=== PATIENT | female | born 1960 | race Caucasian/White ===

== ENCOUNTER 2019-11-26 06:13 | Inpatient (IN) ==
--- NOTE | 2019-11-14 13:45 | PAT Medication Instructions ---
Medication Instructions Date of Service November 14, 2019 Home Medications Dulera 2 puff INHALATION BID Probiotic 3,000 mmu cells PO BID Xarelto 20 mg PO PM acetaminophen [Acetaminophen Extra Strength] 1,000 mg PO DAILY PRN albuterol sulfate 1 puff INHALATION UD PRN aspirin [Aspir-81] 81 mg PO QAM betamethasone dipropionate 1 applic TOPICAL DAILY PRN cephalexin 500 mg PO HS cholecalciferol (vitamin D3) 2,000 unit PO BID furosemide [Lasix] 40 mg PO BID ipratropium-albuterol 3 ml INHALATION UD PRN lamotrigine [Lamictal] 200 mg PO BID levothyroxine 25 mcg PO QAM lisinopril 10 mg PO HS nitroglycerin [Nitrostat] 0.4 mg SUBLINGUAL UD PRN oxycodone 40 mg PO TID pantoprazole 40 mg PO BID polyethylene glycol 3350 [Miralax] 17 g PO HS potassium chloride [Klor-Con 8] 8 meq PO BID pravastatin 40 mg PO HS spironolactone [Aldactone] 25 mg PO BID vitamin B complex 1 tab PO HS calcium carbonate [Calcium 600] 600 mg PO DAILY ASK your prescriber and surgeon Xarelto 20 mg PO PM STOP taking 24 hours before surgery betamethasone dipropionate 1 applic TOPICAL DAILY PRN DO NOT take the morning of surgery Probiotic 3,000 mmu cells PO BID cholecalciferol (vitamin D3) 2,000 unit PO BID furosemide [Lasix] 40 mg PO BID potassium chloride [Klor-Con 8] 8 meq PO BID spironolactone [Aldactone] 25 mg PO BID calcium carbonate [Calcium 600] 600 mg PO DAILY Take morning of surgery With a small sip of water, OTHERWISE NOTHING TO EAT OR DRINK AFTER MIDNIGHT: Dulera 2 puff INHALATION BID acetaminophen [Acetaminophen Extra Strength] 1,000 mg PO DAILY PRN (if needed, may be taken up to four hours before surgery) albuterol sulfate 1 puff INHALATION UD PRN (if needed, and bring with you to the hospital) aspirin [Aspir-81] 81 mg PO QAM ipratropium-albuterol 3 ml INHALATION UD PRN (if needed) lamotrigine [Lamictal] 200 mg PO BID levothyroxine 25 mcg PO QAM nitroglycerin [Nitrostat] 0.4 mg SUBLINGUAL UD PRN (if needed) oxycodone 40 mg PO TID pantoprazole 40 mg PO BID Take evening before surgery Dulera 2 puff INHALATION BID Probiotic 3,000 mmu cells PO BID acetaminophen [Acetaminophen Extra Strength] 1,000 mg PO DAILY PRN (if needed) albuterol sulfate 1 puff INHALATION UD PRN (if needed) cephalexin 500 mg PO HS cholecalciferol (vitamin D3) 2,000 unit PO BID furosemide [Lasix] 40 mg PO BID ipratropium-albuterol 3 ml INHALATION UD PRN (if needed) lamotrigine [Lamictal] 200 mg PO BID lisinopril 10 mg PO HS nitroglycerin [Nitrostat] 0.4 mg SUBLINGUAL UD PRN (if needed) oxycodone 40 mg PO TID pantoprazole 40 mg PO BID polyethylene glycol 3350 [Miralax] 17 g PO HS potassium chloride [Klor-Con 8] 8 meq PO BID pravastatin 40 mg PO HS spironolactone [Aldactone] 25 mg PO BID vitamin B complex 1 tab PO HS Other Notes If you have any questions please call us at [phone] or [phone] or [phone] or [phone]
--- NOTE | 2019-11-15 11:17 | Anesthesiology Consultation ---
Date of Service November 15, 2019 Assessment & Plan (1) Encounter for pre-operative examination: -Patient has dry eye syndrome and h/o corneal abrasions with two previous surgeries. She is concerned about this occurring again. -Potentially difficult spinal due to h/o multiple lumbar fusions--pt made aware eyes will be taped for GA. PATIENT MEETS CRITERIA FOR KETAMINE PROTOCOL. RECOMMENDATIONS FROM PAIN CLINIC FOLLOWS: 1. Aurelia-operatively recommend Exparel injection into the adductor canal. Consider ketamine drip and Lidocaine IV. This has been relayed to PAT. 2. Post-operatively recommend the addition of OxyContin 20mg BID to her typical regimen of Oxycodone 40mg TID. 3. Recommend to post-operatively increase Gabapentin dosage to 600mg TID and initiate Cymbalta at 30mg daily. 4. Post operative medications should be for 4-6 weeks and then changed back to her baseline regimen. 5. If she does not have Narcan at home, recommend Narcan at discharge from hospital after surgery. CARDIOLOGY CLEARANCE (11/22) = "No chest pain or other anginal equivalent. Last cath 05/30/2018 showed widely patent LAD stent and mild nonocclusive CAD. Continue beta-anoop and ASA 81 mg. Patient may stop Xarelto 7 days prior to procedure. Patient is considered low risk for total knee arthroplasty and may proceed with elective surgery. PCP CLEARANCE (11/12) = "I do not see a contraindication to left knee re placement providing the cardiology clears patient and preoperative studies are normal." *All pre-op testing unremarkable except abnormal EKG, which was forwarded to PCP and addressed at cardiology clearance. Cardiology has cleared the patient for sx. Dr. Steinberg (to be assigned to case), OR, ASU, ICU and pharmacy made aware of ketamine protocol. Chart Review Chart Review: Acceptable Risk for Surgery and Patient seen in Pre Admission Testing Consults Requested none Teaching & Discussion Instructed NPO after midnight before surgery, except medications with 15 cc of water. Medication instructions provided according to the PAT guidelines. ASA ASA3 Proposed Anesthesia Anesthesia Type: MAC Spinal Regional Regional Laterality: Left Site: Adductor Canal Risk / Benefits Reviewed With: PT / POA / Parent / Guardian, Accepts Plan and Informed Consent Obtained History Surgery Operation Date: 11/26/19 09:10 Proposed Procedures p Left Total Knee Arthroplasty, Right Knee Injection - Shar Huffman, DO Height/Weight Height: 5 ft 3.5 in Weight: 83.1 kg Allergies Allergy/AdvReac Type Severity Reaction Status Date / Time hydroxychloroquine Allergy Unknown HIVES SOB Verified 11/26/19 06:53 Iodinated Contrast Media Allergy Unknown SEE NOTES Verified 11/26/19 06:53 BELOW Sulfa (Sulfonamide Allergy Unknown HIVES SOB Verified 11/26/19 06:53 Antibiotics) Medications Home Medications Medication Instructions Recorded Confirmed Last Taken Dulera 2 puff INHALATION BID 09/14/18 11/26/19 11/25/19 20:00 Probiotic 3,000 mmu cells PO BID 09/14/18 11/26/19 11/25/19 20:00 Xarelto 20 mg PO PM 09/14/18 11/26/19 11/21/19 acetaminophen [Acetaminophen Extra 1,000 mg PO DAILY PRN 09/14/18 11/26/19 11/18/19 Strength] albuterol sulfate 1 puff INHALATION UD PRN 09/14/18 11/09/19 09/22/18 07:30 aspirin [Aspir-81] 81 mg PO QAM 09/14/18 11/09/19 11/26/19 03:00 betamethasone dipropionate 1 applic TOPICAL DAILY PRN 09/14/18 11/26/19 11/24/19 20:00 cephalexin 500 mg PO HS 09/14/18 11/26/19 11/25/19 20:00 cholecalciferol (vitamin D3) 2,000 unit PO BID 09/14/18 11/26/19 11/25/19 20:00 [Vitamin D3] furosemide [Lasix] 40 mg PO BID 09/14/18 11/26/19 11/25/19 20:00 ipratropium-albuterol 3 ml INHALATION UD PRN 09/14/18 11/09/19 Unknown lamotrigine [Lamictal] 200 mg PO BID 09/14/18 11/26/19 11/26/19 03:00 levothyroxine 25 mcg PO QAM 09/14/18 11/09/19 11/26/19 03:00 lisinopril 10 mg PO HS 09/14/18 11/26/19 11/25/19 20:00 nitroglycerin [Nitrostat] 0.4 mg SUBLINGUAL UD PRN 09/14/18 11/09/19 Unknown oxycodone 40 mg PO TID 09/14/18 11/26/19 11/26/19 03:00 pantoprazole 40 mg PO BID 09/14/18 11/26/19 11/26/19 03:00 polyethylene glycol 3350 [Miralax] 17 g PO HS 09/14/18 11/26/19 11/25/19 20:00 potassium chloride [Klor-Con 8] 8 meq PO BID 09/14/18 11/26/19 11/25/19 20:00 pravastatin 40 mg PO HS 09/14/18 11/26/19 11/25/19 20:00 spironolactone [Aldactone] 25 mg PO BID 09/14/18 11/26/19 11/25/19 20:00 vitamin B complex 1 tab PO HS 09/14/18 11/26/19 11/25/19 20:00 calcium carbonate [Calcium 600] 600 mg PO DAILY 11/08/19 11/26/19 11/25/19 20:00 Active Medications Generic Name Dose Route Start Last Admin Trade Name Quocq PRN Reason Stop Dose Admin Acetaminophen 1,000 mg 11/26/19 06:00 11/26/19 07:51 Tylenol PO 11/26/19 18:00 1,000 mg PREOP AIDEE Administration Dexamethasone 8 mg 11/26/19 06:00 11/26/19 07:52 Decadron PO 11/26/19 18:00 8 mg PREOP AIDEE Administration Gabapentin 600 mg 11/26/19 06:00 11/26/19 07:51 Neurontin PO 11/26/19 18:00 600 mg PREOP AIDEE Administration Lactated Ringer's 1,000 mls @ 15 mls/hr 11/26/19 06:00 11/26/19 07:12 Lr IV 11/26/19 18:00 15 mls/hr .Q24H AIDEE Administration Metoclopramide HCl 10 mg 11/26/19 06:00 11/26/19 07:51 Reglan PO 11/26/19 18:00 10 mg PREOP AIDEE Administration NPO Date Last Intake of Fluids: 11/26/19 Time Last Intake of Fluids: 00:00 Date Last Intake of Solids: 11/26/19 Time Last Intake of Solids: 00:00 Past Medical History Medical History CAD (coronary artery disease), [place] coronary artery s/p single RADHA 2004 Chronic back pain COPD (chronic obstructive pulmonary disease) Daily inhaler, only using prn rescue inhaler once monthly or less Deep vein thrombosis RECURRENT. TAKES XARELTO. LAST 2015 -- H/O PELVIS, LEFT ARM, & LEFT LEG NONE CURRENT GERD (gastroesophageal reflux disease) GI bleed HX OF FROM GASTRIC ULCER. HAD 2 BLOOD TRANFUSIONS 04/2018, EGD 06/06 --> HEMOCLIP PLACED, PT STARTED PPI THERAPY. H/H NOW WNL. Hiatal hernia History of NM (myocardial infarction) "SILENT" PER PATIENT History of MTHFR mutation ON XARELTO History of pulmonary embolism 2015, NOW ON XARELTO HTN (hypertension), benign Hyperlipidemia Hypothyroidism Intermittent self-catheterization of bladder R/T NEUROGENIC BLADDER Migraine LAMICTAL Neurogenic bladder Neurogenic claudication due to lumbar spinal stenosis On anticoagulant therapy KIAH on CPAP Osteoarthritis Peptic ulcer disease EGD WITH HEMOCLIP 06/06/18 Urinary tract infection DAILY ABX FOR PREVENTATIVE CARE Exercise / Class Metabolic Activity III < 4 Walking/Shop/Light housework (LIMITED MOBILITY 2/2 KNEE PAIN; DENIES CP OR SOB WITH AMBULATION ON ONE LEVEL) Past Family History Family History Mother Family history of diabetes mellitus Father Family history of diabetes mellitus Brother Family history of diabetes mellitus Sister Family history of diabetes mellitus Past Surgical History Surgical History Fusion of spine L4-L5, S1-S2 (2007) L3-L4 (2013) L2-L3, HARDWARE REMOVAL L3-L4 (2017) H/O bilateral salpingo-oophorectomy H/O exploratory laparotomy FOR ENDOMETRIOSIS History of appendectomy History of cardiac cath JHONY VALERO (MAY 30, 2018) - NO STENT 05/2016 CATH, NO STENT [facility] (JAN 02, 2005) - 1 STENT TO LAD. History of section History of cholecystectomy LAP History of colonoscopy History of cystoscopy History of esophagogastroduodenoscopy (EGD) History of hysterectomy JOE History of laminectomy LUMBAR (2000) History of tonsillectomy Past Anesthesia History No Hx of Anesthesia Complications and No Family Hx of Anesthesia Complications H/O CORNEAL ABRASION INTRA-OP WITH TWO SEPARATE SURGERIES. 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 Physical Exam Vital Signs Last Vital Signs Temp 99.3 F 11/26/19 07:16 Pulse 71 11/26/19 07:16 Resp 20 11/26/19 07:16 BP 121/65 11/26/19 07:16 Pulse Ox 91 11/26/19 07:16 BP: 110/72 P: 60bpm SPO2: 96% RA T: 96% RA R: 12 ENMT Mouth: no dental restorations, no chipped teeth and no loose teeth Thyromental Distance: < 3.5 Finger Breadths (3) Mallampati Class: III Neck normal visual inspection; neck extension not limited Respiratory normal respiratory effort Auscultation: lungs clear to auscultation bilaterally Cardiovascular Rate/Rhythm: regular rate and regular rhythm Heart Sounds: no murmur Vessels: no carotid bruit Extremities: no edema Testing Laboratory Results 11/15/19 11:38 11/15/19 11:38 PT 11.4 Seconds (9.0-12.0) 11/15/19 11:38 INR 1.1 (0.9-1.1) 11/15/19 11:38 APTT 30.6 Seconds (21.0-31.0) 11/15/19 11:38 Hemoglobin A1c 5.7 % (4.5-5.6) H 11/15/19 11:38 Urine Color Yellow 11/15/19 11:38 Urine Appearance Clear (Clear) 11/15/19 11:38 Urine pH 7.5 (4.5-7.5) 11/15/19 11:38 Ur Specific [place] 1.018 (1.000-1.030) 11/15/19 11:38 Urine Protein Negative (Negative) 11/15/19 11:38 Urine Glucose (UA) Negative (Negative) 11/15/19 11:38 Urine Ketones Negative (Negative) 11/15/19 11:38 Urine Nitrite Negative (Negative) 11/15/19 11:38 Ur Leukocyte Esterase Negative (Negative) 11/15/19 11:38 Urine WBC (Auto) 1-5 /hpf (0-5) 11/15/19 11:38 Urine RBC (Auto) 5-10 /hpf (0-4) H 11/15/19 11:38 U Hyaline Cast (Auto) 0 /lpf (0-5) 11/15/19 11:38 U Epithel Cells (Auto) 10-20 /lpf (0-5) H 11/15/19 11:38 Urine Bacteria (Auto) Negative (Negative) 11/15/19 11:38 Blood Type O Positive 11/15/19 11:38 Antibody Screen NEGATIVE 11/15/19 11:38 Electrocardiogram Date: 11/15/19 Findings: + SB @ (54BPM) ST and T wave abnormality, consider anterolateral ischemia. Compared with EKG of -, questionable change in QRS axis and inverted T waves have replaced nonspecific T wave abnormality in anterolateral leads. Chest X-Ray Date: 11/15/19 Findings: + NAD Hiatal hernia.
--- NOTE | 2019-11-15 12:20 | XRay Report ---
XR chest Pre-admission PA/Lat HISTORY: 59 years-old Female pat preoperative exam. No acute chest complaints COMPARISON: Chest radiograph 06/01/2013 TECHNIQUE: PA and lateral views of the chest FINDINGS: Cardiac silhouette is mildly enlarged. No pneumothorax, pleural effusion or overt pulmonary edema. No focal airspace consolidation to suggest pneumonia. Moderate hiatal hernia. Cholecystectomy. IMPRESSION: 1. No acute process. 2. Hiatal hernia. ACT 112: Negative or not required by law. The above report was generated using voice recognition software. It may contain grammatical, syntax o r spelling errors. Electronically signed by: Ravin Mi M.D. 11/15/2019 12:18 PM
[2019-11-15 12:26] LABS: Basophils # (auto) 0.03 K/uL (0-0.2); Basophils % (auto) 0.4 %; Eosinophils # (auto) 0.09 K/uL (0-0.5); Eosinophils % (auto) 1.3 %; Hematocrit (blood only) 41.1 % (37-47); Hemoglobin 13.2 g/dL (12.0-16.0); Lymphocytes # (auto) 1.49 K/uL (1.2-3.4); Lymphocytes % (auto) 21.4 %; Mean Corpuscular Hemoglobin 29.9 pg (25-34); Mean Corpuscular Hgb Conc 32.1 g/dL (32-36); Mean Platelet Volume 9.1 fL (7.4-10.4); Monocytes # (auto) 0.34 K/uL (0.11-0.59); Monocytes % (auto) 4.9 %; Neutrophils # (auto) 5.01 K/uL (1.4-6.5); Platelet Count 253 K/uL (130-400); RDW Coefficient of Variation 14.1 % (11.5-14.5); RDW Standard Deviation 48.1 fL (36.4-46.3); Red Blood Count 4.42 M/uL (4.2-5.4); White Blood Count 6.96 K/uL (4.8-10.8)
[2019-11-15 12:37] LABS: Albumin Level 3.7 gm/dl (3.4-5.0); BUN Creatinine Ratio 17.7 (10-20); Calcium 8.9 mg/dl (8.5-10.1); Creatinine Clr Calc Pharmacy 66.3 ml/min; Est GFR (African American) 77.9; Est GFR (Non-African American) 67.2; Potassium 4.3 mmol/L (3.5-5.1)
[2019-11-15 12:41] LABS: INR 1.1 (0.9-1.1); Partial Thromboplastin Ratio 1.1; Partial Thromboplastin Time 30.6 Seconds (21.0-31.0); Prothrombin Time 11.4 Seconds (9.0-12.0)
[2019-11-15 12:49] LABS: Estimated Average Glucose 117 mg/dl; Hemoglobin A1C 5.7 % (4.5-5.6)
[2019-11-15 13:06] LABS: Appearance Urine Clear (Clear); Bacteria Urine Automated Negative (Negative); Bilirubin Urine Negative (Negative); Blood Urine Trace (Negative); Cast Urine Automated 0 /lpf (0-5); Color Urine Yellow; Glucose Urine UA Negative (Negative); Ketones Urine Negative (Negative); Leukocyte Esterase Urine Negative (Negative); Nitrite Urine Negative (Negative); Protein Urine Negative (Negative); Specific Gravity Urine 1.018 (1.000-1.030); Urobilinogen Urine Negative (Negative); pH Urine 7.5 (4.5-7.5)
--- NOTE | 2019-11-25 11:48 | History & Physical Report ---
Date of Service November 25, 2019 Assessment & Plan (1) Degenerative joint disease of left knee: I have indicated the patient for left total knee replacement and right knee IA corticosteroid injection. The risks, benefits and complications of surgery were explained to the patient which include but not limited to infection, acute blood loss, DVT/PE, injury to nerves, vessels, bone, soft tissue, arthrofibrosis, chronic pain, failure of the prosthesis, knee dislocation, leg length discrepancy, need for additional surgery, cardiac and pulmonary events and . The patient wished to proceed with surgery and informed consent was obtained at this time. We will plan for restarting the p atients blood thinner, Xarelto post-operatively for DVT prophylaxis. Hx DVT 2015. Upon discharge the patient will be discharged home with home health services. Appropriate clearances by pain mgnt, PCP and cardiology were obtained. (2) Degenerative joint disease of knee, right: History of Present Illness Chief Complaint: Bilateral knee pain/djd Primary Care Provider: Angel Luis Patel MD The patient is a 59 year old female who presents with complaints of severe bilateral knee pain and DJD. The patient has failed outpatient conservative treatments to this point which included NSAIDs, IA corticosteroid injections, bracing, PT/home exercise/walking program. The patient's pain and limited function have progressed to the point where they severely hinder their activities of daily living and they no longer tolerate exercise programs. They are requesting to proceed with left total knee replacement surgery and right knee corticosteroid injection. Allergies Allergy/AdvReac Type Severity Reaction Status Date / Time hydroxychloroquine Allergy Unknown HIVES SOB Verified 11/26/19 06:53 Iodinated Contrast Media Allergy Unknown SEE NOTES Verified 11/26/19 06:53 BELOW Sulfa (Sulfonamide Allergy Unknown HIVES SOB Verified 11/26/19 06:53 Antibiotics) Home Medications Home Medications Medication Instructions Recorded Confirmed Type Dulera 2 puff INHALATION BID 09/14/18 11/09/19 History Probiotic 3,000 mmu cells PO BID 09/14/18 11/09/19 History Xarelto 20 mg PO PM 09/14/18 11/09/19 History acetaminophen [Acetaminophen Extra 1,000 mg PO DAILY PRN 09/14/18 11/09/19 History Strength] albuterol sulfate 1 puff INHALATION UD PRN 09/14/18 11/09/19 History aspirin [Aspir-81] 81 mg PO QAM 09/14/18 11/09/19 History betamethasone dipropionate 1 applic TOPICAL DAILY PRN 09/14/18 11/09/19 History cephalexin 500 mg PO HS 09/14/18 11/09/19 History cholecalciferol (vitamin D3) 2,000 unit PO BID 09/14/18 11/09/19 History [Vitamin D3] furosemide [Lasix] 40 mg PO BID 09/14/18 11/09/19 History ipratropium-albuterol 3 ml INHALATION UD PRN 09/14/18 11/09/19 History lamotrigine [Lamictal] 200 mg PO BID 09/14/18 11/09/19 History levothyroxine 25 mcg PO QAM 09/14/18 11/09/19 History lisinopril 10 mg PO HS 09/14/18 11/09/19 History nitroglycerin [Nitrostat] 0.4 mg SUBLINGUAL UD PRN 09/14/18 11/09/19 History oxycodone 40 mg PO TID 09/14/18 11/09/19 History pantoprazole 40 mg PO BID 09/14/18 11/09/19 History polyethylene glycol 3350 [Miralax] 17 g PO HS 09/14/18 11/09/19 History potassium chloride [Klor-Con 8] 8 meq PO BID 09/14/18 11/09/19 History pravastatin 40 mg PO HS 09/14/18 11/09/19 History spironolactone [Aldactone] 25 mg PO BID 09/14/18 11/09/19 History vitamin B complex 1 tab PO HS 09/14/18 11/09/19 History calcium carbonate [Calcium 600] 600 mg PO DAILY 11/08/19 11/09/19 History Past Med/Surg History Medical History CAD (coronary artery disease), [place] coronary artery s/p single RADHA 2004 Chronic back pain COPD (chronic obstructive pulmonary disease) Daily inhaler, only using prn rescue inhaler once monthly or less Deep vein thrombosis RECURRENT. TAKES XARELTO. LAST 2015 -- H/O PELVIS, LEFT ARM, & LEFT LEG NONE CURRENT GERD (gastroesophageal reflux disease) GI bleed HX OF FROM GASTRIC ULCER. HAD 2 BLOOD TRANFUSIONS 04/2018, EGD 06/06 --> HEMOCLIP PLACED, PT STARTED PPI THERAPY. H/H NOW WNL. Hiatal hernia History of MD (myocardial infarction) "SILENT" PER PATIENT History of MTHFR mutation ON XARELTO History of pulmonary embolism 2015, NOW ON XARELTO HTN (hypertension), benign Hyperlipidemia Hypothyroidism Intermittent self-catheterization of bladder R/T NEUROGENIC BLADDER Migraine LAMICTAL Neurogenic bladder Neurogenic claudication due to lumbar spinal stenosis On anticoagulant therapy KIAH on CPAP Osteoarthritis Peptic ulcer disease EGD WITH HEMOCLIP 06/06/18 Urinary tract infection DAILY ABX FOR PREVENTATIVE CARE Surgical History Fusion of spine L4-L5, S1-S2 (2007) L3-L4 (2013) L2-L3, HARDWARE REMOVAL L3-L4 (2017) H/O bilateral salpingo-oophorectomy H/O exploratory laparotomy FOR ENDOMETRIOSIS History of appendectomy History of cardiac cath JHONY VALERO (MAY 30, 2018) - NO STENT 05/2016 CATH, NO STENT [facility] (JAN 02, 2005) - 1 STENT TO LAD. History of section History of cholecystectomy LAP History of colonoscopy History of cystoscopy History of esophagogastroduodenoscopy (EGD) History of hysterectomy JOE History of laminectomy LUMBAR (2000) History of tonsillectomy Family History Mother Family history of diabetes mellitus Father Family history of diabetes mellitus Brother Family history of diabetes mellitus Sister Family history of diabetes mellitus Social History Preferred Language: [place]ian Communication Ability: Effective Home Health Care Coordinator Required: No Beliefs That Will Affect Care: None Current Living Situation: Spouse Other Information That Helps Us Care for You: No Feels Safe at Home: Yes Smoking Status: Former smoker Tobacco Type: cigarettes ; Cigarettes Per Day: H/O 10-20 ; Do You Dip or Chew Tobacco: No ; Smoking End Date: SEP 21 2018 ; Second Hand Exposure: No ; Hx Alcohol Use: No Hx Substance Use: Yes substance use type: prescription drug Substance Use Type Other:: PREVIOUSLY ON METHADONE Review of Systems Review of Systems: All systems reviewed & are unremarkable except as noted in HPI & below Constitutional: as per Subjective / HPI Physical Exam Physical Exam: RLE NVSI +EHL/FHL/TA/GS SILT grossly, +2 DP pulse, compartments soft NT, painful limited ROM 5-110 degrees flexion, +crepitus. LLE NVSI +EHL/FHL/TA/GS SILT grossly, +2 DP pulse, compartments soft NT, painful limited ROM 5-110 degrees of flexion Constitutional: WD/WN, vitals as above Eyes: PERRL, conjunctivae normal, anicteric sclerae ENMT: external ear and nose normal, oropharynx normal Neck: trachea midline, no thyromegaly Respiratory: normal respiratory effort, lungs clear to auscultation Cardiovascular: RRR, no murmur, no edema Gastrointestinal (Abdomen): normal bowel sounds, soft, nontender, no hepatosplenomegaly Musculoskeletal: no cyanosis or clubbing, extremities motor strength 5/5 Skin: no rashes, warm and dry Neurologic: patellar DTR's 2+ bilat, sensation intact Psychiatric: A+Ox3, euthymic affect Lymphatic: no cervical or axillary lymphadenopathy Results & Data Diagnostic Findings Multiple views of bilateral knees demonstrates severe tricompartmental DJD of the left knee with complete loss of the medial joint space. +osteophytes, +sclerosis, +subchondral cysts. Near complete loss of the medial joint space on the right knee with osteophytes and sclerosis.
[~2019-11-26 06:13] MED LIST: ACETAMINOPHEN 500 MG TAB PO SCH; CEFAZOLIN 2000MG 2,000 MG/15 ML SYR IV SCH; CeleBREX 200 MG CAP PO SCH; GABAPENTIN 600 MG DOSE PO SCH; KETAMINE / NSS 500 MG/500 ML BAG IV SCH; LR 500ML BOLUS, THEN 15ML/HR IV SCH; METOCLOPRAMIDE HCL 10 MG TABLET PO SCH; ROPIVACAINE 0.5% HCL/PF 150 MG, BUPIVACAINE 0.5% MPF 30 ML, EPINEPHrine 30MG/30ML (OR U... INSTIL SCH; TRANEXAMIC ACID 1,000 MG **IV Intra-op IV SCH; TRANEXAMIC ACID 1,000 MG **IV Pre-op IV SCH; dexAMETHasone 4 MG TAB PO SCH
--- OUTSIDE RECORDS SUMMARY | 2019-11-26 06:18 | External Medical Summary | Continuity of Care Document ---
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) DVT (deep venous thrombosis) (453.40) (I82.409) Shortness of breath (786.05) (R06.02) Mass of pancreas (577.8) (K86.89) GERD without esophagitis (530.81) (K21.9) Cath Stent Placement Chest pain (786.50) (R07.9) Hiatal hernia (553.3) (K44.9) Hypertension (401.9) (I10) Lower back pain (724.2) (M54.5) Cough (786.2) (R05) Allergic rhinitis (477.9) (J30.9) Post-nasal drip (784.91) (R09.82) Chronic pain syndrome (338.4) (G89.4) Ankle fracture, right (824.8) (S82.891A) Hypercholesterolemia (272.0) (E78.00) Edema (782.3) (R60.9) Allergies and Adverse Reactions Hydroxychloroquine Sulfate TABS (Allergy) Iodine SOLN (Allergy) Plaquenil TABS (Allergy) Sulfa Drugs (Allergy) Medications Iron TABS , M.D. Refills: 0 LaMICtal TABS; 100 mg Take 1 tab in the morning and 2 tabs night. , M.D. Refills: 0 Vitamin D3 50 MCG (2000 UT) Oral Capsule; TAKE 2 CAPSULE Leatha ly , M.D. Refills: 0 Aspirin 81 MG TABS; TAKE 1 TABLET DAILY. , M.D. Refills: 0 Vitamin B Complex TABS , M.D. Refills: 0 Lisinopril 10 MG Oral Tablet; TAKE 1 TABLET DAILY DIRECTE D. , M.D. Start: 31-Jan-2017 Quantity: 30 Refills: 5 Synthroid 25 MCG Oral Tablet; TAKE 1 TABLET DAILY DIRECTE D. , M.D. Start: 31-Jan-2017 Quantity: 90 Refills: 1 Xarelto 15 MG Oral Tablet; Take 1 tablet daily , M.D. Start: 31-Jan-2017 Refills: 0 Methadone HCl TABS; TAKE 12.5MG 3 TIMES DAILY , M.D. Start: 16-Dec-2014 Refills: 0 Doxycycline Hyclate 100 MG Oral Capsule; TAKE 1 CAPSUL E EVERY 12 HOURS DAILY. LEE Parks Start: 08-Jun-2013 Quantity: 20 Refills: 0 Dulera 200-5 MCG/ACT Inhalation Aerosol; INHALE 1 PUFF S Twice daily TYRA Curtis 13 GM Inhaler Quantity: 4 Refills: 0 Acetaminophen 500 MG CAPS , M.D. Refills: 0 Probiotic Oral Capsule , M.D. Refills: 0 Saline Nasal [place] 0.65 % Nasal Solution ; USE 1 SPRAY IN EACH NOSTRIL TWICE DAILY. , M.D. Start: 28-Apr-2018 Refills: 0 30 ML Bottle Pantoprazole Sodium 40 MG Oral Tablet De layed Release; TAKE 1 TABLET TWICE DAILY 30 MINUTES BEFORE BREAKFAST AND DINNER. LEE Parks Start: 2013 Refills: 0 oxyCODONE HCl TABS; TAKE 40MG 3 TIMES DAILY , M.D. Refills: 0 Klor-Con 8 MEQ Oral Tablet Extended Release; TAKE 2 TABLET D Birgit bowmanD. Refills: 0 Polyethylene Glycol 3350 PACK , M.D. Refills: 0 Nitrostat 0.4 MG Sublingual Tablet Subli ngual; PLACE 1 TABLET UNDER THE TONGUE EVERY 5 MINUTES FOR UP TO 3 DOSES NEEDED FOR CHEST PAIN.CALL 911 IF PAIN PERSISTS. LEE Parks Quantity: 75 Refills: 3 DuoNeb 0.5-2.5 (3) MG/3ML SOLN; USE 1 UN IT DOSE IN NEBULIZER EVERY 4 HOURS NEEDED. , M.D. Quantity: 125 Refills: 5 Calcium TABS; 400 mg in morning and 600 mg at night. , M.D. Refills: 0 Ventolin HFA 108 (90 Base) MCG/ACT Inhal ation Aerosol Solution; INHALE 2 PUFFS EVERY 4 HOURS NEEDED LEE Parks 18 GM Inhaler Quantity: 1 Refills: 1 predniSONE 10 MG Oral Tablet; Take 4 pil ls daily for 2 days, then 3 pills daily for 2 days, then 2 pills daily for 2 days, then 1 pill daily for 2 days. LEE Parks Start: 24-May-2013 Quantity: 20 Refills: 0 Spironolactone 50 MG Oral Tablet; TAKE 1 TABLET DAILY. , M.D . Refills: 0 Pravastatin Sodium 40 MG Oral Tablet; TAKE 1 TABLET DAILY. , M.D. Refills: 0 Procedures History of Cath Stent Placement Status: Completed History of Tonsillectomy Status: Complet ed History of Appendectomy Status: Complete d History of Cholecystectomy Status: Compl eted History of Section Status: Comp leted History of Hysterectomy Status: Complete d History of Oophorectomy Status: Complete d History of Back Surgery Status: Complete d History of Bronchoscopy (Diagnostic) Sta tus: Completed Cath Stent Placement History of Knee Arthroplasty Status: Com pleted Immunizations Pneumococcal polysaccharide vaccine, 23 valent On: 16-Jun-20 12 Tdap On: 17-Jul-2012 Influenza On: Jul-2012 Influenza On: 15-Oct-2013 14:40 Lot #: [id number], [employer] Influenza On: 2013 Family History Mother Family history of Heart Disease (V17.49) Status: Active Family history of Diabetes Mellitus (V18.0) Status: Active Father Family history of Heart Disease (V17.49) Status: Active Family history of Diabetes Mellitus (V18.0) Status: Active Unknown Family Member Family history of Heart Disease (V17.49) Status: Active Comments: Family History Family history of Diabetes Mellitus (V18.0) Status: Active Comments: Family History Family history of Lung Cancer (V16.1) Status: Active Co mments: Family History Family history of Non-Hodgkin's Lymphoma Status: Active Comments: Family History Brother Family history of Lung Cancer (V16.1) Status: Active Family history of Non-Hodgkin's Lymphoma Status: Active Family history of myocardial infarction (V17.3) (Z82.49) Sta tus: Active Social History - Smoking Status Unknown if ever smoked Current every day smoker Interventions SuppliesBiPAP/Supplies; Done: 13 Apr 2019 Plan of Treatment Planned Observations Planned Goals not documented Results No Known Results Results not documented Encounters Appointment; Mariely Curtis CRNP 16-Oct-2018 9:15 Encounter Diagnosis: Problem not documented Appointment; Franco Parks PA-C 17-Apr-2018 9:00 Encounter Diagnosis: Problem not documented
[2019-11-26] MEDS ORDERED: BUPIVACAINE 0.5 % 5 MG/1 ML PF 10ML VIAL ONE (06:33)
--- NOTE | 2019-11-26 06:52 | History & Physical Bridge Note ---
Date of Service November 26, 2019 History & Physical Bridge Note I have examined the patient, reviewed the History & Physical and in the interval since the performance of the History & Physical I have noted the following changes of clinical significance: no changes noted
[2019-11-26] MEDS ORDERED: BACITRACIN INJ 50,000 UNIT VIAL ONE (07:52)
[2019-11-26] MEDS ORDERED: ORTHO JOINT ANESTHETIC ONE (07:52)
[2019-11-26] MEDS ORDERED: MIDAZOLAM HCL 1 MG/ML 2ML VIAL ONE (07:54)
[2019-11-26] MEDS ORDERED: BUPIVACAINE 0.5 % 5 MG/1 ML MPF 30ML VIAL ONE (08:12)
[2019-11-26] MEDS ORDERED: methylPREDNISolone acetate 80 MG/ML VIAL ONE (08:13)
[2019-11-26] MEDS ORDERED: fentaNYL citrate 100 MCG/2 ML VIAL ONE (08:22)
[2019-11-26] MEDS ORDERED: fentaNYL citrate 100 MCG/2 ML VIAL IV PRN (08:24)
[2019-11-26] MEDS ORDERED: ATROPINE SULFATE 0.1 MG/ML 10ML SYR IV PRN (08:24)
[2019-11-26] MEDS ORDERED: ePHEDrine sulfate 50 MG/ML AMP IV PRN (08:24)
[2019-11-26] MEDS ORDERED: ONDANSETRON INJ 2 MG/ML 2 ML VIAL IV PRN ×2 (08:24→13:44)
[2019-11-26] MEDS ORDERED: SCOPOLAMINE 1.5 MG TDSY ONE (09:03)
[2019-11-26] MEDS ORDERED: PROPOFOL IV EMULSION 10 MG/ML 20 ML VIAL IV ONE (10:13)
[2019-11-26] MEDS ORDERED: ONDANSETRON INJ 2 MG/ML 2 ML VIAL ONE (10:13)
[2019-11-26] MEDS ORDERED: LIDOCAINE HCL 2% 2 ML VIAL/AMP(20MG/ML) INFIL ONE (10:13)
[2019-11-26] MEDS ORDERED: DEXAMETHASONE SOD INJ 4 MG/ML VIAL ONE (10:13)
[2019-11-26] MEDS ORDERED: ePHEDrine sulfate 50 MG/ML SYR ONE (10:14)
--- NOTE | 2019-11-26 11:16 | Post Operative Brief Note ---
Immediate Post Op Note v1 Date of Surgery November 26, 2019 Pre & Post Diagnosis Operation Date: 11/26/19 09:10 Pre-Op Diagnosis: Bilateral Knee Osteoarthritis Post-Op Diagnosis: Bilateral Knee Osteoarthritis I identified the patient and participated in the time-out.: Yes Procedure Operation Date: 11/26/19 09:10 Actual Procedures p Left Total Knee Arthroplasty, Right Knee Injection(Bilateral) - Shar Huffman DO Surgeon Shar Huffman DO Bench Worker Apprentice Librado Padilla Estimated Blood Loss 65 Findings Consistent with Post-Op Diagnosis Fluids 1100 cc LR Specimens Proximal tibia and distal femur bone fragment Drains Hemovac Drain (Dual Trocar) Anesthesia Type Spinal MAC Complications none Disposition Disposition: Recovery Room Overlapping Procedure I was present for: the critical portions of procedure. I was immediately available: during the entire case. Back up surgeon: was not required during procedure.
--- NOTE | 2019-11-26 11:37 | Operative Report ---
Post Operative Report Pre & Post Diagnosis Operation Date: 11/26/19 09:10 Pre-Op Diagnosis: Bilateral Knee Osteoarthritis Post-Op Diagnosis: Bilateral Knee Osteoarthritis I identified the patient and participated in the time-out.: Yes Procedure Operation Date: 11/26/19 09:10 Actual Procedures p Left Total Knee Arthroplasty, Right Knee Injection(Bilateral) - Shar Huffman DO Surgeon Shar Huffman, Social Media Job Titles Librado Padilla Estimated Blood Loss 65 Findings Consistent with Post-Op Diagnosis Specimens Proximal tibia and distal femur bone fragments Anesthesia Type Spinal MAC Complications none Disposition Disposition: Recovery Room Indications The patient is a 59-year-old female presents with long history of severe bilateral knee tricompartmental DJD and failed outpatient conservative treatments including NSAIDs, bracing, injections and home walking/exercise program. The patient's symptoms have progressed to the point where it has been difficult to perform normal activities of daily living. I have indicated the patient for a right knee intra-articular corticosteroid injection, left total knee arthroplasty, the risks and benefits and complications of the procedure include but are not limited to infection bleeding damage to bone, nerves, vessels, surrounding soft tissue, blood clots, loss of function, leg length discrepancy, dislocation, failure of the components, need for additional surgery and . The patient wished to proceed with surgery at this time and informed consent was obtained. Appropriate clearances were obtained. Description of Procedure COMPONENTS USED: Nathan persona knee system: Femur size 7 narrow, Tibia size E, tibial articulating surface 10 PS, Patella 32 mm Following induction of spinal anesthesia, the patient was brought to the operating room and transferred to the OR table. A time out was performed and the patient right knee was identified and site vicente verified. The right knee was prepped in the standard sterile fashion utilizing Betadine and alcohol swabs. Next, a intra-articular corticosteroid injection was provided through the anterior lateral knee with a mixture of 2cc Methylprednisolone Acetate 80mg and 3cc .5% Bupivacaine. Adhesive bandage was applied. Next, a tourniquet was applied to the proximal aspect of the left thigh and the patient's left leg was prepped and draped in the usual sterile manner. A second timeout was performed, patient identified and site vicente confirmed. Appropriate pre-operative IV antibiotics were given. The limb was exsanguinated with an Esmarch bandage and tourniquet was inflated to 300 mmHg. A longitudinal midline incision was made over the anterior knee. Subcutaneous tissue was sharply dissected down to fascia. Electrocautery was used for hemostasis. Next a parapatellar arthrotomy was performed. Patella was everted and the knee was flexed. A Leyva retractor was used to expose the synovium above on the anterior aspect of the femur and removed down to bone. Next, the anterior fat pad was removed to aid in visualization. The medial face of the tibia was cleared of soft tissue first with a Bovie and a lloyd elevator. This tissue was retracted posteriorly using a blunt Hohmann. Next, the extra-medullary tibial cutting guide was placed to the anterior aspect of the tibia. The tibia resection level was set taking 2mm from the defective tibial condyle. Resection depth was once again confirmed with bella wing. The medial and lateral collateral ligament was protected with two Hohmann retractors. The tibia guide was removed and proximal tibial bone fragment removed utilizing straight osteotome, electrocautery and Jeovany. Next, the distal femur intramedullary canal was accessed utilizing the step drill. The intramedullary distal femur cutting guide was placed into the canal and pinned into place. The distal femur was cut on the 5 degree +4 setting. Next the cutting guide was removed and the femur was sized. Care was taken to ensure appropriate methods and procedures analyst all rotation and 3 degree holes were drilled. A size 7 4-in-1 cutting block was placed on the distal end of the femur and secured into place with two short headed screws. Two bent Hohmann retractors were placed to protect the medial and lateral collateral ligaments. The oscillating saw was used to cut anterior, posterior, anterior chamfer and posterior chamfer. The four and one cutting block was removed and bone fragments excised. Laminar process artist was placed laterally and the ACL and PCL were removed followed by the medial meniscus and posterior medial osteophytes. Aquamantys was utilized for any posterior medial bleeders and Orthomix injected into the posterior medial capsule. A laminar process artist was then placed in the medial compartment and the lateral meniscus and posterior osteophytes were removed. Aquamantys was utilized for any posterior lateral bleeders and Orthomix injected into the posterior lateral capsule. Next, drop debo and spacer block were placed with the leg in flexion and extension to assess alignment and flexion/extension gaps. Next, the proximal tibia was assessed and two bent Hohmans were placed medial and lateral to aid in visualization. The appropriate tibia size and rotation was selected and a size E tibial plate was pinned into place with appropriate rotation. Preparation of the tibia was completed utilizing the matching tibial drill and broach. I then turned my attention back to the distal femur in a trial femoral component was impacted into place. Appropriate femoral width was assessed and selected. Next the femur PS box cut guide was placed and cut made with the reciprocal saw and the PS box provisional placed. A trial size 10 PS tibia articular tray was placed and varus-valgus balance assessed in 0 degrees of extension and 30, 60 and 90 degrees of flexion. A final tibial articular surface size 10 PS was chosen. Assess was gained to the patella and caliper utilized to measure width. The patella reamer was utilized and remaining bone removed with oscillating saw. A size 32 patella button was selected and the patella pegs drilled. Trial patella button was placed and tracking was assessed. The knee was found to be well balanced, well aligned with excellent patella tracking. The trials were removed and final components were obtained and assembled. The knee was irrigated copiously with sterile saline solution mixed with bacitracin. Access to the proximal tibia was once again obtained utilizing to the Hohmans and the proximal tibia and distal femur were dried with lap sponges. The final components were cemented into place and all excess cement was removed. A trial tibial articular surface was placed while cemented hardened. Knee stability was once again assessed and the final component inserted. A Betadine soak was performed. After 3 minutes, the hip was once more irrigated with copious sterile saline solution with bacitracin. The knee was injected with the remaining Orthomix which includes a combination of Ropivicaine 0.5% 150mg, Bupivicaine 0.5%/Epinephrine 1:200,000 30ml, Toradol 30mg, Dexamethasone 4mg, Ketamine 10mg, Clonidine 100mcg and NSS 30ml solution. The capsulotomy was closed with #1 Vicryl followed by subcutaneous closure with 2-0 Vicryl suture and a 3-0 V-lock suture. Skin closure was performed using Prineo dressing followed by Telfa, 4 x 4s and gaye wrap. Tourniquet was deflated at 105 minutes. The patient tolerated the procedure well and was taken to the PACU in stable condition. Due to the complex nature of the procedure, the entire surgery was performed with the operational assistance of Librado Padilla PA-C. The payroll assistant, under direct supervision, was involved in the actual performance of all aspects of the surgical procedure including patient positioning, hemostasis, tissue retraction, instrument management and wound closure. I attest to the content of the Intraoperative Record and any orders documented therein. Any exceptions are noted below.
--- NOTE | 2019-11-26 12:21 | Anesthesiology Progress Note ---
Date of Service November 26, 2019 Anesthesia Post Procedure Vital Signs Vital Signs: Temp Pulse Pulse Resp BP BP Pulse Ox 11/26/19 12:15 74 16 118/67 94 11/26/19 12:05 77 16 117/62 94 11/26/19 11:55 77 16 118/65 94 11/26/19 11:49 99.5 F 77 16 119/62 94 11/26/19 07:16 99.3 F 71 20 121/65 91 Pain Intensity Bilateral Pelvic: Pain Intensity: 6 Left Knee: Pain Intensity: 7 Right Knee: Pain Intensity: 6 Bilateral Lower Back: Pain Intensity: 7 Transfer of Care Handoff Completed per policy Notes Mental Status: alert / awake / arousable and participated in evaluation Patient Amnestic to Procedure: Yes Nausea / Vomiting: adequately controlled Pain: adequately controlled Airway Patency, RR, SpO2: stable & adequate BP & HR: stable & adequate Hydration State: stable & adequate Neuraxial Anesthesia: was administered and sensory block is resolving Anesthetic Complications: no major complications apparent and Pt Satisfied with anesthetic care
--- NOTE | 2019-11-26 12:25 | XRay Report ---
LEFT KNEE 2 VIEWS History: Left total knee arthroplasty. Degenerative arthritis. Postop. FINDINGS: The patient is status post a left total knee arthroplasty. The hardware is intact. No fract ure or dislocation. Skin sukhwinder and surgical drains are in place. IMPRESSION: Left total knee arthroplasty. No evidence for hardware complication. ACT 112: Negative or not required by law. Electronically signed by: Chavo Almeida M.D. 11/26/2019 12:24 PM
[2019-11-26] MEDS ORDERED: ALBUTEROL HFA 8 GM INHALER INH PRN (12:57)
[2019-11-26] MEDS ORDERED: NITROGLYCERIN SL 0.4 MG/TAB TAB SL PRN (12:57)
[2019-11-26] MEDS ORDERED: ALBUT/IPRATROP 3MG/0.5MG NEB 3 ML VIAL INH PRN (12:57)
[2019-11-26] MEDS ORDERED: MAGNESIUM HYDROXIDE SUSP 30 ML UDC PO PRN (13:44)
[2019-11-26] MEDS ORDERED: bisacodyL 10 MG SUPP PR PRN (13:44)
[2019-11-26] MEDS ORDERED: METOCLOPRAMIDE HCL INJ 5 MG/ML 2 ML VIAL IV PRN (13:44)
[2019-11-26] MEDS ORDERED: NALOXONE HCL 0.4 MG/1 ML VIAL/CARP IV PRN (13:44)
[2019-11-26] MEDS ORDERED: Nursing to Pharmacy Communication ONE (13:54)
[2019-11-26] MEDS ORDERED: MIDAZOLAM HCL 1 MG/ML 2ML VIAL IV PRN (13:55)
--- NOTE | 2019-11-26 13:56 | Critical Care Consultation ---
Date of Consultation November 26, 2019 Assessment & Plan (1) Degenerative joint disease of knee, right: Reason critically ill: Patient here for scheduled ketamine drip for 24 hours Neuro: Intact Cam ICU negative No neuro deficits Respiratory: No respiratory distress breathing comfortably on 3L Will continue to monitor end tidal CO2 monitoring while on drip Cardiovascular History of [place] no acute changes on ECG, no symptoms of worsening cardiac function or angina History of DVT/PE on rivaroxaban held for last seven days, may restart when surgery signs off History of HTN Continue lisinopril 10 GI: No concerns at present Renal: No concerns at present Will continue to monitor in ICU until finishes with drip. Patient following pain management protocol as follows RECOMMENDATIONS FROM PAIN CLINIC FOLLOWS: 1. Aurelia-operatively recommend Exparel injection into the adductor canal. Consider ketamine drip and Lidocaine IV. This has been relayed to PAT. 2. Post-operatively recommend the addition of OxyContin 20mg BID to her typical regimen of Oxycodone 40mg TID. 3. Recommend to post-operatively increase Gabapentin dosage to 600mg TID and initiate Cymbalta at 30mg daily. 4. Post operative medications should be for 4-6 weeks and then changed back to her baseline regimen. 5. If she does not have Narcan at home, recommend Narcan at discharge from hospital after surgery. (2) Opioid dependence: (3) Degenerative joint disease of left knee: (4) Chronic obstructive pulmonary disease: (5) Sleep apnea: (6) Hyperlipidemia: (7) Hypertension: (8) GERD (gastroesophageal reflux disease): Supervising Physician Co-Signing Physician Notes Dr. Steiner was resident physician during care of patient. I separately evaluated patient for black portions of the history and the exam. I was present during the critical portion of medical decision making, and I discussed the case with the resident. I generally agree with the findings and plan. Planned ICU admission for ketamine administration for desensitization of mu receptors following orthopedic surgery. History of Present Illness Reason for Consultation: Patient here for planned ketamine infusion after surgery Requesting Physician: Shar Huffman DO Attending Physician: Shar Huffman DO History of Present Illness Patti Davis is a 59 year old woman with a past medical history significant for Chronic pain secondary to osteoarthritis of hips, spine and knees. Is on large amount of opiate medications at home, filling 180 20 mg tablets of oxycodone every month. Was seen by pain management prior to procedure and r ecommendation was made for post op ketamine drip. She is here for administration of that drip. Allergies Allergy/AdvReac Type Severity Reaction Status Date / Time hydroxychloroquine Allergy Unknown HIVES SOB Verified 11/26/19 06:53 Iodinated Contrast Media Allergy Unknown SEE NOTES Verified 11/26/19 06:53 BELOW Sulfa (Sulfonamide Allergy Unknown HIVES SOB Verified 11/26/19 06:53 Antibiotics) Home Medications Home Medications Medication Instructions Recorded Confirmed Type Dulera 2 puff INHALATION BID 09/14/18 11/26/19 History Probiotic 3,000 mmu cells PO BID 09/14/18 11/26/19 History Xarelto 20 mg PO PM 09/14/18 11/26/19 History acetaminophen [Acetaminophen Extra 1,000 mg PO DAILY PRN 09/14/18 11/26/19 History Strength] albuterol sulfate 1 puff INHALATION UD PRN 09/14/18 11/09/19 History aspirin [Aspir-81] 81 mg PO QAM 09/14/18 11/09/19 History betamethasone dipropionate 1 applic TOPICAL DAILY PRN 09/14/18 11/26/19 History cephalexin 500 mg PO HS 09/14/18 11/26/19 History cholecalciferol (vitamin D3) 2,000 unit PO BID 09/14/18 11/26/19 History [Vitamin D3] furosemide [Lasix] 40 mg PO BID 09/14/18 11/26/19 History ipratropium-albuterol 3 ml INHALATION UD PRN 09/14/18 11/09/19 History lamotrigine [Lamictal] 200 mg PO BID 09/14/18 11/26/19 History levothyroxine 25 mcg PO QAM 09/14/18 11/09/19 History lisinopril 10 mg PO HS 09/14/18 11/26/19 History nitroglycerin [Nitrostat] 0.4 mg SUBLINGUAL UD PRN 09/14/18 11/09/19 History oxycodone 40 mg PO TID 09/14/18 11/26/19 History pantoprazole 40 mg PO BID 09/14/18 11/26/19 History polyethylene glycol 3350 [Miralax] 17 g PO HS 09/14/18 11/26/19 History potassium chloride [Klor-Con 8] 8 meq PO BID 09/14/18 11/26/19 History pravastatin 40 mg PO HS 09/14/18 11/26/19 History spironolactone [Aldactone] 25 mg PO BID 09/14/18 11/26/19 History vitamin B complex 1 tab PO HS 09/14/18 11/26/19 History calcium carbonate [Calcium 600] 600 mg PO DAILY 11/08/19 11/26/19 History Patient History Medical History CAD (coronary artery disease), [place] coronary artery s/p single RADHA 2004 Chronic back pain COPD (chronic obstructive pulmonary disease) Daily inhaler, only using prn rescue inhaler once monthly or less Deep vein thrombosis RECURRENT. TAKES XARELTO. LAST 2015 -- H/O PELVIS, LEFT ARM, & LEFT LEG NONE CURRENT GERD (gastroesophageal reflux disease) GI bleed HX OF FROM GASTRIC ULCER. HAD 2 BLOOD TRANFUSIONS 04/2018, EGD 06/06 --> HEMOCLIP PLACED, PT STARTED PPI THERAPY. H/H NOW WNL. Hiatal hernia History of AK (myocardial infarction) "SILENT" PER PATIENT History of MTHFR mutation ON XARELTO History of pulmonary embolism 2015, NOW ON XARELTO HTN (hypertension), benign Hyperlipidemia Hypothyroidism Intermittent self-catheterization of bladder R/T NEUROGENIC BLADDER Migraine LAMICTAL Neurogenic bladder Neurogenic claudication due to lumbar spinal stenosis On anticoagulant therapy KIAH on CPAP Osteoarthritis Peptic ulcer disease EGD WITH HEMOCLIP 06/06/18 Urinary tract infection DAILY ABX FOR PREVENTATIVE CARE Surgical History Fusion of spine L4-L5, S1-S2 (2007) L3-L4 (2013) L2-L3, HARDWARE REMOVAL L3-L4 (2017) H/O bilateral salpingo-oophorectomy H/O exploratory laparotomy FOR ENDOMETRIOSIS History of appendectomy History of cardiac cath [facility] (MAY 30, 2018) - NO STENT 05/2016 CATH, NO STENT [facility] (JAN 02, 2005) - 1 STENT TO LAD. History of section History of cholecystectomy LAP History of colonoscopy History of cystoscopy History of esophagogastroduodenoscopy (EGD) History of hysterectomy JOE History of laminectomy LUMBAR (2000) History of tonsillectomy Family History Mother Family history of diabetes mellitus Father Family history of diabetes mellitus Brother Family history of diabetes mellitus Sister Family history of diabetes mellitus Social History Preferred Language: Hungarian Communication Ability: Effective Metal Polisher Required: No Beliefs That Will Affect Care: None Current Living Situation: Spouse Other Information That Helps Us Care for You: No Feels Safe at Home: Yes Smoking Status: Former smoker Tobacco Type: cigarettes ; Cigarettes Per Day: H/O 10-20 ; Do You Dip or Chew Tobacco: No ; Smoking End Date: SEP 21 2018 ; Second Hand Exposure: No ; Hx Alcohol Use: No Hx Substance Use: Yes substance use type: prescription drug Substance Use Type Other:: PREVIOUSLY ON METHADONE Review of Systems Constitutional: + body aches (Mild left sided ache); no fever and no chills Respiratory: no cough and no dyspnea Cardiovascular: no chest pain and no dyspnea at rest Gastrointestinal: no abdominal pain, no nausea and no vomiting Patient is very hungry eating many crackers Physical Exam Constitutional: WD/WN, vitals as above Eyes: PERRL, conjunctivae normal, anicteric sclerae ENMT: external ear and nose normal, oropharynx normal Respiratory: normal respiratory effort, lungs clear to auscultation Cardiovascular: Rate/Rhythm: regular rate and regular rhythm Heart Sounds: no click, no gallop, no murmur and no cardiac rub Gastrointestinal (Abdomen): normal bowel sounds, soft, nontender, no hepatosplenomegaly Results & Data Vital Signs (Past 12 Hours) Vital Signs Temp Pulse Pulse Resp BP BP Pulse Ox 11/26/19 12:25 36.8 C 76 16 114/72 94 11/26/19 12:15 74 16 118/67 94 11/26/19 12:05 77 16 117/62 94 11/26/19 11:55 77 16 118/65 94 11/26/19 11:49 37.5 C 77 16 119/62 94 11/26/19 07:16 37.4 C 71 20 121/65 91 Resident Activity Tracking Resident Involvement: Resident Care Provided Care Provided: Adult Hospital Medicine
[2019-11-26] MEDS ORDERED: KETAMINE HCL / NSS 500 MG/500 ML BAG IV SCH (14:00)
[2019-11-26] MEDS ORDERED: SODIUM CHLORIDE 0.9% 1000ML 1,000 ML IV SCH (15:00)
[2019-11-26] MEDS: ACETAMINOPHEN 500 MG TAB PO SCH ×2 (15:05→21:29)
--- NOTE | 2019-11-26 15:09 | Orthopedic Progress Note ---
Date of Service November 26, 2019 Assessment & Plan (1) Degenerative joint disease of left knee: s/p Left TKA -ancef x 24 -DVT ppx: SCDs, TEDs, Xarelto -WBAT LLE -PT/OT -PO XR demonstrates a well aligned well fixed prosthesis without fracture/dislocation - am labs -Patient on ketamine drip, once discontinued will start PO medications per pain mgnt recs -DC planning (2) Degenerative joint disease of knee, right: s/p Right knee IA corticosteroid injection Subjective Post Operative Progress Note Patient seen sitting up in bed, comfortable, denies complaints, pain well controlled, no acute issues. Still feeling effects of spinal anesthesia. Review of Systems Review of Systems: All systems reviewed & are unremarkable except as noted in HPI & below Constitutional: as per Subjective / HPI Physical Exam Physical Exam: PE B/L LE limited secondary to spinal anesthesia, dressing cdi, +2 DP pulse, compartment soft NT Constitutional: WD/WN, vitals as above Results & Data Vital Signs (Past 12 Hours) Vital Signs Temp Pulse Pulse Pulse Resp BP BP 11/26/19 13:48 79 100/58 L 11/26/19 13:32 74 112/64 11/26/19 13:17 79 98/54 L 11/26/19 13:02 75 95/53 L 11/26/19 12:37 36.6 C 111/62 11/26/19 12:25 36.8 C 76 16 114/72 11/26/19 12:15 74 16 118/67 11/26/19 12:05 77 16 117/62 11/26/19 11:55 77 16 118/65 11/26/19 11:49 37.5 C 77 16 119/62 11/26/19 07:16 37.4 C 71 20 BP Pulse Ox 11/26/19 13:48 93 11/26/19 13:32 95 11/26/19 13:17 95 11/26/19 13:02 94 11/26/19 12:37 93 11/26/19 12:25 94 11/26/19 12:15 94 11/26/19 12:05 94 11/26/19 11:55 94 11/26/19 11:49 94 11/26/19 07:16 121/65 91
[2019-11-26] MEDS: FUROSEMIDE 40 MG TAB PO SCH (17:10)
[2019-11-26] MEDS: SPIRONOLACTONE 25 MG TAB PO SCH (17:10)
[2019-11-26] MEDS: CEFAZOLIN 2000MG 2,000 MG/15 ML SYR IV SCH (17:12)
[2019-11-26] MEDS ORDERED: CHOLECALCIFEROL 1,000 UNITS TAB PO SCH (21:00)
[2019-11-26] MEDS: DOCUSATE SODIUM 100 MG CAP PO SCH (21:30)
[2019-11-26] MEDS: PANTOprazole 40 MG TAB PO SCH (21:30)
[2019-11-26] MEDS: SENNA 8.6 MG TAB PO SCH (21:30)
[2019-11-26] MEDS: lamoTRIgine 100 MG TAB PO SCH (21:31)
[2019-11-26] MEDS: POTASSIUM CHLORIDE 10 MEQ TABCR PO SCH (21:31)
[2019-11-26] MEDS: lisinopriL 10 MG TAB PO SCH (21:31)
[2019-11-26] MEDS: PRAVASTATIN SOD 40 MG TAB PO SCH (21:32)
[2019-11-26] MEDS: LACTOBACILLUS ACIDOPHILUS 1 GM PACK PO SCH (21:32)
[2019-11-26] MEDS: POLYETHYLENE (MIRALAX) 17 GM PACK PO SCH (21:32)
[2019-11-26] MEDS: VITAMIN B COMPLEX TAB PO SCH (21:33)
[2019-11-27] MEDS: CEFAZOLIN 2000MG 2,000 MG/15 ML SYR IV SCH (01:44)
[2019-11-27] MEDS ORDERED: ACETAMINOPHEN 1,000 MG/100 ML VIAL IV STA (03:00)
[2019-11-27] MEDS ORDERED: ACETAMINOPHEN 1000 MG/100 ML IV IV ONE (03:05)
[2019-11-27] MEDS: ACETAMINOPHEN 500 MG TAB PO SCH ×3 (03:17→21:39)
[2019-11-27 04:26] LABS: Hematocrit (blood only) 31.2 % (37-47); Hemoglobin 10.2 g/dL (12.0-16.0); Mean Corpuscular Hemoglobin 29.7 pg (25-34); Mean Corpuscular Hgb Conc 32.7 g/dL (32-36); Mean Platelet Volume 8.4 fL (7.4-10.4); Platelet Count 230 K/uL (130-400); RDW Coefficient of Variation 13.8 % (11.5-14.5); RDW Standard Deviation 45.6 fL (36.4-46.3); Red Blood Count 3.43 M/uL (4.2-5.4); White Blood Count 14.52 K/uL (4.8-10.8)
[2019-11-27 04:44] LABS: BUN Creatinine Ratio 21.3 (10-20); Calcium 8.1 mg/dl (8.5-10.1); Creatinine Clr Calc Pharmacy 54.9 ml/min; Est GFR (African American) 61.4; Phosphorus 3.2 mg/dl (2.5-4.9); Potassium 4.1 mmol/L (3.5-5.1)
[2019-11-27] MEDS ORDERED: ROPIVACAINE 0.5% HCL/PF 150 MG, BUPIVACAINE 0.5% MPF 30 ML, EPINEPHrine 0.15 MG, Ketoro... INFIL SCH (06:00)
[2019-11-27] MEDS: LEVOTHYROXINE SODIUM 25 MCG TABLET PO SCH (06:27)
--- NOTE | 2019-11-27 06:44 | Critical Care Progress Note ---
Date of Service November 27, 2019 Assessment & Plan (1) Degenerative joint disease of knee, right: Reason critically ill: Patient here for scheduled ketamine drip for 24 hours Neuro: Intact Cam ICU negative No neuro deficits Respiratory: No respiratory distress breathing comfortably between 2L nasal cannula and room air currently Will continue to monitor end tidal CO2 monitoring while on drip Cardiovascular History of [place] no acute changes on ECG, no symptoms of worsening cardiac function or angina History of DVT/PE on rivaroxaban held for last seven days, may restart when surgery signs off History of HTN Continue lisinopril 10 GI: No concerns at present Renal: No concerns at present Will continue to monitor in ICU until finishes with drip. Patient following pain management protocol as follows RECOMMENDATIONS FROM PAIN CLINIC FOLLOWS: 1. Aurelia-operatively recommend Exparel injection into the adductor canal. Consider ketamine drip and Lidocaine IV. This has been relayed to PAT. 2. Post-operatively recommend the addition of OxyContin 20mg BID to her typical regimen of Oxycodone 40mg TID. 3. Recommend to post-operatively increase Gabapentin dosage to 600mg TID and initiate Cymbalta at 30mg daily. 4. Post operative medications should be for 4-6 weeks and then changed back to her baseline regimen. 5. If she does not have Narcan at home, recommend Narcan at discharge from hospital after surgery. Will move patient upstairs, start oxycontin scheduled, dilaudid PRN, and gabapentin Primary team can discontinue PRN dilaudid and resume scheduled oxycodone at their discretion upstairs (2) Opioid dependence: (3) Degenerative joint disease of left knee: (4) Chronic obstructive pulmonary disease: (5) Sleep apnea: (6) Hyperlipidemia: (7) Hypertension: (8) GERD (gastroesophageal reflux disease): (2) Degenerative joint disease of left knee: (3) Opioid dependence: (4) Chronic obstructive pulmonary disease: (5) Sleep apnea: (6) Hyperlipidemia: (7) Hypertension: (8) Pelvic pain: (9) DVT prophylaxis: Supervising Physician Co-Signing Physician Notes Dr. Steiner was resident physician during care of patient. I was present during the critical portion of medical decision making, and I discussed the case with the resident. I generally agree with the findings and plan. I also discussed this patient with Isauro Anaya via telephone. Stable for downgrade out of the ICU Subjective Patti Davis is having a lot of pain this morning, she says her surgical pain is doing well but she is having intolerable amounts of her chronic pelvic pain. Plan per surgery is to restart oral meds after ketamine drip finishes. She does not believe this is the true plan but instead that she should be on both. She has been quite upset per nursing staff. Review of Systems Constitutional: no fever and no chills Respiratory: no cough and no dyspnea Cardiovascular: no chest pain, no dyspnea and no lightheadedness Gastrointestinal: no abdominal pain, no nausea and no vomiting Physical Exam Physical Exam: Constitutional: WD/WN, vitals as above Eyes: PERRL, conjunctivae normal, anicteric sclerae ENMT: external ear and nose normal, oropharynx normal Respiratory: normal respiratory effort, lungs clear to auscultation Cardiovascular: Rate/Rhythm: regular rate and regular rhythm Heart Sounds: no click, no gallop, no murmur and no cardiac rub Gastrointestinal (Abdomen): normal bowel sounds, soft, nontender, no hepatosplenomegaly Results & Data Vital Signs (Past 12 Hours) Vital Signs Temp Pulse Pulse Resp BP BP BP 11/27/19 05:00 78 18 112/53 L 11/27/19 04:00 36.7 C 83 24 123/90 11/27/19 03:00 81 18 114/60 11/27/19 02:19 84 94/69 L 11/27/19 01:18 79 113/52 L 11/27/19 00:19 36.7 C 77 125/59 L 11/26/19 23:00 79 18 128/63 11/26/19 22:00 83 18 107/64 11/26/19 21:00 79 18 122/60 11/26/19 20:00 36.6 C 80 20 106/55 L 11/26/19 19:00 82 16 102/68 Pulse Ox 11/27/19 05:00 95 11/27/19 04:00 97 11/27/19 03:00 94 11/27/19 02:19 95 11/27/19 01:18 96 11/27/19 00:19 96 11/26/19 23:00 95 11/26/19 22:00 11/26/19 21:00 93 11/26/19 20:00 94 11/26/19 19:00 97 Resident Activity Tracking Resident Involvement: Resident Care Provided Care Provided: Adult Hospital Medicine
[2019-11-27] MEDS: HYDROmorphone INJ 0.5 MG/0.5 ML SYR IV PRN ×4 (07:52→21:57)
[2019-11-27] MEDS: OXYCODONE HCL 20 MG TABCR (OXYCONTIN) PO SCH ×2 (07:55→21:24)
--- NOTE | 2019-11-27 08:01 | Anesthesiology Progress Note ---
Date of Service November 27, 2019 Anesthesia Post Procedure Vital Signs Vital Signs: Temp Pulse Pulse Resp BP BP BP 11/27/19 06:00 84 20 114/56 L 11/27/19 05:00 78 18 112/53 L 11/27/19 04:00 36.7 C 83 24 123/90 11/27/19 03:00 81 18 114/60 11/27/19 02:19 84 94/69 L 11/27/19 01:18 79 113/52 L 11/27/19 00:19 36.7 C 77 125/59 L 11/26/19 23:00 79 18 128/63 11/26/19 22:00 83 18 107/64 11/26/19 21:00 79 18 122/60 11/26/19 20:00 36.6 C 80 20 106/55 L 11/26/19 19:00 82 16 102/68 11/26/19 18:18 90 114/76 11/26/19 17:18 90 128/65 11/26/19 16:18 87 129/63 11/26/19 15:18 85 110/56 L 11/26/19 14:18 86 88/75 L 11/26/19 13:48 79 100/58 L 11/26/19 13:32 74 112/64 11/26/19 13:17 79 98/54 L 11/26/19 13:02 75 95/53 L 11/26/19 12:37 36.6 C 111/62 11/26/19 12:25 36.8 C 76 16 114/72 11/26/19 12:15 74 16 118/67 11/26/19 12:05 77 16 117/62 11/26/19 11:55 77 16 118/65 11/26/19 11:49 37.5 C 77 16 119/62 Pulse Ox 11/27/19 06:00 94 11/27/19 05:00 95 11/27/19 04:00 97 11/27/19 03:00 94 11/27/19 02:19 95 11/27/19 01:18 96 11/27/19 00:19 96 11/26/19 23:00 95 11/26/19 22:00 11/26/19 21:00 93 11/26/19 20:00 94 11/26/19 19:00 97 11/26/19 18:18 91 11/26/19 17:18 94 11/26/19 16:18 90 11/26/19 15:18 95 11/26/19 14:18 97 11/26/19 13:48 93 11/26/19 13:32 95 11/26/19 13:17 95 11/26/19 13:02 94 11/26/19 12:37 93 11/26/19 12:25 94 11/26/19 12:15 94 11/26/19 12:05 94 11/26/19 11:55 94 11/26/19 11:49 94 Pain Intensity Bilateral Pelvic: Pain Intensity: 6 Left Knee: Pain Intensity: 7 Right Knee: Pain Intensity: 6 Bilateral Lower Back: Pain Intensity: 7 Notes Mental Status: alert / awake / arousable and participated in evaluation Patient Amnestic to Procedure: Yes Nausea / Vomiting: adequately controlled Pain: adequately controlled Airway Patency, RR, SpO2: stable & adequate BP & HR: stable & adequate Hydration State: stable & adequate Neuraxial Anesthesia: was administered and sensory block resolved Anesthetic Complications: no major complications apparent and Pt Satisfied with anesthetic care
[2019-11-27] MEDS: SPIRONOLACTONE 25 MG TAB PO SCH ×2 (08:56→17:23)
[2019-11-27] MEDS: POTASSIUM CHLORIDE 10 MEQ TABCR PO SCH ×2 (08:57→21:25)
[2019-11-27] MEDS: DOCUSATE SODIUM 100 MG CAP PO SCH ×2 (08:57→21:38)
[2019-11-27] MEDS: LACTOBACILLUS ACIDOPHILUS 1 GM PACK PO SCH ×2 (08:57→21:25)
[2019-11-27] MEDS: MULTIVITAMIN TAB PO SCH (08:58)
[2019-11-27] MEDS: lamoTRIgine 100 MG TAB PO SCH ×2 (08:58→21:26)
[2019-11-27] MEDS: FUROSEMIDE 40 MG TAB PO SCH ×2 (08:58→17:24)
[2019-11-27] MEDS: PANTOprazole 40 MG TAB PO SCH ×2 (08:59→21:26)
[2019-11-27] MEDS ORDERED: ASPIRIN 81 MG ECTAB PO SCH (09:00)
--- NOTE | 2019-11-27 09:32 | Orthopedic Progress Note ---
Date of Service November 27, 2019 Assessment & Plan (1) Degenerative joint disease of left knee: s/p Left TKA POD#1 -ancef x 24 -DVT ppx: SCDs, TEDs, Xarelto -WBAT LLE -PT/OT -PO XR demonstrates a well aligned well fixed prosthesis without fracture/dislocation - am labs: hgb 10.2 -pain medication per pain mgn recs -DC planning (2) Degenerative joint disease of knee, right: s/p Right knee IA corticosteroid injection Subjective Post Operative Progress Note Patient seen sitting up in bed, comfortable, denies complaints, pain well controlled, no acute issues. Denies fevers, chills, nausea, vomiting, shortness of breath or chest pain. Review of Systems Review of Systems: All systems reviewed & are unremarkable except as noted in HPI & below Constitutional: as per Subjective / HPI Physical Exam Physical Exam: LLE NVSI +EHL/FHL/TA/GS SILT grossly, +2 DP pulse, compartments soft NT, dressing cdi. Constitutional: WD/WN, vitals as above Results & Data Vital Signs (Past 12 Hours) Vital Signs Temp Pulse Pulse Resp BP BP Pulse Ox 11/27/19 08:00 36.1 C L 80 16 126/65 96 11/27/19 07:19 83 18 175/52 H 96 11/27/19 06:00 84 20 114/56 L 94 11/27/19 05:00 78 18 112/53 L 95 11/27/19 04:00 36.7 C 83 24 123/90 97 11/27/19 03:00 81 18 114/60 94 11/27/19 02:19 84 94/69 L 95 11/27/19 01:18 79 113/52 L 96 11/27/19 00:19 36.7 C 77 125/59 L 96 11/26/19 23:00 79 18 128/63 95 11/26/19 22:00 83 18 107/64
[2019-11-27] MEDS ORDERED: OXYCODONE HCL IR 5 MG TAB (IMMEDIATE RELEASE) PO PRN (09:35)
[2019-11-27] MEDS ORDERED: HYDROmorphone INJ 0.5 MG/0.5 ML SYR IV PRN (09:36)
--- NOTE | 2019-11-27 13:35 | Billing Data ---
Date of Service November 26, 2019 Coding Level of Care Code 61040 Inpt Consult Level 4
[2019-11-27] MEDS: GABAPENTIN 600 MG TAB PO SCH ×2 (13:45→21:26)
[2019-11-27] MEDS: OXYCODONE HCL IR 5 MG TAB (IMMEDIATE RELEASE) PO PRN ×2 (15:03→19:55)
[2019-11-27] MEDS: RIVAROXABAN 20 MG TAB PO SCH (17:22)
[2019-11-27] MEDS: PRAVASTATIN SOD 40 MG TAB PO SCH (21:26)
[2019-11-27] MEDS: SENNA 8.6 MG TAB PO SCH (21:27)
[2019-11-27] MEDS: VITAMIN B COMPLEX TAB PO SCH (21:27)
[2019-11-27] MEDS: lisinopriL 10 MG TAB PO SCH (21:27)
[2019-11-27] MEDS: POLYETHYLENE (MIRALAX) 17 GM PACK PO SCH (21:39)
[2019-11-28] MEDS: OXYCODONE HCL IR 5 MG TAB (IMMEDIATE RELEASE) PO PRN ×6 (00:25→23:26)
[2019-11-28] MEDS: HYDROmorphone INJ 0.5 MG/0.5 ML SYR IV PRN ×4 (03:20→16:19)
[2019-11-28] MEDS: ACETAMINOPHEN 500 MG TAB PO SCH ×3 (05:50→20:54)
[2019-11-28] MEDS: LEVOTHYROXINE SODIUM 25 MCG TABLET PO SCH (05:50)
[2019-11-28 06:40] LABS: Hematocrit (blood only) 30.4 % (37-47); Mean Corpuscular Hemoglobin 29.9 pg (25-34); Mean Corpuscular Hgb Conc 32.9 g/dL (32-36); Mean Corpuscular Volume 90.7 fL (80-100); Mean Platelet Volume 8.8 fL (7.4-10.4); Platelet Count 258 K/uL (130-400); RDW Coefficient of Variation 14.7 % (11.5-14.5); RDW Standard Deviation 48.8 fL (36.4-46.3); Red Blood Count 3.35 M/uL (4.2-5.4)
[2019-11-28 07:12] LABS: BUN Creatinine Ratio 17.6 (10-20); Calcium 8.6 mg/dl (8.5-10.1); Creatinine Clr Calc Pharmacy 46.6 ml/min; Est GFR (African American) 50.3; Est GFR (Non-African American) 43.4; Potassium 3.9 mmol/L (3.5-5.1)
[2019-11-28] MEDS: lamoTRIgine 100 MG TAB PO SCH ×2 (09:17→20:50)
[2019-11-28] MEDS: LACTOBACILLUS ACIDOPHILUS 1 GM PACK PO SCH ×2 (09:17→20:49)
[2019-11-28] MEDS: DOCUSATE SODIUM 100 MG CAP PO SCH ×2 (09:18→20:49)
[2019-11-28] MEDS: FUROSEMIDE 40 MG TAB PO SCH ×2 (09:18→17:35)
[2019-11-28] MEDS: SPIRONOLACTONE 25 MG TAB PO SCH ×2 (09:18→17:34)
[2019-11-28] MEDS: POTASSIUM CHLORIDE 10 MEQ TABCR PO SCH ×2 (09:18→20:49)
[2019-11-28] MEDS: PANTOprazole 40 MG TAB PO SCH ×2 (09:19→20:51)
[2019-11-28] MEDS: GABAPENTIN 600 MG TAB PO SCH ×3 (09:19→20:50)
[2019-11-28] MEDS: MULTIVITAMIN TAB PO SCH (09:19)
[2019-11-28] MEDS: OXYCODONE HCL 20 MG TABCR (OXYCONTIN) PO SCH ×2 (09:19→20:50)
--- NOTE | 2019-11-28 11:07 | Orthopedic Progress Note ---
Date of Service November 28, 2019 Assessment & Plan (1) Degenerative joint disease of left knee: s/p Left TKA POD#2 - Ordered LLE US to r/o dvt ; h/o dvt LLE/LUE in the past -DVT ppx: SCDs, TEDs, Xarelto -WBAT LLE -PT/OT -PO XR demonstrates a well aligned well fixed prosthesis without fractu re/dislocation - am labs: hgb 10.0, post operative anemia secondary to acute surgical blood loss and dilutional effect. Patient currently asymptomatic, will continue to monitor. -pain medication per pain mgnt recs -Obtain venous doppler LLE -DC planning (2) Degenerative joint disease of knee, right: s/p Right knee IA corticosteroid injection Supervising Physician Co-Signing Physician Notes Patient seen, agree with above assessment and plan. Subjective Pt sitting up in bed, awake, alert. I was called earlier about pt with increased calf pain. Apparently started last night. score caller MD gallardo. Continues this AM and pt states it seems a bit more than last night. No other complaints presently. Denies SOB, CP, LH. States her pain control with the left knee is good. Physical Exam Physical Exam: Silverlon dressing C/D/I. Minimal drainage noted in the dressing window. Left calf tender on palpation. Pain radiated down just proximal to the ankle. No overt swelling of the left ankle. Javad's exam is positve with DF of the left foot/ankle increasing her pain. NV intact. Toes mobile. Results & Data Vital Signs (Past 12 Hours) Vital Signs Temp Pulse Pulse Resp BP BP Pulse Ox 11/28/19 08:55 37.0 C 81 18 100/59 L 93 11/28/19 00:05 36.9 C 91 H 18 109/74 92 Laboratory Results Laboratory Results WBC 13.20 K/uL (4.8-10.8) H 11/28/19 05:52 RBC 3.35 M/uL (4.2-5.4) L 11/28/19 05:52 Hgb 10.0 g/dL (12.0-16.0) L 11/28/19 05:52 Hct 30.4 % (37-47) L 11/28/19 05:52 MCV 90.7 fL (80-100) 11/28/19 05:52 MCH 29.9 pg (25-34) 11/28/19 05:52 MCHC 32.9 g/dL (32-36) 11/28/19 05:52 RDW Std Deviation 48.8 fL (36.4-46.3) H 11/28/19 05:52 RDW Coeff of Adrian 14.7 % (11.5-14.5) H 11/28/19 05:52 Plt Count 258 K/uL (130-400) 11/28/19 05:52 MPV 8.8 fL (7.4-10.4) 11/28/19 05:52 Immature Gran % (Auto) 0.0 % 11/15/19 11:38 Neut % (Auto) 72.0 % 11/15/19 11:38 Lymph % (Auto) 21.4 % 11/15/19 11:38 Sunflower % (Auto) 4.9 % 11/15/19 11:38 Eos % (Auto) 1.3 % 11/15/19 11:38 Baso % (Auto) 0.4 % 11/15/19 11:38 Immature Gran # (Auto) 0.00 K/uL (0.00-0.02) 11/15/19 11:38 Neut # (Auto) 5.01 K/uL (1.4-6.5) 11/15/19 11:38 Lymph # (Auto) 1.49 K/uL (1.2-3.4) 11/15/19 11:38 Sunflower # (Auto) 0.34 K/uL (0.11-0.59) 11/15/19 11:38 Eos # (Auto) 0.09 K/uL (0-0.5) 11/15/19 11:38 Baso # (Auto) 0.03 K/uL (0-0.2) 11/15/19 11:38 PT 11.4 Seconds (9.0-12.0) 11/15/19 11:38 INR 1.1 (0.9-1.1) 11/15/19 11:38 APTT 30.6 Seconds (21.0-31.0) 11/15/19 11:38 PTT Ratio 1.1 11/15/19 11:38 Sodium 139 mmol/L (136-145) 11/28/19 05:52 Potassium 3.9 mmol/L (3.5-5.1) 11/28/19 05:52 Chloride 102 mmol/L (98-107) 11/28/19 05:52 Carbon Dioxide 32 mmol/L (21-32) 11/28/19 05:52 Anion Gap 4.0 (3-11) 11/28/19 05:52 BUN 23 mg/dl (7-18) H 11/28/19 05:52 Creatinine 1.32 mg/dl (0.6-1.2) H 11/28/19 05:52 Est Cr Clr Drug Dosing 46.6 ml/min 11/28/19 05:52 Est GFR ( Amer) 50.3 11/28/19 05:52 Est GFR (Non-Af Amer) 43.4 11/28/19 05:52 BUN/Creatinine Ratio 17.6 (10-20) 11/28/19 05:52 Glucose 129 mg/dl (70-99) H 11/28/19 05:52 POC Glucose 260 (70-99) H 11/26/19 23:37 Estimat Average Glucose 117 mg/dl 11/15/19 11:38 Hemoglobin A1c 5.7 % (4.5-5.6) H 11/15/19 11:38 Calcium 8.6 mg/dl (8.5-10.1) 11/28/19 05:52 Phosphorus 3.2 mg/dl (2.5-4.9) 11/27/19 04:11 Magnesium 2.0 mg/dl (1.8-2.4) 11/27/19 04:11 Albumin 3.7 gm/dl (3.4-5.0) 11/15/19 11:38 Urine Color Yellow 11/15/19 11:38 Urine Appearance Clear (Clear) 11/15/19 11:38 Urine pH 7.5 (4.5-7.5) 11/15/19 11:38 Ur Specific [place] 1.018 (1.000-1.030) 11/15/19 11:38 Urine Protein Negative (Negative) 11/15/19 11:38 Urine Glucose (UA) Negative (Negative) 11/15/19 11:38 Urine Ketones Negative (Negative) 11/15/19 11:38 Urine Blood Trace (Negative) H 11/15/19 11:38 Urine Nitrite Negative (Negative) 11/15/19 11:38 Urine Bilirubin Negative (Negative) 11/15/19 11:38 Urine Urobilinogen Negative (Negative) 11/15/19 11:38 Ur Leukocyte Esterase Negative (Negative) 11/15/19 11:38 Urine WBC (Auto) 1-5 /hpf (0-5) 11/15/19 11:38 Urine RBC (Auto) 5-10 /hpf (0-4) H 11/15/19 11:38 U Hyaline Cast (Auto) 0 /lpf (0-5) 11/15/19 11:38 U Epithel Cells (Auto) 10-20 /lpf (0-5) H 11/15/19 11:38 Urine Bacteria (Auto) Negative (Negative) 11/15/19 11:38 Nasal Screen MRSA (PCR) Negative (Negative) 11/26/19 14:41 Blood Type O Positive 11/26/19 07:19 Antibody Screen NEGATIVE 11/26/19 07:19 Crossmatch See Detail 11/26/19 07:19
--- NOTE | 2019-11-28 12:56 | Ultrasound Report ---
ULTRASOUND LEFT LOWER EXTREMITY VENOUS CLINICAL HISTORY: Left leg pain and swelling. COMPARISON STUDY: Bilateral lower extremity venous ultrasound dated 03/19/2008. TECHNIQUE: Real-time, grayscale, and color Doppler sonography of the deep veins of the left lower ext remity was performed from the inguinal crease to the calf. Compression and augmentation were utilized . FINDINGS: There is no sonographic evidence of deep venous thrombosis identified in the left lower ext remity. The common femoral, superficial femoral, and popliteal veins are patent and normally compress ible. The greater saphenous vein and the profunda femoris vein at the junction with the common femora l vein are clear. The visualized calf veins are patent. There is extensive and occlusive superficial venous thrombus identified in the calf throughout the lesser saphenous vein. This extends over 16 cm in length, and approach is within 4.5 cm of the popliteal vein. IMPRESSION: 1. There is no sonographic evidence of deep venous thrombosis identified in the left lower extremity. 2. Extensive occlusive superficial venous thrombus is identified in the calf as above. ACT 112: Negative or not required by law. Electronically signed by: Carmelo Moffett M.D. 11/28/2019 12:55 PM
[2019-11-28] MEDS: RIVAROXABAN 20 MG TAB PO SCH (17:33)
[2019-11-28] MEDS: PRAVASTATIN SOD 40 MG TAB PO SCH (20:49)
[2019-11-28] MEDS: POLYETHYLENE (MIRALAX) 17 GM PACK PO SCH (20:50)
[2019-11-28] MEDS: SENNA 8.6 MG TAB PO SCH (20:51)
[2019-11-28] MEDS: VITAMIN B COMPLEX TAB PO SCH (20:51)
[2019-11-28] MEDS: lisinopriL 10 MG TAB PO SCH (20:51)
--- NOTE | 2019-11-28 21:14 | Hospitalist Consultation ---
Date of Consultation November 28, 2019 Assessment & Plan (1) Superficial thrombosis of left lower extremity: 59 y/o F with PMH of extensive venous thromboembolism, last event was two years ago; admitted to the hospital for L TKA now POD #2; developed pain of LLE on 11/27 with Duplex demonstrating occlusion of lesser saphenous vein Superficial Thromboembolism: - extreme pain with motion of lower extremity on 11/27, extensive personal history of VTE (pelvis, b/l LE, R UE, and PE) - US duplex of LLE: demonstrated 16cm long occlusion of lesser saphenous vein, extended proximally to approximately 4.5cm from insertion into popliteal vein - recommend US Duplex of RLE for similar symptoms for further investigation of clot burden given patient's extensive history - s/p L TKA POD#2; was restarted on Xarelto 20mg by ortho - was on Xarelto 15mg at home due to cost of 20mg; has been taking this sub- prophylactic dose for considerable time - Stopped Xarelto 20mg daily; in favor of 15mg BID as new event necessitates therapeutic treatment - as patient was not taking the prophylactic dose while at home, this event does not constitute treatment failure at this time; however given prohibitive cost to patient would recommend switch to another anti-coagulation prior to discharge - recommend consult to Case Management for determination of non-cost prohibitive anti-coagulation regimen based on patient's insurance - re-consult if further questions regarding patient's continued care Degenerative Joint disease of L knee: - s/p L TKA POD#2 - care per primary team (2) Degenerative joint disease of left knee: (3) Degenerative joint disease of knee, right: Supervising Physician Co-Signing Physician Notes Pt seen/examined following resident MD Tracie Breen. This is a consult by request of the orthopedic service due to venous thrombosis post TKA. 59 y/o F Hx DJD, HTN, HLD, hypercoag disorder - recurrent DVTs/PE. Developed pain in her L leg post-op - doppler shows extensive, occlusive superficial venous thrombus in the lesser saphenous vein. The pt was placed on Eliquis previously but did not comply due to financial concerns OE AAO x 3 S1,2 R CTAB NT, ND BS + No CCE - there is calf tenderness P: As she is said to be anticoagulated, there is no questoin that she should be placed on a NOAC such as Eliquis. The issue is mostly financial. She is currently on a prophylactic dose which we will change to therapeutic as the current superficial thrombus would be expected to propagate. No other changes have been affected to her medication list and additional imaging is not imperative as she will be anticoagulated regardless. The medical service will sign off - we will be senior application software engineer for any acute status changes. History of Present Illness Reason for Consultation: US Duplex of LLE demonstrated occlusion of lesser saphenous vein Attending Physician: Shar Huffman DO History of Present Illness Patti Davis is a 59 y/o F with PMH including degenerative joint disease, hypertension, hyperlipidemia, recurrent deep vein thrombosis, and former smoker (quit Aug 2018); medicine was consulted for optimization of management of anti- coagulation. Patient is POD #2 s/p L TKA; last night started to develop increasing edema and tenderness to palpation of her left lower extremity; US demonstrated extensive occlusion of the lesser saphenous vein that was over 16cm in length and extended to within 4.5cm of the popliteal vein. Patient has an extensive history of thromboembolisms most recently in her right upper extremity two years ago, but also inclusive of lungs, pelvic veins, and previous bilateral lower extremity occlusions that have occurred dating back to 1984. After most recent clot, she was started on Xarelto that she was told she needed to take for life; however, shortly after completing the therapeutic dosing she realized that she could not afford to take the 20mg dose that she was needing to take and after the of a friend was given access to their old 15mg tablets that they had been prescribed, and has been taking this since that time. Allergies Allergy/AdvReac Type Severity Reaction Status Date / Time hydroxychloroquine Allergy Unknown HIVES SOB Verified 11/26/19 06:53 Iodinated Contrast Media Allergy Unknown SEE NOTES Verified 11/26/19 06:53 BELOW Sulfa (Sulfonamide Allergy Unknown HIVES SOB Verified 11/26/19 06:53 Antibiotics) Home Medications Home Medications Medication Instructions Recorded Confirmed Type Dulera 2 puff INHALATION BID 09/14/18 11/26/19 History Probiotic 3,000 mmu cells PO BID 09/14/18 11/26/19 History Xarelto 20 mg PO PM 09/14/18 11/26/19 History acetaminophen [Acetaminophen Extra 1,000 mg PO DAILY PRN 09/14/18 11/26/19 History Strength] albuterol sulfate 1 puff INHALATION UD PRN 09/14/18 11/09/19 History aspirin [Aspir-81] 81 mg PO QAM 09/14/18 11/09/19 History betamethasone dipropionate 1 applic TOPICAL DAILY PRN 09/14/18 11/26/19 History cephalexin 500 mg PO HS 09/14/18 11/26/19 History cholecalciferol (vitamin D3) 2,000 unit PO BID 09/14/18 11/26/19 History [Vitamin D3] furosemide [Lasix] 40 mg PO BID 09/14/18 11/26/19 History ipratropium-albuterol 3 ml INHALATION UD PRN 09/14/18 11/09/19 History lamotrigine [Lamictal] 200 mg PO BID 09/14/18 11/26/19 History levothyroxine 25 mcg PO QAM 09/14/18 11/09/19 History lisinopril 10 mg PO HS 09/14/18 11/26/19 History nitroglycerin [Nitrostat] 0.4 mg SUBLINGUAL UD PRN 09/14/18 11/09/19 History oxycodone 40 mg PO TID 09/14/18 11/26/19 History pantoprazole 40 mg PO BID 09/14/18 11/26/19 History polyethylene glycol 3350 [Miralax] 17 g PO HS 09/14/18 11/26/19 History potassium chloride [Klor-Con 8] 8 meq PO BID 09/14/18 11/26/19 History pravastatin 40 mg PO HS 09/14/18 11/26/19 History spironolactone [Aldactone] 25 mg PO BID 09/14/18 11/26/19 History vitamin B complex 1 tab PO HS 09/14/18 11/26/19 History calcium carbonate [Calcium 600] 600 mg PO DAILY 11/08/19 11/26/19 History acetaminophen 1,000 mg PO Q8 PRN #90 tab 11/28/19 Rx gabapentin 600 mg PO TID 28 Days #84 tab 11/28/19 Rx naloxone [Narcan] 1 sprays INTNAS ONCE #2 ea 11/28/19 Rx oxycodone [OxyContin] 20 mg PO Q12 14 Days #28 tab 11/28/19 Rx sennosides [Senokot] 17.2 mg PO HS PRN #28 tab 11/28/19 Rx Patient History Medical History CAD (coronary artery disease), [place] coronary artery s/p single RADHA 2004 Chronic back pain COPD (chronic obstructive pulmonary disease) Daily inhaler, only using prn rescue inhaler once monthly or less Deep vein thrombosis RECURRENT. TAKES XARELTO. LAST 2015 -- H/O PELVIS, LEFT ARM, & LEFT LEG NONE CURRENT GERD (gastroesophageal reflux disease) GI bleed HX OF FROM GASTRIC ULCER. HAD 2 BLOOD TRANFUSIONS 04/2018, EGD 06/06 --> HEMOCLIP PLACED, PT STARTED PPI THERAPY. H/H NOW WNL. Hiatal hernia History of NV (myocardial infarction) "SILENT" PER PATIENT History of MTHFR mutation ON XARELTO History of pulmonary embolism 2015, NOW ON XARELTO HTN (hypertension), benign Hyperlipidemia Hypothyroidism Intermittent self-catheterization of bladder R/T NEUROGENIC BLADDER Migraine LAMICTAL Neurogenic bladder Neurogenic claudication due to lumbar spinal stenosis On anticoagulant therapy KIAH on CPAP Osteoarthritis Peptic ulcer disease EGD WITH HEMOCLIP 06/06/18 Urinary tract infection DAILY ABX FOR PREVENTATIVE CARE Surgical History Fusion of spine L4-L5, S1-S2 (2007) L3-L4 (2013) L2-L3, HARDWARE REMOVAL L3-L4 (2017) H/O bilateral salpingo-oophorectomy H/O exploratory laparotomy FOR ENDOMETRIOSIS History of appendectomy History of cardiac cath [facility] (MAY 30, 2018) - NO STENT 05/2016 CATH, NO STENT [facility] (JAN 02, 2005) - 1 STENT TO LAD. History of section History of cholecystectomy LAP History of colonoscopy History of cystoscopy History of esophagogastroduodenoscopy (EGD) History of hysterectomy JOE History of laminectomy LUMBAR (2000) History of tonsillectomy Family History Mother Family history of diabetes mellitus Father Family history of diabetes mellitus Brother Family history of diabetes mellitus Sister Family history of diabetes mellitus Social History Preferred Language: [place] Communication Ability: Effective Meatcutter Required: No Beliefs That Will Affect Care: None Current Living Situation: Spouse Other Information That Helps Us Care for You: No Feels Safe at Home: Yes Smoking Status: Former smoker Tobacco Type: cigarettes ; Cigarettes Per Day: H/O 10-20 ; Do You Dip or Chew Tobacco: No ; Smoking End Date: SEP 21 2018 ; Second Hand Exposure: No ; Hx Alcohol Use: No Hx Substance Use: Yes substance use type: prescription drug Substance Use Type Other:: PREVIOUSLY ON METHADONE Review of Systems Constitutional: no fever, no chills and no sweats Eyes: no blind spots, no diplopia and no spots in vision Respiratory: no cough, no dyspnea and no wheezing Cardiovascular: + edema (bilateral, L>R) and + calf pain (bilateral, L>R); no chest pain and no palpitations Gastrointestinal: no abdominal pain, no nausea and no vomiting Neurologic: no localized weakness, no loss of sensation, no syncope and no headache(s) Physical Exam Constitutional: well developed and well nourished Eyes: PERRL, conjunctivae normal, anicteric sclerae Respiratory: normal respiratory effort; no cough Auscultation: lungs clear to auscultation bilaterally; no crackles, no rales and no wheezes Cardiovascular: Rate/Rhythm: regular rate and regular rhythm Heart Sounds: normal S1 and normal S2; no gallop, no murmur and no cardiac rub Vessels: posterior tibial pulses present, dorsalis pedis pulses present, brachial pulses present and radial pulses present; no JVD Extremities: + calf tenderness (L>R) and + pedal edema (L>R); no varicosities Gastrointestinal (Abdomen): normal bowel sounds, soft, nontender, no hepatosplenomegaly Results & Data Vital Signs (Past 12 Hours) Vital Signs Temp Pulse Resp BP Pulse Ox 11/28/19 15:09 37.3 C 106 H 18 93/55 L 93 Laboratory Results 11/28/19 11/28/19 Range/Units 05:52 05:52 WBC 13.20 H (4.8-10.8) K/uL RBC 3.35 L (4.2-5.4) M/uL Hgb 10.0 L (12.0-16.0) g/dL Hct 30.4 L (37-47) % MCV 90.7 (80-100) fL MCH 29.9 (25-34) pg MCHC 32.9 (32-36) g/dL RDW Std Deviation 48.8 H (36.4-46.3) fL RDW Coeff of Adrian 14.7 H (11.5-14.5) % Plt Count 258 (130-400) K/uL MPV 8.8 (7.4-10.4) fL Sodium 139 (136-145) mmol/L Potassium 3.9 (3.5-5.1) mmol/L Chloride 102 (98-107) mmol/L Carbon Dioxide 32 (21-32) mmol/L Anion Gap 4.0 (3-11) BUN 23 H (7-18) mg/dl Creatinine 1.32 H (0.6-1.2) mg/dl Est Cr Clr Drug Dosing 46.6 ml/min Est GFR ( Amer) 50.3 Est GFR (Non-Af Amer) 43.4 BUN/Creatinine Ratio 17.6 (10-20) Glucose 129 H (70-99) mg/dl Calcium 8.6 (8.5-10.1) mg/dl Medications Administered Current Inpatient Medications Acetaminophen (Tylenol) 1,000 mg PO Q8 [facility] Stop: 12/26/19 13:59 Last Admin: 11/28/19 20:54 Dose: 1,000 mg Documented by: Albuterol (Ventolin Hfa) 1 puffs INH Q6H PRN PRN Reason: Shortness Of Breath Stop: 12/26/19 12:56 Albuterol (Duoneb) 3 ml INH Q6H PRN PRN Reason: Shortness Of Breath Stop: 12/26/19 12:56 Bisacodyl (Dulcolax) 10 mg PA DAILY PRN PRN Reason: Constipation Stop: 12/26/19 13:43 Diphenhydramine HCl (Benadryl Capsule) 25 mg PO Q8H PRN PRN Reason: Itching Stop: 12/26/19 13:43 Docusate Sodium (Colace) 100 mg PO BID [facility] Stop: 12/26/19 20:59 Last Admin: 11/28/19 20:49 Dose: 100 mg Documented by: Furosemide (Lasix) 40 mg PO BID17 [facility] Stop: 12/26/19 16:59 Last Admin: 11/28/19 17:35 Dose: 40 mg Documented by: Gabapentin (Neurontin) 600 mg PO TID [facility] Stop: 12/27/19 13:59 Last Admin: 11/28/19 20:50 Dose: 600 mg Documented by: Hydromorphone HCl (Dilaudid) 0.5 mg IV Q4H PRN PRN Reason: Pain Stop: 12/10/19 13:43 Last Admin: 11/28/19 16:19 Dose: 0.5 mg Documented by: Hydromorphone HCl (Dilaudid) 0.5 mg IV Q4H PRN PRN Reason: Pain Stop: 12/11/19 09:35 Lactobacillus Acidophilus (Floranex Granules/Powder Packet) 1 gm PO BID [facility] Stop: 12/26/19 20:59 Last Admin: 11/28/19 20:49 Dose: 1 gm Documented by: Lamotrigine (Lamictal) 200 mg PO BID [facility] Stop: 12/26/19 20:59 Last Admin: 11/28/19 20:50 Dose: 200 mg Documented by: Levothyroxine Sodium (Synthroid) 25 mcg PO DAILYBB [facility] Stop: 12/27/19 06:29 Last Admin: 11/28/19 05:50 Dose: 25 mcg Documented by: Lisinopril (Zestril) 10 mg PO HS [facility] Stop: 12/26/19 20:59 Last Admin: 11/28/19 20:51 Dose: 10 mg Documented by: Magnesium Hydroxide (Milk Of Magnesia) 30 ml PO Q6H PRN PRN Reason: Constipation Stop: 12/26/19 13:43 Metoclopramide HCl (Reglan) 10 mg IV Q6H PRN PRN Reason: Nausea And Vomiting Stop: 12/26/19 13:43 Miscellaneous (Order Awaiting Action) 1 ea N/A QS [facility] Stop: 12/26/19 15:59 Last Admin: 11/28/19 18:18 Dose: Not Given Documented by: Multivitamins (Multivitamin Tab) 1 tab PO QAM [facility] Stop: 12/27/19 08:59 Last Admin: 11/28/19 09:19 Dose: 1 tab Documented by: Naloxone HCl (Narcan) 0.1 mg IV Q5M PRN PRN Reason: Oversedation/Resp Depression Stop: 12/26/19 13:43 Nitroglycerin (Nitrostat) 0.4 mg SL UD PRN PRN Reason: Chest Pain Stop: 12/26/19 12:56 Ondansetron HCl (Zofran) 4 mg IV Q6H PRN PRN Reason: Nausea And Vomiting Stop: 12/26/19 13:43 Oxycodone HCl (Oxycontin) 20 mg PO Q12 [facility] Stop: 12/10/19 20:59 Last Admin: 11/28/19 20:50 Dose: 20 mg Documented by: Oxycodone HCl (Roxicodone Immediate Rel) 20 mg PO Q4H PRN PRN Reason: Pain Stop: 12/11/19 09:42 Last Admin: 11/28/19 18:20 Dose: 20 mg Documented by: Pantoprazole Sodium (Protonix) 40 mg PO BID [facility] Stop: 12/26/19 20:59 Last Admin: 11/28/19 20:51 Dose: 40 mg Documented by: Polyethylene Glycol (Miralax Powder Packet) 17 gm PO [facility] Stop: 12/26/19 20:59 Last Admin: 11/28/19 20:50 Dose: 17 gm Documented by: Potassium Chloride (Klor-Con M10) 10 meq PO BID [facility] Stop: 12/26/19 20:59 Last Admin: 11/28/19 20:49 Dose: 10 meq Documented by: Pravastatin Sodium (Pravachol) 40 mg PO [facility] Stop: 12/26/19 20:59 Last Admin: 11/28/19 20:49 Dose: 40 mg Documented by: Rivaroxaban (Xarelto) 15 mg PO BID [facility] Stop: 12/29/19 08:59 Sennosides (Senokot) 17.2 mg PO [facility] Stop: 12/26/19 20:59 Last Admin: 11/28/19 20:51 Dose: 17.2 mg Documented by: Spironolactone (Aldactone) 25 mg PO BID17 [facility] Stop: 12/26/19 16:59 Last Admin: 11/28/19 17:34 Dose: 25 mg Documented by: Vitamin B Complex (Vitamin B Complex) 1 tab PO [facility] Stop: 12/26/19 20:59 Last Admin: 11/28/19 20:51 Dose: 1 tab Documented by: Resident Activity Tracking Resident Involvement: Resident Care Provided Care Provided: Adult [facility] Medicine
--- NOTE | 2019-11-28 22:44 | Ultrasound Report ---
ULTRASOUND RIGHT LOWER EXTREMITY VENOUS CLINICAL HISTORY: Right calf pain. COMPARISON STUDY: Bilateral lower extremity venous ultrasound dated 03/19/2008. TECHNIQUE: Real-time, grayscale, and color Doppler sonography of the deep veins of the right lower ex tremity was performed from the inguinal crease to the calf. Compression and augmentation were utilize d. FINDINGS: There is no sonographic evidence of deep venous thrombosis identified in the right lower ex tremity. The common femoral, superficial femoral, and popliteal veins are patent and normally erin sible. The greater saphenous vein and the profunda femoris vein at the junction with the common femor al vein are clear. The visualized calf veins are patent. IMPRESSION: There is no sonographic evidence of deep venous thrombosis identified in the right lower extremity. ACT 112: Negative or not required by law. Electronically signed by: Carmelo Moffett M.D. 11/28/2019 10:42 PM
[2019-11-29] MEDS: OXYCODONE HCL IR 5 MG TAB (IMMEDIATE RELEASE) PO PRN ×4 (03:37→23:34)
[2019-11-29] MEDS: ACETAMINOPHEN 500 MG TAB PO SCH ×3 (05:11→21:07)
[2019-11-29] MEDS: LEVOTHYROXINE SODIUM 25 MCG TABLET PO SCH (05:11)
[2019-11-29 07:01] LABS: Hemoglobin 9.9 g/dL (12.0-16.0); Mean Corpuscular Hemoglobin 29.8 pg (25-34); Mean Corpuscular Volume 90.4 fL (80-100); Mean Platelet Volume 8.8 fL (7.4-10.4); Platelet Count 278 K/uL (130-400); RDW Coefficient of Variation 14.6 % (11.5-14.5); RDW Standard Deviation 48.5 fL (36.4-46.3); Red Blood Count 3.32 M/uL (4.2-5.4)
[2019-11-29 07:33] LABS: BUN Creatinine Ratio 17.8 (10-20); Calcium 8.5 mg/dl (8.5-10.1); Creatinine Clr Calc Pharmacy 50.8 ml/min; Est GFR (African American) 55.9; Est GFR (Non-African American) 48.3; Potassium 4.1 mmol/L (3.5-5.1)
[2019-11-29] MEDS: HYDROmorphone INJ 0.5 MG/0.5 ML SYR IV PRN ×2 (07:41→16:47)
[2019-11-29] MEDS: RIVAROXABAN 15 MG TAB PO SCH ×2 (08:49→16:47)
[2019-11-29] MEDS: MULTIVITAMIN TAB PO SCH (08:49)
[2019-11-29] MEDS: SPIRONOLACTONE 25 MG TAB PO SCH ×2 (08:50→16:47)
[2019-11-29] MEDS: GABAPENTIN 600 MG TAB PO SCH ×3 (08:50→21:02)
[2019-11-29] MEDS: POTASSIUM CHLORIDE 10 MEQ TABCR PO SCH ×2 (08:51→21:01)
[2019-11-29] MEDS: PANTOprazole 40 MG TAB PO SCH ×2 (08:51→21:02)
[2019-11-29] MEDS: lamoTRIgine 100 MG TAB PO SCH ×2 (08:51→21:01)
[2019-11-29] MEDS: LACTOBACILLUS ACIDOPHILUS 1 GM PACK PO SCH ×2 (08:52→21:01)
[2019-11-29] MEDS: OXYCODONE HCL 20 MG TABCR (OXYCONTIN) PO SCH ×2 (08:58→21:00)
[2019-11-29] MEDS: DOCUSATE SODIUM 100 MG CAP PO SCH ×2 (08:58→21:00)
[2019-11-29] MEDS: FUROSEMIDE 40 MG TAB PO SCH ×2 (08:59→16:47)
--- NOTE | 2019-11-29 10:59 | Orthopedic Progress Note ---
Date of Service November 29, 2019 Assessment & Plan (1) Degenerative joint disease of left knee: s/p Left TKA POD#2 - Ordered LLE US to r/o dvt ; h/o dvt LLE/LUE in the past -DVT ppx: SCDs, TEDs, Xarelto -WBAT LLE -PT/OT -PO XR demonstrates a well aligned well fixed prosthesis without fractu re/dislocation - am labs: hgb 10.0, post operative anemia secondary to acute surgical blood loss and dilutional effect. Patient currently asymptomatic, will continue to monitor. -pain medication per pain mgnt recs -Obtain venous doppler LLE -DC planning (2) Degenerative joint disease of knee, right: s/p Right knee IA corticosteroid injection Subjective Pt lying bed sleeping. Easily awoken. No Results & Data Vital Signs (Past 12 Hours) Vital Signs Temp Pulse Pulse Resp BP Pulse Ox 11/29/19 08:59 108/62 11/29/19 07:24 37.1 C 95 H 16 103/63 91 11/29/19 07:02 37.1 C 95 H 16 106/63 91 11/28/19 23:40 37.2 C 99 H 16 108/61 92
--- NOTE | 2019-11-29 14:06 | Orthopedic Progress Note ---
Date of Service November 29, 2019 Assessment & Plan (1) Degenerative joint disease of left knee: s/p Left TKA POD#2 -Superficial DVT left lower extremity -DVT ppx: SCDs, TEDs, Xarelto changed from 20 mg daily to 50 mg p.o. twice daily per medicine service. Recommendations for Eliquis if affordable. Dr. Huffman requesting hematology consult. -WBAT LLE -PT/OT - am labs: hgb 9.9, post operative anemia secondary to acute surgical blood loss and dilutional effect. Patient currently asymptomatic, will continue to monitor. Appears stable. -pain medication per pain mgnt recs -Right lower extremity ultrasound negative for DVT -DC planning -planning for home health services upon discharge. I have discussed the case with case management who are able to provide the patient with coupons for 1 month free supply of Xarelto versus Eliquis depending on input from hematology. (2) Degenerative joint disease of knee, right: s/p Right knee IA corticosteroid injection Subjective Postop day 3 status post left total knee arthroplasty Patient currently lying in the bed sleeping upon my arrival but was easily awoken. No overt complaints today. Pain control was adequate with her left knee. Continues to have left calf pain but seems to be somewhat a bit less today. Denies any shortness of breath, chest pain, lightheadedness. Dr. Huffman was in to see the patient approximately the same time today. Medicine service saw the patient for her DVT and recommended switching to Eliquis with therapeutic doses. Patient had talked to Dr. Huffman about her Xarelto at home. She apparently was taking a lesser dose because of the expense. There is a question of whether she was taking a friend's Xarelto that she had been given possibly on an irregular basis but unknown. She has limited resources for paying for her medications. Case management has been involved as well as not any physician group navigator. Physical Exam Physical Exam: No changes in her exam today essentially. Silverlon dressing is intact and with minimal drainage. Mild bruising is again noted around the knee not unusual for this type of surgery. Left calf is tender but she does not seem to be as exquisitely tender she was yesterday. Neurovascular is intact and she has good dorsiflexion and plantarflexion of the left ankle and toes. Results & Data Vital Signs (Past 12 Hours) Vital Signs Temp Pulse Pulse Resp BP Pulse Ox 11/29/19 08:59 108/62 11/29/19 07:24 37.1 C 95 H 16 103/63 91 11/29/19 07:02 37.1 C 95 H 16 106/63 91 Laboratory Results Laboratory Results WBC 12.80 K/uL (4.8-10.8) H 11/29/19 06:37 RBC 3.32 M/uL (4.2-5.4) L 11/29/19 06:37 Hgb 9.9 g/dL (12.0-16.0) L 11/29/19 06:37 Hct 30.0 % (37-47) L 11/29/19 06:37 MCV 90.4 fL (80-100) 11/29/19 06:37 MCH 29.8 pg (25-34) 11/29/19 06:37 MCHC 33.0 g/dL (32-36) 11/29/19 06:37 RDW Std Deviation 48.5 fL (36.4-46.3) H 11/29/19 06:37 RDW Coeff of Adrian 14.6 % (11.5-14.5) H 11/29/19 06:37 Plt Count 278 K/uL (130-400) 11/29/19 06:37 MPV 8.8 fL (7.4-10.4) 11/29/19 06:37 Immature Gran % (Auto) 0.0 % 11/15/19 11:38 Neut % (Auto) 72.0 % 11/15/19 11:38 Lymph % (Auto) 21.4 % 11/15/19 11:38 [place] % (Auto) 4.9 % 11/15/19 11:38 Eos % (Auto) 1.3 % 11/15/19 11:38 Baso % (Auto) 0.4 % 11/15/19 11:38 Immature Gran # (Auto) 0.00 K/uL (0.00-0.02) 11/15/19 11:38 Neut # (Auto) 5.01 K/uL (1.4-6.5) 11/15/19 11:38 Lymph # (Auto) 1.49 K/uL (1.2-3.4) 11/15/19 11:38 [place] # (Auto) 0.34 K/uL (0.11-0.59) 11/15/19 11:38 Eos # (Auto) 0.09 K/uL (0-0.5) 11/15/19 11:38 Baso # (Auto) 0.03 K/uL (0-0.2) 11/15/19 11:38 PT 11.4 Seconds (9.0-12.0) 11/15/19 11:38 INR 1.1 (0.9-1.1) 11/15/19 11:38 APTT 30.6 Seconds (21.0-31.0) 11/15/19 11:38 PTT Ratio 1.1 11/15/19 11:38 Sodium 133 mmol/L (136-145) L 11/29/19 06:37 Potassium 4.1 mmol/L (3.5-5.1) 11/29/19 06:37 Chloride 99 mmol/L (98-107) 11/29/19 06:37 Carbon Dioxide 29 mmol/L (21-32) 11/29/19 06:37 Anion Gap 5.0 (3-11) 11/29/19 06:37 BUN 21 mg/dl (7-18) H 11/29/19 06:37 Creatinine 1.21 mg/dl (0.6-1.2) H 11/29/19 06:37 Est Cr Clr Drug Dosing 50.8 ml/min 11/29/19 06:37 Est GFR ( Amer) 55.9 11/29/19 06:37 Est GFR (Non-Af Amer) 48.3 11/29/19 06:37 BUN/Creatinine Ratio 17.8 (10-20) 11/29/19 06:37 Glucose 128 mg/dl (70-99) H 11/29/19 06:37 POC Glucose 260 (70-99) H 11/26/19 23:37 Estimat Average Glucose 117 mg/dl 11/15/19 11:38 Hemoglobin A1c 5.7 % (4.5-5.6) H 11/15/19 11:38 Calcium 8.5 mg/dl (8.5-10.1) 11/29/19 06:37 Phosphorus 3.2 mg/dl (2.5-4.9) 11/27/19 04:11 Magnesium 2.0 mg/dl (1.8-2.4) 11/27/19 04:11 Albumin 3.7 gm/dl (3.4-5.0) 11/15/19 11:38 Urine Color Yellow 11/15/19 11:38 Urine Appearance Clear (Clear) 11/15/19 11:38 Urine pH 7.5 (4.5-7.5) 11/15/19 11:38 Ur Specific [place] 1.018 (1.000-1.030) 11/15/19 11:38 Urine Protein Negative (Negative) 11/15/19 11:38 Urine Glucose (UA) Negative (Negative) 11/15/19 11:38 Urine Ketones Negative (Negative) 11/15/19 11:38 Urine Blood Trace (Negative) H 11/15/19 11:38 Urine Nitrite Negative (Negative) 11/15/19 11:38 Urine Bilirubin Negative (Negative) 11/15/19 11:38 Urine Urobilinogen Negative (Negative) 11/15/19 11:38 Ur Leukocyte Esterase Negative (Negative) 11/15/19 11:38 Urine WBC (Auto) 1-5 /hpf (0-5) 11/15/19 11:38 Urine RBC (Auto) 5-10 /hpf (0-4) H 11/15/19 11:38 U Hyaline Cast (Auto) 0 /lpf (0-5) 11/15/19 11:38 U Epithel Cells (Auto) 10-20 /lpf (0-5) H 11/15/19 11:38 Urine Bacteria (Auto) Negative (Negative) 11/15/19 11:38 Nasal Screen MRSA (PCR) Negative (Negative) 11/26/19 14:41 Blood Type O Positive 11/26/19 07:19 Antibody Screen NEGATIVE 11/26/19 07:19 Crossmatch See Detail 11/26/19 07:19
--- NOTE | 2019-11-29 16:15 | Oncology Consultation ---
Date of Consultation November 29, 2019 Assessment & Plan (1) Superficial thrombosis of left lower extremity: She has an acute superficial thrombophlebitis of her left calf. This may be related to surgery, or may have begun during the time she was off of anticoagulation prior to surgery. I doubt it is a result of her having taken a lower dose of Xarelto than is typically indicated, as her symptoms started so acutely in the setting of a major provoking factor. Still, she has had multiple VTE events and so I concur with her prior ginner that she should continue on indefinite anticoagulation. She could simply resume Xarelto, which she has done in the short term. However, it seems to be challenging for her cost-bell. I suggested she could speak with her insurance company to see if Eliquis would be more affordable. An even more affordable option would be warfarin. She tolerated warfarin well in the past, so that would be a reasonable alternative if she would like to reduce her costs. She wanted to take some time to think it over. In the meantime, she was given a card to obtain a free 30 day supply of Xarelto. She should continue it for now while she sorts this question out. She also no longer regularly follows with a ginner, so I offered to establish care with her as an outpatient. If she does opt for warfarin, she should be referred to the anticoagulation clinic or to another provider who manages warfarin. She also is moderately anemic, most likely on a post-operative basis. She had a normal hemoglobin in mid-October, prior to surgery. If she does not continue to recover as expected, we can investigate her anemia further. Present on Admission?: Yes History of Present Illness Reason for Consultation: Venous thromboembolism and anticoagulation management Attending Physician: Shar Huffman DO History of Present Illness Ms. Davis is a 59 year old woman with a history of HTN, hyperlipidemia, GERD, COPD, and osteoarthritis. She has also had a number of venous thromboembolic events in the past. These events mostly took place elsewhere and so I have limited records. She had an upper extremity DVT in the context of a surgery earlier in the . She also apparently had a large VTE in her pelvis in the , again in the context of an exploratory surgery. She has been on both warfarin and Lovenox in the past. However, since the VTE event a few years ago, she has been on Xarelto. She followed with a ginner in [place] who re commended indefinite anticoagulation. She was originally on full-dose therapy but more recently switched to 15 mg daily due to cost concerns. She is admitted now for a left total hip arthroplasty, which was performed 11/26/19. She was instructed to hold her Xarelto for 5 days prior and it was restarted on post-op day 1. She was getting up to ambulate yesterday and complained of severe pain in her calf. A doppler ultrasound was done that revealed a large superficial venous thrombosis in her calf with no extension into the deep venous system. She is now back on full-dose Xarelto and US of the contralateral limb was negative for VTE. She denies any chest pain, palpitations, or shortness of breath. She also had no bleeding issues on anticoagulation previously, though she did have a GI bleed re lated to PUD for which she is chronically on a PPI. She did OK with warfarin in the past, but didn't like it due to the monitoring. She has some expected post- operative pain but is feeling better otherwise. She has chronic urinary retention and self-catheterizes. She takes preventative antibiotics daily as a result. She denies any abdominal pain, headaches, vision changes, diarrhea, or other new complaints Allergies Allergy/AdvReac Type Severity Reaction Status Date / Time hydroxychloroquine Allergy Unknown HIVES SOB Verified 11/26/19 06:53 Iodinated Contrast Media Allergy Unknown SEE NOTES Verified 11/26/19 06:53 BELOW Sulfa (Sulfonamide Allergy Unknown HIVES SOB Verified 11/26/19 06:53 Antibiotics) Home Medications Home Medications Medication Instructions Recorded Confirmed Type Dulera 2 puff INHALATION BID 09/14/18 11/26/19 History Probiotic 3,000 mmu cells PO BID 09/14/18 11/26/19 History Xarelto 20 mg PO PM 09/14/18 11/26/19 History acetaminophen [Acetaminophen Extra 1,000 mg PO DAILY PRN 09/14/18 11/26/19 History Strength] albuterol sulfate 1 puff INHALATION UD PRN 09/14/18 11/09/19 History aspirin [Aspir-81] 81 mg PO QAM 09/14/18 11/09/19 History betamethasone dipropionate 1 applic TOPICAL DAILY PRN 09/14/18 11/26/19 History cephalexin 500 mg PO HS 09/14/18 11/26/19 History cholecalciferol (vitamin D3) 2,000 unit PO BID 09/14/18 11/26/19 History [Vitamin D3] furosemide [Lasix] 40 mg PO BID 09/14/18 11/26/19 History ipratropium-albuterol 3 ml INHALATION UD PRN 09/14/18 11/09/19 History lamotrigine [Lamictal] 200 mg PO BID 09/14/18 11/26/19 History levothyroxine 25 mcg PO QAM 09/14/18 11/09/19 History lisinopril 10 mg PO HS 09/14/18 11/26/19 History nitroglycerin [Nitrostat] 0.4 mg SUBLINGUAL UD PRN 09/14/18 11/09/19 History oxycodone 40 mg PO TID 09/14/18 11/26/19 History pantoprazole 40 mg PO BID 09/14/18 11/26/19 History polyethylene glycol 3350 [Miralax] 17 g PO HS 09/14/18 11/26/19 History potassium chloride [Klor-Con 8] 8 meq PO BID 09/14/18 11/26/19 History pravastatin 40 mg PO HS 09/14/18 11/26/19 History spironolactone [Aldactone] 25 mg PO BID 09/14/18 11/26/19 History vitamin B complex 1 tab PO HS 09/14/18 11/26/19 History calcium carbonate [Calcium 600] 600 mg PO DAILY 11/08/19 11/26/19 History acetaminophen 1,000 mg PO Q8 PRN #90 tab 11/28/19 Rx gabapentin 600 mg PO TID 28 Days #84 tab 11/28/19 Rx naloxone [Narcan] 1 sprays INTNAS ONCE #2 ea 11/28/19 Rx oxycodone [OxyContin] 20 mg PO Q12 14 Days #28 tab 11/28/19 Rx sennosides [Senokot] 17.2 mg PO HS PRN #28 tab 11/28/19 Rx Patient History Medical History CAD (coronary artery disease), chinik coronary artery s/p single RADHA 2004 Chronic back pain COPD (chronic obstructive pulmonary disease) Daily inhaler, only using prn rescue inhaler once monthly or less Deep vein thrombosis RECURRENT. TAKES XARELTO. LAST 2015 -- H/O PELVIS, LEFT ARM, & LEFT LEG NONE CURRENT GERD (gastroesophageal reflux disease) GI bleed HX OF FROM GASTRIC ULCER. HAD 2 BLOOD TRANFUSIONS 04/2018, EGD 06/06 --> HEMOCLIP PLACED, PT STARTED PPI THERAPY. H/H NOW WNL. Hiatal hernia History of MA (myocardial infarction) "SILENT" PER PATIENT History of MTHFR mutation ON XARELTO History of pulmonary embolism 2015, NOW ON XARELTO HTN (hypertension), benign Hyperlipidemia Hypothyroidism Intermittent self-catheterization of bladder R/T NEUROGENIC BLADDER Migraine LAMICTAL Neurogenic bladder Neurogenic claudication due to lumbar spinal stenosis On anticoagulant therapy KIAH on CPAP Osteoarthritis Peptic ulcer disease EGD WITH HEMOCLIP 06/06/18 Urinary tract infection DAILY ABX FOR PREVENTATIVE CARE Surgical History Fusion of spine L4-L5, S1-S2 (2007) L3-L4 (2013) L2-L3, HARDWARE REMOVAL L3-L4 (2017) H/O bilateral salpingo-oophorectomy H/O exploratory laparotomy FOR ENDOMETRIOSIS History of appendectomy History of cardiac cath [facility] (MAY 30, 2018) - NO STENT 05/2016 CATH, NO STENT [facility] (JAN 02, 2005) - 1 STENT TO LAD. History of section History of cholecystectomy LAP History of colonoscopy History of cystoscopy History of esophagogastroduodenoscopy (EGD) History of hysterectomy JOE History of laminectomy LUMBAR (2000) History of tonsillectomy Family History Mother Family history of diabetes mellitus Father Family history of diabetes mellitus Brother Family history of diabetes mellitus Sister Family history of diabetes mellitus Social History Preferred Language: Hungarian Communication Ability: Effective Convertible Top Installer Required: No Beliefs That Will Affect Care: None Current Living Situation: Spouse Other Information That Helps Us Care for You: No Feels Safe at Home: Yes Smoking Status: Former smoker Tobacco Type: cigarettes ; Cigarettes Per Day: H/O 10-20 ; Do You Dip or Chew Tobacco: No ; Smoking End Date: SEP 21 2018 ; Second Hand Exposure: No ; Hx Alcohol Use: No Hx Substance Use: Yes substance use type: prescription drug Substance Use Type Other:: PREVIOUSLY ON METHADONE Review of Systems Review of Systems: All systems reviewed & are unremarkable except as noted in HPI & below Physical Exam Constitutional: healthy appearing and comfortable; no acute distress ENMT: external ear and nose normal, oropharynx normal Respiratory: normal respiratory effort, lungs clear to auscultation Cardiovascular: RRR, no murmur, no edema Gastrointestinal (Abdomen): Inspection/Auscultation: normal bowel sounds; abdomen not distended Percussion/Palpation: abdomen soft; abdomen nontender Musculoskeletal: Her left leg is difficult to evaluate because it is immobilized. She has some slight tenderness when I squeeze her ankle on that side. Psychiatric: A+Ox3, euthymic affect Results & Data Vital Signs (Past 12 Hours) Vital Signs Temp Pulse Pulse Resp BP Pulse Ox 11/29/19 15:10 36.9 C 93 H 18 96/53 L 93 11/29/19 08:59 108/62 11/29/19 07:24 37.1 C 95 H 16 103/63 91 11/29/19 07:02 37.1 C 95 H 16 106/63 91 Laboratory Results Abnormal lab results 11/26/19 11/29/19 11/29/19 Range/Units 07:19 06:37 06:37 WBC 12.80 H (4.8-10.8) K/uL RBC 3.32 L (4.2-5.4) M/uL Hgb 9.9 L (12.0-16.0) g/dL Hct 30.0 L (37-47) % RDW Std Deviation 48.5 H (36.4-46.3) fL RDW Coeff of Adrian 14.6 H (11.5-14.5) % Sodium 133 L (136-145) mmol/L BUN 21 H (7-18) mg/dl Creatinine 1.21 H (0.6-1.2) mg/dl Glucose 128 H (70-99) mg/dl Crossmatch See Detail Diagnostic Findings Bilateral venous dopplers, 11/28/19: IMPRESSION: 1. There is no sonographic evidence of deep venous thrombosis identified in the left lower extremity. 2. Extensive occlusive superficial venous thrombus is identified in the calf as above. There is no sonographic evidence of deep venous thrombosis identified in the right lower extremity.
[2019-11-29] MEDS: POLYETHYLENE (MIRALAX) 17 GM PACK PO SCH (21:00)
[2019-11-29] MEDS: MOMETASONE/FORMOTEROL INH SCH (21:01)
[2019-11-29] MEDS: PRAVASTATIN SOD 40 MG TAB PO SCH (21:02)
[2019-11-29] MEDS: SENNA 8.6 MG TAB PO SCH (21:02)
[2019-11-29] MEDS: VITAMIN B COMPLEX TAB PO SCH (21:02)
[2019-11-29] MEDS: lisinopriL 10 MG TAB PO SCH (21:03)
[2019-11-30] MEDS: ACETAMINOPHEN 500 MG TAB PO SCH (05:13)
[2019-11-30] MEDS: OXYCODONE HCL IR 5 MG TAB (IMMEDIATE RELEASE) PO PRN ×2 (05:13→11:06)
[2019-11-30] MEDS: LEVOTHYROXINE SODIUM 25 MCG TABLET PO SCH (05:14)
[2019-11-30] MEDS: HYDROmorphone INJ 0.5 MG/0.5 ML SYR IV PRN (07:09)
[2019-11-30] MEDS: RIVAROXABAN 15 MG TAB PO SCH (08:31)
[2019-11-30] MEDS: MOMETASONE/FORMOTEROL INH SCH (08:31)
[2019-11-30] MEDS: FUROSEMIDE 40 MG TAB PO SCH (08:32)
[2019-11-30] MEDS: MULTIVITAMIN TAB PO SCH (08:32)
[2019-11-30] MEDS: lamoTRIgine 100 MG TAB PO SCH (08:32)
[2019-11-30] MEDS: SPIRONOLACTONE 25 MG TAB PO SCH (08:32)
[2019-11-30] MEDS: POTASSIUM CHLORIDE 10 MEQ TABCR PO SCH (08:33)
[2019-11-30] MEDS: LACTOBACILLUS ACIDOPHILUS 1 GM PACK PO SCH (08:33)
[2019-11-30] MEDS: GABAPENTIN 600 MG TAB PO SCH (08:33)
[2019-11-30] MEDS: PANTOprazole 40 MG TAB PO SCH (08:33)
[2019-11-30] MEDS: OXYCODONE HCL 20 MG TABCR (OXYCONTIN) PO SCH (08:36)
[2019-11-30] MEDS: DOCUSATE SODIUM 100 MG CAP PO SCH (08:36)
--- NOTE | 2019-12-03 15:17 | Discharge Summary ---
Date of Service December 03, 2019 Admission HPI Per Admitting Provider The patient is a 59 year old female who presents with complaints of severe bilateral knee pain and DJD. The patient has failed outpatient conservative treatments to this point which included NSAIDs, IA corticosteroid injections, bracing, PT/home exercise/walking program. The patient's pain and limited function have progressed to the point where they severely hinder their activities of daily living and they no longer tolerate exercise programs. They are requesting to proceed with left total knee replacement surgery and right knee corticosteroid injection. Principal Diagnosis Left total knee replacement, right knee corticosteroid injection Discharge Exam LLE NVSI +EHL/FHL/TA/GS SILT grossly, +2 DP pulse, compartments soft NT, dressing cdi. RLE NVSI +EHL/FHL/TA/GS SILT grossly, +2 DP pulse, compartments soft NT. Constitutional WD/WN, vitals as above Discharge Data Allergies Allergy/AdvReac Type Severity Reaction Status Date / Time hydroxychloroquine Allergy Unknown HIVES SOB Verified 11/26/19 06:53 Iodinated Contrast Media Allergy Unknown SEE NOTES Verified 11/26/19 06:53 BELOW Sulfa (Sulfonamide Allergy Unknown HIVES SOB Verified 11/26/19 06:53 Antibiotics) Consultations 11/26/19 12:06 Consult [employer] Routine 11/26/19 13:44 Consult Case Management - Discharge Planning Routine Consult [employer] Routine 11/28/19 13:40 Consult Hospitalist Routine 11/28/19 21:38 Consult Case Management - Discharge Planning Routine 11/29/19 08:44 Consult LEANNG outreach worker Routine 11/29/19 11:06 Consult Hematology Routine Procedures Performed Operation Date: 11/26/19 09:10 Actual Procedures p Left Total Knee Arthroplasty, (Left) - Shar Huffman DO s Right Knee Injection(Right) - Shar Huffman DO Ordered Studies 11/26/19 05:00 US - OR guided needle placemen Routine 11/28/19 09:45 US venous doppler LE LT Routine 11/28/19 21:38 US venous doppler LE RT Routine Hospital Course (1) Degenerative joint disease of left knee: The patient is a 59 -year-old female who presents with long standing history of severe bilateral knee DJD and failed outpatient conservative treatments. The patient's symptoms have progressed to the point where it has been difficult to perform even normal activities of daily living. I indicated the patient for a left total knee arthroplasty and right knee IA corticosteroid injection, the risks, benefits and complications of the procedure include but not limited to infection, bleeding, damage to bone, nerves, vessels, surrounding soft tissue, may develop blood clots, loss of function, leg length discrepancy, dislocation, failure of the components, loosening of the components, the need for additional surgery and . The patient wished to proceed with surgery at this time and informed consent was obtained. Hospital Course: On 11/26/19 the patient was taken to the operating room, adequate anesthesia administered and underwent a left total knee arthroplasty and right knee IA corticosteroid injection. The patient tolerated the procedure well and was taken to the PACU in stable condition. Post-operatively the patient was started on a DVT ppx medication and given appropriate IV antibiotics. Consults were placed to pain mgnt pre-operatively for inpatient recs, hematology, medical hospitalist and critical care, physical therapy, occupational therapy and case management. Per pain mgn recs, the patient was continued on ketamine drip for pain control and admitted to the ICU overnight per protocol. On POD#1, the patient did well overnight and their pain was well controlled. Ketamine drop stopped and the patient was transferred to the med/surg floor. Labs were drawn and the Hgb was 10.2. The patient progressed well with PT. Dressings were changed at this time and the incision was clean, dry and intact. On POD#2, the patient had increased pain to left calf and a venous Doppler was obtained which was positive for superficial thrombosis. The patient admitted to not taking her Xarelto due to financial reasons. We placed a consult to hematology at this time for further recommendations. The patient continued to progress well with PT and labs were drawn, Hgb 10.0. POD#3, the patient continued to progress with PT and pain was well controlled. She was seen by hematology which provided her with a 30 day card for Xarelto and follow up to discuss continued treatment with current medication vs switching to coumadin. The patient had no acute issues overnight. Pain was well controlled on pain control regimen. Labs were drawn, Hgb 9.9. The patients hospital stay was relatively uneventful and they were deemed stable by the orthopedic team and consultants to be discharged home with on 11/29/19. Discharge Instructions: Upon discharge the patient may weight bear as tolerates through their operative extremity. They were instructed to keep the incision clean and dry at all times. The patient may shower but should not submerge the incision, avoid bathing, pools and hot tubes. The patient was given a script for pain medication and should take as instructed. The patient is to continue taking Xarelto for DVT ppx and should take as directed. A 30 day Xarelto card was provided to the patient by Hematology. She is to follow up with them post- operatively. The patient was instructed to not drive or travel for long distances until cleared to do so. If the patient develops any symptoms of fevers, chills, nausea, vomiting, increased redness, swelling, pain or drainage from the surgical site, they should notify the office and/or proceed to the nearest emergency room. The patient should follow up in 10-14 days after surgery for their routine post-operative follow-up appointment and should call the office to confirm the date and time. 1) Degenerative joint disease of left knee: s/p Left TKA POD#1 -ancef x 24 -DVT ppx: SCDs, TEDs, Xarelto -WBAT LLE -PT/OT -PO XR demonstrates a well aligned well fixed prosthesis without fracture/dislocation - am labs: hgb 10.2 -pain medication per pain mgn recs -DC planning (2) Degenerative joint disease of knee, right: s/p Right knee IA corticosteroid injection POD#2 - Ordered LLE US to r/o dvt ; h/o dvt LLE/LUE in the past -DVT ppx: SCDs, TEDs, Xarelto -WBAT LLE -PT/OT -PO XR demonstrates a well aligned well fixed prosthesis without fracture/dislocation - am labs: hgb 10.0, post operative anemia secondary to acute surgical blood loss and dilutional effect. Patient currently asymptomatic, will continue to monitor. -pain medication per pain mgnt recs -Obtain venous doppler LLE -DC planning (2) Degenerative joint disease of knee, right: s/p Right knee IA corticosteroid injection POD#3 -Superficial DVT left lower extremity -DVT ppx: SCDs, TEDs, Xarelto changed from 20 mg daily to 50 mg p.o. twice daily per medicine service. Recommendations for Eliquis if affordable. Dr. Aubrey hickey requesting hematology consult. -WBAT LLE -PT/OT - am labs: hgb 9.9, post operative anemia secondary to acute surgical blood loss and dilutional effect. Patient currently asymptomatic, will continue to monitor. Appears stable. -pain medication per pain mgnt recs -Right lower extremity ultrasound negative for DVT -DC planning -planning for home health services upon discharge. I have discusse d the case with case management who are able to provide the patient with coupons for 1 month free supply of Xarelto versus Eliquis depending on input from hematology. (2) Degenerative joint disease of knee, right: s/p Right knee IA corticosteroid injection (2) Degenerative joint disease of knee, right: s/p Right knee IA corticosteroid injection Total Time Total Time Spent Total Time Spent (In Minutes): >60 minutes Discharge Plan Discharge Items Patient Disposition: Home - Home Health Services Reason For Visit: BILATERAL KNEE OSTEOARTHRITIS Discharge Diagnosis: Left total knee replacement, right knee corticosteroid injection Condition on Discharge: Good Activity: Per Instructions section Lifting: Wait until after follow-up appointment Bathing: Keep incision dry Bathing Comment: No bathing, pools or hot tubs. Sexual Activity: Wait until after follow-up appointment Exercise/Sports: Wait until after follow-up appointment Driving/Machine Use: No driving. Weightbearing: Full weightbearing Non-emergency contact: Primary Care Provider and Surgeon Call non-emergency contact if: you have any medication questions, your symptoms worsen, your pain is not controlled, your pain is worsening, your pain is unusual for you, your pain is concerning for you, you have a fever, your temperature is above 101, your wound has increased redness, your wound has increased drainage and your wound pain has increased Follow-up/Referrals: Angel Luis Patel MD [Primary Care Provider] - Diet: Regular Addtl Attending Provider Instructions: ACTIVITY RECOMMENDATIONS: SELF CARE INSTRUCTIONS AFTER TOTAL KNEE REPLACEMENT A. You may need to continue a physical therapy program after discharge from the hospital. There are several options available to you. Your doctor will assist you in selecting the best one for you. 1. An out-patient facility 2 to 3 times a week for therapy or home therapy. 2. Continue working on all exercises taught to you in the hospital. Your goals should be to increase bending of your knee to 90 degrees and beyond and to fully straighten your knee. B. You may progress at your own pace from walking with a walker or crutches to a cane; then to no assistive devices. C. Make walking a part of your daily routine. Be up as much as comfortable with rest periods throughout the day. Rest with leg elevation is very important. Use the ice wrap frequently for the first 3-4 weeks. D. There are no restrictions on activities. You may ride in a car, shop, participate in residential coordinator and all social activities. E. Wear the long elastic stockings (SO hose) 20 hours a day for 2 weeks after surgery. They can be removed several times a day for laundering and for a bath. F. You may shower, no tub baths until cleared by your doctor. SPECIAL CARE INSTRUCTIONS: VERY IMPORTANT TO READ AND REVIEW A. There are a few signs you need to watch for after you are home. Call [facility] [place] if you notice any of the followin. Increased severe knee pain. Some pain is expected especially when you exercise. 2. Increased swelling in your leg or knee; pain or swelling of the calf muscle in either lower leg. 3. Any fluid drainage from the incision. 4. Shortness of breath or chest pain. B. Please call [facility] at if you have any concerns or questions about your operation or recovery. The doctor or his nurse will return your call promptly. C. You must take antibiotics before dental work, bladder, bowel or other surgery. Your doctor will provide you with a permanent care to carry describing this precaution. IMPORTANT: * REMEMBER TO TAKE YOUR HOME MEDICATION XARELTO 15MG ORALLY TWICE A DAY UNLESS OTHERWISE DIRECTED. THIS IS YOUR BLOOD THINNER. * CALL IF INCREASED PAIN, REDNESS, DRAINAGE OR FEVER GREATER THAT 101. * WEAR SO HOSE 20 HOURS PER DAY FOR 2 WEEKS. * Silverlon- This is a large adhesive bandage that contains silver ions. This helps your incision heal by fighting off bacteria and protecting it from the outside environment. You are permitted to shower with this dressing. This will remain on your incision for 7 days and then should be removed. Some visible blood or drainage through the dressing window is normal. If there is sig nificant drainage or leaking noted before the 7 days notify your doctor's office immediately. Once removed, keep incision clean and dry. If there is any drainage or redness noted, please call your surgeon. . * PLEASE FOLLOW UP WITH YOUR PRIMARY CARE PROVIDER OR HEALTHCARE MANAGER IN THE NEXT WEEK TO DISCUSS CHANGING FROM XARELTO TO SOMETHING LESS EXPENSIVE. YOU CAN CHECK WITH YOUR INSURANCE COMPANY DRUG PROGRAM TO SEE WHAT THE COST OF ELIQUIS (APIXABAN) OR WARFARIN (COUMADIN) WOULD BE. PLEASE DO THIS BEFORE YOUR XARELTO PRESCRIPTION RUNS OUT. FOLLOW UP VISIT: If appointment is not already scheduled: Please call [facility] [place] to make a follow-up appointment for 2 weeks after your surgery at . Pending Studies at Discharge: No Stand-Alone Forms: My [facility] [place], Smoking Cessation Medications and DC Order Prescriptions: New Narcan 4 mg/actuation spray,non-aerosol 1 sprays INTNAS ONCE Qty: 2 RF: 0 gabapentin 600 mg Tablet 600 mg PO TID 28 Days Qty: 84 RF: 0 acetaminophen 500 mg Tablet 1,000 mg PO Q8 PRN (Reason: pain/fevers) Qty: 90 RF: 0 sennosides [Senokot] 8.6 mg Tablet 17.2 mg PO HS PRN (Reason: constipation) Qty: 28 RF: 0 morphine [MS Contin] 15 mg tablet extended release 15 mg PO Q12H 14 Days Qty: 28 RF: 0 Xarelto 15 mg Tablet 15 mg PO BIDM 30 Days Qty: 60 RF: 0 Continued calcium carbonate [Calcium 600] 600 mg calcium (1,500 mg) Tablet 600 mg PO DAILY RF: 0 furosemide [Lasix] 40 mg Tablet 40 mg PO BID RF: 0 ipratropium-albuterol 0.5 mg-3 mg(2.5 mg base)/3 mL Solution For Nebulization 3 ml INHALATION UD PRN (Reason: SOB) RF: 0 pravastatin 40 mg Tablet 40 mg PO HS RF: 0 spironolactone [Aldactone] 25 mg Tablet 25 mg PO BID RF: 0 levothyroxine 25 mcg Tablet 25 mcg PO QAM RF: 0 potassium chloride [Klor-Con 8] 8 mEq Tablet Extended Release 8 meq PO BID RF: 0 pantoprazole 40 mg Tablet,Delayed Release (Dr/Ec) 40 mg PO BID RF: 0 lisinopril 10 mg Tablet 10 mg PO HS RF: 0 nitroglycerin [Nitrostat] 0.4 mg Tablet, Sublingual 0.4 mg Sublingual UD PRN (Reason: Chest Pain) RF: 0 betamethasone dipropionate 0.05 % Cream 1 applic TOPICAL DAILY PRN (Reason: IRRITATION) RF: 0 cephalexin 500 mg Tablet 500 mg PO HS RF: 0 vitamin B complex Tablet 1 tab PO HS RF: 0 polyethylene glycol 3350 [Miralax] 17 gram/dose Powder 17 g PO HS RF: 0 albuterol sulfate 90 mcg/actuation Hfa Aerosol Inhaler 1 puff INHALATION UD PRN (Reason: SOB) RF: 0 lamotrigine [Lamictal] 100 mg Tablet 200 mg PO BID RF: 0 oxycodone 20 mg Tablet 40 mg PO TID RF: 0 cholecalciferol (vitamin D3) [Vitamin D3] 2,000 unit Capsule 2,000 unit PO BID RF: 0 Dulera 100-5 mcg/actuation Hfa Aerosol Inhaler 2 puff INHALATION BID RF: 0 Probiotic 3 billion cell Capsule 3,000 mmu cells PO BID RF: 0 Discontinued aspirin [Aspir-81] 81 mg Tablet,Delayed Release (Dr/Ec) 81 mg PO QAM RF: 0 acetaminophen [Acetaminophen Extra Strength] 500 mg Tablet 1,000 mg PO DAILY PRN (Reason: Pain) RF: 0 Xarelto 20 mg Tablet 20 mg PO PM RF: 0 Discharge Orders: Discharge Order (Routine); Ordered 11/30/19 Ordered By: Librado Harrison/Other Patient Handouts: DVT Prevent, Vein Leg Probs, Rivaroxaban Oral tablet Rivaroxaban Oral tablet Admission Data Admit Date/Time: 11/26/19 12:01 Attending Provider: Shar Huffman Admit Provider: Shar Huffman Primary Care Provider: Angel Luis Patel Other Providers: Omar Santacruz ; Dioni Goode ; [facility] ; Hector Barajas ; Peter Mcnair Other Interventions: Discharge Summary Assessment (RN) Last Done: 11/30/19 11:05 DC Date/Time DO NOT enter until pt leaves facility: 11/30/19 12:01
--- NOTE | 2019-12-05 13:32 | Coding Query ---
CODING QUERY To promote full compliance with coding requirements relating to patient care, provider participation is requested in all cases of mangle catcher uncertainty. Please assist us with the question(s) below: Coding Question(s): Please specify below, in your clinical opinion, regarding Superficial DVT of left lower extremity. ( ) likely a postoperative complication (X ) Not a postoperative complication Physician's Response(s): Thank you Alexa Mac Principal Diagnosis: "that condition established after study, to be chiefly responsible for occasioning the admission of the patient to the hospital for care." Co-Existing Principal Diagnosis: "when two or more diagnoses equally meet the criteria for principal diagnosis as determined by the circumstances of admission, diagnostic work up, and/or therapy provided, and the Alphabetic Index, Tabular List, or another coding guideline does not provide sequencing direction, any one of the diagnoses may be sequenced first." "When the physician has documented what appears to be a current diagnosis in the body of the record, but has not included the diagnosis in the final diagnostic statement, the physician should be asked whether the diagnosis should be added." ([facility] 2 QTR90. p3-4) ESTELA
== END 2019-11-30 12:01 | disposition home health service (06) | DRG 470 ==
LOC: ASU 06:13 → 1E 12:01 → 3W 11-27 08:37

== ENCOUNTER 2020-06-02 06:59 | Inpatient (IN) ==
--- NOTE | 2020-05-08 09:55 | PAT Medication Instructions ---
Medication Instructions Date of Service May 08, 2020 Home Medications Medication Instructions Recorded acetaminophen 1,000 mg PO Q8 PRN #90 tab 11/28/19 sennosides [Senokot] 17.2 mg PO HS PRN #28 tab 11/28/19 CPAP Machine #1 ea 04/24/20 albuterol sulfate 90 mcg/actuation 2 puffs INH Q6H PRN #3 inhaler 04/25/20 aerosol inhaler Probiotic 3,000 mmu cells PO BID betamethasone dipropionate 1 applic TOPICAL DAILY PRN cephalexin 500 mg PO HS cholecalciferol (vitamin D3) 2,000 unit PO BID furosemide [Lasix] 40 mg PO BID ipratropium-albuterol 3 ml INHALATION UD PRN lamotrigine [Lamictal] 200 mg PO BID levothyroxine 25 mcg PO QAM lisinopril 10 mg PO HS nitroglycerin [Nitrostat] 0.4 mg SUBLINGUAL UD PRN oxycodone 40 mg PO TID pantoprazole 40 mg PO BID polyethylene glycol 3350 [Miralax] 17 g PO HS potassium chloride [Klor-Con 8] 8 meq PO BID pravastatin 40 mg PO HS spironolactone [Aldactone] 25 mg PO BID vitamin B complex 1 tab PO HS calcium carbonate [Calcium 600] 600 mg PO HS acetaminophen 1,000 mg PO Q8 PRN sennosides [Senokot] 17.2 mg PO HS PRN gabapentin 600 mg tablet 600 mg PO TID albuterol sulfate 90 mcg/actuation aerosol inhaler 2 puffs INH Q6H PRN rivaroxaban [Xarelto] 15 mg PO BID aspirin 81 mg tablet 81 mg PO DAILY ferrous gluconate 240 mg (27 mg iron) tablet mg PO mometasone-formoterol HFA 200 mcg-5 mcg/actuation aerosol inhaler 1 puffs INH BID Continue as directed nitroglycerin [Nitrostat] 0.4 mg SUBLINGUAL UD PRN ASK your prescriber and surgeon rivaroxaban [Xarelto] 15 mg PO BID STOP taking 24 hours before surgery betamethasone dipropionate 1 applic TOPICAL DAILY PRN DO NOT take the morning of surgery Probiotic 3,000 mmu cells PO BID cholecalciferol (vitamin D3) 2,000 unit PO BID furosemide [Lasix] 40 mg PO BID potassium chloride [Klor-Con 8] 8 meq PO BID spironolactone [Aldactone] 25 mg PO BID ferrous gluconate 240 mg (27 mg iron) tablet mg PO Take morning of surgery With a small sip of water, OTHERWISE NOTHING TO EAT OR DRINK AFTER MIDNIGHT: aspirin 81 mg tablet 81 mg PO DAILY ipratropium-albuterol 3 ml INHALATION UD PRN (if needed) lamotrigine [Lamictal] 200 mg PO BID levothyroxine 25 mcg PO QAM oxycodone 40 mg PO TID pantoprazole 40 mg PO BID acetaminophen 1,000 mg PO Q8 PRN (if needed) gabapentin 600 mg tablet 600 mg PO TID albuterol sulfate 90 mcg/actuation aerosol inhaler 2 puffs INH Q6H PRN mometasone-formoterol HFA 200 mcg-5 mcg/actuation aerosol inhaler 1 puffs INH BID Take evening before surgery Probiotic 3,000 mmu cells PO BID cephalexin 500 mg PO HS cholecalciferol (vitamin D3) 2,000 unit PO BID furosemide [Lasix] 40 mg PO BID ipratropium-albuterol 3 ml INHALATION UD PRN (if needed) lamotrigine [Lamictal] 200 mg PO BID lisinopril 10 mg PO HS oxycodone 40 mg PO TID pantoprazole 40 mg PO BID polyethylene glycol 3350 [Miralax] 17 g PO HS potassium chloride [Klor-Con 8] 8 meq PO BID pravastatin 40 mg PO HS spironolactone [Aldactone] 25 mg PO BID vitamin B complex 1 tab PO HS calcium carbonate [Calcium 600] 600 mg PO HS acetaminophen 1,000 mg PO Q8 PRN (if needed) sennosides [Senokot] 17.2 mg PO HS PRN (if needed) gabapentin 600 mg tablet 600 mg PO TID albuterol sulfate 90 mcg/actuation aerosol inhaler 2 puffs INH Q6H PRN (if needed) mometasone-formoterol HFA 200 mcg-5 mcg/actuation aerosol inhaler 1 puffs INH BID Other Notes If you have any questions please call us at [phone] or [phone] or [phone] or [phone]
--- NOTE | 2020-05-08 14:16 | Anesthesiology Consultation ---
Date of Service May 08, 2020 Assessment & Plan (1) Encounter for pre-operative examination: COVID Status: As of 05/07 travel assessment, patient denies travel to endemic area, known exposure/sick contacts, or symptoms of COVID19. Preoperative COVID19 testing to be completed prior to surgery. Chart Review Chart Review: Acceptable Risk for Surgery (pending surgeon ordered cardio clearance and stress test and PCP clearance) and Patient seen in Pre Admission Testing Teaching & Discussion Instructed NPO after midnight before surgery, except medications with 15 cc of water. Medication instructions provided according to the PAT guidelines. History Surgery Operation Date: 06/02/20 07:00 Proposed Procedures p Right Knee Total Knee Arthroplasty - Shar Huffman DO Height/Weight Height: 5 ft 3.5 in Weight: 87.543 kg Allergies Allergy/AdvReac Type Severity Reaction Status Date / Time hydroxychloroquine Allergy Unknown HIVES SOB Verified 05/08/20 09:01 Iodinated Contrast Media Allergy Unknown SEE NOTES Verified 05/08/20 09:01 BELOW Sulfa (Sulfonamide Allergy Unknown HIVES SOB Verified 05/08/20 09:01 Antibiotics) Medications Home Medications Medication Instructions Recorded Confirmed Last Taken Probiotic 3,000 mmu cells PO BID 09/14/18 05/08/20 11/25/19 20:00 betamethasone dipropionate 1 applic TOPICAL DAILY PRN 09/14/18 05/08/20 11/24/19 20:00 cephalexin 500 mg PO HS 09/14/18 05/08/20 11/25/19 20:00 cholecalciferol (vitamin D3) 2,000 unit PO BID 09/14/18 05/08/20 11/25/19 20:00 [Vitamin D3] furosemide [Lasix] 40 mg PO BID 09/14/18 05/08/20 11/25/19 20:00 ipratropium-albuterol 3 ml INHALATION UD PRN 09/14/18 05/08/20 Unknown lamotrigine [Lamictal] 200 mg PO BID 09/14/18 05/08/20 11/26/19 03:00 levothyroxine 25 mcg PO QAM 09/14/18 05/08/20 11/26/19 03:00 lisinopril 10 mg PO HS 09/14/18 05/08/20 11/25/19 20:00 nitroglycerin [Nitrostat] 0.4 mg SUBLINGUAL UD PRN 09/14/18 05/08/20 Unknown oxycodone 40 mg PO TID 09/14/18 05/08/20 11/26/19 03:00 pantoprazole 40 mg PO BID 09/14/18 05/08/20 11/26/19 03:00 polyethylene glycol 3350 [Miralax] 17 g PO HS 09/14/18 05/08/20 11/25/19 20:00 potassium chloride [Klor-Con 8] 8 meq PO BID 09/14/18 05/08/20 11/25/19 20:00 pravastatin 40 mg PO HS 09/14/18 05/08/20 11/25/19 20:00 spironolactone [Aldactone] 25 mg PO BID 09/14/18 05/08/20 11/25/19 20:00 vitamin B complex 1 tab PO HS 09/14/18 05/08/20 11/25/19 20:00 calcium carbonate [Calcium 600] 600 mg PO HS 11/08/19 05/08/20 11/25/19 20:00 acetaminophen 1,000 mg PO Q8 PRN #90 tab 11/28/19 05/08/20 Unknown sennosides [Senokot] 17.2 mg PO HS PRN #28 tab 11/28/19 05/08/20 Unknown CPAP Machine #1 ea 04/24/20 05/08/20 Unknown gabapentin 600 mg tablet 600 mg PO TID 04/24/20 05/08/20 Unknown albuterol sulfate 90 mcg/actuation 2 puffs INH Q6H PRN #3 inhaler 04/25/20 05/08/20 Unknown aerosol inhaler rivaroxaban [Xarelto] 15 mg PO BID 05/01/20 05/08/20 Unknown aspirin 81 mg tablet 81 mg PO DAILY tab 05/05/20 05/08/20 Unknown ferrous gluconate 240 mg (27 mg mg PO 05/05/20 05/08/20 Unknown iron) tablet mometasone-formoterol HFA 200 1 puffs INH BID gm 05/05/20 05/08/20 Unknown mcg-5 mcg/actuation aerosol inhaler Past Medical History Medical History CAD (coronary artery disease), [place] coronary artery s/p single RADHA 2004 Chronic back pain COPD (chronic obstructive pulmonary disease) Daily inhaler, only using prn rescue inhaler once monthly or less Deep vein thrombosis RECURRENT. TAKES XARELTO. LAST 2015 -- H/O PELVIS, LEFT ARM, & LEFT LEG NONE CURRENT GERD (gastroesophageal reflux disease) GI bleed HX OF FROM GASTRIC ULCER. HAD 2 BLOOD TRANFUSIONS 04/2018, EGD 06/06 --> HEMOCLIP PLACED, PT STARTED PPI THERAPY. H/H NOW WNL. Hiatal hernia History of SC (myocardial infarction) "SILENT" PER PATIENT History of MTHFR mutation ON XARELTO History of pulmonary embolism 2015, NOW ON XARELTO HTN (hypertension), benign Hyperlipidemia Hypothyroidism Intermittent self-catheterization of bladder R/T NEUROGENIC BLADDER Migraine LAMICTAL Myocardial Infarction 2002 Neurogenic bladder STRAIGHT SELF CATH DAILY SINCE 2000 Neurogenic claudication due to lumbar spinal stenosis On anticoagulant therapy KIAH on CPAP WITH OXYGEN 3 L/MIN HS Osteoarthritis Peptic ulcer disease EGD WITH HEMOCLIP 06/06/18 Urinary tract infection DAILY ABX FOR PREVENTATIVE CARE Exercise / Class Metabolic Activity III < 4 Walking/Shop/Light housework (Mild SOB with 1 FOS, limited by knee pain. Denies any chest pain.) Past Family History Family History Mother Family history of diabetes mellitus Father Family history of diabetes mellitus Brother Family history of diabetes mellitus Sister Family history of diabetes mellitus Past Surgical History Surgical History Fusion of spine L4-L5, S1-S2 (2007) L3-L4 (2013) L2-L3, HARDWARE REMOVAL L3-L4 (2017) H/O bilateral salpingo-oophorectomy H/O exploratory laparotomy FOR ENDOMETRIOSIS H/O vascular surgery BILAT LOWER LEGS-DR JALYN WALDEN-09/2019 History of appendectomy History of cardiac cath JHONY VALERO (MAY 30, 2018) - NO STENT 05/2016 CATH, NO STENT [facility] (JAN 02, 2005) - 1 STENT TO LAD. History of section History of cholecystectomy LAP History of colonoscopy History of cystoscopy X MULTIPLE History of esophagogastroduodenoscopy (EGD) History of hysterectomy JOE History of laminectomy LUMBAR (2000) History of laparotomy History of tonsillectomy Past Anesthesia History No Hx of Anesthesia Complications and No Family Hx of Anesthesia Complications History of PONV No Hx of PONV and No Hx of Motion Sickness Social History Smoking Status: Former smoker tobacco type: cigarettes Smoking cigarettes per day: H/O 10-20 Do You Dip or Chew Tobacco: No Smoking End Date: QUIT 09/21/2018 Hx Alcohol Use: No Hx Substance Use: Yes substance use type: prescription drug Substance Use Type Other:: PREVIOUSLY ON METHADONE Review of Systems Pt denies any recent chest pain, shortness of breath, palpitations, cough, fever or URI. +occ acid reflux Physical Exam Vital Signs BP: 102/69 P: 68bpm SPO2: 94% RA T: 98.9 F R: 16 ENMT Mouth: no dental restorations, no chipped teeth and no loose teeth Thyromental Distance: > or= 3.5 Finger Breadths (3.5) Mallampati Class: III Neck normal visual inspection; neck extension not limited Respiratory normal respiratory effort Auscultation: lungs clear to auscultation bilaterally Cardiovascular Rate/Rhythm: regular rate and regular rhythm Heart Sounds: no murmur Extremities: no edema Testing Laboratory Results 05/08/20 14:23 05/08/20 14:23 PT 12.4 Seconds (9.0-12.0) H 05/08/20 14:23 INR 1.2 (0.9-1.1) H 05/08/20 14:23 APTT 34.7 Seconds (21.0-31.0) H 05/08/20 14:23 Hemoglobin A1c 5.7 % (4.5-5.6) H 05/08/20 14:23 Blood Type O Positive 05/08/20 14:23 Antibody Screen NEGATIVE 05/08/20 14:23 Baseline anemia ~10 g/dL Electrocardiogram Date: 12/01/19 Findings: + NSR @ (84bpm) Chest X-Ray Date: 12/01/19 Findings: + NAD Echocardiogram Date: 08/11/17 EF: 55% Mild concentric hypertrophy. Mild mitral vegetation. Mild pulmonic regur gitation. Normal aorta.
[2020-05-08 15:22] LABS: Basophils # (auto) 0.01 K/uL (0-0.2); Basophils % (auto) 0.2 %; Eosinophils # (auto) 0.07 K/uL (0-0.5); Eosinophils % (auto) 1.1 %; Hematocrit (blood only) 32.8 % (37-47); Hemoglobin 10.3 g/dL (12.0-16.0); Immature Granulocytes # (auto) 0.01 K/uL (0.00-0.02); Immature Granulocytes % (auto) 0.2 %; Lymphocytes # (auto) 1.55 K/uL (1.2-3.4); Mean Corpuscular Hemoglobin 27.2 pg (25-34); Mean Corpuscular Hgb Conc 31.4 g/dL (32-36); Mean Corpuscular Volume 86.5 fL (80-100); Mean Platelet Volume 8.8 fL (7.4-10.4); Monocytes # (auto) 0.47 K/uL (0.11-0.59); Monocytes % (auto) 7.3 %; Neutrophils # (auto) 4.35 K/uL (1.4-6.5); Neutrophils % (auto) 67.2 %; Platelet Count 304 K/uL (130-400); RDW Coefficient of Variation 19.5 % (11.5-14.5); RDW Standard Deviation 61.5 fL (36.4-46.3); Red Blood Count 3.79 M/uL (4.2-5.4); White Blood Count 6.46 K/uL (4.8-10.8)
[2020-05-08 15:35] LABS: INR 1.2 (0.9-1.1); Partial Thromboplastin Ratio 1.2; Partial Thromboplastin Time 34.7 Seconds (21.0-31.0); Prothrombin Time 12.4 Seconds (9.0-12.0)
[2020-05-08 16:21] LABS: Albumin Level 3.8 gm/dl (3.4-5.0); BUN Creatinine Ratio 23.4 (10-20); Est GFR (African American) 58.4; Est GFR (Non-African American) 50.4; Potassium 4.5 mmol/L (3.5-5.1)
[2020-05-09 06:34] LABS: Estimated Average Glucose 117 mg/dl; Hemoglobin A1C 5.7 % (4.5-5.6)
--- NOTE | 2020-05-31 10:44 | History & Physical Report ---
Date of Service June 02, 2020 Assessment & Plan (1) Degenerative joint disease of knee, right: I have indicated the patient for right total knee replacement. The risks, benefits and complications of surgery were explained to the patient which include but not limited to infection, acute blood loss, DVT/PE, injury to nerves, vessels, bone, soft tissue, arthrofibrosis, chronic pain, failure of the prosthesis, knee dislocation, leg length discrepancy, need for additional surgery, cardiac and pulmonary events and . The patient wished to proceed with surgery and informed consent was obtained at this time. We will plan for restarting patient's Xarelto post-operatively for DVT prophylaxis. Upon discharge the patient will be discharged home with home health services. Appropriate clearances by PCP, Pain mgnt, Heme and cardiology were obtained. History of Present Illness Chief Complaint: Right knee pain/djd Primary Care Provider: Angel Luis Patel MD The patient is a 60 year old female who presents with complaints of severe right knee pain and DJD. The patient has failed outpatient conservative treatments to this point which included NSAIDs, bracing, IA corticosteroid and KEYS injections, PT and a home exercise/walking program. The patient's pain and limited function have progressed to the point where they severely hinder their activities of daily living and they no longer tolerate exercise programs. They are requesting to proceed with total knee replacement surgery. Allergies Allergy/AdvReac Type Severity Reaction Status Date / Time hydroxychloroquine Allergy Unknown HIVES SOB Verified 06/02/20 08:09 Iodinated Contrast Media Allergy Unknown SEE NOTES Verified 06/02/20 08:09 BELOW Sulfa (Sulfonamide Allergy Unknown HIVES SOB Verified 06/02/20 08:09 Antibiotics) Home Medications Home Medications Medication Instructions Recorded Confirmed Type Probiotic 3,000 mmu cells PO BID 09/14/18 06/02/20 History betamethasone dipropionate 1 applic TOPICAL DAILY PRN 09/14/18 06/02/20 History cephalexin 500 mg PO HS 09/14/18 06/02/20 History cholecalciferol (vitamin D3) 2,000 unit PO BID 09/14/18 06/02/20 History [Vitamin D3] furosemide [Lasix] 40 mg PO BID 09/14/18 06/02/20 History ipratropium-albuterol 3 ml INHALATION UD PRN 09/14/18 06/02/20 History lamotrigine [Lamictal] 200 mg PO BID 09/14/18 06/02/20 History levothyroxine [Synthroid] 25 mcg PO QAM 09/14/18 06/02/20 History lisinopril 10 mg PO HS 09/14/18 06/02/20 History nitroglycerin [Nitrostat] 0.4 mg SUBLINGUAL UD PRN 09/14/18 06/02/20 History oxycodone 40 mg PO TID 09/14/18 06/02/20 History pantoprazole [Protonix] 40 mg PO BID 09/14/18 06/02/20 History polyethylene glycol 3350 [Miralax] 17 g PO HS 09/14/18 06/02/20 History potassium chloride [Klor-Con 8] 8 meq PO BID 09/14/18 06/02/20 History pravastatin [Pravachol] 40 mg PO HS 09/14/18 06/02/20 History spironolactone [Aldactone] 25 mg PO BID 09/14/18 06/02/20 History vitamin B complex 1 tab PO HS 09/14/18 06/02/20 History calcium carbonate [Calcium 600] 600 mg PO HS 11/08/19 06/02/20 History acetaminophen 1,000 mg PO Q8 PRN #90 tab 11/28/19 06/02/20 Rx sennosides [Senokot] 17.2 mg PO HS PRN #28 tab 11/28/19 06/02/20 Rx CPAP Machine #1 ea 04/24/20 05/08/20 Rx gabapentin 600 mg tablet 600 mg PO TID 04/24/20 06/02/20 History albuterol sulfate 90 mcg/actuation 2 puffs INH Q6H PRN #3 inhaler 04/25/20 06/02/20 Rx aerosol inhaler rivaroxaban [Xarelto] 15 mg PO BID 05/01/20 06/02/20 History aspirin 81 mg tablet 81 mg PO DAILY tab 05/05/20 06/02/20 History ferrous gluconate 240 mg (27 mg 240 mg PO DAILY 05/05/20 06/02/20 History iron) tablet mometasone-formoterol HFA 200 1 puffs INH BID gm 05/05/20 06/02/20 History mcg-5 mcg/actuation aerosol inhaler Past Med/Surg History Medical History CAD (coronary artery disease), [place] coronary artery s/p single RADHA 2004 Chronic back pain COPD (chronic obstructive pulmonary disease) Daily inhaler, only using prn rescue inhaler once monthly or less Deep vein thrombosis RECURRENT. TAKES XARELTO. LAST 2015 -- H/O PELVIS, LEFT ARM, & LEFT LEG NONE CURRENT GERD (gastroesophageal reflux disease) GI bleed HX OF FROM GASTRIC ULCER. HAD 2 BLOOD TRANFUSIONS 04/2018, EGD 06/06 --> HEMOCLIP PLACED, PT STARTED PPI THERAPY. H/H NOW WNL. Hiatal hernia History of [place] (myocardial infarction) "SILENT" PER PATIENT History of MTHFR mutation ON XARELTO History of pulmonary embolism 2015, NOW ON XARELTO HTN (hypertension), benign Hyperlipidemia Hypothyroidism Intermittent self-catheterization of bladder R/T NEUROGENIC BLADDER Migraine LAMICTAL Myocardial Infarction 2002 Neurogenic bladder STRAIGHT SELF CATH DAILY SINCE 2000 Neurogenic claudication due to lumbar spinal stenosis On anticoagulant therapy KIAH on CPAP WITH OXYGEN 3 L/MIN HS Osteoarthritis Peptic ulcer disease EGD WITH HEMOCLIP 06/06/18 Urinary tract infection DAILY ABX FOR PREVENTATIVE CARE Surgical History Fusion of spine L4-L5, S1-S2 (2007) L3-L4 (2013) L2-L3, HARDWARE REMOVAL L3-L4 (2017) H/O bilateral salpingo-oophorectomy H/O exploratory laparotomy FOR ENDOMETRIOSIS H/O vascular surgery BILAT LOWER LEGS-DR JALYN WALDEN-09/2019 History of appendectomy History of cardiac cath JHONY VALERO (MAY 30, 2018) - NO STENT 05/2016 CATH, NO STENT [facility] (JAN 02, 2005) - 1 STENT TO LAD. History of section History of cholecystectomy LAP History of colonoscopy History of cystoscopy X MULTIPLE History of esophagogastroduodenoscopy (EGD) History of hysterectomy JOE History of laminectomy LUMBAR (2000) History of laparotomy History of tonsillectomy Family History Mother Family history of diabetes mellitus Father Family history of diabetes mellitus Brother Family history of diabetes mellitus Sister Family history of diabetes mellitus Social History Preferred Language: Spanish Communication Ability: Effective Visual Impairment: No Limitations Wrestling Coach Required: No Beliefs That Will Affect Care: None Current Living Situation: Spouse Other Information That Helps Us Care for You: No Feels Safe at Home: Yes Safety Concerns: Feels Safe At This Time Smoking Status: Former smoker Tobacco Type: cigarettes ; Cigarettes Per Day: H/O 10-20 ; Do You Dip or Chew Tobacco: No ; Smoking End Date: QUIT 09/21/2018 ; Second Hand Exposure: No ; Hx Alcohol Use: No Hx Substance Use: Yes substance use type: prescription drug Substance Use Type Other:: PREVIOUSLY ON METHADONE Review of Systems Review of Systems: All systems reviewed & are unremarkable except as noted in HPI & below Constitutional: as per Subjective / HPI Physical Exam Physical Exam: RLE NVSI +EHL/FHL/TA/GS SILT grossly, +2 DP pulse, compartments soft NT, limited painful ROM, 8-110 degrees of flexion. Constitutional: WD/WN, vitals as above Eyes: PERRL, conjunctivae normal, anicteric sclerae ENMT: external ear and nose normal, oropharynx normal Neck: trachea midline, no thyromegaly Respiratory: normal respiratory effort, lungs clear to auscultation Cardiovascular: RRR, no murmur, no edema Gastrointestinal (Abdomen): normal bowel sounds, soft, nontender, no hepatosplenomegaly Musculoskeletal: no cyanosis or clubbing, extremities motor strength 5/5 Skin: no rashes, warm and dry Neurologic: patellar DTR's 2+ bilat, sensation intact Psychiatric: A+Ox3, euthymic affect Lymphatic: no cervical or axillary lymphadenopathy Results & Data Results & Data ([facility]) Diagnostic Findings Multiple views of the knee demonstrates severe tricompartmental DJD with complete loss of the medial joint space. +osteophytes, +sclerosis, +subchondral cysts.
[~2020-06-02 06:59] MED LIST changes: -CEFAZOLIN 2000MG 2,000 MG/15 ML SYR IV SCH; -CeleBREX 200 MG CAP PO SCH; +FAMOTIDINE 20 MG TAB PO SCH; +ROPIVACAINE 0.5% HCL/PF 150 MG, BUPIVACAINE 0.5% MPF 30 ML, EPINEPHrine 0.15 MG, Ketoro... INFIL SCH; -ROPIVACAINE 0.5% HCL/PF 150 MG, BUPIVACAINE 0.5% MPF 30 ML, EPINEPHrine 30MG/30ML (OR U... INSTIL SCH; -TRANEXAMIC ACID 1,000 MG **IV Intra-op IV SCH; -TRANEXAMIC ACID 1,000 MG **IV Pre-op IV SCH; +ceFAZolin 2000MG 2,000 MG/15 ML SYR IV SCH
[2020-06-02] MEDS ORDERED: BUPIVACAINE 0.25% 30 ML VIAL ONE (07:21)
[2020-06-02] MEDS ORDERED: BUPIVACAINE 0.5 % 5 MG/1 ML PF 10ML VIAL ONE ×2 (07:22→08:12)
[2020-06-02] MEDS ORDERED: MIDAZOLAM HCL 1 MG/ML 2ML VIAL ONE ×2 (08:08→13:04)
[2020-06-02] MEDS ORDERED: ONDANSETRON INJ 2 MG/ML 2 ML VIAL IV PRN ×2 (09:04→14:13)
[2020-06-02] MEDS ORDERED: ePHEDrine sulfate 50 MG/ML AMP IV PRN (09:04)
[2020-06-02] MEDS ORDERED: fentaNYL citrate 100 MCG/2 ML VIAL IV PRN (09:04)
[2020-06-02] MEDS ORDERED: ATROPINE SULFATE 0.1 MG/ML 10ML SYR IV PRN (09:04)
--- NOTE | 2020-06-02 09:13 | History & Physical Bridge Note ---
Date of Service June 02, 2020 History & Physical Bridge Note I have examined the patient, reviewed the History & Physical and in the interval since the performance of the History & Physical I have noted the following changes of clinical significance: no changes noted
[2020-06-02] MEDS ORDERED: ORTHO JOINT ANESTHETIC ONE (09:19)
[2020-06-02] MEDS ORDERED: BACITRACIN INJ 50,000 UNIT VIAL ONE (09:19)
[2020-06-02] MEDS ORDERED: GLYCOPYRROLATE 0.2 MG/ML VIAL ONE ×2 (09:38→10:10)
[2020-06-02] MEDS ORDERED: LIDOCAINE HCL 2% 2 ML VIAL/AMP(20MG/ML) INFIL ONE (10:10)
[2020-06-02] MEDS ORDERED: PROPOFOL IV EMULSION 10 MG/ML 20 ML VIAL IV ONE ×4 (10:10→13:35)
[2020-06-02] MEDS ORDERED: ONDANSETRON INJ 2 MG/ML 2 ML VIAL ONE (10:10)
--- NOTE | 2020-06-02 11:24 | Post Operative Brief Note ---
Immediate Post Op Note v1 Date of Surgery June 02, 2020 Pre & Post Diagnosis Operation Date: 06/02/20 09:30 Pre-Op Diagnosis: Right Knee Osteoarthritis Post-Op Diagnosis: Right Knee Osteoarthritis I identified the patient and participated in the time-out.: Yes Procedure Operation Date: 06/02/20 09:30 Actual Procedures p Right Total Knee Arthroplasty(Right) - Shar Huffman DO Surgeon Shar Huffman DO Mathematical Engineer Librado Padilla Estimated Blood Loss 75 Findings Consistent with Post-Op Diagnosis Fluids 1000 cc LR Specimens proximal tibia and distal femur bone fragments Anesthesia Type MAC Spinal Regional Complications none Disposition Disposition: Recovery Room Overlapping Procedure I was present for: the critical portions of procedure. I was immediately available: during the entire case. Back up surgeon: was not required during procedure.
--- NOTE | 2020-06-02 11:32 | Operative Report ---
Post Operative Report Pre & Post Diagnosis Operation Date: 06/02/20 09:30 Pre-Op Diagnosis: Right Knee Osteoarthritis Post-Op Diagnosis: Right Knee Osteoarthritis I identified the patient and participated in the time-out.: Yes Procedure Operation Date: 06/02/20 09:30 Actual Procedures p Right Total Knee Arthroplasty(Right) - Shar Huffman DO Surgeon Shar Huffman DO Print Shop Assistant Librado Padilla Estimated Blood Loss 75 Findings Consistent with Post-Op Diagnosis Fluids 1000 cc LR Specimens Proximal tibia and distal femur bone fragments Anesthesia Type MAC Spinal Regional Complications none Disposition Disposition: Recovery Room Indications The patient is a 60-year-old female presents with long history of severe right knee tricompartmental DJD and failed outpatient conservative treatments including NSAIDs, bracing, injections and home walking/exercise program. The patient's symptoms have progressed to the point where it has been difficult to perform normal activities of daily living. I have indicated the patient for a right total knee arthroplasty, the risks and benefits and complications of the procedure include but are not limited to infection bleeding damage to bone, nerves, vessels, surrounding soft tissue, blood clots, loss of function, leg length discrepancy, dislocation, failure of the components, need for additional surgery and . The patient wished to proceed with surgery at this time and informed consent was obtained. Appropriate clearances were obtained. Description of Procedure COMPONENTS USED: Nathan persona knee system: Femur size 7 narrow, Tibia size E tibial articulating surface 10 PS, Patella 32 mm Following induction of spinal anesthesia, a tourniquet was applied to the proximal aspect of the thigh and the patient's right leg was prepped and draped in the usual sterile manner. A timeout was performed, patient identified and site vicente confirmed. Appropriate pre-operative IV antibiotics were given. The limb was exsanguinated with an Esmarch bandage and tourniquet was inflated to 300 mmHg. A longitudinal midline incision was made over the anterior knee. Subcutaneous tissue was sharply dissected down to fascia. Electrocautery was used for hemostasis. Next a parapatellar arthrotomy was performed. Patella was everted and the knee was flexed. A Leyva retractor was used to expose the synovium above on the anterior aspect of the femur and removed down to bone. Next, the anterior fat pad was removed to aid in visualization. The medial face of the tibia was cleared of soft tissue first with a Bovie and a lloyd elevator. This tissue was retracted posteriorly using a blunt Hohmann. Next, the extra-medullary tibial cutting guide was placed to the anterior aspect of the tibia. The tibia resection level was set taking 2mm from the defective tibial condyle. Resection depth was once again confirmed with bella wing. The medial and lateral collateral ligament was protected with two Hohmann retractors. The tibia guide was removed and proximal tibial bone fragment removed utilizing straight osteotome, electrocautery and Jeovany. Next, the distal femur intramedullary canal was accessed utilizing the step drill. The intramedullary distal femur cutting guide was placed into the canal and pinned into place. The distal femur was cut on the 5 degree setting. Next the cutting guide was removed and the femur was sized. Care was taken to ensure appropriate addiction specialist all rotation and 3 degree holes were drilled. A size 7 4-in-1 cutting block was placed on the distal end of the femur and secured into place with two short headed screws. Two bent Hohmann retractors were placed to protect the medial and lateral collateral ligaments. The oscillating saw was used to cut anterior, posterior, anterior chamfer and posterior chamfer. The four and one cutting block was removed and bone fragments excised. Laminar rn plasma center was placed laterally and the ACL and PCL were removed followed by the medial meniscus and posterior medial osteophytes. Aquamantys was utilized for any posterior medial bleeders and Orthomix injected into the posterior medial capsule. A laminar rn plasma center was then placed in the medial compartment and the lateral meniscus and posterior osteophytes were removed. Aquamantys was utilized for any posterior lateral bleeders and Orthomix injected into the posterior lateral capsule. Next, drop debo and spacer block were placed with the leg in flexion and extension to assess alignment and flexion/extension gaps. Next, the proximal tibia was assessed and two bent Hohmans were placed medial and lateral to aid in visualization. The appropriate tibia size and rotation was selected and a size E tibial plate was pinned into place with appropriate rotation. Preparation of the tibia was completed utilizing the matching tibial drill and broach. I then turned my attention back to the distal femur in a trial femoral component was impacted into place. Appropriate femoral width was assessed and selected. Next the femur PS box cut guide was placed and cut made with the reciprocal saw and the PS box provisional placed. A trial size 10 PS tibia articular tray was placed and varus-valgus balance assessed in 0 degrees of extension and 30, 60 and 90 degrees of flexion. A final tibial articular surface size 10 PS was chosen. Assess was gained to the patella and caliper utilized to measure width. The patella reamer was utilized and remaining bone removed with oscillating saw. A size 32 mm patella button was selected and the patella pegs drilled. Trial patella button was placed and tracking was assessed. The knee was found to be well balanced, well aligned with excellent patella tracking. The trials were removed and final components were obtained and assembled. The knee was irrigated copiously with sterile saline solution mixed with bacitracin. Access to the proximal tibia was once again obtained utilizing to the Hohmans and the proximal tibia and distal femur were dried with lap sponges. The final components were cemented into place and all excess cement was removed. A trial tibial articular surface was placed while cemented hardened. Knee stability was once again assessed and the final component inserted. A Betadine soak was performed. After 3 minutes, the hip was once more irrigated with copious sterile saline solution with bacitracin. The knee was injected with the remaining Orthomix which includes a combination of Ropivicaine 0.5% 150mg, Bupivicaine 0.5%/Epinephrine 1:200,000 30ml, Toradol 30mg, Dexamethasone 4mg, Ketamine 10mg, Clonidine 100mcg and NSS 30ml solution. The capsulotomy was closed with #1 Vicryl followed by subcutaneous closure with 2-0 Vicryl suture and a 3-0 V-lock suture. Skin closure was performed using Prineo dressing followed by Telfa, 4 x 4s and gaye wrap. Tourniquet was deflated at 104 minutes. The patient tolerated the procedure well and was taken to the PACU in stable condition. Due to the complex nature of the procedure, the entire surgery was performed with the operational assistance of Librado Padilla PA-C. The children's nursery assistant, under direct supervision, was involved in the actual performance of all aspects of the surgical procedure including patient positioning, hemostasis, tissue retraction, instrument management and wound closure. I attest to the content of the Intraoperative Record and any orders documented therein. Any exceptions are noted below.
--- NOTE | 2020-06-02 12:35 | XRay Report ---
XR knee RT 1 or 2V routine CLINICAL HISTORY: Surgical Post Op COMPARISON: None. DISCUSSION: Anatomic alignment post total right knee arthroplasty. Could contact between prosthetic a nd underlying bone. Expected postoperative soft tissue change IMPRESSION: Anatomic alignment post total right knee arthroplasty. ACT 112: Negative or not required by law. The above report was generated using voice recognition software. It may contain grammatical, syntax or spelling errors. Electronically signed by: Angel Luis Vega M.D. 06/02/2020 12:34 PM
--- NOTE | 2020-06-02 12:55 | Anesthesiology Progress Note ---
Date of Service June 02, 2020 Anesthesia Post Procedure Vital Signs Vital Signs: Temp Pulse Pulse Resp BP BP Pulse Ox 06/02/20 12:40 79 20 114/65 90 06/02/20 12:30 82 16 115/69 92 06/02/20 12:20 85 12 106/74 91 06/02/20 12:10 82 16 118/59 L 91 06/02/20 12:02 37.8 C H 93 H 14 132/67 89 L 06/02/20 08:26 36.9 C 66 18 110/66 92 Pain Intensity Right Knee: Pain Intensity: 7 Transfer of Care Handoff Completed per policy Notes Mental Status: alert / awake / arousable and participated in evaluation Nausea / Vomiting: adequately controlled Pain: adequately controlled Airway Patency, RR, SpO2: stable & adequate BP & HR: stable & adequate Hydration State: stable & adequate Neuraxial Anesthesia: was administered and sensory block is resolving Anesthetic Complications: no major complications apparent and Pt Satisfied with anesthetic care Notes: Patient sleepy but responsive in PACU - to continue ketamine drip in ICU post op for history of chronic pain.
[2020-06-02] MEDS ORDERED: KETAMINE HCL INJ 50 MG/ML 10 ML VIAL ONE (13:05)
--- NOTE | 2020-06-02 13:20 | Critical Care Consultation ---
Date of Consultation June 02, 2020 Assessment & Plan (1) Degenerative joint disease of knee, right: Reason Critically Ill: Opioid dependence requiring ketamine infusion postop right total knee PLAN: Neuro: History neurogenic bladder -Patient self caths daily Chronic opiate dependence -Ketamine protocol Resp: COPD KIAH -Home BiPAP settings EPAP 6: IPAP 8 -Based off of 04/22/2020 compliance data CV: Hypertension -Restart home meds in the morning Fluids/Renal: Maintenance IV fluids ordered by primary team ID: Antibiotics per orthopedics GI/Nutrition: Regular diet when awake Heme: History venous thromboembolism Long-term anticoagulation -Xarelto start tomorrow morning ordered by primary team DVT prophylaxis: Xarelto tomorrow Endocrine: ICU hyperglycemia protocol Vascular access: Peripheral IVs Code Status: Full code Disposition: ICU for hemodynamic monitoring (2) Chronic obstructive pulmonary disease: (3) Sleep apnea: (4) Hyperlipidemia: (5) Hypertension: (6) GERD (gastroesophageal reflux disease): (7) VTE (venous thromboembolism): (8) Acute blood loss as cause of postoperative anemia: (9) Hypothyroidism: (10) DVT prophylaxis: (11) Opioid dependence: (12) Post-operative state: History of Present Illness Reason for Consultation: Ketamine infusion postop Requesting Physician: Shar Huffman DO Attending Physician: Shar Huffman DO History of Present Illness Patient is a 60-year-old female who had a right total knee replacement secondary to degenerative joint disease. Past significant medical history includes: COPD, sleep apnea, long-term anticoagulation secondary to folate metabolism deficiency: DVT history and upper extremity, hypothyroidism, history of pulmonary embolism, history of congestive heart failure, hypertension: GERD, chronic pain requiring long-term narcotics: Not opiate gary. She will be transferred to the ICU for postoperative management of the ketamine infusion. Allergies Allergy/AdvReac Type Severity Reaction Status Date / Time hydroxychloroquine Allergy Severe HIVES SOB Verified 06/02/20 09:18 Sulfa (Sulfonamide Allergy Severe HIVES SOB Verified 06/02/20 09:18 Antibiotics) Iodinated Contrast Media Allergy Mild SEE NOTES Verified 06/02/20 09:18 BELOW Home Medications Home Medications Medication Instructions Recorded Confirmed Type Probiotic 3,000 mmu cells PO BID 09/14/18 06/02/20 History betamethasone dipropionate 1 applic TOPICAL DAILY PRN 09/14/18 06/02/20 History cephalexin 500 mg PO HS 09/14/18 06/02/20 History cholecalciferol (vitamin D3) 2,000 unit PO BID 09/14/18 06/02/20 History [Vitamin D3] furosemide [Lasix] 40 mg PO BID 09/14/18 06/02/20 History ipratropium-albuterol 3 ml INHALATION UD PRN 09/14/18 06/02/20 History lamotrigine [Lamictal] 200 mg PO BID 09/14/18 06/02/20 History levothyroxine [Synthroid] 25 mcg PO QAM 09/14/18 06/02/20 History lisinopril 10 mg PO HS 09/14/18 06/02/20 History nitroglycerin [Nitrostat] 0.4 mg SUBLINGUAL UD PRN 09/14/18 06/02/20 History oxycodone 40 mg PO TID 09/14/18 06/02/20 History pantoprazole [Protonix] 40 mg PO BID 09/14/18 06/02/20 History polyethylene glycol 3350 [Miralax] 17 g PO HS 09/14/18 06/02/20 History potassium chloride [Klor-Con 8] 8 meq PO BID 09/14/18 06/02/20 History pravastatin [Pravachol] 40 mg PO HS 09/14/18 06/02/20 History spironolactone [Aldactone] 25 mg PO BID 09/14/18 06/02/20 History vitamin B complex 1 tab PO HS 09/14/18 06/02/20 History calcium carbonate [Calcium 600] 600 mg PO HS 11/08/19 06/02/20 History acetaminophen 1,000 mg PO Q8 PRN #90 tab 11/28/19 06/02/20 Rx sennosides [Senokot] 17.2 mg PO HS PRN #28 tab 11/28/19 06/02/20 Rx CPAP Machine #1 ea 04/24/20 05/08/20 Rx gabapentin 600 mg tablet 600 mg PO TID 04/24/20 06/02/20 History albuterol sulfate 90 mcg/actuation 2 puffs INH Q6H PRN #3 inhaler 04/25/20 06/02/20 Rx aerosol inhaler rivaroxaban [Xarelto] 15 mg PO BID 05/01/20 06/02/20 History aspirin 81 mg tablet 81 mg PO DAILY tab 05/05/20 06/02/20 History ferrous gluconate 240 mg (27 mg 240 mg PO DAILY 05/05/20 06/02/20 History iron) tablet mometasone-formoterol HFA 200 1 puffs INH BID gm 05/05/20 06/02/20 History mcg-5 mcg/actuation aerosol inhaler Patient History Medical History CAD (coronary artery disease), [place] coronary artery s/p single RADHA 2004 Chronic back pain COPD (chronic obstructive pulmonary disease) Daily inhaler, only using prn rescue inhaler once monthly or less Deep vein thrombosis RECURRENT. TAKES XARELTO. LAST 2015 -- H/O PELVIS, LEFT ARM, & LEFT LEG NONE CURRENT GERD (gastroesophageal reflux disease) GI bleed HX OF FROM GASTRIC ULCER. HAD 2 BLOOD TRANFUSIONS 04/2018, EGD 06/06 --> HEMOCLIP PLACED, PT STARTED PPI THERAPY. H/H NOW WNL. Hiatal hernia History of CA (myocardial infarction) "SILENT" PER PATIENT History of MTHFR mutation ON XARELTO History of pulmonary embolism 2015, NOW ON XARELTO HTN (hypertension), benign Hyperlipidemia Hypothyroidism Intermittent self-catheterization of bladder R/T NEUROGENIC BLADDER Migraine LAMICTAL Myocardial Infarction 2002 Neurogenic bladder STRAIGHT SELF CATH DAILY SINCE 2000 Neurogenic claudication due to lumbar spinal stenosis On anticoagulant therapy KIAH on CPAP WITH OXYGEN 3 L/MIN HS Osteoarthritis Peptic ulcer disease EGD WITH HEMOCLIP 06/06/18 Urinary tract infection DAILY ABX FOR PREVENTATIVE CARE Surgical History Fusion of spine L4-L5, S1-S2 (2007) L3-L4 (2013) L2-L3, HARDWARE REMOVAL L3-L4 (2017) H/O bilateral salpingo-oophorectomy H/O exploratory laparotomy FOR ENDOMETRIOSIS H/O vascular surgery BILAT LOWER LEGS-DR JALYN WALDEN-09/2019 History of appendectomy History of cardiac cath JHONY VALERO (MAY 30, 2018) - NO STENT 05/2016 CATH, NO STENT [facility] (JAN 02, 2005) - 1 STENT TO LAD. History of section History of cholecystectomy LAP History of colonoscopy History of cystoscopy X MULTIPLE History of esophagogastroduodenoscopy (EGD) History of hysterectomy JOE History of laminectomy LUMBAR (2000) History of laparotomy History of tonsillectomy Family History Mother Family history of diabetes mellitus Father Family history of diabetes mellitus Brother Family history of diabetes mellitus Sister Family history of diabetes mellitus Social History Preferred Language: [place] Communication Ability: Effective Visual Impairment: No Limitations Tip Fixer Required: No Beliefs That Will Affect Care: None Current Living Situation: Spouse Other Information That Helps Us Care for You: No Feels Safe at Home: Yes Safety Concerns: Feels Safe At This Time Smoking Status: Former smoker Tobacco Type: cigarettes ; Cigarettes Per Day: H/O 10-20 ; Do You Dip or Chew Tobacco: No ; Smoking End Date: QUIT 09/21/2018 ; Second Hand Exposure: No ; Hx Alcohol Use: No Hx Substance Use: Yes substance use type: prescription drug Substance Use Type Other:: PREVIOUSLY ON METHADONE Review of Systems Review of Systems: Unobtainable due to reduced consciousness (Postoperative anesthesia) Physical Exam Physical Exam: General: Alert. Follows simple commands Skin: Warm, dry, Head: Atraumatic Ears, nose, mouth and throat: airway patent Cardiovascular: Normal peripheral perfusion Respiratory: no respiratory distress Gastrointestinal: Non distended Musculoskeletal: Right lower extremity in knee immobilizer Results & Data Results & Data ([facility]) Vital Signs (Past 12 Hours) Vital Signs Temp Pulse Pulse Resp BP BP Pulse Ox 06/02/20 13:00 75 20 106/56 L 92 06/02/20 12:50 78 20 104/59 L 90 06/02/20 12:40 79 20 114/65 90 06/02/20 12:30 82 16 115/69 92 06/02/20 12:20 85 12 106/74 91 06/02/20 12:10 82 16 118/59 L 91 06/02/20 12:02 37.8 C H 93 H 14 132/67 89 L 06/02/20 08:26 36.9 C 66 18 110/66 92 Laboratory Results 06/02/20 Range/Units 08:24 Blood Type O Positive Antibody Screen NEGATIVE Crossmatch See Detail Coding Level of Care Code 67394 Inpt Consult Level 5 Diagnoses Degenerative joint disease of knee, right M17.11 Osteoarthritis type: primary Chronic obstructive pulmonary disease J44.9 Sleep apnea G47.33 Sleep apnea type: obstructive Hyperlipidemia E78.5 Hypertension I10 GERD (gastroesophageal reflux disease) K21.9 VTE (venous thromboembolism) I82.90 Acute blood loss as cause of postoperative anemia D62 Hypothyroidism E03.9 Hypothyroidism type: acquired DVT prophylaxis Z29.9 Opioid dependence F11.20 Post-operative state Z98.890 (1) Degenerative joint disease of knee, right Osteoarthritis type: primary Qualified Code(s): M17.11 - Unilateral primary osteoarthritis, right knee (2) Sleep apnea Sleep apnea type: obstructive Qualified Code(s): G47.33 - Obstructive sleep apnea (adult) (pediatric) (3) Hypothyroidism Hypothyroidism type: acquired Qualified Code(s): E03.9 - Hypothyroidism, unspecified
[2020-06-02] MEDS ORDERED: diphenhydrAMINE Capsule 25 MG CAP PO PRN (14:13)
[2020-06-02] MEDS ORDERED: bisacodyL 10 MG SUPP PR PRN (14:13)
[2020-06-02] MEDS ORDERED: NALOXONE HCL 0.4 MG/1 ML VIAL/CARP IV PRN (14:13)
[2020-06-02] MEDS ORDERED: MAGNESIUM HYDROXIDE SUSP 30 ML UDC PO PRN (14:13)
[2020-06-02] MEDS ORDERED: METOCLOPRAMIDE HCL INJ 5 MG/ML 2 ML VIAL IV PRN (14:13)
[2020-06-02] MEDS ORDERED: ALBUT/IPRATROP 3MG/0.5MG NEB 3 ML VIAL INH PRN (14:13)
[2020-06-02] MEDS ORDERED: LIDOCAINE MPF 4% LOCAL INJ 5 ML AMP OP ONE (14:19)
[2020-06-02] MEDS ORDERED: PROPARACAINE 0.5% 225 DROPS/15 ML BTL ONE (14:23)
[2020-06-02] MEDS ORDERED: ALBUTEROL HFA 8 GM INHALER INH PRN (14:24)
[2020-06-02] MEDS: ACETAMINOPHEN 500 MG TAB PO SCH ×2 (15:10→21:57)
[2020-06-02] MEDS: SODIUM CHLORIDE 0.9% 1000ML 1,000 ML IV SCH (15:10)
[2020-06-02] MEDS: ERYTHROMYCIN OP OINT 5 MG/GM 3.5 GM TUBE OP SCH ×3 (15:10→23:14)
--- NOTE | 2020-06-02 15:32 | Anesthesiology Progress Note ---
Date of Service June 02, 2020 Anesthesia Post Procedure Vital Signs Vital Signs: Temp Pulse Pulse Pulse Resp BP BP 06/02/20 14:30 73 21 06/02/20 14:15 78 22 06/02/20 14:00 80 18 06/02/20 13:20 74 15 114/67 06/02/20 13:10 36.5 C 77 15 113/62 06/02/20 13:00 75 20 106/56 L 06/02/20 12:50 78 20 104/59 L 06/02/20 12:40 79 20 114/65 06/02/20 12:30 82 16 115/69 06/02/20 12:20 85 12 106/74 06/02/20 12:10 82 16 118/59 L 06/02/20 12:02 37.8 C H 93 H 14 132/67 06/02/20 08:26 36.9 C 66 18 110/66 Pulse Ox 06/02/20 14:30 95 06/02/20 14:15 95 06/02/20 14:00 94 06/02/20 13:20 91 06/02/20 13:10 92 06/02/20 13:00 92 06/02/20 12:50 90 06/02/20 12:40 90 06/02/20 12:30 92 06/02/20 12:20 91 06/02/20 12:10 91 06/02/20 12:02 89 L 06/02/20 08:26 92 Pain Intensity Right Knee: Pain Intensity: 7 Left Eye: Pain Intensity: 9 Notes Anesthetic Complications: see Notes below Notes: On arrival to ICU, the patient was complaining of severe left eye pain. Eye examination performed by the ICU was consistent with a small corneal abrasion. Prior to her procedure, the patient did relate to me that she has had problems with corneal abrasions in the past, including a "severe" corneal abrasion in 1991 that resulted in eye patching for a few days. She did request that we tape her eyes during the surgery today, but it is not within the standard of care to tape patients eyes shut during sedation cases. Therefore, we were very careful throughout the case to avoid manipulating the patients face and to avoid any drapes or equipment coming near the patient's eyes. When I saw the patient this afternoon, she stated that she is now feeling some mild pain in her right eye and feels she might have a corneal abrasion there as well. The patients symptoms and presentation are consistent with post operative corneal abrasion. I discussed this with the patient. Most corneal abrasions self resolve within the first 24 to 72 hours. Patching is not necessary and may impair healing. The patient was encouraged to rest with eyes closed and the patient can gently apply a cool compress for symptom relief. The patient should avoid rubbing or touching the symptomatic eye. An order can be placed for either erythromycin ointment QID and/or ketorolac 0.5% drops PRN to assist with eye pain and symptoms. We will reevaluate the patient again tomorrow to make sure her symptoms are improving. Charisma Pastor MD, PhD Anesthesiologist
[2020-06-02] MEDS: ceFAZolin 2000MG 2,000 MG/15 ML SYR IV SCH (18:16)
--- NOTE | 2020-06-02 18:32 | Orthopedic Progress Note ---
Date of Service June 02, 2020 Assessment & Plan (1) Degenerative joint disease of knee, right: s/p R TKA -ancef x 24 -DVT ppx: SCDs, TEDs, Xarelto -WBAT RLE -PT/OT -PO XR demonstrates well aligned well fixed prothesis without fracture/dislocation -am labs -DC planning Admission and Anticipated Discharge Date Admission Date: June 02, 2020 Subjective Post Operative Progress Note Patient seen sitting up in bed, comfortable, denies complaints, pain well controlled, no acute issues. Review of Systems Review of Systems: All systems reviewed & are unremarkable except as noted in HPI & below Constitutional: as per Subjective / HPI Physical Exam Physical Exam: RLE NVSI +EHL/FHL/TA/GS SILT grossly, +2 DP pulse, compartments soft NT, dressing cdi. Constitutional: WD/WN, vitals as above Results & Data ([facility]) Vital Signs (Past 12 Hours) Vital Signs Temp Pulse Pulse Pulse Resp BP BP 06/02/20 14:30 73 21 06/02/20 14:15 78 22 06/02/20 14:00 80 18 06/02/20 13:20 74 15 114/67 06/02/20 13:10 36.5 C 77 15 113/62 06/02/20 13:00 75 20 106/56 L 06/02/20 12:50 78 20 104/59 L 06/02/20 12:40 79 20 114/65 06/02/20 12:30 82 16 115/69 06/02/20 12:20 85 12 106/74 06/02/20 12:10 82 16 118/59 L 06/02/20 12:02 37.8 C H 93 H 14 132/67 06/02/20 08:26 36.9 C 66 18 110/66 Pulse Ox 06/02/20 14:30 95 06/02/20 14:15 95 06/02/20 14:00 94 06/02/20 13:20 91 06/02/20 13:10 92 06/02/20 13:00 92 06/02/20 12:50 90 06/02/20 12:40 90 06/02/20 12:30 92 06/02/20 12:20 91 06/02/20 12:10 91 06/02/20 12:02 89 L 06/02/20 08:26 92 (1) Degenerative joint disease of knee, right Osteoarthritis type: primary Qualified Code(s): M17.11 - Unilateral primary osteoarthritis, right knee
[2020-06-02] MEDS: DOCUSATE SODIUM 100 MG CAP PO SCH (20:12)
[2020-06-02] MEDS: SENNA 8.6 MG TAB PO SCH (20:12)
[2020-06-02] MEDS: lamoTRIgine 100 MG TAB PO SCH (20:13)
[2020-06-02] MEDS: lisinopril 10 MG TAB PO SCH (20:13)
[2020-06-02] MEDS: SPIRONOLACTONE 25 MG TAB PO SCH (20:13)
[2020-06-02] MEDS: PRAVASTATIN SOD 40 MG TAB PO SCH (20:13)
[2020-06-02] MEDS: FUROSEMIDE 40 MG TAB PO SCH (20:13)
[2020-06-02] MEDS: GABAPENTIN 600 MG TAB PO SCH (20:13)
[2020-06-02] MEDS ORDERED: MOMETASONE FORMOTEROL INH SCH (21:00)
[2020-06-03] MEDS: SODIUM CHLORIDE 0.9% 1000ML 1,000 ML IV SCH (01:29)
[2020-06-03] MEDS: ceFAZolin 2000MG 2,000 MG/15 ML SYR IV SCH (02:11)
[2020-06-03 04:46] LABS: Hematocrit (blood only) 28.1 % (37-47); Hemoglobin 8.8 g/dL (12.0-16.0); Mean Corpuscular Hemoglobin 27.6 pg (25-34); Mean Corpuscular Hgb Conc 31.3 g/dL (32-36); Mean Corpuscular Volume 88.1 fL (80-100); Mean Platelet Volume 9.1 fL (7.4-10.4); Platelet Count 257 K/uL (130-400); RDW Coefficient of Variation 17.2 % (11.5-14.5); RDW Standard Deviation 55.7 fL (36.4-46.3); Red Blood Count 3.19 M/uL (4.2-5.4); White Blood Count 13.91 K/uL (4.8-10.8)
[2020-06-03 05:05] LABS: BUN Creatinine Ratio 15.9 (10-20); Creatinine Clr Calc Pharmacy 61.6 ml/min; Est GFR (African American) 69.1; Est GFR (Non-African American) 59.6; Magnesium 2.1 mg/dl (1.8-2.4); Potassium 4.1 mmol/L (3.5-5.1)
[2020-06-03 05:06] LABS: Phosphorus 3.8 mg/dl (2.5-4.9)
[2020-06-03] MEDS: LEVOTHYROXINE SODIUM 25 MCG TABLET PO SCH (05:36)
[2020-06-03] MEDS: ERYTHROMYCIN OP OINT 5 MG/GM 3.5 GM TUBE OP SCH (05:36)
[2020-06-03] MEDS: ACETAMINOPHEN 500 MG TAB PO SCH ×3 (05:36→22:05)
--- NOTE | 2020-06-03 08:54 | Critical Care Progress Note ---
Date of Service June 03, 2020 Assessment & Plan (1) Degenerative joint disease of knee, right: Reason Critically Ill: Opioid dependence requiring ketamine infusion postop right total knee PLAN: Neuro: History neurogenic bladder -Patient self caths daily Chronic opiate dependence -Ketamine protocol: Discontinued this morning Eyes: Left corneal abrasion -Symptoms have resolved -Placed in discharge instructions follow-up with optometry or ophthalmology in 7 to 10 days. Resp: COPD KIAH -Home BiPAP settings EPAP 6: IPAP 8 -Based off of 04/22/2020 compliance data CV: Hypertension -Restart home meds today Fluids/Renal: Taking adequate p.o. ID: Antibiotics per orthopedics GI/Nutrition: Tolerating regular diet Heme: History venous thromboembolism Long-term anticoagulation -Xarelto starting today: Dosing per orthopedics DVT prophylaxis: Xarelto Endocrine: ICU hyperglycemia protocol Vascular access: Peripheral IVs Code Status: Full code Disposition: Transfer to [facility] (2) Chronic obstructive pulmonary disease: (3) Sleep apnea: (4) Hyperlipidemia: (5) Hypertension: (6) GERD (gastroesophageal reflux disease): (7) VTE (venous thromboembolism): (8) Acute blood loss as cause of postoperative anemia: (9) Hypothyroidism: (10) DVT prophylaxis: (11) Opioid dependence: (12) Post-operative state: Admission and Anticipated Discharge Date Admission Date: June 02, 2020 Subjective Eye pain has totally resolved, no blurred vision. Feels well, and encouraged to start physical therapy today. Review of Systems Review of Systems: As per HPI Physical Exam Physical Exam: General: Alert. nontoxic. Skin: Warm, dry, Head: Atraumatic Ears, nose, mouth and throat: airway patent Cardiovascular: Normal peripheral perfusion Respiratory: no respiratory distress Gastrointestinal: Non distended Musculoskeletal: Good capillary refill in bilateral lower extremities Results & Data Results & Data ([facility]) Vital Signs (Past 12 Hours) Vital Signs Pulse Resp BP Pulse Ox 06/03/20 06:03 84 113/51 L 95 06/03/20 05:32 89 106/60 94 06/03/20 05:02 86 108/55 L 97 06/03/20 04:32 88 118/60 97 06/03/20 04:30 87 97 06/03/20 04:02 88 96/57 L 95 06/03/20 04:00 88 96 06/03/20 03:32 89 109/60 95 06/03/20 03:30 89 95 06/03/20 03:03 85 114/39 L 97 06/03/20 03:00 89 97 06/03/20 02:32 87 111/51 L 97 06/03/20 02:30 96 H 97 06/03/20 02:02 90 109/54 L 96 06/03/20 02:00 88 95 06/03/20 01:33 93 H 93/47 L 97 06/03/20 01:30 88 96 06/03/20 01:03 97 H 108/57 L 95 06/03/20 01:00 94 H 93 06/03/20 00:32 76 94/51 L 93 06/03/20 00:30 75 93 06/03/20 00:04 74 06/03/20 00:02 75 94/53 L 92 06/03/20 00:00 74 92 06/02/20 23:32 75 94/54 L 90 06/02/20 23:30 76 93 06/02/20 23:02 76 16 94/52 L 93 06/02/20 23:00 77 16 93 06/02/20 22:33 79 22 93 06/02/20 22:32 79 16 114/61 94 06/02/20 22:30 81 16 93 06/02/20 22:20 81 12 95 06/02/20 22:10 86 15 96 06/02/20 22:06 82 16 111/65 95 06/02/20 22:00 80 16 93 06/02/20 21:32 85 19 129/74 96 06/02/20 21:30 86 18 97 06/02/20 21:12 79 06/02/20 21:02 88 13 118/65 97 06/02/20 21:00 89 13 97 Laboratory Results 06/03/20 06/03/20 06/03/20 Range/Units 06:17 04:19 04:19 WBC 13.91 H (4.8-10.8) K/uL RBC 3.19 L (4.2-5.4) M/uL Hgb 8.8 L (12.0-16.0) g/dL Hct 28.1 L (37-47) % MCV 88.1 (80-100) fL MCH 27.6 (25-34) pg MCHC 31.3 L (32-36) g/dL RDW Std Deviation 55.7 H (36.4-46.3) fL RDW Coeff of Adrian 17.2 H (11.5-14.5) % Plt Count 257 (130-400) K/uL MPV 9.1 (7.4-10.4) fL Sodium 143 (136-145) mmol/L Potassium 4.1 (3.5-5.1) mmol/L Chloride 110 H (98-107) mmol/L Carbon Dioxide 27 (21-32) mmol/L Anion Gap 6.0 (3-11) BUN 16 (7-18) mg/dl Creatinine 1.01 (0.6-1.2) mg/dl Est Cr Clr Drug Dosing 61.6 ml/min Est GFR ( Amer) 69.1 Est GFR (Non-Af Amer) 59.6 BUN/Creatinine Ratio 15.9 (10-20) Glucose 126 H (70-99) mg/dl POC Glucose 136 H (70-99) mg/dl Calcium 8.0 L (8.5-10.1) mg/dl Phosphorus 3.8 (2.5-4.9) mg/dl Magnesium 2.1 (1.8-2.4) mg/dl Nasal Screen MRSA (PCR) (Negative) Blood Type Antibody Screen Crossmatch 06/02/20 06/02/20 06/02/20 Range/Units 20:21 15:00 08:24 WBC (4.8-10.8) K/uL RBC (4.2-5.4) M/uL Hgb (12.0-16.0) g/dL Hct (37-47) % MCV (80-100) fL MCH (25-34) pg MCHC (32-36) g/dL RDW Std Deviation (36.4-46.3) fL RDW Coeff of Adrian (11.5-14.5) % Plt Count (130-400) K/uL MPV (7.4-10.4) fL Sodium (136-145) mmol/L Potassium (3.5-5.1) mmol/L Chloride (98-107) mmol/L Carbon Dioxide (21-32) mmol/L Anion Gap (3-11) BUN (7-18) mg/dl Creatinine (0.6-1.2) mg/dl Est Cr Clr Drug Dosing ml/min Est GFR ( Amer) Est GFR (Non-Af Amer) BUN/Creatinine Ratio (10-20) Glucose (70-99) mg/dl POC Glucose 157 H (70-99) mg/dl Calcium (8.5-10.1) mg/dl Phosphorus (2.5-4.9) mg/dl Magnesium (1.8-2.4) mg/dl Nasal Screen MRSA (PCR) Negative (Negative) Blood Type O Positive Antibody Screen NEGATIVE Crossmatch See Detail Coding Level of Care Code 65892 Subseq Hosp Care Lvl 2 Diagnoses Degenerative joint disease of knee, right M17.11 Osteoarthritis type: primary Chronic obstructive pulmonary disease J44.9 Sleep apnea G47.33 Sleep apnea type: obstructive Hyperlipidemia E78.5 Hypertension I10 GERD (gastroesophageal reflux disease) K21.9 VTE (venous thromboembolism) I82.90 Acute blood loss as cause of postoperative anemia D62 Hypothyroidism E03.9 Hypothyroidism type: acquired DVT prophylaxis Z29.9 Opioid dependence F11.20 Post-operative state Z98.890 (1) Degenerative joint disease of knee, right Osteoarthritis type: primary Qualified Code(s): M17.11 - Unilateral primary osteoarthritis, right knee (2) Sleep apnea Sleep apnea type: obstructive Qualified Code(s): G47.33 - Obstructive sleep apnea (adult) (pediatric) (3) Hypothyroidism Hypothyroidism type: acquired Qualified Code(s): E03.9 - Hypothyroidism, unspecified
[2020-06-03] MEDS: FERROUS GLUCONATE 324 MG TAB PO SCH (09:15)
[2020-06-03] MEDS: GABAPENTIN 600 MG TAB PO SCH ×3 (09:15→20:15)
[2020-06-03] MEDS: FLUTICASONE/VILANTEROL 200/25MCG 14 PUFFS/INHALER INH SCH (09:15)
[2020-06-03] MEDS: MULTIVITAMIN TAB PO SCH (09:15)
[2020-06-03] MEDS: RIVAROXABAN 15 MG TAB PO SCH ×2 (09:15→20:15)
[2020-06-03] MEDS: SPIRONOLACTONE 25 MG TAB PO SCH ×2 (09:16→20:15)
[2020-06-03] MEDS: FUROSEMIDE 40 MG TAB PO SCH ×2 (09:16→20:15)
[2020-06-03] MEDS: lamoTRIgine 100 MG TAB PO SCH ×2 (09:16→20:16)
[2020-06-03] MEDS: POTASSIUM CHLORIDE 10 MEQ TABCR PO SCH (09:16)
[2020-06-03] MEDS: DOCUSATE SODIUM 100 MG CAP PO SCH ×2 (09:17→22:04)
--- NOTE | 2020-06-03 09:38 | Orthopedic Progress Note ---
Date of Service June 03, 2020 Assessment & Plan (1) Degenerative joint disease of knee, right: s/p R TKA POD#1 -ancef x 24 -DVT ppx: SCDs, TEDs, Xarelto -WBAT RLE -PT/OT -PO XR demonstrates well aligned well fixed prothesis without fracture/dislocation -am labs - as above, hgb 8.8 -Corneal abrasion symptoms improving, advised follow-up with turret lathe tender within 1 week of discharge. -DC planning - home with Admission and Anticipated Discharge Date Admission Date: June 02, 2020 Subjective Post Operative Progress Note Patient seen sitting up in bed, comfortable, denies complaints, pain well controlled, no acute issues. Denies F/C/N/V/SOB/CP. Eye pain much improved today. Review of Systems Review of Systems: All systems reviewed & are unremarkable except as noted in HPI & below Constitutional: as per Subjective / HPI Physical Exam Physical Exam: RLE NVSI +EHL/FHL/TA/GS SILT grossly, +2 DP pulse, compartments soft NT, dressing cdi. Constitutional: WD/WN, vitals as above Results & Data ([facility]) Vital Signs (Past 12 Hours) Vital Signs Pulse Resp BP Pulse Ox 06/03/20 09:00 93 H 06/03/20 08:45 96 H 06/03/20 08:30 93 H 06/03/20 08:15 91 H 06/03/20 08:00 88 06/03/20 07:45 83 06/03/20 07:30 102 H 06/03/20 07:15 81 95 06/03/20 07:03 80 108/56 L 97 06/03/20 07:00 82 98 06/03/20 06:45 81 97 06/03/20 06:03 84 113/51 L 95 06/03/20 05:32 89 106/60 94 06/03/20 05:02 86 108/55 L 97 06/03/20 04:32 88 118/60 97 06/03/20 04:30 87 97 06/03/20 04:02 88 96/57 L 95 06/03/20 04:00 88 96 06/03/20 03:32 89 109/60 95 06/03/20 03:30 89 95 06/03/20 03:03 85 114/39 L 97 06/03/20 03:00 89 97 06/03/20 02:32 87 111/51 L 97 06/03/20 02:30 96 H 97 06/03/20 02:02 90 109/54 L 96 06/03/20 02:00 88 95 06/03/20 01:33 93 H 93/47 L 97 06/03/20 01:30 88 96 06/03/20 01:03 97 H 108/57 L 95 06/03/20 01:00 94 H 93 06/03/20 00:32 76 94/51 L 93 06/03/20 00:30 75 93 06/03/20 00:04 74 06/03/20 00:02 75 94/53 L 92 06/03/20 00:00 74 92 06/02/20 23:32 75 94/54 L 90 06/02/20 23:30 76 93 06/02/20 23:02 76 16 94/52 L 93 06/02/20 23:00 77 16 93 06/02/20 22:33 79 22 93 06/02/20 22:32 79 16 114/61 94 06/02/20 22:30 81 16 93 06/02/20 22:20 81 12 95 06/02/20 22:10 86 15 96 06/02/20 22:06 82 16 111/65 95 06/02/20 22:00 80 16 93 Laboratory Results 06/03/20 06/03/20 06/03/20 Range/Units 06:17 04:19 04:19 WBC 13.91 H (4.8-10.8) K/uL RBC 3.19 L (4.2-5.4) M/uL Hgb 8.8 L (12.0-16.0) g/dL Hct 28.1 L (37-47) % MCV 88.1 (80-100) fL MCH 27.6 (25-34) pg MCHC 31.3 L (32-36) g/dL RDW Std Deviation 55.7 H (36.4-46.3) fL RDW Coeff of Adrian 17.2 H (11.5-14.5) % Plt Count 257 (130-400) K/uL MPV 9.1 (7.4-10.4) fL Sodium 143 (136-145) mmol/L Potassium 4.1 (3.5-5.1) mmol/L Chloride 110 H (98-107) mmol/L Carbon Dioxide 27 (21-32) mmol/L Anion Gap 6.0 (3-11) BUN 16 (7-18) mg/dl Creatinine 1.01 (0.6-1.2) mg/dl Est Cr Clr Drug Dosing 61.6 ml/min Est GFR ( Amer) 69.1 Est GFR (Non-Af Amer) 59.6 BUN/Creatinine Ratio 15.9 (10-20) Glucose 126 H (70-99) mg/dl POC Glucose 136 H (70-99) mg/dl Calcium 8.0 L (8.5-10.1) mg/dl Phosphorus 3.8 (2.5-4.9) mg/dl Magnesium 2.1 (1.8-2.4) mg/dl Nasal Screen MRSA (PCR) (Negative) Blood Type Antibody Screen Crossmatch 06/02/20 06/02/20 06/02/20 Range/Units 20:21 15:00 08:24 WBC (4.8-10.8) K/uL RBC (4.2-5.4) M/uL Hgb (12.0-16.0) g/dL Hct (37-47) % MCV (80-100) fL MCH (25-34) pg MCHC (32-36) g/dL RDW Std Deviation (36.4-46.3) fL RDW Coeff of Adrian (11.5-14.5) % Plt Count (130-400) K/uL MPV (7.4-10.4) fL Sodium (136-145) mmol/L Potassium (3.5-5.1) mmol/L Chloride (98-107) mmol/L Carbon Dioxide (21-32) mmol/L Anion Gap (3-11) BUN (7-18) mg/dl Creatinine (0.6-1.2) mg/dl Est Cr Clr Drug Dosing ml/min Est GFR ( Amer) Est GFR (Non-Af Amer) BUN/Creatinine Ratio (10-20) Glucose (70-99) mg/dl POC Glucose 157 H (70-99) mg/dl Calcium (8.5-10.1) mg/dl Phosphorus (2.5-4.9) mg/dl Magnesium (1.8-2.4) mg/dl Nasal Screen MRSA (PCR) Negative (Negative) Blood Type O Positive Antibody Screen NEGATIVE Crossmatch See Detail (1) Degenerative joint disease of knee, right Osteoarthritis type: primary Qualified Code(s): M17.11 - Unilateral primary osteoarthritis, right knee
[2020-06-03] MEDS: MoRPHine SULFATE CR 15 MG TABCR PO SCH ×2 (10:49→22:04)
[2020-06-03] MEDS: oxyCODONE HCL IR 5 MG TAB (IMMEDIATE RELEASE) PO PRN ×2 (12:06→20:16)
[2020-06-03] MEDS: DULoxetine HCL 30 MG CAP PO SCH (12:06)
[2020-06-03] MEDS: HYDROmorphone INJ 1 MG/ML SYRINGE IV PRN ×3 (13:54→23:33)
[2020-06-03] MEDS ORDERED: Nursing to Pharmacy Communication SCH (14:45)
[2020-06-03] MEDS: PRAVASTATIN SOD 40 MG TAB PO SCH (20:15)
[2020-06-03] MEDS: SENNA 8.6 MG TAB PO SCH (20:16)
[2020-06-03] MEDS: lisinopril 10 MG TAB PO SCH (20:16)
[2020-06-04] MEDS: HYDROmorphone INJ 1 MG/ML SYRINGE IV PRN ×4 (03:47→18:58)
[2020-06-04] MEDS: LEVOTHYROXINE SODIUM 25 MCG TABLET PO SCH (05:49)
[2020-06-04] MEDS: ACETAMINOPHEN 500 MG TAB PO SCH ×3 (05:49→21:07)
[2020-06-04] MEDS: oxyCODONE HCL IR 5 MG TAB (IMMEDIATE RELEASE) PO PRN ×2 (05:49→16:27)
[2020-06-04 06:12] LABS: Hematocrit (blood only) 26.2 % (37-47); Hemoglobin 8.4 g/dL (12.0-16.0); Mean Corpuscular Hemoglobin 27.9 pg (25-34); Mean Corpuscular Hgb Conc 32.1 g/dL (32-36); Mean Platelet Volume 8.8 fL (7.4-10.4); Platelet Count 252 K/uL (130-400); RDW Coefficient of Variation 17.6 % (11.5-14.5); RDW Standard Deviation 56.2 fL (36.4-46.3); Red Blood Count 3.01 M/uL (4.2-5.4); White Blood Count 9.52 K/uL (4.8-10.8)
[2020-06-04 06:46] LABS: BUN Creatinine Ratio 15.7 (10-20); Calcium 8.3 mg/dl (8.5-10.1); Creatinine Clr Calc Pharmacy 58.1 ml/min; Est GFR (African American) 63.7; Potassium 3.9 mmol/L (3.5-5.1)
[2020-06-04] MEDS: lamoTRIgine 100 MG TAB PO SCH ×2 (08:04→21:06)
[2020-06-04] MEDS: MoRPHine SULFATE CR 15 MG TABCR PO SCH ×2 (08:04→21:08)
[2020-06-04] MEDS: GABAPENTIN 600 MG TAB PO SCH ×3 (08:04→21:07)
[2020-06-04] MEDS: FUROSEMIDE 40 MG TAB PO SCH ×2 (08:05→21:06)
[2020-06-04] MEDS: SPIRONOLACTONE 25 MG TAB PO SCH ×2 (08:05→21:07)
[2020-06-04] MEDS: RIVAROXABAN 15 MG TAB PO SCH ×2 (08:06→21:06)
[2020-06-04] MEDS: DULoxetine HCL 30 MG CAP PO SCH (08:06)
[2020-06-04] MEDS: POTASSIUM CHLORIDE 10 MEQ TABCR PO SCH (08:07)
[2020-06-04] MEDS: MULTIVITAMIN TAB PO SCH (08:07)
[2020-06-04] MEDS: FERROUS GLUCONATE 324 MG TAB PO SCH (08:08)
[2020-06-04] MEDS: DOCUSATE SODIUM 100 MG CAP PO SCH ×2 (08:11→21:07)
[2020-06-04] MEDS: FLUTICASONE/VILANTEROL 200/25MCG 14 PUFFS/INHALER INH SCH (08:12)
--- NOTE | 2020-06-04 09:31 | Orthopedic Progress Note ---
Date of Service June 04, 2020 Assessment & Plan (1) Degenerative joint disease of knee, right: s/p R TKA POD#2 -ancef x 24 -DVT ppx: SCDs, TEDs, Xarelto -WBAT RLE -PT/OT -PO XR demonstrates well aligned well fixed prothesis without fracture/dislocation -am labs - as above, hgb 8.4, stable -Corneal abrasion symptoms improving, advised follow-up with sketch maker within 1 week of discharge. -DC planning - home with Patient re examined at 1400, she feels she has done okay in PT but is afraid to go home due to her pain. Will re eval tomorrow AM for discharge. POD#1 -ancef x 24 -DVT ppx: SCDs, TEDs, Xarelto -WBAT RLE -PT/OT -PO XR demonstrates well aligned well fixed prothesis without fracture/dislocation -am labs - as above, hgb 8.8 -Corneal abrasion symptoms improving, advised follow-up with sketch maker within 1 week of discharge. -DC planning - home with Admission and Anticipated Discharge Date Admission Date: June 02, 2020 Subjective Post Operative Progress Note Patient seen sitting up in bed, comfortable, denies complaints, c/o 8/10 pain, tolerating oral pain medications, appears comfortable, sitting up in bed eating breakfast, no acute issues overnight. Denies F/C/N/V/SOB/CP. Eye pain much improved today. Review of Systems Review of Systems: All systems reviewed & are unremarkable except as noted in HPI & below Constitutional: as per Subjective / HPI Physical Exam Physical Exam: RLE NVSI +EHL/FHL/TA/GS SILT grossly, +2 DP pulse, compartments soft NT, dressing cdi. Constitutional: WD/WN, vitals as above Results & Data ([facility]) Vital Signs (Past 12 Hours) Vital Signs Temp Pulse Resp BP Pulse Ox 06/04/20 06:41 37.1 C 86 16 104/62 90 06/03/20 22:57 37.1 C 86 16 115/61 92 Laboratory Results 06/04/20 06/04/20 Range/Units 05:23 05:23 WBC 9.52 (4.8-10.8) K/uL RBC 3.01 L (4.2-5.4) M/uL Hgb 8.4 L (12.0-16.0) g/dL Hct 26.2 L (37-47) % MCV 87.0 (80-100) fL MCH 27.9 (25-34) pg MCHC 32.1 (32-36) g/dL RDW Std Deviation 56.2 H (36.4-46.3) fL RDW Coeff of Adrian 17.6 H (11.5-14.5) % Plt Count 252 (130-400) K/uL MPV 8.8 (7.4-10.4) fL Sodium 138 (136-145) mmol/L Potassium 3.9 (3.5-5.1) mmol/L Chloride 101 (98-107) mmol/L Carbon Dioxide 30 (21-32) mmol/L Anion Gap 7.0 (3-11) BUN 17 (7-18) mg/dl Creatinine 1.08 (0.6-1.2) mg/dl Est Cr Clr Drug Dosing 58.1 ml/min Est GFR ( Amer) 63.7 Est GFR (Non-Af Amer) 55.0 BUN/Creatinine Ratio 15.7 (10-20) Glucose 93 (70-99) mg/dl Calcium 8.3 L (8.5-10.1) mg/dl (1) Degenerative joint disease of knee, right Osteoarthritis type: primary Qualified Code(s): M17.11 - Unilateral primary osteoarthritis, right knee
[2020-06-04] MEDS: SENNA 8.6 MG TAB PO SCH (21:06)
[2020-06-04] MEDS: PRAVASTATIN SOD 40 MG TAB PO SCH (21:06)
[2020-06-04] MEDS: lisinopril 10 MG TAB PO SCH (21:07)
[2020-06-05] MEDS: oxyCODONE HCL IR 5 MG TAB (IMMEDIATE RELEASE) PO PRN ×2 (00:58→08:55)
[2020-06-05] MEDS: LEVOTHYROXINE SODIUM 25 MCG TABLET PO SCH (05:12)
[2020-06-05] MEDS: ACETAMINOPHEN 500 MG TAB PO SCH ×2 (05:14→13:29)
[2020-06-05 06:23] LABS: Hematocrit (blood only) 26.3 % (37-47); Hemoglobin 8.3 g/dL (12.0-16.0); Mean Corpuscular Hemoglobin 27.6 pg (25-34); Mean Corpuscular Hgb Conc 31.6 g/dL (32-36); Mean Corpuscular Volume 87.4 fL (80-100); Mean Platelet Volume 8.6 fL (7.4-10.4); Platelet Count 248 K/uL (130-400); RDW Coefficient of Variation 17.4 % (11.5-14.5); RDW Standard Deviation 55.8 fL (36.4-46.3); Red Blood Count 3.01 M/uL (4.2-5.4); White Blood Count 9.34 K/uL (4.8-10.8)
[2020-06-05] MEDS: HYDROmorphone INJ 1 MG/ML SYRINGE IV PRN (06:23)
[2020-06-05 06:57] LABS: Calcium 8.3 mg/dl (8.5-10.1); Creatinine Clr Calc Pharmacy 68.2 ml/min; Est GFR (African American) 77.3; Est GFR (Non-African American) 66.7; Potassium 3.9 mmol/L (3.5-5.1)
--- NOTE | 2020-06-05 07:53 | Orthopedic Progress Note ---
Date of Service June 05, 2020 Assessment & Plan (1) Degenerative joint disease of knee, right: s/p R TKA POD#3 -ancef x 24 -DVT ppx: SCDs, TEDs, Xarelto -WBAT RLE -PT/OT -PO XR demonstrates well aligned well fixed prothesis without fracture/dislocation -am labs - as above, hgb 8.3, stable -Corneal abrasion symptoms improving, advised follow-up with insole cementer within 1 week of discharge. -DC planning - home with , pain improving with current regimen, will plan for DC today POD#2 -ancef x 24 -DVT ppx: SCDs, TEDs, Xarelto -WBAT RLE -PT/OT -PO XR demonstrates well aligned well fixed prothesis without fracture/dislocation -am labs - as above, hgb 8.4, stable -Corneal abrasion symptoms improving, advised follow-up with insole cementer within 1 week of discharge. -DC planning - home with Patient re examined at 1400, she feels she has done okay in PT but is afraid to go home due to her pain. Will re eval tomorrow AM for discharge. POD#1 -ancef x 24 -DVT ppx: SCDs, TEDs, Xarelto -WBAT RLE -PT/OT -PO XR demonstrates well aligned well fixed prothesis without fracture /dislocation -am labs - as above, hgb 8.8 -Corneal abrasion symptoms improving, advised follow-up with insole cementer within 1 week of discharge. -DC planning - home with Admission and Anticipated Discharge Date Admission Date: June 02, 2020 Subjective Post Operative Progress Note Patient seen sitting up in bed, comfortable, denies complaints, pain well controlled, no acute issues. Denies F/C/N/V/SOB/CP. Pain improving. Review of Systems Review of Systems: All systems reviewed & are unremarkable except as noted in HPI & below Constitutional: as per Subjective / HPI Physical Exam Physical Exam: RLE NVSI +EHL/FHL/TA/GS SILT grossly, +2 DP pulse, compartments soft NT, incision cdi Constitutional: WD/WN, vitals as above Results & Data ([place]) Vital Signs (Past 12 Hours) Vital Signs Temp Pulse Resp BP Pulse Ox 06/05/20 07:00 37.1 C 87 18 115/68 94 06/05/20 06:19 36.9 C 89 16 123/68 93 06/04/20 23:09 93 06/04/20 23:08 37.7 C H 93 H 16 138/75 80 L Laboratory Results 06/05/20 06/05/20 Range/Units 06:07 06:07 WBC 9.34 (4.8-10.8) K/uL RBC 3.01 L (4.2-5.4) M/uL Hgb 8.3 L (12.0-16.0) g/dL Hct 26.3 L (37-47) % MCV 87.4 (80-100) fL MCH 27.6 (25-34) pg MCHC 31.6 L (32-36) g/dL RDW Std Deviation 55.8 H (36.4-46.3) fL RDW Coeff of Adrian 17.4 H (11.5-14.5) % Plt Count 248 (130-400) K/uL MPV 8.6 (7.4-10.4) fL Sodium 138 (136-145) mmol/L Potassium 3.9 (3.5-5.1) mmol/L Chloride 102 (98-107) mmol/L Carbon Dioxide 30 (21-32) mmol/L Anion Gap 6.0 (3-11) BUN 14 (7-18) mg/dl Creatinine 0.92 (0.6-1.2) mg/dl Est Cr Clr Drug Dosing 68.2 ml/min Est GFR ( Amer) 77.3 Est GFR (Non-Af Amer) 66.7 BUN/Creatinine Ratio 15.0 (10-20) Glucose 106 H (70-99) mg/dl Calcium 8.3 L (8.5-10.1) mg/dl (1) Degenerative joint disease of knee, right Osteoarthritis type: primary Qualified Code(s): M17.11 - Unilateral primary osteoarthritis, right knee
[2020-06-05] MEDS: DOCUSATE SODIUM 100 MG CAP PO SCH (08:55)
[2020-06-05] MEDS: DULoxetine HCL 30 MG CAP PO SCH (08:58)
[2020-06-05] MEDS: RIVAROXABAN 15 MG TAB PO SCH (08:58)
[2020-06-05] MEDS: SPIRONOLACTONE 25 MG TAB PO SCH (08:58)
[2020-06-05] MEDS: lamoTRIgine 100 MG TAB PO SCH (08:59)
[2020-06-05] MEDS: FUROSEMIDE 40 MG TAB PO SCH (08:59)
[2020-06-05] MEDS: GABAPENTIN 600 MG TAB PO SCH ×2 (08:59→13:29)
[2020-06-05] MEDS: MULTIVITAMIN TAB PO SCH (09:00)
[2020-06-05] MEDS: POTASSIUM CHLORIDE 10 MEQ TABCR PO SCH (09:00)
[2020-06-05] MEDS: FERROUS GLUCONATE 324 MG TAB PO SCH (09:00)
[2020-06-05] MEDS: FLUTICASONE/VILANTEROL 200/25MCG 14 PUFFS/INHALER INH SCH (09:02)
[2020-06-05] MEDS: MoRPHine SULFATE CR 15 MG TABCR PO SCH (09:07)
--- NOTE | 2020-06-05 10:59 | Anesthesiology Progress Note ---
Date of Service June 05, 2020 Subjective Corneal abrasion improving Physical Exam Vital Signs: Last Vital Signs Temp 37.1 C 06/05/20 07:00 Pulse 87 06/05/20 07:00 Resp 18 06/05/20 07:00 BP 115/68 06/05/20 07:00 Pulse Ox 94 06/05/20 07:00 Results & Data Medications Administered Acetaminophen (Tylenol) 1,000 mg PO Q8 [facility] Stop: 07/02/20 14:12 Last Admin: 06/05/20 05:14 Dose: 1,000 mg Documented by: [id number] Admin: 06/04/20 21:07 Dose: 1,000 mg Documented by: [id number] Admin: 06/04/20 13:16 Dose: 1,000 mg Documented by: [id number] Admin: 06/04/20 05:49 Dose: 1,000 mg Documented by: [id number] Admin: 06/03/20 22:05 Dose: 1,000 mg Documented by: [id number] Admin: 06/03/20 13:40 Dose: 1,000 mg Documented by: [id number] Admin: 06/03/20 05:36 Dose: 1,000 mg Documented by: [id number] Admin: 06/02/20 21:57 Dose: 1,000 mg Documented by: [id number] Admin: 06/02/20 15:10 Dose: 1,000 mg Documented by: [id number] Docusate Sodium (Colace) 100 mg PO BID [facility] Stop: 07/02/20 20:59 Last Admin: 06/05/20 08:55 Dose: 100 mg Documented by: [id number] Admin: 06/04/20 21:07 Dose: 100 mg Documented by: [id number] Admin: 06/04/20 08:11 Dose: 100 mg Documented by: [id number] Admin: 06/03/20 22:04 Dose: 100 mg Documented by: [id number] Admin: 06/03/20 09:17 Dose: 100 mg Documented by: [id number] Admin: 06/02/20 20:12 Dose: 100 mg Documented by: [id number] Duloxetine HCl (Cymbalta) 30 mg PO QAM [facility] Stop: 07/03/20 10:29 Last Admin: 06/05/20 08:58 Dose: 30 mg Documented by: [id number] Admin: 06/04/20 08:06 Dose: 30 mg Documented by: [id number] Admin: 06/03/20 12:06 Dose: 30 mg Documented by: [id number] Ferrous Gluconate (Ferrous Gluconate) 324 mg PO DAILY [facility] Stop: 07/03/20 08:59 Last Admin: 06/05/20 09:00 Dose: 324 mg Documented by: [id number] Admin: 06/04/20 08:08 Dose: 324 mg Documented by: [id number] Admin: 06/03/20 09:15 Dose: 324 mg Documented by: [id number] Fluticasone/Vilanterol (Breo Ellipta 200/25 Mcg Inh) 1 puffs INH DAILY [facility] Stop: 07/03/20 08:59 Last Admin: 06/05/20 09:02 Dose: 1 puffs Documented by: [id number] Admin: 06/04/20 08:12 Dose: 1 puffs Documented by: [id number] Admin: 06/03/20 09:15 Dose: 1 puffs Documented by: [id number] Furosemide (Lasix) 40 mg PO BID [facility] Stop: 07/02/20 20:59 Last Admin: 06/05/20 08:59 Dose: 40 mg Documented by: [id number] Admin: 06/04/20 21:06 Dose: 40 mg Documented by: [id number] Admin: 06/04/20 08:05 Dose: 40 mg Documented by: [id number] Admin: 06/03/20 20:15 Dose: 40 mg Documented by: [id number] Admin: 06/03/20 09:16 Dose: 40 mg Documented by: [id number] Admin: 06/02/20 20:13 Dose: 40 mg Documented by: [id number] Gabapentin (Neurontin) 600 mg PO TID [facility]; Protocol Stop: 07/03/20 14:59 Last Admin: 06/05/20 08:59 Dose: 600 mg Documented by: [id number] Admin: 06/04/20 21:07 Dose: 600 mg Documented by: [id number] Admin: 06/04/20 13:13 Dose: 600 mg Documented by: [id number] Admin: 06/04/20 08:04 Dose: 600 mg Documented by: [id number] Admin: 06/03/20 20:15 Dose: 600 mg Documented by: [id number] Admin: 06/03/20 16:15 Dose: 600 mg Documented by: [id number] Hydromorphone HCl (Dilaudid) 1 mg IV Q4 PRN PRN Reason: Severe Pain Stop: 06/17/20 10:21 Last Admin: 06/05/20 06:23 Dose: 1 mg Documented by: [id number] Admin: 06/04/20 18:58 Dose: 1 mg Documented by: [id number] Admin: 06/04/20 12:07 Dose: 1 mg Documented by: [id number] Admin: 06/04/20 08:00 Dose: 1 mg Documented by: [id number] Admin: 06/04/20 03:47 Dose: 1 mg Documented by: [id number] Admin: 06/03/20 23:33 Dose: 1 mg Documented by: [id number] Admin: 06/03/20 18:15 Dose: 1 mg Documented by: [id number] Admin: 06/03/20 13:54 Dose: 1 mg Documented by: [id number] Lamotrigine (Lamictal) 200 mg PO BID [facility] Stop: 07/02/20 20:59 Last Admin: 06/05/20 08:59 Dose: 200 mg Documented by: [id number] Admin: 06/04/20 21:06 Dose: 200 mg Documented by: [id number] Admin: 06/04/20 08:04 Dose: 200 mg Documented by: [id number] Admin: 06/03/20 20:16 Dose: 200 mg Documented by: [id number] Admin: 06/03/20 09:16 Dose: 200 mg Documented by: [id number] Admin: 06/02/20 20:13 Dose: 200 mg Documented by: [id number] Levothyroxine Sodium (Synthroid) 25 mcg PO DAILYBB [facility] Stop: 07/03/20 06:29 Last Admin: 06/05/20 05:12 Dose: 25 mcg Documented by: [id number] Admin: 06/04/20 05:49 Dose: 25 mcg Documented by: [id number] Admin: 06/03/20 05:36 Dose: 25 mcg Documented by: [id number] Lisinopril (Zestril) 10 mg PO HS [facility] Stop: 07/02/20 20:59 Last Admin: 06/04/20 21:07 Dose: 10 mg Documented by: [id number] Admin: 06/03/20 20:16 Dose: 10 mg Documented by: [id number] Admin: 06/02/20 20:13 Dose: 10 mg Documented by: [id number] Morphine Sulfate (Ms Contin) 15 mg PO Q12 [facility] Stop: 06/17/20 10:29 Last Admin: 06/05/20 09:07 Dose: 15 mg Documented by: [id number] Admin: 06/04/20 21:08 Dose: 15 mg Documented by: [id number] Admin: 06/04/20 08:04 Dose: 15 mg Documented by: [id number] Admin: 06/03/20 22:04 Dose: 15 mg Documented by: [id number] Admin: 06/03/20 10:49 Dose: 15 mg Documented by: [id number] Multivitamins (Multivitamin Tab) 1 tab PO QAM [facility] Stop: 07/03/20 08:59 Last Admin: 06/05/20 09:00 Dose: 1 tab Documented by: [id number] Admin: 06/04/20 08:07 Dose: 1 tab Documented by: [id number] Admin: 06/03/20 09:15 Dose: 1 tab Documented by: [id number] Oxycodone HCl (Roxicodone Immediate Rel) 40 mg PO Q8H PRN PRN Reason: Pain Stop: 06/17/20 10:20 Last Admin: 06/05/20 08:55 Dose: 40 mg Documented by: [id number] Admin: 06/05/20 00:58 Dose: 40 mg Documented by: [id number] Admin: 06/04/20 16:27 Dose: 40 mg Documented by: [id number] Admin: 06/04/20 05:49 Dose: 40 mg Documented by: [id number] Admin: 06/03/20 20:16 Dose: 40 mg Documented by: [id number] Admin: 06/03/20 12:06 Dose: 40 mg Documented by: [id number] Potassium Chloride (Klor-Con M10) 10 meq PO DAILY [facility] Stop: 07/03/20 08:59 Last Admin: 06/05/20 09:00 Dose: 10 meq Documented by: [id number] Admin: 06/04/20 08:07 Dose: 10 meq Documented by: [id number] Admin: 06/03/20 09:16 Dose: 10 meq Documented by: [id number] Pravastatin Sodium (Pravachol) 40 mg PO HS [facility] Stop: 07/02/20 20:59 Last Admin: 06/04/20 21:06 Dose: 40 mg Documented by: [id number] Admin: 06/03/20 20:15 Dose: 40 mg Documented by: [id number] Admin: 06/02/20 20:13 Dose: 40 mg Documented by: [id number] Rivaroxaban (Xarelto) 15 mg PO BID [facility] Stop: 07/03/20 08:59 Last Admin: 06/05/20 08:58 Dose: 15 mg Documented by: [id number] Admin: 06/04/20 21:06 Dose: 15 mg Documented by: [id number] Admin: 06/04/20 08:06 Dose: 15 mg Documented by: [id number] Admin: 06/03/20 20:15 Dose: 15 mg Documented by: [id number] Admin: 06/03/20 09:15 Dose: 15 mg Documented by: [id number] Sennosides (Senokot) 17.2 mg PO HS [facility] Stop: 07/02/20 20:59 Last Admin: 06/04/20 21:06 Dose: 17.2 mg Documented by: [id number] Admin: 06/03/20 20:16 Dose: 17.2 mg Documented by: [id number] Admin: 06/02/20 20:12 Dose: 17.2 mg Documented by: [id number] Spironolactone (Aldactone) 25 mg PO BID [facility] Stop: 07/02/20 20:59 Last Admin: 06/05/20 08:58 Dose: 25 mg Documented by: [id number] Admin: 06/04/20 21:07 Dose: 25 mg Documented by: [id number] Admin: 06/04/20 08:05 Dose: 25 mg Documented by: [id number] Admin: 06/03/20 20:15 Dose: 25 mg Documented by: [id number] Admin: 06/03/20 09:16 Dose: 25 mg Documented by: [id number] Admin: 06/02/20 20:13 Dose: 25 mg Documented by: [id number]
--- NOTE | 2020-06-05 21:00 | Discharge Summary ---
Date of Service June 05, 2020 Admission HPI Per Admitting Provider The patient is a 60 year old female who presents with complaints of severe right knee pain and DJD. The patient has failed outpatient conservative treatments to this point which included NSAIDs, bracing, IA corticosteroid and KEYS injections, PT and a home exercise/walking program. The patient's pain and limited function have progressed to the point where they severely hinder their activities of daily living and they no longer tolerate exercise programs. They are requesting to proceed with total knee replacement surgery. Principal Diagnosis Right total knee replacement -Right knee DJD Discharge Exam RLE NVSI +EHL/FHL/TA/GS SILT grossly, +2 DP pulse, compartments soft NT, dressing cdi. Constitutional WD/WN, vitals as above Discharge Data Allergies Allergy/AdvReac Type Severity Reaction Status Date / Time hydroxychloroquine Allergy Severe HIVES SOB Verified 06/02/20 09:18 Sulfa (Sulfonamide Allergy Severe HIVES SOB Verified 06/02/20 09:18 Antibiotics) Iodinated Contrast Media Allergy Mild SEE NOTES Verified 06/02/20 09:18 BELOW Consultations 06/02/20 14:13 Consult Case Management - Discharge Planning Routine 06/02/20 19:47 Consult Sales Officer Routine Procedures Performed Operation Date: 06/02/20 09:30 Actual Procedures p Right Total Knee Arthroplasty(Right) - Shar Huffman DO Ordered Studies 06/02/20 05:00 US - OR guided needle placemen Routine Hospital Course (1) Degenerative joint disease of knee, right: The patient is a 60 -year-old female who presents with long standing history of severe right knee DJD and failed outpatient conservative treatments. The patient's symptoms have progressed to the point where it has been difficult to perform even normal activities of daily living. I indicated the patient for a right total knee arthroplasty, the risks, benefits and complications of the procedure include but not limited to infection, bleeding, damage to bone, nerves, vessels, surrounding soft tissue, may develop blood clots, loss of function, leg length discrepancy, dislocation, failure of the components, loosening of the components, the need for additional surgery and . The patient wished to proceed with surgery at this time and informed consent was obtained. Hospital Course: On 06/02/20 the patient was taken to the operating room, adequate anesthesia administered and underwent a right total knee arthroplasty. The patient tolerated the procedure well and was taken to the PACU in stable condition. Post-operatively the patient was started on a DVT ppx medication and given appropriate IV antibiotics. Consults were placed to critical care, physical therapy, occupational therapy and case management. Due to post operative regimen including ketamine drip, the patient was monitored in ICU as a precaution. Post operatively patient had symptoms consistent with corneal abrasion and was seen by the medical team. Advised she follow up with screen printing equipment setter within 1 week of discharge. On POD#1, the patient did well overnight and their pain was well controlled. The ketamine drip was discontinued and they were transfered to the medical/surgical floor and started on their PO pain medications. Labs were drawn and the Hgb was 8.8. The patient progressed well with PT. On POD#2, the patient continued to progress with PT and with her pain control. Labs were drawn, hgb 8.4. Dressings were changed at this time and the incision was clean, dry and intact. On POD#3, the patient did well with PT and her pain was much improved. Labs were drawn and hgb was 8.3. The patients hospital stay was relatively uneventful and they were deemed stable by the orthopedic team and consultants to be discharged home with on 06/05/20. Discharge Instructions: Upon discharge the patient may weight bear as tolerates through their operative extremity. They were instructed to keep the incision clean and dry at all times. The patient may shower but should not submerge the incision, avoid bathing, pools and hot tubes. The patient was given a script for pain medication and should take as instructed. The patient was continued on her home blood thinner, Xarelto and should take as directed. The patient was instructed to not drive or travel for long distances until cleared to do so. If the patient develops any symptoms of fevers, chills, nausea, vomiting, increased redness, swelling, pain or drainage from the surgical site, they should notify the office and/or proceed to the nearest emergency room. The patient should fo llow up in 10-14 days after surgery for their routine post-operative follow-up appointment and should call the office to confirm the date and time. s/p R TKA POD#3 -ancef x 24 -DVT ppx: SCDs, TEDs, Xarelto -WBAT RLE -PT/OT -PO XR demonstrates well aligned well fixed prothesis without fracture/dislocation -am labs - as above, hgb 8.3, stable -Corneal abrasion symptoms improving, advised follow-up with screen printing equipment setter within 1 week of discharge. -DC planning - home with , pain improving with current regimen, will plan for DC today POD#2 -ancef x 24 -DVT ppx: SCDs, TEDs, Xarelto -WBAT RLE -PT/OT -PO XR demonstrates well aligned well fixed prothesis without fracture/dislocation -am labs - as above, hgb 8.4, stable -Corneal abrasion symptoms improving, advised follow-up with screen printing equipment setter within 1 week of discharge. -DC planning - home with Patient re examined at 1400, she feels she has done okay in PT but is afraid to go home due to her pain. Will re eval tomorrow AM for discharge. POD#1 -ancef x 24 -DVT ppx: SCDs, TEDs, Xarelto -WBAT RLE -PT/OT -PO XR demonstrates well aligned well fixed prothesis without fracture/dislocation -am labs - as above, hgb 8.8 -Corneal abrasion symptoms improving, advised follow-up with screen printing equipment setter within 1 week of discharge. -DC planning - home with Total Time Total Time Spent Total Time Spent (In Minutes): 60 Discharge Plan Discharge Items Patient Disposition: Home - Home Health Services Reason For Visit: POST SURGICAL CARE Discharge Diagnosis: Right total knee replacement Condition on Discharge: Good Activity: Per Instructions section Lifting: Wait until after follow-up appointment Bathing: Keep incision dry Bathing Comment: No bathing, pools or hot tubs. Sexual Activity: Wait until after follow-up appointment Exercise/Sports: Wait until after follow-up appointment Driving/Machine Use: No driving. Weightbearing: Full weightbearing Non-emergency contact: Primary Care Provider and Surgeon Call non-emergency contact if: you have any medication questions, your symptoms worsen, your pain is not controlled, your pain is worsening, your pain is unusual for you, your pain is concerning for you, you have a fever, your temperature is above 101, your wound has increased redness, your wound has increased drainage and your wound pain has increased Follow-up/Referrals: Angel Luis Patel MD [Primary Care Provider] - Diet: Regular Addtl Attending Provider Instructions: ACTIVITY RECOMMENDATIONS: SELF CARE INSTRUCTIONS AFTER TOTAL KNEE REPLACEMENT A. You may need to continue a physical therapy program after discharge from the hospital. There are several options available to you. Your doctor will assist you in selecting the best one for you. 1. An out-patient facility 2 to 3 times a week for therapy or home therapy. 2. Continue working on all exercises taught to you in the hospital. Your goals should be to increase bending of your knee to 90 degrees and beyond and to fully straighten your knee. B. You may progress at your own pace from walking with a walker or crutches to a cane; then to no assistive devices. C. Make walking a part of your daily routine. Be up as much as comfortable with rest periods throughout the day. Rest with leg elevation is very important. Use the ice wrap frequently for the first 3-4 weeks. D. There are no restrictions on activities. You may ride in a car, shop, participate in police worker and all social activities. E. Wear the long elastic stockings (SO hose) 20 hours a day for 2 weeks after surgery. They can be removed several times a day for laundering and for a bath. F. You may shower, no tub baths until cleared by your doctor. SPECIAL CARE INSTRUCTIONS: VERY IMPORTANT TO READ AND REVIEW A. There are a few signs you need to watch for after you are home. Call [facility] [place] if you notice any of the followin. Increased severe knee pain. Some pain is expected especially when you exercise. 2. Increased swelling in your leg or knee; pain or swelling of the calf muscle in either lower leg. 3. Any fluid drainage from the incision. 4. Shortness of breath or chest pain. B. Please call [facility] [place] at if you have any concerns or questions about your operation or recovery. The doctor or his nurse will return your call promptly. C. You must take antibiotics before dental work, bladder, bowel or other surgery. Your doctor will provide you with a permanent care to carry describing this precaution. IMPORTANT: * REMEMBER TO TAKE YOUR HOME BLOOD THINNER, XARELTO UNLESS OTHERWISE DIRECTED. THIS IS YOUR BLOOD THINNER. * HIGH RISK PATIENTS MAY BE PRESCRIBED A STRONGER BLOOD THINNER. THIS WILL BE PROVIDED AT DISCHARGE. * CALL IF INCREASED PAIN, REDNESS, DRAINAGE OR FEVER GREATER THAT 101. * WEAR SO HOSE 20 HOURS PER DAY FOR 2 WEEKS. *DERMABOND Prineo- This is a mesh tape dressing that is covered with glue. It should remain in place until the incision is properly healed, usually 10-14 days. This dressing is designed to naturally slough off. You may trim the excess mesh tape as it peels off. Incision may be briefly wet in a shower. Dry immediately by blotting with a clean, dry towel. Do not bath or swim until instructed by your doctor. Do not scratch, rub, or pick at the dressing. Do not apply any topical ointments or lotions until dressing is completely removed and/or instructed by your doctor. There may be a small piece of suture material at one end of your incision. Do not pull or trim this. If it is bothersome or catching on clothing, you may cover it with a band-aid. IF INCISION IS LEAKING THROUGH DRESSING, CALL THE OFFICE . FOLLOW UP VISIT: If appointment is not already scheduled: Please call [facility] to make a follow-up appointment for 2 weeks after your surgery at . Addtl Safety Compliance Specialist Provider Instructions: Follow up with your food and beverage attendant in 7-10 days to ensure the corneal abrasion has healed. If you experience blurred vision follow up immediately. Pending Studies at Discharge: No Stand-Alone Forms: My [facility] [employer], Smoking Cessation Medications and DC Order Prescriptions: New sennosides [Senokot] 8.6 mg Tablet 17.2 mg PO HS PRN (Reason: constipation) Qty: 28 RF: 0 acetaminophen 500 mg Tablet 1,000 mg PO Q8 PRN (Reason: pain) Qty: 90 RF: 0 duloxetine 30 mg Capsule,Delayed Release(Dr/Ec) 30 mg PO QAM Qty: 14 RF: 0 morphine 15 mg Tablet Extended Release 15 mg PO Q12 Qty: 14 RF: 0 Narcan 4 mg/actuation spray,non-aerosol 1 sprays INTNAS ONCE PRN (Reason: opioid overdose/ sedation) Qty: 2 RF: 0 Continued albuterol sulfate [ProAir HFA] 90 mcg/actuation HFA aerosol inhaler 2 puffs INH Q6H PRN (Reason: shortness of breath or wheezing) Qty: 3 RF: 1 gabapentin 600 mg tablet 600 mg PO TID RF: 0 (DME) CPAP Machine Misc See Rx Instructions .ROUTE .MEDSUPPLY Qty: 1 RF: 0 Dulera 200-5 mcg/actuation HFA aerosol inhaler 1 puffs INH BID RF: 0 aspirin 81 mg tablet 81 mg PO DAILY RF: 0 ferrous gluconate 240 mg (27 mg iron) tablet 240 mg PO DAILY RF: 0 calcium carbonate [Calcium 600] 600 mg calcium (1,500 mg) Tablet 600 mg PO HS RF: 0 sennosides [Senokot] 8.6 mg Tablet 17.2 mg PO HS PRN (Reason: constipation) Qty: 28 RF: 0 furosemide [Lasix] 40 mg Tablet 40 mg PO BID RF: 0 ipratropium-albuterol 0.5 mg-3 mg(2.5 mg base)/3 mL Solution For Nebulization 3 ml INHALATION UD PRN (Reason: SOB) RF: 0 pravastatin [Pravachol] 40 mg Tablet 40 mg PO HS RF: 0 spironolactone [Aldactone] 25 mg Tablet 25 mg PO BID RF: 0 levothyroxine [Synthroid] 25 mcg Tablet 25 mcg PO QAM RF: 0 potassium chloride [Klor-Con 8] 8 mEq Tablet Extended Release 8 meq PO BID RF: 0 pantoprazole [Protonix] 40 mg Tablet,Delayed Release (Dr/Ec) 40 mg PO BID RF: 0 lisinopril 10 mg Tablet 10 mg PO HS RF: 0 nitroglycerin [Nitrostat] 0.4 mg Tablet, Sublingual 0.4 mg Sublingual UD PRN (Reason: Chest Pain) RF: 0 betamethasone dipropionate 0.05 % Cream 1 applic TOPICAL DAILY PRN (Reason: IRRITATION) RF: 0 cephalexin 500 mg Tablet 500 mg PO HS RF: 0 vitamin B complex Tablet 1 tab PO HS RF: 0 polyethylene glycol 3350 [Miralax] 17 gram/dose Powder 17 g PO HS RF: 0 lamotrigine [Lamictal] 100 mg Tablet 200 mg PO BID RF: 0 oxycodone 20 mg Tablet 40 mg PO TID RF: 0 cholecalciferol (vitamin D3) [Vitamin D3] 2,000 unit Capsule 2,000 unit PO BID RF: 0 Probiotic 3 billion cell Capsule 3,000 mmu cells PO BID RF: 0 Xarelto 15 mg Tablet 15 mg PO BID RF: 0 Discontinued acetaminophen 500 mg Tablet 1,000 mg PO Q8 PRN (Reason: pain/fevers) Qty: 90 RF: 0 Discharge Orders: Discharge Order (Routine); Ordered 06/05/20 Ordered By: Shar Huffman Admission Data Admit Date/Time: 06/02/20 11:33 Attending Provider: Shar Huffman Admit Provider: Shar Huffman Primary Care Provider: Angel Luis Patel Other Providers: Omar Santacruz ; Dioni Goode ; David,[facility] Other Interventions: Discharge Summary Assessment (RN) Last Done: 06/05/20 14:27 DC Date/Time DO NOT enter until pt leaves facility: 06/05/20 16:23
== END 2020-06-05 16:23 | disposition home health service (06) | DRG 470 ==
LOC: ASU 06:59 → 1E 11:33 → 3N 06-03 10:26

== ENCOUNTER 2022-10-29 05:47 | Inpatient (IN) ==
--- NOTE | 2022-10-12 11:00 | PAT Medication Instructions ---
Medication Instructions Date of Service October 12, 2022 Home Medications Medication Instructions Recorded CPAP Machine #1 ea 04/24/20 albuterol sulfate 90 mcg/actuation 2 puffs inhalation Q6H PRN 04/25/20 aerosol inhaler (ProAir HFA) shortness of breath or wheezing #3 Inhalers cephalexin 500 mg tablet 500 mg PO HS PREVENTATIVE FOR UTI cholecalciferol (vitamin D3) 50 mcg (2,000 unit) capsule (Vitamin D3) 2,000 unit PO BID furosemide 40 mg tablet (Lasix) 40 mg PO BID ipratropium 0.5 mg-albuterol 3 mg (2.5 mg base)/3 mL nebulization soln 3 ml inhalation UD PRN SOB lactobacillus combination no.4 3 billion cell capsule (Probiotic) 3,000 mmu cells PO BID lamotrigine 100 mg tablet (Lamictal) 200 mg PO BID levothyroxine 25 mcg tablet (Synthroid) 25 mcg PO QAM lisinopril 10 mg tablet 10 mg PO HS nitroglycerin 0.4 mg sublingual tablet (Nitrostat) 0.4 mg sublingual UD PRN Chest Pain oxycodone 20 mg tablet 20 mg PO BID pantoprazole 40 mg tablet,delayed release (Protonix) 40 mg PO BID potassium chloride 8 mEq tablet,extended release (Klor-Con) 8 meq PO BID pravastatin 40 mg tablet (Pravachol) 40 mg PO HS spironolactone 25 mg tablet (Aldactone) 25 mg PO BID vitamin B complex 1 tab PO HS calcium carbonate 600 mg calcium (1,500 mg) tablet (Calcium) 600 mg PO HS gabapentin 600 mg tablet 600 mg PO QID albuterol sulfate 90 mcg/actuation aerosol inhaler (ProAir HFA) 2 puffs inhalation Q6H PRN shortness of breath or wheezing rivaroxaban 15 mg tablet (Xarelto) 15 mg PO BID aspirin 81 mg tablet 81 mg PO QAM ferrous gluconate 240 mg (27 mg iron) tablet 240 mg PO HS mometasone-formoterol HFA 200 mcg-5 mcg/actuation aerosol inhaler (Dulera) 1 puffs inhalation BID PRN Shortness Of Breath acetaminophen 500 mg tablet 1,000 mg PO Q8H PRN pain dexlansoprazole 60 mg capsule,biphase delayed release (Dexilant) 60 mg PO HS duloxetine 60 mg capsule,delayed release 60 mg PO QAM Continue as directed cephalexin 500 mg tablet 500 mg PO HS PREVENTATIVE FOR UTI (if needed) nitroglycerin 0.4 mg sublingual tablet (Nitrostat) 0.4 mg sublingual UD PRN Chest Pain (if needed) ASK your prescriber and surgeon rivaroxaban 15 mg tablet (Xarelto) 15 mg PO BID aspirin 81 mg tablet 81 mg PO QAM DO NOT take the morning of surgery cholecalciferol (vitamin D3) 50 mcg (2,000 unit) capsule (Vitamin D3) 2,000 unit PO BID furosemide 40 mg tablet (Lasix) 40 mg PO BID lactobacillus combination no.4 3 billion cell capsule (Probiotic) 3,000 mmu cells PO BID potassium chloride 8 mEq tablet,extended release (Klor-Con) 8 meq PO BID spironolactone 25 mg tablet (Aldactone) 25 mg PO BID Take morning of surgery With a small sip of water, OTHERWISE NOTHING TO EAT OR DRINK AFTER MIDNIGHT: ipratropium 0.5 mg-albuterol 3 mg (2.5 mg base)/3 mL nebulization soln 3 ml inhalation UD PRN SOB (if needed) lamotrigine 100 mg tablet (Lamictal) 200 mg PO BID levothyroxine 25 mcg tablet (Synthroid) 25 mcg PO QAM oxycodone 20 mg tablet 20 mg PO BID pantoprazole 40 mg tablet,delayed release (Protonix) 40 mg PO BID gabapentin 600 mg tablet 600 mg PO QID albuterol sulfate 90 mcg/actuation aerosol inhaler (ProAir HFA) 2 puffs inhalation Q6H PRN shortness of breath or wheezing (use if needed; please bring rescue inhaler with you to hospital day of surgery if possible) mometasone-formoterol HFA 200 mcg-5 mcg/actuation aerosol inhaler (Dulera) 1 puffs inhalation BID PRN Shortness Of Breath (if needed) acetaminophen 500 mg tablet 1,000 mg PO Q8H PRN pain (if needed) duloxetine 60 mg capsule,delayed release 60 mg PO QAM Take evening before surgery cholecalciferol (vitamin D3) 50 mcg (2,000 unit) capsule (Vitamin D3) 2,000 unit PO BID furosemide 40 mg tablet (Lasix) 40 mg PO BID ipratropium 0.5 mg-albuterol 3 mg (2.5 mg base)/3 mL nebulization soln 3 ml inhalation UD PRN SOB (if needed) lactobacillus combination no.4 3 billion cell capsule (Probiotic) 3,000 mmu cells PO BID lamotrigine 100 mg tablet (Lamictal) 200 mg PO BID lisinopril 10 mg tablet 10 mg PO HS oxycodone 20 mg tablet 20 mg PO BID pantoprazole 40 mg tablet,delayed release (Protonix) 40 mg PO BID potassium chloride 8 mEq tablet,extended release (Klor-Con) 8 meq PO BID pravastatin 40 mg tablet (Pravachol) 40 mg PO HS spironolactone 25 mg tablet (Aldactone) 25 mg PO BID vitamin B complex 1 tab PO HS calcium carbonate 600 mg calcium (1,500 mg) tablet (Calcium) 600 mg PO HS gabapentin 600 mg tablet 600 mg PO QID albuterol sulfate 90 mcg/actuation aerosol inhaler (ProAir HFA) 2 puffs inhalation Q6H PRN shortness of breath or wheezing (if needed) ferrous gluconate 240 mg (27 mg iron) tablet 240 mg PO HS mometasone-formoterol HFA 200 mcg-5 mcg/actuation aerosol inhaler (Dulera) 1 puffs inhalation BID PRN Shortness Of Breath (if needed) acetaminophen 500 mg tablet 1,000 mg PO Q8H PRN pain (if needed) dexlansoprazole 60 mg capsule,biphase delayed release (Dexilant) 60 mg PO HS Other Notes If you have any questions please call us at [phone] or [phone] or [phone] or [phone]
--- NOTE | 2022-10-15 09:54 | Anesthesiology Consultation ---
Date of Service October 15, 2022 Assessment & Plan (1) Encounter for pre-operative examination: - COVID screening: Per assessment on 10/15: No known COVID-19 positive contacts or current COVID-19 related symptoms. Travel screen negative. Patient vaccinated. At surgeon discretion if preop Covid testing being done. - ASA/Xarelto instructions: per surgeon/prescriber - Patient acceptable risk for surgery pending most recent cardiology office visit note (Dr. Levni/[facility], appt done 09/2022 per pt). Chart Review Chart Review: Patient NOT seen in Pre Admission Testing History Surgery Operation Date: 10/29/22 07:45 Proposed Procedures p L1-L2 Decompression with T12-L2 Fusion, L2-L3 Hardware Removal, Spinal Cord Monitoring - Tye Barrow, Height/Weight Height: 5 ft 3.5 in Weight: 90.1 kg Allergies Allergy/AdvReac Type Severity Reaction Status Date / Time hydroxychloroquine Allergy Severe Hives, SOB Verified 10/15/22 09:53 Sulfa (Sulfonamide Allergy Severe Hives, SOB Verified 10/15/22 09:53 Antibiotics) Iodinated Contrast Media Allergy Mild SEE NOTES Verified 10/11/22 14:38 BELOW Medications Home Medications Medication Instructions Recorded Confirmed Last Taken cephalexin 500 mg tablet 500 mg PO HS PREVENTATIVE FOR UTI 09/14/18 10/11/22 06/01/20 16:30 cholecalciferol (vitamin D3) 50 2,000 unit PO BID 09/14/18 10/11/22 06/01/20 16:30 mcg (2,000 unit) capsule (Vitamin D3) furosemide 40 mg tablet (Lasix) 40 mg PO BID 09/14/18 10/11/22 06/01/20 16:30 ipratropium 0.5 mg-albuterol 3 mg 3 ml inhalation UD PRN SOB 09/14/18 10/11/22 Unknown (2.5 mg base)/3 mL nebulization soln lactobacillus combination no.4 3 3,000 mmu cells PO BID 09/14/18 10/11/22 06/01/20 16:30 billion cell capsule (Probiotic) lamotrigine 100 mg tablet 200 mg PO BID 09/14/18 10/11/22 06/02/20 05:30 (Lamictal) levothyroxine 25 mcg tablet 25 mcg PO QAM 09/14/18 10/11/22 06/02/20 05:30 (Synthroid) lisinopril 10 mg tablet 10 mg PO HS 09/14/18 10/11/22 06/01/20 16:30 nitroglycerin 0.4 mg sublingual 0.4 mg sublingual UD PRN Chest Pain 09/14/18 10/11/22 Unknown tablet (Nitrostat) oxycodone 20 mg tablet 20 mg PO BID 09/14/18 10/11/22 06/02/20 05:30 pantoprazole 40 mg tablet,delayed 40 mg PO BID 09/14/18 10/11/22 06/01/20 16:30 release (Protonix) potassium chloride 8 mEq 8 meq PO BID 09/14/18 10/11/22 06/01/20 16:30 tablet,extended release (Klor-Con) pravastatin 40 mg tablet 40 mg PO HS 09/14/18 10/11/22 06/01/20 16:30 (Pravachol) spironolactone 25 mg tablet 25 mg PO BID 09/14/18 10/11/22 06/01/20 16:30 (Aldactone) vitamin B complex 1 tab PO HS 09/14/18 10/11/22 06/01/20 16:30 calcium carbonate 600 mg calcium 600 mg PO HS 11/08/19 10/11/22 06/01/20 19:30 (1,500 mg) tablet (Calcium) CPAP Machine #1 ea 04/24/20 06/24/20 Unknown gabapentin 600 mg tablet 600 mg PO QID 04/24/20 10/11/22 06/02/20 05:30 albuterol sulfate 90 mcg/actuation 2 puffs inhalation Q6H PRN 04/25/20 10/11/22 Unknown aerosol inhaler (ProAir HFA) shortness of breath or wheezing #3 Inhalers rivaroxaban 15 mg tablet (Xarelto) 15 mg PO BID 05/01/20 10/11/22 05/29/20 aspirin 81 mg tablet 81 mg PO QAM 05/05/20 10/11/22 06/02/20 05:30 ferrous gluconate 240 mg (27 mg 240 mg PO HS 05/05/20 10/11/22 06/01/20 16:30 iron) tablet mometasone-formoterol HFA 200 1 puffs inhalation BID PRN 05/05/20 10/11/22 0 06/02/20 05:30 mcg-5 mcg/actuation aerosol Shortness Of Breath inhaler (Dulera) acetaminophen 500 mg tablet 1,000 mg PO Q8H PRN pain 10/11/22 10/11/22 Unknown dexlansoprazole 60 mg 60 mg PO HS 10/11/22 10/11/22 Unknown capsule,biphase delayed release (Dexilant) duloxetine 60 mg capsule,delayed 60 mg PO QAM 10/11/22 10/11/22 Unknown release Past Medical History Medical History CAD (coronary artery disease), [place] coronary artery s/p single RADHA 2004 Chronic back pain COPD (chronic obstructive pulmonary disease) Deep vein thrombosis Recurrent (pelvis, LUE, LLE), most recent 2015, on Xarelto GERD (gastroesophageal reflux disease) GI bleed D/t gastric ulcer (2017) s/p hemoclip (required multiple blood transfusions) Hiatal hernia History of blood clots 11/2019 (back of knee to ankle) after knee replacement in 10/2019 History of [place] (myocardial infarction) Prior to 2002, "silent" History of MTHFR mutation History of pulmonary embolism 2015, on Xarelto History of UTI Prophylactic daily abx HTN (hypertension), benign Hyperlipidemia Hypothyroidism Intermittent self-catheterization of bladder R/T neurogenic bladder (several times/day) Migraine Reason for lamictal Myocardial Infarction 2002 Neurogenic bladder Neurogenic claudication due to lumbar spinal stenosis KIAH on CPAP Compliant Osteoarthritis Peptic ulcer disease EGD with hemoclip (2017) Exercise / Class Metabolic Activity III < 4 Walking/Shop/Light housework Past Family History Family History Mother Family history of diabetes mellitus Father Family history of diabetes mellitus Brother Family history of diabetes mellitus Sister Family history of diabetes mellitus Past Surgical History Surgical History Fusion of spine L4-L5, S1-S2 (2007) L3-L4 (2013) L2-L3, HARDWARE REMOVAL L3-L4 (2017) H/O bilateral salpingo-oophorectomy H/O exploratory laparotomy FOR ENDOMETRIOSIS H/O vascular surgery BILAT LOWER LEGS-DR JALYN WALDEN-09/2019 History of appendectomy History of cardiac cath 12/2021, [facility] > no stents 2015, 2018 > no stents 2005 > stent x1 History of carpal tunnel release of both wrists History of section History of cholecystectomy LAP History of colonoscopy History of cystoscopy X MULTIPLE History of esophagogastroduodenoscopy (EGD) History of hysterectomy JOE History of laminectomy LUMBAR (2000) History of laparotomy History of [place] fundoplication 01/21/2022 History of tonsillectomy S/P fusion of sacroiliac joint Total knee replacement status Right TKA 06/02/2020 Left TKA 11/26/2019 Past Anesthesia History No Hx of Anesthesia Complications and No Family Hx of Anesthesia Complications History of PONV No Hx of PONV and No Hx of Motion Sickness Social History Smoking Status: Former smoker tobacco type: cigarettes Do You Dip or Chew Tobacco: No Smoking End Date: Quit 2017 (hx 10-20 cigs/day) Hx Alcohol Use: No Hx Substance Use: No substance use type: does not use Review of Systems Patient denies chest pain, shortness of breath, fever, chills, cough, wheezing, palpitations. Physical Exam Vital Signs VITALS BP 115/73 P 69 TEMP 98.9 SP02 95%RA RESP 18 PHYSICAL Full cervical extension range of motion. Full TMJ range of motion. TMD 2.5 finger breaths Mallampati Score 3 Dentition: upper/lower partial Lungs: clear throughout to auscultation Cardiac: regular rate and rhythm, no murmurs noted Spine: normal Carotid arteries: negative bruit Extremities: no edema Lab Results Anesthesia Preop Results Results Anesthesia Widget: WBC 5.39 K/ul (4.8-10.8) 10/15/22 Hgb 12.9 g/dl (12.0-16.0) 10/15/22 Hct 39.3 % (34.1-44.9) 10/15/22 Plt 252 K/uL (130-400) 10/15/22 Na 139 mmol/L (136-145) 10/15/22 K 3.9 mmol/L (3.5-5.1) 10/15/22 Cl 102 mmol/L (98-107) 10/15/22 CO2 31 mmol/L (21-32) 10/15/22 BUN 23 mg/dl (6-23) 10/15/22 Creat 1.00 mg/dl (0.6-1.2) 10/15/22 Glucose Level 113 mg/dl (70-99(Fasting)) H 10/15/22 PT 14.4 Seconds (9.0-12.0) H 10/15/22 PTT 41.6 Seconds (21.0-31.0) H 10/15/22 INR 1.4 (0.9-1.1) H 10/15/22 Urine Color Yellow 10/15/22 Urine Appearance Clear (Clear) 10/15/22 Urine pH 7.0 (4.5-7.5) 10/15/22 Urine Specific [place] 1.018 (1.000-1.030) 10/15/22 Urine Protein Negative (Negative) 10/15/22 Urine Glucose (UA) Negative (Negative) 10/15/22 Urine Ketones Negative (Negative) 10/15/22 Urine Blood Trace (Negative) H 10/15/22 Urine Nitrite Negative (Negative) 10/15/22 Urine Bilirubin Negative (Negative) 10/15/22 Urine Urobilinogen Negative (Negative) 10/15/22 Urine Leukocyte Esterase Trace (Negative) H 10/15/22 Urine WBC (Auto) 0 /hpf (0-5) 10/15/22 Urine RBC (Auto) 10-30 /hpf (0-4) H 10/15/22 Urine Hyaline Casts (Auto) 0 /lpf (0-5) 10/15/22 Urine Epithelial Cells (Auto) 10-20 /lpf (0-5) H 10/15/22 Urine Bacteria (Auto) Negative (Negative) 10/15/22 Blood Type O Positive 10/15/22 Antibody Screen NEGATIVE 10/15/22 Testing Laboratory Results Elevated coags- pt taking Xarelto* Electrocardiogram Date: 02/15/22 SB at 57bpm. NS ST/TWA. Chest X-Ray Date: 02/15/22 FINDINGS: No pneumothorax. No pleural effusions. The heart is normal in size. No new focal lung consolidations to suggest pneumonia. No evidence for pulmonary edema. A left coronary artery stent is noted. IMPRESSION: No acute process. COVID-19 Risk Screen Screening Information COVID-19 Screen Date: 10/15/22 Exposure 21 Days Family/Household +COVID Last 21 Days: No Exposure 10 Days Any COVID Exposure Last 10 Days: No Symptoms Last 10 Days Experienced COVID Sx Last 10 Days: No + COVID 0-90 Days COVID + in Last 0-90 Days: No
[2022-10-29] MEDS ORDERED: GABAPENTIN 600 MG DOSE PO SCH (06:00)
[2022-10-29] MEDS ORDERED: ACETAMINOPHEN 500 MG TAB PO SCH (06:00)
[2022-10-29] MEDS ORDERED: LR 15ML/HR IV SCH (06:00)
[2022-10-29] MEDS ORDERED: ceFAZolin 2000MG 2,000 MG/15 ML SYR IV SCH (06:00)
[2022-10-29] MEDS ORDERED: SUGAMMADEX SODIUM 200 MG/2 ML VIAL IV ONE (06:41)
[2022-10-29] MEDS ORDERED: MIDAZOLAM HCL 1 MG/ML 2ML VIAL ONE (06:55)
[2022-10-29] MEDS ORDERED: ONDANSETRON INJ 2 MG/ML 2 ML VIAL ONE (06:55)
[2022-10-29] MEDS ORDERED: PROPOFOL IV EMULSION 10 MG/ML 20 ML VIAL IV ONE (06:55)
[2022-10-29] MEDS ORDERED: fentaNYL citrate 100 MCG/2 ML VIAL ONE ×2 (06:55→10:04)
[2022-10-29] MEDS ORDERED: SUCCINYLCHOLINE CHLORIDE 20 MG/ML 10 ML VIAL IV ONE (06:55)
[2022-10-29] MEDS ORDERED: ROCURONIUM BROMIDE 10 MG/ML 5 ML VIAL IV ONE (06:55)
[2022-10-29] MEDS ORDERED: DEXAMETHASONE SOD INJ 4 MG/ML VIAL ONE (06:55)
--- NOTE | 2022-10-29 07:39 | History & Physical Bridge Note ---
Date of Service October 29, 2022 History & Physical Bridge Note I have examined the patient, reviewed the History & Physical and in the interval since the performance of the History & Physical I have noted the following changes of clinical significance: no changes noted
[2022-10-29] MEDS ORDERED: ceFAZolin 330 MG/ML 1 GM VIAL ONE (07:40)
--- NOTE | 2022-10-29 07:40 | History & Physical Report ---
Date of Service October 29, 2022 Assessment & Plan (1) Neurogenic claudication due to lumbar spinal stenosis: Plan: L1-L2 decompression with T12-L2 fusion, L2-L3 hardware removal History of Present Illness Chief Complaint: Back and bilateral leg pain Primary Care Provider: TYRA Braxton This is a 62-year-old female who presents with chronic persistent back and bilateral leg pain. Failed extensive course of nonoperative care she is here for surgical invention. Allergies Allergy/AdvReac Type Severity Reaction Status Date / Time hydroxychloroquine Allergy Severe Hives, SOB Verified 10/29/22 06:16 Sulfa (Sulfonamide Allergy Severe Hives, SOB Verified 10/29/22 06:16 Antibiotics) Home Medications Medication Instructions Recorded Confirmed Type cephalexin 500 mg tablet 500 mg PO HS PREVENTATIVE FOR UTI 09/14/18 10/29/22 History cholecalciferol (vitamin D3) 50 2,000 unit PO BID 09/14/18 10/29/22 History mcg (2,000 unit) capsule (Vitamin D3) furosemide 40 mg tablet (Lasix) 40 mg PO BID 09/14/18 10/29/22 History ipratropium 0.5 mg-albuterol 3 mg 3 ml inhalation UD PRN SOB 09/14/18 10/29/22 History (2.5 mg base)/3 mL nebulization soln lactobacillus combination no.4 3 3,000 mmu cells PO BID 09/14/18 10/29/22 History billion cell capsule (Probiotic) lamotrigine 100 mg tablet 200 mg PO BID 09/14/18 10/29/22 History (Lamictal) levothyroxine 25 mcg tablet 25 mcg PO QAM 09/14/18 10/29/22 History (Synthroid) lisinopril 10 mg tablet 10 mg PO HS 09/14/18 10/29/22 History nitroglycerin 0.4 mg sublingual 0.4 mg sublingual UD PRN Chest Pain 09/14/18 10/29/22 History tablet (Nitrostat) oxycodone 20 mg tablet 20 mg PO BID 09/14/18 10/29/22 History pantoprazole 40 mg tablet,delayed 40 mg PO BID 09/14/18 10/29/22 History release (Protonix) potassium chloride 8 mEq 8 meq PO BID 09/14/18 10/29/22 History tablet,extended release (Klor-Con) pravastatin 40 mg tablet 40 mg PO HS 09/14/18 10/29/22 History (Pravachol) spironolactone 25 mg tablet 25 mg PO BID 09/14/18 10/29/22 History (Aldactone) vitamin B complex 1 tab PO HS 09/14/18 10/29/22 History calcium carbonate 600 mg calcium 600 mg PO HS 11/08/19 10/29/22 History (1,500 mg) tablet (Calcium) CPAP Machine #1 ea 04/24/20 06/24/20 Rx gabapentin 600 mg tablet 600 mg PO QID 04/24/20 10/29/22 History albuterol sulfate 90 mcg/actuation 2 puffs inhalation Q6H PRN 04/25/20 10/29/22 Rx aerosol inhaler (ProAir HFA) shortness of breath or wheezing #3 Inhalers rivaroxaban 15 mg tablet (Xarelto) 15 mg PO BID 05/01/20 10/29/22 History aspirin 81 mg tablet 81 mg PO QAM 05/05/20 10/29/22 History ferrous gluconate 240 mg (27 mg 240 mg PO HS 05/05/20 10/29/22 History iron) tablet mometasone-formoterol HFA 200 1 puffs inhalation BID PRN 05/05/20 10/29/22 History mcg-5 mcg/actuation aerosol Shortness Of Breath inhaler (Dulera) acetaminophen 500 mg tablet 1,000 mg PO Q8H PRN pain 10/11/22 10/29/22 History dexlansoprazole 60 mg 60 mg PO HS 10/11/22 10/29/22 History capsule,biphase delayed release (Dexilant) duloxetine 60 mg capsule,delayed 60 mg PO QAM 10/11/22 10/29/22 History release Past Med/Surg History Medical History CAD (coronary artery disease), [place] coronary artery s/p single RADHA 2004 Chronic back pain COPD (chronic obstructive pulmonary disease) Deep vein thrombosis Recurrent (pelvis, LUE, LLE), most recent 2015, on Xarelto GERD (gastroesophageal reflux disease) GI bleed D/t gastric ulcer (2017) s/p hemoclip (required multiple blood transfusions) Hiatal hernia History of blood clots 11/2019 (back of knee to ankle) after knee replacement in 10/2019 History of [place] (myocardial infarction) Prior to 2002, "silent" History of MTHFR mutation History of pulmonary embolism 2015, on Xarelto History of UTI Prophylactic daily abx HTN (hypertension), benign Hyperlipidemia Hypothyroidism Intermittent self-catheterization of bladder R/T neurogenic bladder (several times/day) Migraine Reason for lamictal Myocardial Infarction 2002 Neurogenic bladder Neurogenic claudication due to lumbar spinal stenosis KIAH on CPAP Compliant Osteoarthritis Peptic ulcer disease EGD with hemoclip (2017) Surgical History Fusion of spine L4-L5, S1-S2 (2007) L3-L4 (2013) L2-L3, HARDWARE REMOVAL L3-L4 (2017) H/O bilateral salpingo-oophorectomy H/O exploratory laparotomy FOR ENDOMETRIOSIS H/O vascular surgery BILAT LOWER LEGS-DR JALYN WALDEN-09/2019 History of appendectomy History of cardiac cath 12/2021, PHH > no stents 2015, 2017 > no stents 2005 > stent x1 History of carpal tunnel release of both wrists History of section History of cholecystectomy LAP History of colonoscopy History of cystoscopy X MULTIPLE History of esophagogastroduodenoscopy (EGD) History of hysterectomy JOE History of laminectomy LUMBAR (2000) History of laparotomy History of [place] fundoplication 01/21/2022 History of tonsillectomy S/P fusion of sacroiliac joint Total knee replacement status Right TKA 06/02/2020 Left TKA 11/26/2019 Family History Mother Family history of diabetes mellitus Father Family history of diabetes mellitus Brother Family history of diabetes mellitus Sister Family history of diabetes mellitus Social History Smoking Status: Former smoker Smoking End Date: Quit 2017 (hx 10-20 cigs/day); Second Hand Exposure: No; Do You Dip or Chew Tobacco: No; Tobacco Cessation Education Requested by Patient: No Hx Alcohol Use: No Hx Substance Use: No Preferred Language: Norwegian Communication Ability: Effective Visual Impairment: No Limitations Human Resource Consultant Required: No Beliefs That Will Affect Care: None Current Living Situation: Spouse Other Information That Helps Us Care for You: No Feels Safe at Home: Yes Safety Concerns: Feels Safe At This Time Assistive Devices: Walker Assistive Devices Comment: contact rt eye only; upper and lower partials-will not bring to sx. Physical Exam Physical Exam: Patient is alert and oriented Heart regular rhythm Lungs clear
[2022-10-29] MEDS ORDERED: BUPIVACAINE/EPINEPHRINE 0.5% MPF 1:200,000 10 ML VIAL ONE (07:41)
[2022-10-29] MEDS ORDERED: KETAMINE 50 MG/5 ML SYRINGE ONE (07:56)
[2022-10-29] MEDS ORDERED: PHENYLEPHRINE HCL 10 MG/ML VIAL ONE (08:18)
[2022-10-29] MEDS ORDERED: FLOSEAL HEMOSTATIC MATRIX 10ML TOP ONE (08:44)
--- NOTE | 2022-10-29 10:24 | Operative Report ---
Post Operative Report Pre & Post Diagnosis Operation Date: 10/29/22 07:45 Pre-Op Diagnosis: Spinal Stenosis, Lumbar Region with Neurogenic Claudication Post-Op Diagnosis: Spinal Stenosis, Lumbar Region with Neurogenic Claudication I identified the patient and participated in the time-out.: Yes Procedure Operation Date: 10/29/22 07:45 Actual Procedures #1 removal of posterior instrumentation L2-L3. #2 exploration of fusion L2-L3. #3 lumbar decompression bilateral medial facetectomies and foraminotomies T12-L1 L1-L2. #4 posterior spinal fusion T11-L3. #5 placement posterior segmental instrumentation T11-L3. Surgeon Tye Barrow, DO Press Maintainer Montana Duran Estimated Blood Loss 600 Findings See Below The patient is 5 foot 3 inches tall weighing over 90 kg with a BMI in excess of 34. This combined with an EBL of greater than 600 cc. Is significant technical difficulty. This at least 50% increased to the operative time. Specimens None Indications This is a 62-year-old female known to me that presents with above-mentioned diagnosis after failing course of nonoperative care she is here for surgical invention. Description of Procedure Patient was met with identified informed consent obtained. Patient was then taken to the operative suite underwent a patient placed in a prone position the [place] table top Sam frame. All bony prominences well-padded eyes inspected to ensure no external pressure placed upon the. This point the thoracolumbar spine was prepped and draped in a sterile fashion. Sharp dissection with the assistance pericardial performed down to and exposing the lamina and transverse processes of T11 T12-L1 and instrumentation L to L3 bilaterally. And then proceeded move the hardware bilaterally explore the fusion mass noting it to be measured mature and intact. Then formed a complete laminectomy of L1 partial laminectomy of T12 including bilateral medial facetectomies and foraminotomies addressing severe spinal stenosis. Pedicle screws were then placed in T11-T12 L1-L2 and L3 bilaterally with assistance of fluoroscopy and the properly sized debo contoured and locked in position. Transverse processes of T11-L2 were then burred to subcortical bleeding bone. I factor bone of the test and locally reilly rvested morselized autograft was placed in the posterior gutters. 15 round JOSLYN drain inserted. The incision was then closed with 1 Vicryl the fascia 2-0 Vicryl subcutaneously and 4 Monocryl for final skin closure. Steri-Strip sterile dressing placed. Patient waken taken to PACU in stable condition. Please note spinal cord monitoring was utilized at the procedure no changes noted. Lastly Montana Duran was present at the entire surgery involved the patient positioning complex portions of the surgery and final skin closure. I attest to the content of the Intraoperative Record and any orders documented therein. Any exceptions are noted below.
[2022-10-29] MEDS ORDERED: HYDROmorphone INJ 1 MG/ML SYRINGE ONE (10:50)
[2022-10-29] MEDS: HYDROmorphone INJ 1 MG/ML SYRINGE IV PRN ×12 (10:50→12:32)
[2022-10-29] MEDS ORDERED: LABETALOL HCL IV 5 MG/ML 20ML IV PRN (10:51)
[2022-10-29] MEDS ORDERED: PROMETHAZINE HCL 12.5 MG in SODIUM CHLORIDE 0.9% 50 ML IV PRN ×2 (10:51→13:33)
[2022-10-29] MEDS ORDERED: ONDANSETRON INJ 2 MG/ML 2 ML VIAL IV PRN ×2 (10:51→13:33)
[2022-10-29] MEDS ORDERED: NALOXONE HCL 0.4 MG/1 ML VIAL/CARP IV PRN ×2 (10:51→13:33)
[2022-10-29] MEDS ORDERED: ePHEDrine sulfate 50 MG/ML AMP IV PRN (10:51)
[2022-10-29] MEDS ORDERED: FLUMAZENIL 0.1 MG/1 ML 10 ML VIAL IV PRN (10:51)
[2022-10-29] MEDS ORDERED: ATROPINE SULFATE 0.1 MG/ML 10ML SYR IV PRN (10:51)
[2022-10-29] MEDS ORDERED: KETOROLAC 30 MG/ML VIAL ONE (11:38)
[2022-10-29] MEDS: HYDROmorphone INJ 0.5 MG/0.5 ML SYR IV PRN ×2 (11:42→11:57)
[2022-10-29] MEDS ORDERED: KETOROLAC 30 MG/ML VIAL IV ONE (11:55)
[2022-10-29 12:47] LABS: Hematocrit (blood only) 32.8 % (34.1-44.9); Hemoglobin 10.9 g/dl (12.0-16.0)
--- NOTE | 2022-10-29 13:29 | Fluoroscopy Report ---
[place] lumbar spine 2-3V CLINICAL HISTORY: L2-3 RH/T12-L2 DFI TECHNIQUE: 2 views were obtained with the C-arm in the OR with the above procedure. Total fluoroscopy time was 34 seconds. Comparison: Comparison is made to lumbar spine fluoroscopy 09/22/2018 FINDINGS/IMPRESSION: Intraoperative images were obtained of L2-L3 hardware removal and T3-L3 discecto my and fusion. Please correlate with intraoperative fluoroscopy and operative report. ACT 112: Negative or not required by law. Electronically signed by: Michael Ferderick M.D. 10/29/2022 1:28 PM
--- NOTE | 2022-10-29 13:31 | Anesthesiology Progress Note ---
Date of Service October 29, 2022 Anesthesia Post Procedure Vital Signs Vital Signs: Temp Pulse Resp BP Pulse Ox O2 Del Method O2 Flow Rate 10/29/22 13:00 76 13 106/56 L 94 Nasal Cannula 3 10/29/22 12:50 80 14 112/62 93 Nasal Cannula 3 10/29/22 12:40 37.0 C 83 12 108/53 L 95 Nasal Cannula 3 10/29/22 12:30 83 17 104/60 96 Nasal Cannula 3 10/29/22 12:20 89 23 126/72 93 Nasal Cannula 3 10/29/22 12:10 79 12 126/68 96 Nasal Cannula 3 10/29/22 12:00 36.3 C L 83 12 119/69 97 Nasal Cannula 3 10/29/22 11:50 83 13 113/66 97 Nasal Cannula 3 10/29/22 11:40 78 12 111/73 98 Nasal Cannula 4 10/29/22 11:30 78 18 119/85 99 Oxymask 4 10/29/22 11:20 79 16 126/71 98 Oxymask 4 10/29/22 11:10 80 14 123/65 98 Oxymask 4 10/29/22 11:00 74 15 113/72 98 Oxymask 6 10/29/22 10:50 36 C L 81 18 110/64 98 Oxymask 8 Pain Intensity Lower Back: Pain Intensity: 10 Transfer of Care Handoff Completed per policy Notes Mental Status: alert / awake / arousable Patient Amnestic to Procedure: Yes Nausea / Vomiting: adequately controlled Pain: adequately controlled Airway Patency, RR, SpO2: stable & adequate BP & HR: stable & adequate Hydration State: stable & adequate Anesthetic Complications: no major complications apparent
[2022-10-29] MEDS ORDERED: bisacodyL 10 MG SUPP PR PRN (13:33)
[2022-10-29] MEDS ORDERED: ALUMINUM/MAGNESIUM SUSP 30 ML UDC PO PRN (13:33)
[2022-10-29] MEDS ORDERED: METOCLOPRAMIDE HCL INJ 5 MG/ML 2 ML VIAL IV PRN (13:33)
[2022-10-29] MEDS ORDERED: FAMOTIDINE 20 MG TAB PO PRN (13:33)
[2022-10-29] MEDS ORDERED: ALBUT/IPRATROP 3MG/0.5MG NEB 3 ML VIAL INH PRN (13:33)
[2022-10-29] MEDS ORDERED: ACETAMINOPHEN 1,000 MG/100 ML VIAL IV PRN (13:33)
[2022-10-29] MEDS ORDERED: MAGNESIUM HYDROXIDE SUSP 30 ML UDC PO PRN (13:33)
[2022-10-29] MEDS ORDERED: DO NOT ADMINISTER FLU VACCINE PRN (13:33)
[2022-10-29] MEDS ORDERED: LORazepam 0.5 MG TAB PO PRN (13:33)
[2022-10-29] MEDS ORDERED: SOD PHOSPHATE/SOD BIPHOSPHATE ENEMA 132 ML BTL PR PRN (13:33)
[2022-10-29] MEDS ORDERED: DO NOT ADMINISTER PNEUMOCOCCAL VACCINE PRN (13:33)
[2022-10-29] MEDS ORDERED: ALBUTEROL HFA 8 GM INHALER INH PRN (13:33)
[2022-10-29] MEDS ORDERED: diphenhydrAMINE Capsule 25 MG CAP PO PRN (13:33)
[2022-10-29] MEDS ORDERED: ONDANSETRON 4 MG OD TAB PO PRN (13:33)
[2022-10-29] MEDS ORDERED: hydrOXYzine HCl 25 MG TAB PO PRN (13:33)
[2022-10-29] MEDS ORDERED: NITROGLYCERIN SL 0.4 MG/TAB TAB SL PRN (13:33)
[2022-10-29] MEDS ORDERED: HYDROmorphone INJ 1 MG/ML SYRINGE IV PRN (13:33)
[2022-10-29] MEDS ORDERED: LORazepam 0.5 MG in SYRINGE 0 ML IV PRN (13:33)
[2022-10-29] MEDS: SODIUM CHLORIDE 0.9% 1000ML 1,000 ML IV SCH ×2 (13:35→23:25)
--- NOTE | 2022-10-29 14:08 | Consultation ---
Date of Consultation October 29, 2022 Assessment & Plan (1) Status post lumbar surgery: (2) Neurogenic claudication due to lumbar spinal stenosis: Post op day# 0 S/P hardware removal L2-L3, decompression and fusion T12-L2 by Dr Pushpa DORSEY #600 mL -pain management per ortho -wound management per ortho -PT/OT as appropriate -DVT prophylaxis per ortho -incentive spirometry -monitor H&H for acute blood loss anemia; preop Hgb: 12.9, postop Hgb 10.9 (3) CAD (coronary artery disease), [place] coronary artery: S/P PCI LAD in 2004 Stable -Continue metoprolol succinate, aspirin, pravastatin (4) Recurrent deep vein thrombosis (DVT): History recurrent DVT/PE. Chronically anticoagulated on Xarelto -Xarelto has been on hold since 10/24/2022 -Resume Xarelto as soon as possible per Ortho spine (5) Hypertension: -Continue lisinopril, metoprolol succinate with holding parameters (6) CHF (congestive heart failure): Appears euvolemic -continue Lasix, spironolactone -Monitor volume status (7) Hyperlipidemia: -Continue pravastatin (8) Chronic obstructive pulmonary disease: No signs of acute exacerbation Patient reports has not used inhalers for the past year -Albuterol as needed (9) Neurogenic bladder: Self caths multiple times daily. On chronic antibiotic -Currently Acevedo catheter in place. When Acevedo cath removed patient can resume self cathing as needed -Resume chronic Keflex tomorrow. Patient received cefazolin preop and postop (10) GERD (gastroesophageal reflux disease): -Continue PPI (11) Sleep apnea: -BiPAP at bedtime (12) Hypothyroidism: -Continue levothyroxine (13) Chronic pain: On chronic oxycodone -Continue oxycodone. Pain management per orthospine DVT Prophylaxis -SCDs per ortho spine Disposition per primary service Follows with Anna Frankel in [place] for routine care Pt was seen and care coordinated with Dr Interiano. See addendum Thank you for this consultation. We will follow the patient with you during their hospital stay. You can reach a member of the [facility] via [facility] Supervising Physician Co-Signing Physician Notes Care coordinated with Sera Slaughter PA-C. Agree with above note. Patient seen and examined. Please refer to her notes for full details. Vital signs reviewed. Physical exam: General exam: Alert and oriented. Not in acute distress. CVS: S1 and S2 heard, regular rate and rhythm, no murmurs. RS: Clear to auscultation, no wheezing or crackles. ABD: Soft, bowel sounds present, nontender, no distention. SHAKE SAWYER: Nonfocal. Musculoskeletal s/p back surgery. Dressing and drain intact EXT: No edema, no erythema. Labs: Reviewed. Assessment and plan:62F s/p back surgery. Doing ok. Feeling some discomfort in the back. No chest pain or sob. No nausea. No cough. Afebrile. s/p Back surgery management as per ortho Hx of CAd continue home meds Hx of DVT Xarelto on hold to restart as soon as possible. Other diagnosis and plan of care as per Sera Slaughter, . Troy beverly MD. History of Present Illness Requesting Physician: Dr Barrow Reason for Consultation: Post op medical management Attending Physician: Tye Barrow, DO History of Present Illness Patient is 62-year-old female with PMH HTN, HLD, CAD s/p stent, history of recurrent DVT/PE on chronic anticoagulation with Xarelto, CHF, chronic pain, neurogenic bladder and self caths as needed, COPD, KIAH, GERD seen in medical consultation s/p removal instrumentation L2-L3, decompression and fusion T12-L2 today by Dr. Barrow. Postop patient reports back pain, reports has improved slightly since coming to the floor. Denies lower extremity pain, paresthesias or numbness. Last BM yesterday. Denies fever/chills, diaphoresis, N/V/D/C, KEYS, dizziness, syncope, vision changes, neck pain, CP, SOB, palpitations, cough, sore throat, choking, otalgia, rhinorrhea, abdominal pain, paresthesias, weakness, extremity edema, rashes, dysuria, hematuria. Allergies Allergy/AdvReac Type Severity Reaction Status Date / Time hydroxychloroquine Allergy Severe Hives, SOB Verified 10/29/22 06:16 Sulfa (Sulfonamide Allergy Severe Hives, SOB Verified 10/29/22 06:16 Antibiotics) Home Medications Medication Instructions Recorded Confirmed Type cephalexin 500 mg tablet 500 mg PO HS PREVENTATIVE FOR UTI 09/14/18 10/29/22 History cholecalciferol (vitamin D3) 50 2,000 unit PO BID 09/14/18 10/29/22 History mcg (2,000 unit) capsule (Vitamin D3) ipratropium 0.5 mg-albuterol 3 mg 3 ml inhalation UD PRN SOB 09/14/18 10/29/22 History (2.5 mg base)/3 mL nebulization soln lactobacillus combination no.4 3 3,000 mmu cells PO BID 09/14/18 10/29/22 History billion cell capsule (Probiotic) lamotrigine 100 mg tablet 200 mg PO BID 09/14/18 10/29/22 History (Lamictal) levothyroxine 25 mcg tablet 25 mcg PO QAM 09/14/18 10/29/22 History (Synthroid) lisinopril 10 mg tablet 10 mg PO HS 09/14/18 10/29/22 History nitroglycerin 0.4 mg sublingual 0.4 mg sublingual UD PRN Chest Pain 09/14/18 10/29/22 History tablet (Nitrostat) oxycodone 20 mg tablet 20 mg PO BID 09/14/18 10/29/22 History pantoprazole 40 mg tablet,delayed 40 mg PO BID 09/14/18 10/29/22 History release (Protonix) potassium chloride 8 mEq 8 meq PO BID 09/14/18 10/29/22 History tablet,extended release (Klor-Con) pravastatin 40 mg tablet 40 mg PO HS 09/14/18 10/29/22 History (Pravachol) vitamin B complex 1 tab PO HS 09/14/18 10/29/22 History calcium carbonate 600 mg calcium 600 mg PO HS 11/08/19 10/29/22 History (1,500 mg) tablet (Calcium) CPAP Machine #1 ea 04/24/20 10/29/22 Rx gabapentin 600 mg tablet 600 mg PO QID 04/24/20 10/29/22 History albuterol sulfate 90 mcg/actuation 2 puffs inhalation Q6H PRN 04/25/20 10/29/22 Rx aerosol inhaler (ProAir HFA) shortness of breath or wheezing #3 Inhalers rivaroxaban 15 mg tablet (Xarelto) 15 mg PO BID 05/01/20 10/29/22 History aspirin 81 mg tablet 81 mg PO QAM 05/05/20 10/29/22 History mometasone-formoterol HFA 200 1 puffs inhalation BID PRN 05/05/20 10/29/22 History mcg-5 mcg/actuation aerosol Shortness Of Breath inhaler (Dulera) acetaminophen 500 mg tablet 1,000 mg PO Q8H PRN pain 10/11/22 10/29/22 History dexlansoprazole 60 mg 60 mg PO HS 10/11/22 10/29/22 History capsule,biphase delayed release (Dexilant) duloxetine 60 mg capsule,delayed 60 mg PO QAM 10/11/22 10/29/22 History release furosemide 20 mg tablet 20 mg PO BID 10/29/22 10/29/22 History iron,carbonyl 65 mg-vitamin C 125 1 tab PO HS 10/29/22 10/29/22 History mg tablet,delayed release (Vitron-C) ketoconazole 2 % topical cream 1 applic topical DAILY PRN Rash 10/29/22 10/29/22 History metoprolol succinate 25 mg 25 mg PO BID 10/29/22 10/29/22 History tablet,extended release 24 hr nystatin 100,000 unit/gram topical 1 applic topical BID 10/29/22 10/29/22 History cream spironolactone 50 mg tablet 50 mg PO DAILY 10/29/22 10/29/22 History Patient History Medical History (Updated 10/29/22 @ 15:15 by Sera Slaughter PA-C) CAD (coronary artery disease), [place] coronary artery s/p single RADHA 2004 CHF (congestive heart failure) Chronic back pain COPD (chronic obstructive pulmonary disease) Deep vein thrombosis Recurrent (pelvis, LUE, LLE), most recent 2015, on Xarelto GERD (gastroesophageal reflux disease) GI bleed D/t gastric ulcer (2017) s/p hemoclip (required multiple blood transfusions) Hiatal hernia History of blood clots 11/2019 (back of knee to ankle) after knee replacement in 10/2019 History of ME (myocardial infarction) Prior to 2002, "silent" History of MTHFR mutation History of pulmonary embolism 2015, on Xarelto History of UTI Prophylactic daily abx HTN (hypertension), benign Hyperlipidemia Hypothyroidism Intermittent self-catheterization of bladder R/T neurogenic bladder (several times/day) Migraine Reason for lamictal Myocardial Infarction 2002 Neurogenic bladder Neurogenic bladder Neurogenic claudication due to lumbar spinal stenosis KIAH on CPAP Compliant Osteoarthritis Peptic ulcer disease EGD with hemoclip (2017) Recurrent deep vein thrombosis (DVT) Surgical History (Updated 10/29/22 @ 15:10 by Sera Slaughter PA-C) Fusion of spine L4-L5, S1-S2 (2007) L3-L4 (2013) L2-L3, HARDWARE REMOVAL L3-L4 (2017) H/O bilateral salpingo-oophorectomy H/O exploratory laparotomy FOR ENDOMETRIOSIS H/O vascular surgery BILAT LOWER LEGS-DR JALYN WALDEN-09/2019 History of appendectomy History of cardiac cath 12/2021, PH[facility] > no stents 2015, 2017 > no stents 2004 > stent x1 History of carpal tunnel release of both wrists History of section History of cholecystectomy LAP History of colonoscopy History of cystoscopy X MULTIPLE History of esophagogastroduodenoscopy (EGD) History of hysterectomy JOE History of laminectomy LUMBAR (2000) History of laparotomy History of [place] fundoplication 01/21/2022 History of tonsillectomy S/P fusion of sacroiliac joint Total knee replacement status Right TKA 06/02/2020 Left TKA 11/26/2019 Family History Mother Family history of diabetes mellitus Father Family history of diabetes mellitus Brother Family history of diabetes mellitus Sister Family history of diabetes mellitus Social History (Updated 10/29/22 @ 15:06 by Sera Slaughter PA-C) Smoking Status: Former smoker Smoking End Date: Quit 2017 (hx 10-20 cigs/day x 40 yrs); Second Hand Exposure: No; Do You Dip or Chew Tobacco: No; Tobacco Cessation Education Requested by Patient: No Hx Alcohol Use: No Hx Substance Use: No Preferred Language: Divehi Communication Ability: Effective Visual Impairment: No Limitations Bindery Machine Operator Required: No Beliefs That Will Affect Care: None Current Living Situation: Spouse Other Information That Helps Us Care for You: No Feels Safe at Home: Yes Safety Concerns: Feels Safe At This Time Assistive Devices: Walker Assistive Devices Comment: contact rt eye only; upper and lower partials-will not bring to sx. Review of Systems Review of Systems: All systems reviewed & are unremarkable except as noted in HPI & below Physical Exam Physical Exam: General: no distress, WDWN Head: normocephalic, atraumatic Eyes: conjunctiva non-injected, anicteric ENT: normal inspection external ears, nose, mucous membranes moist Neck: supple, trachea midline Lungs: clear, no respiratory distress, no wheezing/rhonchi/rales CV: RRR, no murmur, no pretibial edema Abd: normal BS, soft, non-tender Back: surgical dressing in place and dry. +JOSLYN drain with serosanguineous drainage Ext: no cyanosis, no calf tenderness, bilateral pedal pushes and pulls intact, sensation to light touch intact, distal pulses intact bilaterally Neuro: A&O x 3, no focal deficits noted, normal affect Skin: warm, dry Results & Data ([facility]) Vital Signs (Past 12 Hours) Vital Signs Temp Pulse Pulse Resp BP Pulse Ox O2 Del Method 10/29/22 13:25 36.5 C 76 16 109/65 98 Nasal Cannula 10/29/22 13:00 76 13 106/56 L 94 Nasal Cannula 10/29/22 12:50 80 14 112/62 93 Nasal Cannula 10/29/22 12:40 37.0 C 83 12 108/53 L 95 Nasal Cannula 10/29/22 12:30 83 17 104/60 96 Nasal Cannula 10/29/22 12:20 89 23 126/72 93 Nasal Cannula 10/29/22 12:10 79 12 126/68 96 Nasal Cannula 10/29/22 12:00 36.3 C L 83 12 119/69 97 Nasal Cannula 10/29/22 11:50 83 13 113/66 97 Nasal Cannula 10/29/22 11:40 78 12 111/73 98 Nasal Cannula 10/29/22 11:30 78 18 119/85 99 Oxymask 10/29/22 11:20 79 16 126/71 98 Oxymask 10/29/22 11:10 80 14 123/65 98 Oxymask 10/29/22 11:00 74 15 113/72 98 Oxymask 10/29/22 10:50 36 C L 81 18 110/64 98 Oxymask O2 Flow Rate 10/29/22 13:25 3 10/29/22 13:00 3 10/29/22 12:50 3 12/02/22 12:40 3 10/29/22 12:30 3 10/29/22 12:20 3 10/29/22 12:10 3 10/29/22 12:00 3 10/29/22 11:50 3 10/29/22 11:40 4 10/29/22 11:30 4 10/29/22 11:20 4 10/29/22 11:10 4 10/29/22 11:00 6 10/29/22 10:50 8 Laboratory Results Short CBC 10/29/22 Range/Units 11:22 Hgb 10.9 L (12.0-16.0) g/dl Hct 32.8 L (34.1-44.9) % (1) Sleep apnea Sleep apnea type: obstructive Qualified Code(s): G47.33 - Obstructive sleep apnea (adult) (pediatric) (2) Hypothyroidism Hypothyroidism type: acquired Qualified Code(s): E03.9 - Hypothyroidism, unspecified (3) CAD (coronary artery disease), [place] coronary artery Associated angina: without angina [place] vs. transplanted heart: [place] heart Qualified Code(s): I25.10 - Atherosclerotic heart disease of [place] coronary artery without angina pectoris
[2022-10-29] MEDS ORDERED: KETOCONAZOLE 2% CR 15 GM TUBE EXT PRN (14:47)
[2022-10-29] MEDS ORDERED: FUROSEMIDE 40 MG TAB PO SCH (17:00)
[2022-10-29] MEDS ORDERED: SPIRONOLACTONE 25 MG TAB PO SCH (17:00)
[2022-10-29] MEDS: GABAPENTIN 600 MG TAB PO SCH ×3 (17:31→19:53)
[2022-10-29] MEDS: oxyCODONE HCL IR 5 MG TAB (IMMEDIATE RELEASE) PO PRN (17:31)
[2022-10-29] MEDS: ceFAZolin 2000MG 2,000 MG/15 ML SYR IV SCH ×2 (17:33→23:30)
[2022-10-29] MEDS: CALCIUM 600MG + VIT D 400 IU TAB PO SCH (19:52)
[2022-10-29] MEDS: CHOLECALCIFEROL 1,000 UNITS 25 MCG TAB PO SCH (19:52)
[2022-10-29] MEDS: DOCUSATE SODIUM/SENNA 50/8.6MG TAB PO SCH (19:53)
[2022-10-29] MEDS: lamoTRIgine 100 MG TAB PO SCH (19:54)
[2022-10-29] MEDS: lisinopril 10 MG TAB PO SCH (19:54)
[2022-10-29] MEDS: PANTOprazole 40 MG TAB PO SCH (19:55)
[2022-10-29] MEDS: NYSTATIN CR 15 GM TUBE EXT SCH (19:55)
[2022-10-29] MEDS: POTASSIUM CHLORIDE 10 MEQ TABCR PO SCH (19:55)
[2022-10-29] MEDS: PRAVASTATIN SOD 40 MG TAB PO SCH (19:56)
[2022-10-29] MEDS: VITAMIN B COMPLEX TAB PO SCH (19:56)
[2022-10-29] MEDS: METOPROLOL SUCC 25MG EXT REL TAB PO SCH (20:06)
[2022-10-29] MEDS ORDERED: FERROUS GLUCONATE 324 MG TAB PO SCH (21:00)
[2022-10-29] MEDS: oxyCODONE HCL IR 5 MG TAB (IMMEDIATE RELEASE) PO SCH (21:50)
[2022-10-30] MEDS: oxyCODONE HCL IR 5 MG TAB (IMMEDIATE RELEASE) PO PRN ×4 (01:36→17:37)
[2022-10-30] MEDS: LEVOTHYROXINE SODIUM 25 MCG TABLET PO SCH (05:25)
[2022-10-30] MEDS: POLYETHYLENE (MIRALAX) 17 GM PACK PO SCH ×4 (05:27→23:54)
--- NOTE | 2022-10-30 06:36 | Communication Note ---
Date of Service: October 30, 2022 Patient with temperature elevation of 37.7. Congestion and cough symptoms productive of clear sputum not present prior to surgery as per RN. Chest x-ray as per my interpretation no infiltrate AP Postop fever COVID and flu swabs Check UA (history recurrent UTIs on chronic Keflex suppression Rx) Will relay to AM provider.
[2022-10-30 06:38] LABS: Basophils # (auto) 0.02 K/uL (0-0.2); Basophils % (auto) 0.2 %; Eosinophils # (auto) 0.01 K/uL (0-0.50); Eosinophils % (auto) 0.1 %; Hematocrit (blood only) 25.7 % (34.1-44.9); Hemoglobin 8.7 g/dl (12.0-16.0); Immature Granulocytes # (auto) 0.03 K/uL (0.00-0.02); Immature Granulocytes % (auto) 0.4 %; Lymphocytes # (auto) 1.07 K/uL (1.2-3.4); Mean Corpuscular Hemoglobin 31.6 pg (25.0-34.0); Mean Corpuscular Hgb Conc 33.9 g/dL (32.0-36.0); Mean Corpuscular Volume 93.5 fL (80.0-100.0); Mean Platelet Volume 9.1 fL (9.4-12.3); Monocytes # (auto) 0.49 K/uL (0.24-0.82); Neutrophils % (auto) 80.3 %; Platelet Count 182 K/uL (130-400); RDW Coefficient of Variation 13.7 % (11.5-14.5); RDW Standard Deviation 47.1 fL (36.4-46.3); Red Blood Count 2.75 M/uL (3.93-5.22); White Blood Count 8.22 K/ul (4.8-10.8)
[2022-10-30 07:29] LABS: BUN Creatinine Ratio 16.7 (10-20); Calcium 8.1 mg/dl (8.5-10.1); Est GFR (African American) 78.3 ml/min; Est GFR (Non-African American) 67.6 ml/min; Potassium 3.7 mmol/L (3.5-5.1)
--- NOTE | 2022-10-30 07:52 | XRay Report ---
SINGLE VIEW CHEST CLINICAL HISTORY: Cough. FINDINGS: 2 AP, portable, upright chest radiographs are compared to study dated 02/15/2022 and correla júnior with chest CT dated 12/19/2012. The examination is degraded by portable technique and apical lordo tic positioning. The heart is enlarged note atherosclerotic calcification of the thoracic aorta. The pulmonary vascular is noncongested. Chronic interstitial thickening similar to previous. Platelike at electasis is in the left mid lung, and there is also atelectasis at the lung bases. No airspace conso lidation, large pleural effusion, or pneumothorax is seen. The skeletal structures are osteopenic. Th e bony thorax is grossly intact. Fusion hardware is noted at the thoracolumbar junction. IMPRESSION: Cardiomegaly with no active disease in the chest. ACT 112: Negative or not required by law. Electronically signed by: Carmelo Moffett M.D. 10/30/2022 7:51 AM
[2022-10-30] MEDS: oxyCODONE HCL IR 5 MG TAB (IMMEDIATE RELEASE) PO SCH ×2 (08:12→21:13)
[2022-10-30] MEDS: SPIRONOLACTONE 25 MG TAB PO SCH (08:13)
[2022-10-30] MEDS: dexAMETHasone 6 MG in SYRINGE 0 ML IV SCH (08:13)
[2022-10-30] MEDS: ASPIRIN 81 MG ECTAB PO SCH (08:13)
[2022-10-30] MEDS: NYSTATIN CR 15 GM TUBE EXT SCH ×2 (08:13→21:19)
[2022-10-30] MEDS: GABAPENTIN 600 MG TAB PO SCH ×4 (08:13→21:16)
[2022-10-30] MEDS: CHOLECALCIFEROL 1,000 UNITS 25 MCG TAB PO SCH ×2 (08:14→21:14)
[2022-10-30] MEDS: FUROSEMIDE 20 MG TAB PO SCH ×2 (08:14→17:42)
[2022-10-30] MEDS: DULoxetine HCL 60 MG CAP PO SCH (08:14)
[2022-10-30] MEDS: lamoTRIgine 100 MG TAB PO SCH ×2 (08:14→21:16)
[2022-10-30] MEDS: METOPROLOL SUCC 25MG EXT REL TAB PO SCH ×2 (08:15→21:17)
[2022-10-30] MEDS: PANTOprazole 40 MG TAB PO SCH ×2 (08:15→21:18)
[2022-10-30] MEDS: POTASSIUM CHLORIDE 10 MEQ TABCR PO SCH ×2 (08:15→21:20)
[2022-10-30 09:05] LABS: Influenza A virus by PCR Positive (Neg); Influenza B virus by PCR Negative (Neg); RSV by PCR Negative (Neg)
[2022-10-30 10:20] LABS: SARS CoV2 RNA(COVID-19) Ceph NEGATIVE (Negative)
--- NOTE | 2022-10-30 10:34 | Orthopedic Progress Note ---
Date of Service October 30, 2022 Assessment & Plan (1) Neurogenic claudication due to lumbar spinal stenosis: Plan: We will initiate physical therapy today monitor progress anticipate possible discharge home Tuesday. Admission and Anticipated Discharge Date Admission Date: October 29, 2022 Subjective Patient's back pain is controlled leg symptoms markedly improved Physical Exam Physical Exam: On exam she is sitting up in bed. She is comfortable. Results & Data ([facility]) Vital Signs (Past 12 Hours) Vital Signs Temp Pulse Pulse Resp BP Pulse Ox O2 Del Method 10/30/22 09:00 Nasal Cannula 10/30/22 07:21 37.7 C H 91 H 16 112/57 L 95 Room Air 10/30/22 06:15 37.6 C H 88 14 122/61 94 Room Air 10/30/22 03:07 37.7 C H 85 18 108/57 L 93 Room Air 10/30/22 00:09 37.3 C 84 18 119/68 94 Room Air 10/29/22 23:06 87 21 98 O2 Flow Rate 10/30/22 09:00 2 10/30/22 07:21 10/30/22 06:15 10/30/22 03:07 10/30/22 00:09 10/29/22 23:06 3
[2022-10-30 11:55] LABS: Appearance Urine Clear (Clear); Bacteria Urine Automated Negative (Negative); Bilirubin Urine Negative (Negative); Blood Urine Trace (Negative); Cast Urine Automated 0 /lpf (0-5); Color Urine Yellow; Epithelial Cell Urine Auto 20-30 /lpf (0-5); Glucose Urine UA Negative (Negative); Ketones Urine Negative (Negative); Leukocyte Esterase Urine 1+ (Negative); Nitrite Urine Negative (Negative); Protein Urine Negative (Negative); RBC Urine Automated 0-4 /hpf (0-4); Specific Gravity Urine 1.005 (1.000-1.030); Urobilinogen Urine Negative (Negative); pH Urine 5.5 (4.5-7.5)
--- NOTE | 2022-10-30 12:16 | Hospitalist Progress Note ---
Date of Service October 30, 2022 Assessment & Plan (1) Status post lumbar surgery: Plan (1) Status post lumbar surgery: (2) Neurogenic claudication due to lumbar spinal stenosis: (3) Acute blood loss anemia, likely post opertive Post op day# 1 S/P hardware removal L2-L3, decompression and fusion T12-L2 by Dr Pushpa DORSEY #600 mL -pain management per ortho -wound management per ortho -PT/OT as appropriate -DVT prophylaxis per ortho -incentive spirometry -monitor H&H for acute blood loss anemia; preop Hgb: 12.9, Hb today 8.7; labs in AM, monitor for need of transfusion. (#) Likely Post Op fever: Pt w/ mild fever in AM of 10/30, flu screen positive, CXR w/ no acute findings. WBC wnl, no pain burn while passing urine. will get procal. Oseltamavir. Pt states having fever after surgery in the past, will monitor. (3) CAD (coronary artery disease), [place] coronary artery: PCI LAD in 2004, Continue metoprolol succinate, aspirin, pravastatin (4) Recurrent deep vein thrombosis (DVT): h/o recurrent DVT/PE. Chronically anticoagulated on Xarelto. Xarelto has been on hold since 10/24/2022. Resume Xarelto as soon as possible per Ortho spine when bleeding risk deemed minimal. (#) Other chronic medical conditions: HTN/CHF/HLD/COPD/GERD/Sleep Apnea/Hypothyroidism -- resume home meds as able. (#) Neurogenic bladder: Self caths multiple times daily. On chronic antibiotic, continue. Currently Acevedo catheter in place. When Acevedo cath removed patient can resume self cathing as needed. (#) DVT Px: SCDs, pharmaco therapy per ortho spine. Thank you for this consultation. We will follow the patient with you during their hospital stay. You can reach a member of [facility] via [facility] Admission and Anticipated Discharge Date Admission Date: October 29, 2022 Subjective Patient seen and examined at bedside as a follow-up of medical management for status post lumbar surgery on 12/30/[address] Barrow. Patient was sitting up in bed, on room air, NAD, reports having mild fever in the morning, is ready to eat her first meal after the surgery, is moving gas, has not moved bowel, reports improvement in her bilateral lower extremity radi cular symptoms after the surgery, reports pain under control at operative site. Patient denies other review of symptoms. Patient states that she has had fever after surgery in the past as well. Physical Exam Physical Exam: GENERAL: Alert and oriented x3. NAD, on RA. HEENT: No pallor, no icterus. Pupils equal, round and reactive to light. Oral mucosa moist. NECK: No JVD, no neck masses. HEART: S1 and S2 heard. Regular rate and rhythm. No murmur, no gallop. RESPIRATORY SYSTEM: Normal AP diameter. No accessory muscle use. No wheezing, no crackles. ABDOMEN: Soft, bowel sounds present, nontender, no distention. CENTRAL NERVOUS SYSTEM: No facial droop. Speech is clear. Obeys simple comman ds. Moves extremities. EXTREMITIES: No edema, no erythema seen. Lower back dressind c/d/i, JOSLYN drain with moderate serosanguineous collection noted. Results & Data Results & Data ([facility]) Vital Signs (Past 12 Hours) Vital Signs Temp Pulse Resp BP Pulse Ox O2 Del Method O2 Flow Rate 10/30/22 11:29 37.9 C H 88 18 123/61 93 Room Air 10/30/22 09:00 Nasal Cannula 2 10/30/22 07:21 37.7 C H 91 H 16 112/57 L 95 Room Air 10/30/22 06:15 37.6 C H 88 14 122/61 94 Room Air 10/30/22 03:07 37.7 C H 85 18 108/57 L 93 Room Air 10/30/22 00:09 37.3 C 84 18 119/68 94 Room Air
[2022-10-30] MEDS: ACETAMINOPHEN 500 MG TAB PO PRN ×2 (12:30→23:53)
[2022-10-30] MEDS: OSELTAMIVIR PHOSPHATE 75 MG CAP PO SCH ×2 (13:01→21:18)
[2022-10-30] MEDS: CALCIUM 600MG + VIT D 400 IU TAB PO SCH (21:14)
[2022-10-30] MEDS: cephALEXin 500 MG CAP PO SCH (21:14)
[2022-10-30] MEDS: DOCUSATE SODIUM/SENNA 50/8.6MG TAB PO SCH (21:15)
[2022-10-30] MEDS: lisinopril 10 MG TAB PO SCH (21:17)
[2022-10-30] MEDS: PRAVASTATIN SOD 40 MG TAB PO SCH (21:20)
[2022-10-30] MEDS: VITAMIN B COMPLEX TAB PO SCH (21:20)
[2022-10-31] MEDS: oxyCODONE HCL IR 5 MG TAB (IMMEDIATE RELEASE) PO PRN ×3 (03:11→15:24)
[2022-10-31] MEDS: POLYETHYLENE (MIRALAX) 17 GM PACK PO SCH ×2 (05:55→12:14)
[2022-10-31] MEDS: LEVOTHYROXINE SODIUM 25 MCG TABLET PO SCH (05:55)
[2022-10-31] MEDS: HYDROmorphone INJ 0.5 MG/0.5 ML SYR IV PRN (06:00)
[2022-10-31] MEDS: oxyCODONE HCL IR 5 MG TAB (IMMEDIATE RELEASE) PO SCH ×2 (07:37→21:51)
[2022-10-31] MEDS: METOPROLOL SUCC 25MG EXT REL TAB PO SCH ×2 (07:38→21:56)
[2022-10-31] MEDS: OSELTAMIVIR PHOSPHATE 75 MG CAP PO SCH ×2 (07:38→21:57)
[2022-10-31] MEDS: CHOLECALCIFEROL 1,000 UNITS 25 MCG TAB PO SCH ×2 (07:38→21:53)
[2022-10-31] MEDS: PANTOprazole 40 MG TAB PO SCH ×2 (07:38→21:58)
[2022-10-31] MEDS: POTASSIUM CHLORIDE 10 MEQ TABCR PO SCH ×2 (07:38→21:58)
[2022-10-31] MEDS: SPIRONOLACTONE 25 MG TAB PO SCH (07:39)
[2022-10-31] MEDS: FUROSEMIDE 20 MG TAB PO SCH ×2 (07:39→17:14)
[2022-10-31] MEDS: DULoxetine HCL 60 MG CAP PO SCH (07:39)
[2022-10-31] MEDS: ASPIRIN 81 MG ECTAB PO SCH (07:39)
[2022-10-31] MEDS: lamoTRIgine 100 MG TAB PO SCH ×2 (07:39→21:55)
[2022-10-31] MEDS: GABAPENTIN 600 MG TAB PO SCH ×4 (07:39→21:55)
[2022-10-31] MEDS: NYSTATIN CR 15 GM TUBE EXT SCH ×2 (07:40→21:57)
[2022-10-31] MEDS: dexAMETHasone 6 MG in SYRINGE 0 ML IV SCH (07:49)
[2022-10-31 09:27] LABS: Hematocrit (blood only) 26.2 % (34.1-44.9); Hemoglobin 8.6 g/dl (12.0-16.0); Mean Corpuscular Hemoglobin 31.7 pg (25.0-34.0); Mean Corpuscular Hgb Conc 32.8 g/dL (32.0-36.0); Mean Corpuscular Volume 96.7 fL (80.0-100.0); Mean Platelet Volume 9.2 fL (9.4-12.3); Platelet Count 187 K/uL (130-400); RDW Coefficient of Variation 14.3 % (11.5-14.5); RDW Standard Deviation 50.3 fL (36.4-46.3); Red Blood Count 2.71 M/uL (3.93-5.22); White Blood Count 6.21 K/ul (4.8-10.8)
--- NOTE | 2022-10-31 09:31 | Orthopedic Progress Note ---
Date of Service October 31, 2022 Assessment & Plan (1) Neurogenic claudication due to lumbar spinal stenosis: Plan: At this time we will continue physical therapy monitor JOSLYN operatively discharge home tomorrow. Admission and Anticipated Discharge Date Admission Date: October 29, 2022 Subjective Patient's back pain is controlled leg symptoms improved she is tolerating physical therapy Physical Exam Physical Exam: Patient is in bed. She is sitting up. She is comfortable. Is distracted testing. Results & Data ([facility]) Vital Signs (Past 12 Hours) Vital Signs Temp Pulse Resp BP Pulse Ox O2 Del Method O2 Flow Rate 10/31/22 07:25 37.6 C H 85 16 105/57 L 94 Nasal Cannula 2 10/31/22 01:16 37.7 C H 10/30/22 22:40 38.1 C H 85 18 132/73 96 Nasal Cannula 2
[2022-10-31 09:49] LABS: BUN Creatinine Ratio 15.4 (10-20); Calcium 8.6 mg/dl (8.5-10.1); Creatinine Clr Calc Pharmacy 67.3 ml/min; Est GFR (African American) 77.3 ml/min; Est GFR (Non-African American) 66.7 ml/min; Potassium 3.9 mmol/L (3.5-5.1)
--- NOTE | 2022-10-31 13:57 | Hospitalist Progress Note ---
Date of Service October 31, 2022 Assessment & Plan (1) Status post lumbar surgery: Plan (1) Status post lumbar surgery: (2) Neurogenic claudication due to lumbar spinal stenosis: (3) Acute blood loss anemia, likely post opertive Post op day# 1 S/P hardware removal L2-L3, decompression and fusion T12-L2 by Dr Pushpa DORSEY #600 mL -pain management per ortho -wound management per ortho -PT/OT as appropriate -DVT prophylaxis per ortho -incentive spirometry -monitor H&H for acute blood loss anemia; preop Hgb: 12.9, Post Op Hb >8.5 which seems more closer to her baseline than one time elevated preop hb; labs in AM, monitor for need of transfusion. (#) Likely Post Op fever: Pt w/ mild fever in AM of 10/30, flu screen positive, CXR w/ no acute findings. WBC wnl, no pain burn while passing urine. Procal negative, f/u 10/31 bl Cx. Oseltamavir 10/30 and droplet isolation. Pt states having fever after surgery in the past, will monitor. Reports cough w/ greenish sputum since 10/30, CTA on exam, likely bronchitis, doxy 10/31, continue to follow. (3) CAD (coronary artery disease), [place] coronary artery: PCI LAD in 2004, Continue metoprolol succinate, aspirin, pravastatin (4) Recurrent deep vein thrombosis (DVT): h/o recurrent DVT/PE. Chronically anticoagulated on Xarelto. Xarelto has been on hold since 10/24/2022. Resume Xarelto as soon as possible per Ortho spine when bleeding risk deemed minimal. (#) Other chronic medical conditions: HTN/CHF/HLD/COPD/GERD/Sleep Apnea/Hypothyroidism -- resume home meds as able. (#) Neurogenic bladder: Self caths multiple times daily. On chronic antibiotic, continue. Currently Acevedo catheter in place. When Acevedo cath removed patient can resume self cathing as needed. (#) DVT Px: SCDs, pharmaco therapy per ortho spine. Thank you for this consultation. We will follow the patient with you during their hospital stay. You can reach a member of the [facility] via [employer] Admission and Anticipated Discharge Date Admission Date: October 29, 2022 Subjective Patient seen and examined at bedside as a follow-up of medical management for status post lumbar surgery on 12/30/[address] Barrow. Patient was sitting up in bed, on room air, NAD, had fever again in the night and in AM, complains of cough w/ greenish mucus since yesterday evening, eating ok and moving bowels ok. Reports improvement in her bilateral lower extremity radicular symptoms after the surgery, reports pain under control at operative site. Patient denies other review of symptoms. Patient states that she has had fever after surgery in the past as well. Physical Exam Physical Exam: GENERAL: Alert and oriented x3. NAD, on RA. HEENT: No pallor, no icterus. Pupils equal, round and reactive to light. Oral mucosa moist. NECK: No JVD, no neck masses. HEART: S1 and S2 heard. Regular rate and rhythm. No murmur, no gallop. RESPIRATORY SYSTEM: Normal AP diameter. No accessory muscle use. No wheezing, no crackles. ABDOMEN: Soft, bowel sounds present, nontender, no distention. CENTRAL NERVOUS SYSTEM: No facial droop. Speech is clear. Obeys simple commands. Moves extremities. EXTREMITIES: No edema, no erythema seen. Lower back dressind c/d/i, JOSLYN drain with moderate serosanguineous collection noted. Results & Data Results & Data ([facility]) Vital Signs (Past 12 Hours) Vital Signs Temp Pulse Resp BP Pulse Ox O2 Del Method O2 Flow Rate 10/31/22 07:25 37.6 C H 85 16 105/57 L 94 Nasal Cannula 2
[2022-10-31] MEDS: DOXYCYCLINE HYCLATE 100 MG CAP PO SCH ×2 (15:24→21:54)
[2022-10-31] MEDS: ACETAMINOPHEN 500 MG TAB PO PRN (17:18)
[2022-10-31] MEDS: CALCIUM 600MG + VIT D 400 IU TAB PO SCH (21:52)
[2022-10-31] MEDS: DOCUSATE SODIUM/SENNA 50/8.6MG TAB PO SCH (21:53)
[2022-10-31] MEDS: cephALEXin 500 MG CAP PO SCH (21:53)
[2022-10-31] MEDS: lisinopril 10 MG TAB PO SCH (21:56)
[2022-10-31] MEDS: PRAVASTATIN SOD 40 MG TAB PO SCH (21:58)
[2022-10-31] MEDS: VITAMIN B COMPLEX TAB PO SCH (21:58)
[2022-11-01] MEDS: oxyCODONE HCL IR 5 MG TAB (IMMEDIATE RELEASE) PO PRN ×5 (01:31→23:24)
[2022-11-01] MEDS: LEVOTHYROXINE SODIUM 25 MCG TABLET PO SCH (06:11)
[2022-11-01 08:12] LABS: Hemoglobin 8.8 g/dl (12.0-16.0); Mean Corpuscular Hemoglobin 31.5 pg (25.0-34.0); Mean Corpuscular Hgb Conc 32.6 g/dL (32.0-36.0); Mean Corpuscular Volume 96.8 fL (80.0-100.0); Platelet Count 197 K/uL (130-400); RDW Standard Deviation 49.8 fL (36.4-46.3); Red Blood Count 2.79 M/uL (3.93-5.22); White Blood Count 5.55 K/ul (4.8-10.8)
[2022-11-01] MEDS: ASPIRIN 81 MG ECTAB PO SCH (09:33)
[2022-11-01] MEDS: CHOLECALCIFEROL 1,000 UNITS 25 MCG TAB PO SCH ×2 (09:33→20:21)
[2022-11-01] MEDS: FUROSEMIDE 20 MG TAB PO SCH ×2 (09:33→17:34)
[2022-11-01] MEDS: DULoxetine HCL 60 MG CAP PO SCH (09:33)
[2022-11-01] MEDS: DOXYCYCLINE HYCLATE 100 MG CAP PO SCH ×2 (09:33→20:22)
[2022-11-01] MEDS: POTASSIUM CHLORIDE 10 MEQ TABCR PO SCH ×2 (09:34→20:25)
[2022-11-01] MEDS: SPIRONOLACTONE 25 MG TAB PO SCH (09:34)
[2022-11-01] MEDS: GABAPENTIN 600 MG TAB PO SCH ×4 (09:34→20:23)
[2022-11-01] MEDS: OSELTAMIVIR PHOSPHATE 75 MG CAP PO SCH ×2 (09:34→20:27)
[2022-11-01] MEDS: PANTOprazole 40 MG TAB PO SCH ×2 (09:34→20:24)
[2022-11-01] MEDS: lamoTRIgine 100 MG TAB PO SCH ×2 (09:34→20:26)
[2022-11-01] MEDS: METOPROLOL SUCC 25MG EXT REL TAB PO SCH ×2 (09:34→20:33)
[2022-11-01] MEDS: NYSTATIN CR 15 GM TUBE EXT SCH ×2 (09:35→20:26)
[2022-11-01] MEDS: oxyCODONE HCL IR 5 MG TAB (IMMEDIATE RELEASE) PO SCH ×2 (09:35→20:19)
[2022-11-01] MEDS: dexAMETHasone 6 MG in SYRINGE 0 ML IV SCH (09:36)
--- NOTE | 2022-11-01 10:09 | Orthopedic Progress Note ---
Date of Service November 01, 2022 Assessment & Plan (1) Neurogenic claudication due to lumbar spinal stenosis: Plan: Patient will continue physical therapy. She is concerning discharge home today or tomorrow. Admission and Anticipated Discharge Date Admission Date: October 29, 2022 Subjective Back pain controlled leg pain improved Physical Exam Physical Exam: Patient appears comfortable. She is sitting up in bed. Skin strength testing. Results & Data ([facility]) Vital Signs (Past 12 Hours) Vital Signs Temp Pulse Resp BP Pulse Ox O2 Del Method O2 Flow Rate 11/01/22 07:42 36.9 C 64 16 109/62 97 Nasal Cannula 2
--- NOTE | 2022-11-01 15:31 | Hospitalist Progress Note ---
Date of Service November 01, 2022 Assessment & Plan (1) Status post lumbar surgery: Plan (1) Status post lumbar surgery: (2) Neurogenic claudication due to lumbar spinal stenosis: (3) Acute blood loss anemia, likely post opertive Post op day# 1 S/P hardware removal L2-L3, decompression and fusion T12-L2 by Dr Pushpa DORSEY #600 mL -pain management per ortho -wound management per ortho -PT/OT as appropriate -DVT prophylaxis per ortho -incentive spirometry -monitor H&H for acute blood loss anemia; preop Hgb: 12.9, Post Op Hb >8.5 which seems more closer to her baseline than one time elevated preop hb; labs in AM, monitor for need of transfusion. (#) Likely Post Op fever: Pt w/ mild fever in AM of 10/30, flu screen positive, CXR w/ no acute findings. WBC wnl, no pain burn while passing urine. Procal negative, f/u 10/31 bl Cx - no gr so far. Oseltamavir 10/30 and droplet isolation. Pt states having fever after surgery in the past, will monitor. Reports cough w/ greenish sputum since 10/30, CTA on exam, likely bronchitis, doxy 10/31, continue to follow. (3) CAD (coronary artery disease), [place] coronary artery: PCI LAD in 2004, Continue metoprolol succinate, aspirin, pravastatin (4) Recurrent deep vein thrombosis (DVT): h/o recurrent DVT/PE. Chronically anticoagulated on Xarelto. Xarelto has been on hold since 10/24/2022. Resume Xarelto as soon as possible per Ortho spine when bleeding risk deemed minimal. (#) Other chronic medical conditions: HTN/CHF/HLD/COPD/GERD/Sleep Apnea/Hypothyroidism -- resume home meds as able. (#) Neurogenic bladder: Self caths multiple times daily. On chronic antibiotic, continue. Currently Acevedo catheter in place. When Acevedo cath removed patient can resume self cathing as needed. (#) DVT Px: SCDs, pharmaco therapy per ortho spine. Thank you for this consultation. We will follow the patient with you during their hospital stay. You can reach a member of the [facility] Hospitalist Team 20/06 via [employer] Admission and Anticipated Discharge Date Admission Date: October 29, 2022 Subjective Patient seen and examined at bedside as a follow-up of medical management for status post lumbar surgery on 12/30/[address] Barrow. Patient was sitting up in bed, on room air, NAD, has improving fever and cough, still w/ yellow/greenish sputum, eating ok and moving bowels ok. Reports improvement in her bilateral lower extremity radicular symptoms after the surgery, reports pain under control at operative site. Patient denies other review of symptoms. Patient states that she has had fever after surgery in the past as well. Physical Exam Physical Exam: GENERAL: Alert and oriented x3. NAD, on RA. HEENT: No pallor, no icterus. Pupils equal, round and reactive to light. Oral mucosa moist. NECK: No JVD, no neck masses. HEART: S1 and S2 heard. Regular rate and rhythm. No murmur, no gallop. RESPIRATORY SYSTEM: Normal AP diameter. No accessory muscle use. No wheezing, no crackles. ABDOMEN: Soft, bowel sounds present, nontender, no distention. CENTRAL NERVOUS SYSTEM: No facial droop. Speech is clear. Obeys simple commands. Moves extremities. EXTREMITIES: No edema, no erythema seen. Lower back dressind c/d/i, JOSLYN drain with minimal serosanguineous collection noted. Results & Data Results & Data ([facility]) Vital Signs (Past 12 Hours) Vital Signs Temp Pulse Resp BP Pulse Ox O2 Del Method O2 Flow Rate 11/01/22 11:49 Nasal Cannula 2 11/01/22 07:42 36.9 C 64 16 109/62 97 Nasal Cannula 2
[2022-11-01] MEDS: cephALEXin 500 MG CAP PO SCH (20:20)
[2022-11-01] MEDS: CALCIUM 600MG + VIT D 400 IU TAB PO SCH (20:20)
[2022-11-01] MEDS: DOCUSATE SODIUM/SENNA 50/8.6MG TAB PO SCH (20:22)
[2022-11-01] MEDS: PRAVASTATIN SOD 40 MG TAB PO SCH (20:24)
[2022-11-01] MEDS: VITAMIN B COMPLEX TAB PO SCH (20:25)
[2022-11-01] MEDS: lisinopril 10 MG TAB PO SCH (20:33)
[2022-11-02] MEDS: oxyCODONE HCL IR 5 MG TAB (IMMEDIATE RELEASE) PO PRN ×2 (03:52→11:57)
[2022-11-02] MEDS: LEVOTHYROXINE SODIUM 25 MCG TABLET PO SCH (06:17)
[2022-11-02] MEDS: HYDROmorphone INJ 0.5 MG/0.5 ML SYR IV PRN (06:25)
[2022-11-02] MEDS: METOPROLOL SUCC 25MG EXT REL TAB PO SCH (08:08)
[2022-11-02] MEDS: oxyCODONE HCL IR 5 MG TAB (IMMEDIATE RELEASE) PO SCH (08:08)
[2022-11-02] MEDS: lamoTRIgine 100 MG TAB PO SCH (08:09)
[2022-11-02] MEDS: OSELTAMIVIR PHOSPHATE 75 MG CAP PO SCH (08:09)
[2022-11-02] MEDS: POTASSIUM CHLORIDE 10 MEQ TABCR PO SCH (08:10)
[2022-11-02] MEDS: GABAPENTIN 600 MG TAB PO SCH ×2 (08:10→13:39)
[2022-11-02] MEDS: PANTOprazole 40 MG TAB PO SCH (08:10)
[2022-11-02] MEDS: CHOLECALCIFEROL 1,000 UNITS 25 MCG TAB PO SCH (08:11)
[2022-11-02] MEDS: DOXYCYCLINE HYCLATE 100 MG CAP PO SCH (08:11)
[2022-11-02] MEDS: SPIRONOLACTONE 25 MG TAB PO SCH (08:11)
[2022-11-02] MEDS: DULoxetine HCL 60 MG CAP PO SCH (08:12)
[2022-11-02] MEDS: ASPIRIN 81 MG ECTAB PO SCH (08:12)
[2022-11-02] MEDS: FUROSEMIDE 20 MG TAB PO SCH (08:12)
[2022-11-02] MEDS: NYSTATIN CR 15 GM TUBE EXT SCH (08:13)
--- NOTE | 2022-11-02 10:37 | Discharge Summary ---
Date of Service November 02, 2022 Admission HPI Per Admitting Provider This is a 62-year-old female who presents with chronic persistent back and bilateral leg pain. Failed extensive course of nonoperative care she is here for surgical invention. Principal Diagnosis Lumbar spinal stenosis with neurogenic claudication Discharge Data Allergies Allergy/AdvReac Type Severity Reaction Status Date / Time hydroxychloroquine Allergy Severe Hives, SOB Verified 10/29/22 06:16 Sulfa (Sulfonamide Allergy Severe Hives, SOB Verified 10/29/22 06:16 Antibiotics) Consultations 10/29/22 13:33 Consult Hospitalist Routine Procedures Performed Operation Date: 10/29/22 07:45 Actual Procedures p L1-L2 Decompression with T12-L2 Fusion,Spinal Cord Monitoring(Not Applicable) - Tye Barrow DO s L2-L3 Hardware Removal, (Not Applicable) - Tye Barrow DO Ordered Studies 10/29/22 07:45 [place] lumbar spine 2-3V Routine Hospital Course (1) Neurogenic claudication due to lumbar spinal stenosis: Patient 1 lumbar decompression fusion tolerated as well as taken orthopedic arthroplasty post. Postop day 1 2 and 3 set up and ambulating progressing properly. JOSLYN drain decreased probably. Pain well controlled. Excellent strength testing. Safely discharged home. Discharge orders and instructions found in chart for further review. Total Time Total Time Spent Total Time Spent (In Minutes): 20 minutes Discharge Plan Discharge Items Patient Disposition: Home - Self-Care Reason For Visit: Spinal Stenosis, [place] with Neurogenic Cla Discharge Diagnosis: Lumbar spinal stenosis with neurogenic claudication Activity: As commented below Non-emergency contact: Primary Care Provider Call non-emergency contact if: you have any medication questions Follow-up/Referrals: Anna Frankel CRNP [Primary Care Provider] - Diet: Regular Addtl Attending Provider Instructions: ACTIVITY RECOMMENDATIONS: SELF CARE INSTRUCTIONS AFTER THORACIC/LUMBAR FUSIONS 1. You may walk to your tolerance. It is good exercise for your legs and back. Expect some back and intermittent leg aches and pains. 2. You may perform "counter-top" level activities (make a sandwich, egu[place] with a project, etc.). 3. No bending or lifting of more than 10 pounds or back twisting of any nature (roll like a log when turning in bed). 4. You may ride in a car for 20-30 minutes at a time. No driving until after your first visit with your doctor. 5. Frequent changes of position and restricting sitting to 30 minutes at a time will help limit the amount of back spasms and stiffness you may experience. 6. You may discontinue the use of ambulatory aids (cane, crutches, etc.) once your strength and confidence allow. 7. You may skein yard drier the shower and let water strike your incision when you arrive home at least once daily. Do not take a tub bath, sit in a hot tub or go into a swimming pool until after your first recheck in the office. SPECIAL CARE INSTRUCTIONS: VERY IMPORTANT TO READ AND REVIEW A. Your surgical incision has been closed with a cosmetic suture under the skin that will dissolve in about 6 weeks. In 14 days, you can use a pair of clean scissors and cut the suture that is left outside of the skin at the ends of your incision. 1. The small skin tapes can be removed 7 days after surgery if they have not fallen off by that point. 2. You may keep the wound open to air as much as possible to promote healing after post-op day number 5 unless told otherwise by your doctor. 3. If you think the wound looks like it is becoming infected (redness or worsening drainage) and/or you are experiencing fever, chill or worsening back pain and muscle spasms, contact the office so that we may evaluate you as soon as possible. B. Complications are uncommon, but please contact us if you have any signs or symptoms of: 1. wound infection (fever higher than 102.5 degrees F, redness, separation of wound, drainage, or increasing pain from the incision) 2. blood clots in legs (pain, swelling, redness and warmth in legs) 3. urinary tract infection (fever higher than 102.5 degrees F, burning upon urination or increased frequency of urination) 4. nerve problems (inability to walk on your toes or heels, numbness, loss of bowel or bladder control) 5. any other symptoms that concern you C. Please call the office at if you have any concerns or questions about your operation or recovery. D. No smoking! Smoking drastically decreases the chance of a solid fusion. E. Do not take any anti-inflammatory medications (Indocin, Advil, Motrin, Aspirin, Naprosyn, etc.) as these may inhibit the chance of a solid fusion. Tylenol is okay to take for pain. MANAGING PAIN AFTER SPINAL SURGERY 1. Narcotic medication is intended for short-term use and will be provided for surgical pain. Surgical pain usually lasts for a period of 4-6 weeks. Narcotic medication includes Percocet, Vicodin, Darvocet, Tylenol #3 or Lortab. 2. Longer-term pain is more appropriately treated with non-narcotic medication such as Tylenol ES. 3. Muscle spasm is not appropriately treated with narcotics. Muscle relaxers such as Soma, Flexeril or Skelaxin can be used along with Tylenol ES. 4. Remember that we all live with some "aches and pains". This is not unusual or uncommon after an injury or as we get older. a. Back pain is expected and may include muscle spasms for 4 to 6 weeks after surgery. The pain should gradually improve. If the pain worsens for no apparent reason, please contact the office. b. Intermittent leg pain may also be experienced and should not be concerned about unless it worsens for no apparent reason. If so, please contact the office. 5. We will provide appropriate medication within the normal guidelines of their prescribed use. We will also be very cautious and aware of potential abuse and extended duration of patients' medication needs. a. Pain medications are for your comfort and to assist with sleep and rest so that the tissue can heal. They are not provided in order to return to normal activity and should not be used through the day. To do so or worsening pain at night can result from ongoing tissue damage and development of tolerance to the prescribed medicine. 6. Please allow 2-3 days to process refills. Prescriptions will not be mailed but must be picked up at the office. FOLLOW UP VISIT: Keep your scheduled follow-up appointment. Any questions, please call the office at . Pending Studies at Discharge: No Stand-Alone Forms: [employer], Smoking Cessation Medications and DC Order Prescriptions: New oxycodone 5 mg tablet 5 mg PO Q6H PRN (Reason: pain, severe) Qty: 30 0RF Continued albuterol sulfate [ProAir HFA] 90 mcg/actuation HFA aerosol inhaler 2 puffs INH Q6H PRN (Reason: shortness of breath or wheezing) Qty: 3 1RF gabapentin 600 mg tablet 600 mg PO QID (DME) CPAP Machine Misc See Rx Instructions .ROUTE .MEDSUPPLY Qty: 1 0RF Rx Instructions: Please change pressures on the BiPap to /. Lifetime need. Dulera 200-5 mcg/actuation HFA aerosol inhaler 1 puffs INH BID PRN (Reason: Shortness Of Breath) Label Comments: hasn't used in a couple years aspirin 81 mg tablet 81 mg PO QAM calcium carbonate [Calcium 600] 600 mg calcium (1,500 mg) Tablet 600 mg PO HS ipratropium-albuterol 0.5 mg-3 mg(2.5 mg base)/3 mL Solution For Nebulization 3 ml INHALATION UD PRN (Reason: SOB) Label Comments: hasn't used in several years pravastatin [Pravachol] 40 mg Tablet 40 mg PO HS levothyroxine [Synthroid] 25 mcg Tablet 25 mcg PO QAM potassium chloride [Klor-Con 8] 8 mEq Tablet Extended Release 8 meq PO BID pantoprazole [Protonix] 40 mg Tablet,Delayed Release (Dr/Ec) 40 mg PO BID lisinopril 10 mg Tablet 10 mg PO HS nitroglycerin [Nitrostat] 0.4 mg Tablet, Sublingual 0.4 mg Sublingual UD PRN (Reason: Chest Pain) cephalexin 500 mg Tablet 500 mg PO HS Label Comments: maintenance for self catheterization vitamin B complex Tablet 1 tab PO HS lamotrigine [Lamictal] 100 mg Tablet 200 mg PO BID oxycodone 20 mg Tablet 20 mg PO BID cholecalciferol (vitamin D3) [Vitamin D3] 2,000 unit Capsule 2,000 unit PO BID Probiotic 3 billion cell Capsule 3,000 mmu cells PO BID duloxetine 60 mg Capsule,Delayed Release(Dr/Ec) 60 mg PO QAM dexlansoprazole [Dexilant] 60 mg Capsule,Biphase Delayed Releas 60 mg PO HS acetaminophen 500 mg tablet 1,000 mg PO Q8H PRN (Reason: pain) nystatin 100,000 unit/gram cream 1 applic TOPICAL BID Rx Instructions: Apply to great toe bilaterally furosemide 20 mg tablet 20 mg PO BID metoprolol succinate 25 mg tablet extended release 24 hr 25 mg PO BID ketoconazole 2 % cream 1 applic TOPICAL DAILY PRN (Reason: Rash) Rx Instructions: skin folds spironolactone 50 mg tablet 50 mg PO DAILY Vitron-C 65 mg iron- 125 mg Tablet,Delayed Release (Dr/Ec) 1 tab PO HS Discontinued Xarelto 15 mg Tablet 15 mg PO BID Discharge Orders: Discharge Order (Routine); Ordered 11/02/22 Ordered By: Tye Barrow Admission Data Admit Date/Time: 10/29/22 10:28 Attending Provider: Tye Barrow Admit Provider: Tye Barrow Primary Care Provider: Anna Frankel Other Providers: Ebonie Kirkpatrick ; Miguelangel Iniguez
--- NOTE | 2022-11-02 12:33 | Hospitalist Progress Note ---
Date of Service November 02, 2022 Assessment & Plan (1) Status post lumbar surgery: Plan (1) Status post lumbar surgery: (2) Neurogenic claudication due to lumbar spinal stenosis: (3) Acute blood loss anemia, likely post opertive Post op day# 1 S/P hardware removal L2-L3, decompression and fusion T12-L2 by Dr Pushpa DORSEY #600 mL -pain management per ortho -wound management per ortho -PT/OT as appropriate -DVT prophylaxis per ortho -incentive spirometry -monitor H&H for acute blood loss anemia; preop Hgb: 12.9, Post Op Hb >8.5 which seems more closer to her baseline than one time elevated preop hb; labs in AM, monitor for need of transfusion. (#) Likely Post Op fever: Pt w/ mild fever in AM of 10/30, flu screen positive, CXR w/ no acute findings. WBC wnl, no pain burn while passing urine. Procal negative, f/u 10/31 bl Cx - no gr so far. Oseltamavir 10/30 and droplet isolation. Pt states having fever after surgery in the past, will monitor. Reports cough w/ greenish sputum since 10/30, some improvement in cough, CTA on exam, likely bronchitis, doxy 10/31, complete course on DC. (3) CAD (coronary artery disease), [place] coronary artery: PCI LAD in 2004, Continue metoprolol succinate, aspirin, pravastatin (4) Recurrent deep vein thrombosis (DVT): h/o recurrent DVT/PE. Chronically anticoagulated on Xarelto. Xarelto has been on hold since 10/24/2022. Resume Xarelto as soon as possible per Ortho spine when bleeding risk deemed minimal. (#) Other chronic medical conditions: HTN/CHF/HLD/COPD/GERD/Sleep Apnea/Hypothyroidism -- resume home meds as able. (#) Neurogenic bladder: Self caths multiple times daily. On chronic antibiotic, continue. Currently Acevedo catheter in place. When Acevedo cath removed patient can resume self cathing as needed. (#) DVT Px: SCDs, pharmaco therapy per ortho spine. Thank you for this consultation. We will follow the patient with you during their hospital stay. You can reach a member of the [facility] Hospitalist Team 20/06 via [employer] Admission and Anticipated Discharge Date Admission Date: October 29, 2022 Subjective Patient seen and examined at bedside as a follow-up of medical management for status post lumbar surgery on 12/30/[address] Barrow. Patient was sitting up in bed, on room air, NAD, afebrile last two days and improving cough, still w/ yellow/greenish sputum, eating ok and moving bowels ok. Pt to continue w/ incentive spirometry, lungs sound clear on auscultation. Reports improvement in her bilateral lower extremity radicular symptoms after the surgery, reports pain under control at operative site. Patient denies other review of symptoms. Patient states that she has had fever after surgery in the past as well. Physical Exam Physical Exam: GENERAL: Alert and oriented x3. NAD, on RA. HEENT: No pallor, no icterus. Pupils equal, round and reactive to light. Oral mucosa moist. NECK: No JVD, no neck masses. HEART: S1 and S2 heard. Regular rate and rhythm. No murmur, no gallop. RESPIRATORY SYSTEM: Normal AP diameter. No accessory muscle use. No wheezing, no crackles. ABDOMEN: Soft, bowel sounds present, nontender, no distention. CENTRAL NERVOUS SYSTEM: No facial droop. Speech is clear. Obeys simple commands. Moves extremities. EXTREMITIES: No edema, no erythema seen. Lower back dressing c/d/i, JOSLYN drain with minimal serosanguineous collection noted. Results & Data Results & Data ([facility]) Vital Signs (Past 12 Hours) Vital Signs Temp Pulse Resp BP Pulse Ox O2 Del Method 11/02/22 11:02 37.0 C 67 16 122/70 97 11/02/22 07:57 37.0 C 67 16 122/70 97 Room Air
== END 2022-11-02 14:18 | disposition home or self-care (01) | DRG 460 ==
LOC: ASU 05:47 → 3E 10:28

== ENCOUNTER 2022-11-26 10:15 | Inpatient (IN) ==
--- NOTE | 2022-11-24 10:28 | Anesthesiology Consultation ---
Date of Service November 24, 2022 Assessment & Plan (1) Encounter for pre-operative examination: - check CBC STAT am DOS. - anemia: Hgb reduction from 12.9 to 8 over past month. Trend showing Hgb range 8-12 over the past 2 years. Case discussed with Dr. Cortez who advised patient acceptable to proceed with plan to repeat CBC STAT Am DOS. - h/o corneal abrasion post-op. - s/p T12-L2 decompression fusion L2-L3 hardware removal 10/29/22 at [facility], please refer to anesthesia record. - cardiology 10/07/22: "...coronary artery disease status post PCI of the LAD 2004, history of recurrent DVT and PE following left knee surgery in 2019 on lifelong anticoagulation with Xarelto...doing well...continuation of her current therapy...low risk for any major adverse cardiovascular events given her history and current symptoms and the fact that she is able to perform activities of daily living without any limitations for an intermediate risk procedure...follow-up in 1 year..." - COVID screening: Per cloth designer on 11/24/2022: Travel screen negative, no known COVID-19 positive contacts or current COVID-19 related symptoms in past 2 weeks. To surgeon's discretion if preop COVID testing is needed. Chart Review Chart Review: Acceptable Risk for Surgery and Patient NOT seen in Pre Admission Testing History Surgery Operation Date: 11/26/22 12:05 Proposed Procedures p T8-T12 Fusion, T11 Hardware Removal with Spinal Monitoring - Tye Barrow DO s Possible T11 Kyphoplasty - Tye Barrow DO Height/Weight Height: 5 ft 3.5 in Weight: 88.904 kg Allergies Allergy/AdvReac Type Severity Reaction Status Date / Time hydroxychloroquine Allergy Severe Hives, SOB Verified 11/24/22 08:56 Sulfa (Sulfonamide Allergy Severe Hives, SOB Verified 11/24/22 08:56 Antibiotics) Medications Home Medications Medication Instructions Recorded Confirmed Last Taken cephalexin 500 mg tablet 500 mg PO HS PREVENTATIVE FOR UTI 09/14/18 11/24/22 10/28/22 18:00 cholecalciferol (vitamin D3) 50 2,000 unit PO BID 09/14/18 11/24/22 10/29/22 04:00 mcg (2,000 unit) capsule (Vitamin D3) ipratropium 0.5 mg-albuterol 3 mg 3 ml inhalation UD PRN SOB 09/14/18 11/24/22 Unknown (2.5 mg base)/3 mL nebulization soln lactobacillus combination no.4 3 3,000 mmu cells PO BID 09/14/18 11/24/22 10/28/22 18:00 billion cell capsule (Probiotic) lamotrigine 100 mg tablet 200 mg PO BID 09/14/18 11/24/22 10/29/22 04:00 (Lamictal) levothyroxine 25 mcg tablet 25 mcg PO QAM 09/14/18 11/24/22 10/29/22 04:00 (Synthroid) lisinopril 10 mg tablet 10 mg PO HS 09/14/18 11/24/22 10/28/22 18:00 nitroglycerin 0.4 mg sublingual 0.4 mg sublingual UD PRN Chest Pain 09/14/18 11/24/22 Unknown tablet (Nitrostat) oxycodone 20 mg tablet 20 mg PO BID 09/14/18 11/24/22 10/29/22 04:00 pantoprazole 40 mg tablet,delayed 40 mg PO BID 09/14/18 11/24/22 10/29/22 04:00 release (Protonix) potassium chloride 8 mEq 8 meq PO BID 09/14/18 11/24/22 10/29/22 04:00 tablet,extended release (Klor-Con) pravastatin 40 mg tablet 40 mg PO HS 09/14/18 11/24/22 10/28/22 18:00 (Pravachol) vitamin B complex 1 tab PO HS 09/14/18 11/24/22 06/01/20 16:30 calcium carbonate 600 mg calcium 600 mg PO HS 11/08/19 11/24/22 10/28/22 18:00 (1,500 mg) tablet (Calcium) CPAP Machine #1 ea 04/24/20 10/29/22 Unknown gabapentin 600 mg tablet 600 mg PO QID 04/24/20 11/24/22 10/29/22 02:00 albuterol sulfate 90 mcg/actuation 2 puffs inhalation Q6H PRN 04/25/20 11/24/22 Unknown aerosol inhaler (ProAir HFA) shortness of breath or wheezing #3 Inhalers aspirin 81 mg tablet 81 mg PO QAM 05/05/20 11/24/22 06/02/20 05:30 mometasone-formoterol HFA 200 1 puffs inhalation BID PRN 05/05/20 11/24/22 06/02/20 05:30 mcg-5 mcg/actuation aerosol Shortness Of Breath inhaler (Dulera) acetaminophen 500 mg tablet 1,000 mg PO TID 10/11/22 11/24/22 10/29/22 02:00 dexlansoprazole 60 mg 60 mg PO HS 10/11/22 11/24/22 10/28/22 18:00 capsule,biphase delayed release (Dexilant) duloxetine 60 mg capsule,delayed 60 mg PO QAM 10/11/22 11/24/22 10/29/22 04:00 release furosemide 20 mg tablet 20 mg PO BID 10/29/22 11/24/22 10/28/22 iron,carbonyl 65 mg-vitamin C 125 1 tab PO HS 10/29/22 11/24/22 10/28/22 mg tablet,delayed release (Vitron-C) ketoconazole 2 % topical cream 1 applic topical DAILY PRN Rash 10/29/22 11/24/22 Unknown metoprolol succinate 25 mg 25 mg PO BID 10/29/22 11/24/22 10/28/22 tablet,extended release 24 hr nystatin 100,000 unit/gram topical 1 applic topical BID 10/29/22 11/24/22 10/28/22 cream spironolactone 50 mg tablet 50 mg PO QPM 10/29/22 11/24/22 10/28/22 oxycodone 5 mg tablet 5 mg PO Q6H PRN pain, severe #30 10/30/22 11/24/22 Unknown tabs rivaroxaban 15 mg tablet (Xarelto) 15 mg PO BID 11/24/22 11/24/22 Unknown Past Medical History Medical History (Updated 11/24/22 @ 10:19 by Amie Allred PA-C) Anemia Hgb 8-10 since 2019 CAD (coronary artery disease), [place] coronary artery s/p single RADHA 2004 CHF (congestive heart failure) Chronic back pain COPD (chronic obstructive pulmonary disease) Deep vein thrombosis Recurrent (pelvis, LUE, LLE), most recent 2015, on Xarelto GERD (gastroesophageal reflux disease) GI bleed D/t gastric ulcer (2018) s/p hemoclip (required multiple blood transfusions) Hiatal hernia History of blood clots 11/2019 (back of knee to ankle) after knee replacement in 10/2019 History of NM (myocardial infarction) Prior to 2002, "silent" History of MTHFR mutation History of pulmonary embolism 2015, on Xarelto History of UTI Prophylactic daily abx HTN (hypertension), benign Hyperlipidemia Hypothyroidism Intermittent self-catheterization of bladder R/T neurogenic bladder (several times/day) Migraine Reason for lamictal Neurogenic bladder Neurogenic claudication due to lumbar spinal stenosis KIAH on CPAP Compliant Peptic ulcer disease EGD with hemoclip (2018) Past Family History Family History (Updated 11/24/22 @ 09:10 by Lakeshia Costello, MORGAN) Mother Family history of diabetes mellitus Father Family history of diabetes mellitus Brother Family history of diabetes mellitus Sister Family history of diabetes mellitus Other No family history of adverse response to anesthesia Past Surgical History Surgical History (Updated 11/24/22 @ 10:14 by Amie Allred PA-C) Fusion of spine L4-L5, S1-S2 (2007) L3-L4 (2013) L2-L3, HARDWARE REMOVAL L3-L4 09/25/2018: Grade 2 view, ETT 7. T12-L2 10/29/22: Grade 3 view, MAC 3, ETT 7. H/O bilateral salpingo-oophorectomy H/O exploratory laparotomy FOR ENDOMETRIOSIS H/O vascular surgery BILAT LOWER LEGS-DR JALYN WALDEN-09/2019 History of appendectomy History of cardiac cath 12/2021, PH > no stents 2015, 2017 > no stents 2005 > stent x1 01/12/22 @ [facility] no stent placed History of carpal tunnel release of both wrists History of section History of cholecystectomy LAP History of colonoscopy History of cystoscopy X MULTIPLE History of esophagogastroduodenoscopy (EGD) History of hysterectomy JOE History of laminectomy LUMBAR (2000) History of laparotomy History of [place] fundoplication 01/21/2022 History of tonsillectomy S/P fusion of sacroiliac joint Total knee replacement status Right TKA 06/02/2020: SAB L3-L4 3 attempts + PNB. Left TKA 11/26/2019: SAB L4-L5 1 attempt + PNB. Social History Smoking Status: Former smoker tobacco type: cigarettes Do You Dip or Chew Tobacco: No Smoking End Date: 09/21/18 Hx Alcohol Use: No Hx Substance Use: No substance use type: does not use Substance Use Type Other:: PREVIOUSLY ON METHADONE Lab Results Anesthesia Preop Results Results Anesthesia Widget: WBC 5.55 K/ul (4.8-10.8) 11/01/22 Hgb 8.8 g/dl (12.0-16.0) L 11/01/22 Hct 27.0 % (34.1-44.9) L 11/01/22 Plt 197 K/uL (130-400) 11/01/22 Na 138 mmol/L (136-145) 10/31/22 K 3.9 mmol/L (3.5-5.1) 10/31/22 Cl 101 mmol/L (98-107) 10/31/22 CO2 30 mmol/L (21-32) 10/31/22 BUN 14 mg/dl (6-23) 10/31/22 Creat 0.91 mg/dl (0.6-1.2) 10/31/22 Glucose Level 139 mg/dl (70-99(Fasting)) H 10/31/22 PT 14.4 Seconds (9.0-12.0) H 10/15/22 PTT 41.6 Seconds (21.0-31.0) H 10/15/22 INR 1.4 (0.9-1.1) H 10/15/22 Urine Color Yellow 10/30/22 Urine Appearance Clear (Clear) 10/30/22 Urine pH 5.5 (4.5-7.5) 10/30/22 Urine Specific [place] 1.005 (1.000-1.030) 10/30/22 Urine Protein Negative (Negative) 10/30/22 Urine Glucose (UA) Negative (Negative) 10/30/22 Urine Ketones Negative (Negative) 10/30/22 Urine Blood Trace (Negative) H 10/30/22 Urine Nitrite Negative (Negative) 10/30/22 Urine Bilirubin Negative (Negative) 10/30/22 Urine Urobilinogen Negative (Negative) 10/30/22 Urine Leukocyte Esterase 1+ (Negative) H 10/30/22 Urine WBC (Auto) 1-5 /hpf (0-5) 10/30/22 Urine RBC (Auto) 0-4 /hpf (0-4) 10/30/22 Urine Hyaline Casts (Auto) 0 /lpf (0-5) 10/30/22 Urine Epithelial Cells (Auto) 20-30 /lpf (0-5) H 10/30/22 Urine Bacteria (Auto) Negative (Negative) 10/30/22 COVID-19 PCR NEGATIVE (Negative) 10/30/22 SARS-CoV-2, RNA, NAAT NEGATIVE (NEGATIVE) 10/29/22 Blood Type O Positive 10/29/22 Antibody Screen NEGATIVE 10/29/22 Testing Electrocardiogram Date: 02/15/22 Sinus bradycardia, rate [address] and T wave abnormality Chest X-Ray Date: 10/30/22 *1view* The heart is enlarged note atherosclerotic calcification of the thoracic aorta. The pulmonary vascular is noncongested. Chronic interstitial thickening similar to previous. Platelike atelectasis is in the left mid lung, and there is also atelectasis at the lung bases. No airspace consolidation, large pleural effusion, or pneumothorax is seen. The skeletal structures are osteopenic. The bony thorax is grossly intact. Fusion hardware is noted at the thoracolumbar junction. IMPRESSION: Cardiomegaly with no active disease in the chest. Echocardiogram Date: 12/11/21 EF 55% Grade 2 diastolic dysfunction Moderately dilated RA Mild mitral regurgitation Mild tricuspid regurgitation Stress Test Date: 12/11/21 Pharmacologic MPHR not reported Mild global hypokinesis EF 45% Moderate sized reversible MPI defect-subsequent cardiac cath demonstrated mild nonocclusive disease Cardiac Catheterization Date: 01/12/22 Left main: mild calcification and mild luminal irregularities LAD: 10-20% in-stent restenosis Cx: mild luminal irregularities RCA: mild diffuse disease Mild nonocclusive disease
[~2022-11-26 10:15] MED LIST changes: -FAMOTIDINE 20 MG TAB PO SCH; -KETAMINE / NSS 500 MG/500 ML BAG IV SCH; +LR 15ML/HR IV SCH; -LR 500ML BOLUS, THEN 15ML/HR IV SCH; -METOCLOPRAMIDE HCL 10 MG TABLET PO SCH; -ROPIVACAINE 0.5% HCL/PF 150 MG, BUPIVACAINE 0.5% MPF 30 ML, EPINEPHrine 0.15 MG, Ketoro... INFIL SCH; -dexAMETHasone 4 MG TAB PO SCH
[2022-11-26 11:00] LABS: Hematocrit (blood only) 29.8 % (34.1-44.9); Hemoglobin 9.6 g/dl (12.0-16.0); Mean Corpuscular Hemoglobin 30.8 pg (25.0-34.0); Mean Corpuscular Hgb Conc 32.2 g/dL (32.0-36.0); Mean Corpuscular Volume 95.5 fL (80.0-100.0); Mean Platelet Volume 8.8 fL (9.4-12.3); Platelet Count 336 K/uL (130-400); RDW Coefficient of Variation 14.1 % (11.5-14.5); RDW Standard Deviation 49.7 fL (36.4-46.3); Red Blood Count 3.12 M/uL (3.93-5.22); White Blood Count 7.58 K/ul (4.8-10.8)
--- NOTE | 2022-11-26 11:59 | History & Physical Bridge Note ---
Date of Service November 26, 2022 History & Physical Bridge Note I have examined the patient, reviewed the History & Physical and in the interval since the performance of the History & Physical I have noted the following changes of clinical significance: no changes noted
--- NOTE | 2022-11-26 12:00 | History & Physical Report ---
Date of Service November 26, 2022 Assessment & Plan (1) Hardware failure: Plan: T8-T12 fusion, T11 hardware removal, possible T11 kyphoplasty History of Present Illness Chief Complaint: Back pain Primary Care Provider: TYRA Braxton This is a 62-year-old female known to me the presents with chronic persistent back pain status post lumbar decompression fusion. She is evidence of loosening of hardware and here for revision. Allergies Allergy/AdvReac Type Severity Reaction Status Date / Time hydroxychloroquine Allergy Severe Hives, SOB Verified 11/26/22 10:40 Sulfa (Sulfonamide Allergy Severe Hives, SOB Verified 11/26/22 10:40 Antibiotics) Home Medications Medication Instructions Recorded Confirmed Type cephalexin 500 mg tablet 500 mg PO HS PREVENTATIVE FOR UTI 09/14/18 11/26/22 History cholecalciferol (vitamin D3) 50 2,000 unit PO BID 09/14/18 11/26/22 History mcg (2,000 unit) capsule (Vitamin D3) ipratropium 0.5 mg-albuterol 3 mg 3 ml inhalation UD PRN SOB 09/14/18 11/24/22 History (2.5 mg base)/3 mL nebulization soln lactobacillus combination no.4 3 3,000 mmu cells PO BID 09/14/18 11/26/22 History billion cell capsule (Probiotic) lamotrigine 100 mg tablet 200 mg PO BID 09/14/18 11/26/22 History (Lamictal) levothyroxine 25 mcg tablet 25 mcg PO QAM 09/14/18 11/26/22 History (Synthroid) lisinopril 10 mg tablet 10 mg PO HS 09/14/18 11/26/22 History nitroglycerin 0.4 mg sublingual 0.4 mg sublingual UD PRN Chest Pain 09/14/18 11/24/22 History tablet (Nitrostat) oxycodone 20 mg tablet 20 mg PO BID 09/14/18 11/26/22 History pantoprazole 40 mg tablet,delayed 40 mg PO BID 09/14/18 11/26/22 History release (Protonix) potassium chloride 8 mEq 8 meq PO BID 09/14/18 11/26/22 History tablet,extended release (Klor-Con) pravastatin 40 mg tablet 40 mg PO HS 09/14/18 11/26/22 History (Pravachol) vitamin B complex 1 tab PO HS 09/14/18 11/26/22 History calcium carbonate 600 mg calcium 600 mg PO HS 11/08/19 11/26/22 History (1,500 mg) tablet (Calcium) CPAP Machine #1 ea 04/24/20 10/29/22 Rx gabapentin 600 mg tablet 600 mg PO QID 04/24/20 11/26/22 History albuterol sulfate 90 mcg/actuation 2 puffs inhalation Q6H PRN 04/25/20 11/26/22 Rx aerosol inhaler (ProAir HFA) shortness of breath or wheezing #3 Inhalers aspirin 81 mg tablet 81 mg PO QAM 05/05/20 11/26/22 History mometasone-formoterol HFA 200 1 puffs inhalation BID PRN 05/05/20 11/24/22 History mcg-5 mcg/actuation aerosol Shortness Of Breath inhaler (Dulera) acetaminophen 500 mg tablet 1,000 mg PO TID 10/11/22 11/26/22 History dexlansoprazole 60 mg 60 mg PO HS 10/11/22 11/26/22 History capsule,biphase delayed release (Dexilant) duloxetine 60 mg capsule,delayed 60 mg PO QAM 10/11/22 11/26/22 History release furosemide 20 mg tablet 20 mg PO BID 10/29/22 11/26/22 History iron,carbonyl 65 mg-vitamin C 125 1 tab PO HS 10/29/22 11/26/22 History mg tablet,delayed release (Vitron-C) ketoconazole 2 % topical cream 1 applic topical DAILY PRN Rash 10/29/22 11/24/22 History metoprolol succinate 25 mg 25 mg PO BID 10/29/22 11/26/22 History tablet,extended release 24 hr nystatin 100,000 unit/gram topical 1 applic topical BID 10/29/22 11/26/22 History cream spironolactone 50 mg tablet 50 mg PO QPM 10/29/22 11/26/22 History oxycodone 5 mg tablet 5 mg PO Q6H PRN pain, severe #30 10/30/22 11/26/22 Rx tabs rivaroxaban 15 mg tablet (Xarelto) 15 mg PO BID 11/24/22 11/26/22 History Past Med/Surg History Medical History (Updated 11/26/22 @ 11:59 by Tye Barrow, ) Anemia Hgb 8-10 since 2019 CAD (coronary artery disease), [place] coronary artery s/p single RADHA 2004 CHF (congestive heart failure) Chronic back pain COPD (chronic obstructive pulmonary disease) Deep vein thrombosis Recurrent (pelvis, LUE, LLE), most recent 2015, on Xarelto GERD (gastroesophageal reflux disease) GI bleed D/t gastric ulcer (2017) s/p hemoclip (required multiple blood transfusions) Hiatal hernia History of blood clots 11/2019 (back of knee to ankle) after knee replacement in 10/2019 History of ND (myocardial infarction) Prior to 2002, "silent" History of MTHFR mutation History of pulmonary embolism 2015, on Xarelto History of UTI Prophylactic daily abx HTN (hypertension), benign Hyperlipidemia Hypothyroidism Intermittent self-catheterization of bladder R/T neurogenic bladder (several times/day) Migraine Reason for lamictal Neurogenic bladder Neurogenic claudication due to lumbar spinal stenosis KIAH on CPAP Compliant Peptic ulcer disease EGD with hemoclip (2017) Surgical History Fusion of spine L4-L5, S1-S2 (2007) L3-L4 (2013) L2-L3, HARDWARE REMOVAL L3-L4 09/25/2018: Grade 2 view, ETT 7. T12-L2 10/29/22: Grade 3 view, MAC 3, ETT 7. H/O bilateral salpingo-oophorectomy H/O exploratory laparotomy FOR ENDOMETRIOSIS H/O vascular surgery BILAT LOWER LEGS-DR JALYN WALDEN-09/2019 History of appendectomy History of cardiac cath 12/2021, [facility] > no stents 2015, 2017 > no stents 2004 > stent x1 01/12/22 @ [facility] no stent placed History of carpal tunnel release of both wrists History of section History of cholecystectomy LAP History of colonoscopy History of cystoscopy X MULTIPLE History of esophagogastroduodenoscopy (EGD) History of hysterectomy JOE History of laminectomy LUMBAR (2000) History of laparotomy History of [place] fundoplication 01/21/2022 History of tonsillectomy S/P fusion of sacroiliac joint Total knee replacement status Right TKA 06/02/2020: SAB L3-L4 3 attempts + PNB. Left TKA 11/26/2019: SAB L4-L5 1 attempt + PNB. Family History (Updated 11/24/22 @ 09:10 by Lakeshia Costello RN) Mother Family history of diabetes mellitus Father Family history of diabetes mellitus Brother Family history of diabetes mellitus Sister Family history of diabetes mellitus Other No family history of adverse response to anesthesia Social History (Updated 10/29/22 @ 15:06 by Sera Slaughter PA-C) Smoking Status: Former smoker Smoking End Date: 09/21/18; Second Hand Exposure: No; Do You Dip or Chew Tobacco: No; Tobacco Cessation Education Requested by Patient: No Hx Alcohol Use: No Hx Substance Use: No Preferred Language: Yemeni Communication Ability: Effective Visual Impairment: No Limitations Cheese Wrapper Required: No Beliefs That Will Affect Care: None marital status: Current Living Situation: Spouse Other Information That Helps Us Care for You: No Feels Safe at Home: Yes Safety Concerns: Feels Safe At This Time Assistive Devices: Contacts, CPAP, Denture - Upper, Denture - Lower and Walker Assistive Devices Comment: partial upper and lower denture Physical Exam Physical Exam: Patient is alert and oriented Heart regular rhythm Lungs clear Results & Data Results & Data ([facility]) Vital Signs (Past 12 Hours) Vital Signs Temp Pulse Resp BP Pulse Ox O2 Del Method 11/26/22 10:49 37.1 C 81 20 101/65 96 Room Air
[2022-11-26] MEDS ORDERED: ceFAZolin 330 MG/ML 1 GM VIAL ONE ×2 (12:17→14:55)
[2022-11-26] MEDS ORDERED: BUPIVACAINE/EPINEPHRINE 0.25% 1:200,000 30 ML VIAL ONE (12:17)
[2022-11-26] MEDS ORDERED: GLYCOPYRROLATE 0.2 MG/ML VIAL ONE ×2 (12:18→15:24)
[2022-11-26] MEDS ORDERED: PROPOFOL IV EMULSION 10 MG/ML 20 ML VIAL IV ONE ×7 (12:18→15:00)
[2022-11-26] MEDS ORDERED: ONDANSETRON INJ 2 MG/ML 2 ML VIAL ONE ×2 (12:18→15:36)
[2022-11-26] MEDS ORDERED: NEOSTIGMINE METHYLSULFATE 1 MG/ML 10ML VIAL ONE ×2 (12:18→15:24)
[2022-11-26] MEDS ORDERED: DEXAMETHASONE SOD INJ 4 MG/ML VIAL ONE (12:18)
[2022-11-26] MEDS ORDERED: MIDAZOLAM HCL 1 MG/ML 2ML VIAL ONE (12:19)
[2022-11-26] MEDS ORDERED: fentaNYL citrate 100 MCG/2 ML VIAL ONE (12:19)
[2022-11-26] MEDS ORDERED: LIDOCAINE 2% MPF LOCAL 5 ML VIAL INFIL ONE (12:20)
[2022-11-26] MEDS ORDERED: LARYING-O-JET KIT (LTA) ONE (12:20)
[2022-11-26] MEDS ORDERED: ROCURONIUM BROMIDE 10 MG/ML 5 ML VIAL IV ONE (12:20)
[2022-11-26] MEDS ORDERED: SUCCINYLCHOLINE CHLORIDE 20 MG/ML 10 ML VIAL IV ONE (12:20)
[2022-11-26] MEDS ORDERED: ePHEDrine sulfate 50 MG/ML AMP IV PRN (12:23)
[2022-11-26] MEDS ORDERED: ONDANSETRON INJ 2 MG/ML 2 ML VIAL IV PRN ×2 (12:23→17:30)
[2022-11-26] MEDS ORDERED: HYDROmorphone INJ 1 MG/ML SYRINGE IV PRN (12:23)
[2022-11-26] MEDS ORDERED: ATROPINE SULFATE 0.1 MG/ML 10ML SYR IV PRN (12:23)
[2022-11-26] MEDS ORDERED: HYDROmorphone INJ 2 MG/ML SYR/VIAL ONE ×2 (12:55→15:44)
[2022-11-26] MEDS ORDERED: DexMEDEtomidine HCL IV 100 MCG/ML VIAL IV ONE (13:33)
[2022-11-26] MEDS ORDERED: KETAMINE 50 MG/5 ML SYRINGE ONE (13:43)
[2022-11-26] MEDS ORDERED: ARTIFICIAL TEARS OP OINT 3.5 GM TUBE ONE (13:43)
[2022-11-26] MEDS ORDERED: ePHEDrine sulfate 50 MG/ML SYR ONE (13:43)
[2022-11-26] MEDS ORDERED: PHENYLEPHRINE 100MCG/ML 5ML SYR ONE (13:43)
[2022-11-26] MEDS ORDERED: ALBUMIN HUMAN 5% 12.5 GM/250 ML VIAL IV ONE (14:06)
[2022-11-26] MEDS ORDERED: FLOSEAL HEMOSTATIC MATRIX 10ML TOP ONE (14:36)
[2022-11-26] MEDS ORDERED: IOPAMIDOL INJ 61% 15 ML VIAL INSTIL ONE (15:06)
--- NOTE | 2022-11-26 15:31 | Operative Report ---
Post Operative Report Pre & Post Diagnosis Operation Date: 11/26/22 12:05 Pre-Op Diagnosis: Loosening of thoracolumbar instrumentation T11-L1 Post-Op Diagnosis: Same I identified the patient and participated in the time-out.: Yes Procedure Operation Date: 11/26/22 12:05 Actual Procedures #1 removal of posterior instrumentation T11-T12 and L1. #2 posterior spinal fusion T8-T12. #3 placement posterior segmental instrumentation T8-T12. #4 kyphoplasty of T11. #5 vertebroplasty of T8-T9 and T10. #6 placement of the splint sponge bone mass graft in the posterior gutters TTT 12. Surgeon Tye Barrow, DO [employer] [place] Duran Estimated Blood Loss 600 Findings See Below The patient is 5 foot 3 weighing over 88 kg with a BMI in excess of 34. Patient's body was did contribute to significant technical difficulty and at least 50% increased operative time. Specimens None Indications This is a 62-year female known to me that status post thoracolumbar fusion. Postoperatively she had began experiencing worsening back pain imaging demonstrated evidence of loosening of the proximal instrumentation at T11 and T12. Subsequently she is here for revision. Description of Procedure Patient was met with identified informed consent obtained. Patient was then taken to the operative suite underwent a patient placed in a prone position the [place] table top Sam frame. All bony prominences well-padded eyes inspected to ensure no external pressure placed upon the. This point the thoracolumbar spine was prepped draped in a sterile fashion. Sharp dissection with assistance of bradycardia from down to and exposing the lamina transverse processes of T8-T9-T10 and instrumentation from T11-L3. I then remove the rods from T11-L3 and inspected the pedicle screws. There is obvious loosening of T11 and T12. The remaining screws were solid and intact. I then performed a kyphoplasty of T11 for additional stabilization and placed a screw on the right for fixation. I then placed screws in T10 T9 and T8 bilaterally with cement injected by way of a transpedicular approach into the these vertebral bodies for additional fixation of the screws. After the screws were placed the proper size rods were cut contoured and locked into position. The remaining lamina and transverse processes of T8-T9 [id number] were burred to subcortically bone. Infuse collagen sponge master graft was placed in the posterior gutters. 15 round drape drain inserted. The incision was then closed with 1 Vicryl to fascia 2-0 Vicryl subcutaneously and 4 Monocryl for final skin closure. Steri-Strips dressings placed. Patient awakened taken to PACU in stable condition. Please note spinal cord monitoring was utilized at the procedure no changes noted. Lastly Montana Duran was present at the entire surgeon while the patient positioning complex portions of the surgery and fascial closure. I attest to the content of the Intraoperative Record and any orders documented therein. Any exceptions are noted below.
--- NOTE | 2022-11-26 15:34 | Fluoroscopy Report ---
FL thoracic spine 2V CLINICAL HISTORY: T11 REMOVE HARDWARE POSSIBLE KYPHOPLASTY/ T8-T12 DFI TECHNIQUE: 5 views were obtained with the C-arm in the OR with the above procedure. Total fluoroscopy time was 35.7 seconds. Radiation dose was 3.92 mGy. Comparison: None available at the time of this dictation. FINDINGS/IMPRESSION: Intraoperative images were obtained of T8-T12 DFI with cement arthroplasty. Please correlate with intraoperative fluoroscopy and operative report. ACT 112: Negative or not required by law. Electronically signed by: Michael Frederick M.D. 11/26/2022 3:33 PM
[2022-11-26] MEDS: fentaNYL citrate 100 MCG/2 ML VIAL IV PRN ×3 (16:24→16:42)
[2022-11-26 16:40] LABS: iSTAT Arterial Blood Gas HCO3 29 meg/L (19-24); iSTAT Arterial Blood Gas pCO2 44 mmHg (35-46); iSTAT Arterial Blood Gas pH 7.42 (7.35-7.45); iSTAT Arterial Blood Gas pO2 301 mmHg (80-95); iSTAT Carbon Dioxide 30 mmol/L (24-31); iSTAT Hematocrit 22 % (37-47); iSTAT Hemoglobin 7.5 g/dl (12.0-16.0); iSTAT Potassium 3.2 mmol/L (3.3-5.0); iSTAT Sodium 142 mmol/L (135-144)
--- NOTE | 2022-11-26 17:04 | Anesthesiology Progress Note ---
Date of Service November 26, 2022 Anesthesia Post Procedure Vital Signs Vital Signs: Temp Pulse Pulse Resp BP Pulse Ox O2 Del Method 11/26/22 16:30 92 H 19 91/69 L 92 Oxymask 11/26/22 16:40 73 13 108/56 L 94 Oxymask 11/26/22 16:20 83 13 112/52 L 95 Oxymask 11/26/22 16:14 36.6 C 74 14 89/46 L 92 Oxymask 11/26/22 13:00 81 18 123/60 94 Room Air 11/26/22 10:49 37.1 C 81 20 101/65 96 Room Air O2 Flow Rate 11/26/22 16:30 9 11/26/22 16:40 9 11/26/22 16:20 11 11/26/22 16:14 9 11/26/22 13:00 11/26/22 10:49 Pain Intensity Bilateral Back: Pain Intensity: 4 Transfer of Care Handoff Completed per policy Notes Mental Status: alert / awake / arousable and participated in evaluation Patient Amnestic to Procedure: Yes Nausea / Vomiting: adequately controlled Pain: adequately controlled Airway Patency, RR, SpO2: stable & adequate BP & HR: stable & adequate Hydration State: stable & adequate Anesthetic Complications: no major complications apparent and Pt Satisfied with anesthetic care Notes: The patient is a 62 year old female status post T8-T12 fusion, T11 hardware removal and kyphoplasty with Dr. Barrow. The patient has a history of anemia, [place] s/p stent, CHF (EF45%), GERD s/p rafi, GIB, MTHFR mutation with history of DVT/PE, COPD and KIAH on CPAP. The patient did well intraoperatively. She did receive one unit of PRBC toward the end of the case for a hemoglobin of 7.4 on the Istat. EBL 600cc. She is doing well in recovery. All vital signs stable. I gave a full report to the Internal Medicine PA Darcy Whitley who will be following the patient on the floor.
[2022-11-26] MEDS ORDERED: MAGNESIUM HYDROXIDE SUSP 30 ML UDC PO PRN (17:30)
[2022-11-26] MEDS ORDERED: NALOXONE HCL 0.4 MG/1 ML VIAL/CARP IV PRN (17:30)
[2022-11-26] MEDS ORDERED: SOD PHOSPHATE/SOD BIPHOSPHATE ENEMA 132 ML BTL PR PRN (17:30)
[2022-11-26] MEDS ORDERED: diphenhydrAMINE Capsule 25 MG CAP PO PRN (17:30)
[2022-11-26] MEDS ORDERED: traMADol HCL 50 MG TABLET PO PRN (17:30)
[2022-11-26] MEDS ORDERED: ALBUT/IPRATROP 3MG/0.5MG NEB 3 ML VIAL INH PRN (17:30)
[2022-11-26] MEDS ORDERED: ACETAMINOPHEN 500 MG TAB PO PRN (17:30)
[2022-11-26] MEDS ORDERED: HYDROmorphone INJ 0.5 MG/0.5 ML SYR IV PRN (17:30)
[2022-11-26] MEDS ORDERED: ALUMINUM/MAGNESIUM SUSP 30 ML UDC PO PRN (17:30)
[2022-11-26] MEDS ORDERED: ALBUTEROL HFA 8 GM INHALER INH PRN (17:30)
[2022-11-26] MEDS ORDERED: METOCLOPRAMIDE HCL INJ 5 MG/ML 2 ML VIAL IV PRN (17:30)
[2022-11-26] MEDS ORDERED: NITROGLYCERIN SL 0.4 MG/TAB TAB SL PRN (17:30)
[2022-11-26] MEDS ORDERED: DO NOT ADMINISTER PNEUMOCOCCAL VACCINE PRN (17:30)
[2022-11-26] MEDS ORDERED: ONDANSETRON 4 MG OD TAB PO PRN (17:30)
[2022-11-26] MEDS ORDERED: LORazepam 2 MG/1 ML VIAL IV PRN (17:30)
[2022-11-26] MEDS ORDERED: FAMOTIDINE 20 MG TAB PO PRN (17:30)
[2022-11-26] MEDS ORDERED: bisacodyL 10 MG SUPP PR PRN (17:30)
[2022-11-26] MEDS ORDERED: ACETAMINOPHEN 1,000 MG/100 ML VIAL IV PRN (17:30)
[2022-11-26] MEDS ORDERED: hydrOXYzine HCl 25 MG TAB PO PRN (17:30)
[2022-11-26] MEDS ORDERED: DO NOT ADMINISTER FLU VACCINE PRN (17:30)
[2022-11-26] MEDS ORDERED: PROMETHAZINE HCL 12.5 MG in SODIUM CHLORIDE 0.9% 50 ML IV PRN (17:30)
[2022-11-26] MEDS ORDERED: SODIUM CHLORIDE 0.9% 1000ML 1,000 ML IV SCH (17:30)
--- NOTE | 2022-11-26 18:09 | Consultation ---
Date of Consultation November 26, 2022 Assessment & Plan (1) Neurogenic claudication due to lumbar spinal stenosis: (2) Hyperkalemia: (3) CAD (coronary artery disease), [place] coronary artery: (4) Hypertension: (5) HFrEF (heart failure with reduced ejection fraction): (6) Hyperlipidemia: (7) Sleep apnea: (8) Neurogenic bladder: (9) History of pulmonary embolism: (10) History of blood clots: (11) Depression: (12) Hypothyroidism: Plan Ms. Davis is a 62 year old female that presented to the [facility] for surgical revision of T11-T12; L1 with a T11 kyphoplasty and T8-T12 decompression and fusion under the care of Dr. Barrow. Her initial thoracolumbar fusion was performed on October 29. Neurogenic claudication due to lumbar spinal stenosis: POD#0 s/p revision decompression and fusions with kyphoplasty with Dr. Barrow. Per ortho for pain control, wound care, anticoagulation and activities. Monitor H&H. EBL of 600 mL; her baseline hemoglobin is 9.5 and dropped to 7.4 for which she was transfused 1 unit PRBC in the PACU Hgb recheck 2100; trend in AM continue incentive spirometry PT/OT when appropriate Hyperkalemia: Potassium 3.2 postoperatively; replace with 40 meq p.o.; trend in a.m. Hold Lasix for now CAD: HTN: Previous AMI; RADHA x1 in 2004 HFrEF: Takes spironolactone; continue Takes Lasix; hold d/t hyperkalemia Last ECHO EF 45% History of PE/DVT: PE 2015 DVT 2019 status post knee replacement On Xarelto; continue Hyperlipidemia: Takes Pravachol; continue KIAH: Uses CPAP at home; continue while here Has albuterol for breakthrough wheezing; continue Neurogenic bladder: Status post pudendal nerve damage Self caths at home Acevedo inserted intraoperatively; discontinue when fluids discontinued Depression: Takes duloxetine; continue Hypothyroidism: Takes levothyroxine; continue GERD: Takes Protonix; continue I personally was able to review all current laboratory work and diagnostic images obtained in the ED. Additionally, I was able to review the patients past medication reconciliation and history with direct visualization in the patients chart. This patient was seen and discussed with Dr. Tang. Please see his ad dendum for further details. Please feel free to contact [facility]ist service at any time via [place] text. Thank you kindly for this consultation. Supervising Physician Co-Signing Physician Notes Pt was seen and examined. Agreed with Gutierrez DIRECTOR BUSINESS INTELLIGENCE exam, assessment and plan. 62 year old female with PMH of CHF, HFrEF EF 45%, H/O PE/DVT, GERD, pudendal nerve damage, failed conservative management. Hospitalist team was consulted for goal of care. S/P revision of T11-T12; L1 with a T11 kyphoplasty and T8-T12 decompression and fusion under the care of Dr. Barrow. In the OR the patient had an EBL of 600 mL; her baseline hemoglobin is 9.5 and dropped to 7.4 for which she was transfused 1 unit PRBC in the PACU. Pain control. Continue incentive spirometry. Fall precaution. Continue monitor Hgb. MD Kitty History of Present Illness Requesting Physician: Dr. Barrow Reason for Consultation: post op medical management Attending Physician: Tye Barrow, History of Present Illness Ms. Davis is a 62 year old female that presented to the [facility] for surgical revision of T11-T12; L1 with a T11 kyphoplasty and T8-T12 decompression and fusion under the care of Dr. Barrow. Her initial fusion surgery with bolt and hardware placement was on October 29. In the OR the patient had an EBL of 600 mL; her baseline hemoglobin is 9.5 and dropped to 7.4 for which she was transfused 1 unit PRBC in the PACU; hospitalist will trend hemoglobin. Patient has additional PMH that includes: CHF, HFrEF EF 45%, H/O PE/DVT, GERD, pudendal nerve damage. Patient is sitting upright in her bed in no apparent distress and is awake alert oriented x4. She just finished eating clear liquid dinner without complications, including nausea. Patient denies headache, dizziness, chest pain, palpitations, shortness of breath, vomiting, diarrhea, numbness or tingling in lower extremities. She states that her pain has been increasing over the last few hours for which I explained her pain medication regimen options. [facility] hospitalist service was consulted for postoperative medical management. Please see A/P for further details. [place] feel free to contact [facility] hospitalist service at any time via [place] text. Thank you kindly for this consultation. Allergies Allergy/AdvReac Type Severity Reaction Status Date / Time hydroxychloroquine Allergy Severe Hives, SOB Verified 11/26/22 10:40 Sulfa (Sulfonamide Allergy Severe Hives, SOB Verified 11/26/22 10:40 Antibiotics) Home Medications Medication Instructions Recorded Confirmed Type cephalexin 500 mg tablet 500 mg PO HS PREVENTATIVE FOR UTI 09/14/18 11/26/22 History cholecalciferol (vitamin D3) 50 2,000 unit PO BID 09/14/18 11/26/22 History mcg (2,000 unit) capsule (Vitamin D3) ipratropium 0.5 mg-albuterol 3 mg 3 ml inhalation UD PRN SOB 09/14/18 11/26/22 History (2.5 mg base)/3 mL nebulization soln lactobacillus combination no.4 3 3,000 mmu cells PO BID 09/14/18 11/26/22 History billion cell capsule (Probiotic) lamotrigine 100 mg tablet 200 mg PO BID 09/14/18 11/26/22 History (Lamictal) levothyroxine 25 mcg tablet 25 mcg PO QAM 09/14/18 11/26/22 History (Synthroid) lisinopril 10 mg tablet 10 mg PO HS 09/14/18 11/26/22 History nitroglycerin 0.4 mg sublingual 0.4 mg sublingual UD PRN Chest Pain 09/14/18 11/26/22 History tablet (Nitrostat) oxycodone 20 mg tablet 20 mg PO BID 09/14/18 11/26/22 History pantoprazole 40 mg tablet,delayed 40 mg PO BID 09/14/18 11/26/22 History release (Protonix) potassium chloride 8 mEq 8 meq PO BID 09/14/18 11/26/22 History tablet,extended release (Klor-Con) pravastatin 40 mg tablet 40 mg PO HS 09/14/18 11/26/22 History (Pravachol) vitamin B complex 1 tab PO HS 09/14/18 11/26/22 History calcium carbonate 600 mg calcium 600 mg PO HS 11/08/19 11/26/22 History (1,500 mg) tablet (Calcium) CPAP Machine #1 ea 04/24/20 11/26/22 Rx gabapentin 600 mg tablet 600 mg PO QID 04/24/20 11/26/22 History albuterol sulfate 90 mcg/actuation 2 puffs inhalation Q6H PRN 04/25/20 11/26/22 Rx aerosol inhaler (ProAir HFA) shortness of breath or wheezing #3 Inhalers aspirin 81 mg tablet 81 mg PO QAM 05/05/20 11/26/22 History mometasone-formoterol HFA 200 1 puffs inhalation BID PRN 05/05/20 11/26/22 History mcg-5 mcg/actuation aerosol Shortness Of Breath inhaler (Dulera) acetaminophen 500 mg tablet 1,000 mg PO TID 10/11/22 11/26/22 History dexlansoprazole 60 mg 60 mg PO HS 10/11/22 11/26/22 History capsule,biphase delayed release (Dexilant) duloxetine 60 mg capsule,delayed 60 mg PO QAM 10/11/22 11/26/22 History release furosemide 20 mg tablet 20 mg PO BID 10/29/22 11/26/22 History iron,carbonyl 65 mg-vitamin C 125 1 tab PO HS 10/29/22 11/26/22 History mg tablet,delayed release (Vitron-C) ketoconazole 2 % topical cream 1 applic topical DAILY PRN Rash 10/29/22 11/26/22 History metoprolol succinate 25 mg 25 mg PO BID 10/29/22 11/26/22 History tablet,extended release 24 hr nystatin 100,000 unit/gram topical 1 applic topical BID 10/29/22 11/26/22 History cream spironolactone 50 mg tablet 50 mg PO QPM 10/29/22 11/26/22 History oxycodone 5 mg tablet 5 mg PO Q6H PRN pain, severe #30 10/30/22 11/26/22 Rx tabs rivaroxaban 15 mg tablet (Xarelto) 15 mg PO BID 11/24/22 11/26/22 History oxycodone 5 mg tablet 5 mg PO Q6H PRN pain, severe #30 11/27/22 Rx tabs tramadol 50 mg tablet 50 mg PO Q6H PRN pain, moderate 11/27/22 Rx #30 tabs Patient History Medical History (Updated 11/26/22 @ 19:42 by TYRA Gloria) Anemia Hgb 8-10 since 2019 CAD (coronary artery disease), [place] coronary artery s/p single RADHA 2004 CHF (congestive heart failure) Chronic back pain COPD (chronic obstructive pulmonary disease) Deep vein thrombosis Recurrent (pelvis, LUE, LLE), most recent 2015, on Xarelto Depression GERD (gastroesophageal reflux disease) GI bleed D/t gastric ulcer (2017) s/p hemoclip (required multiple blood transfusions) HFrEF (heart failure with reduced ejection fraction) Hiatal hernia History of blood clots 11/2019 (back of knee to ankle) after knee replacement in 10/2019 History of RI (myocardial infarction) Prior to 2002, "silent" History of MTHFR mutation History of pulmonary embolism 2015, on Xarelto History of UTI Prophylactic daily abx HTN (hypertension), benign Hyperkalemia Hyperlipidemia Hypothyroidism Hypothyroidism Intermittent self-catheterization of bladder R/T neurogenic bladder (several times/day) Migraine Reason for lamictal Neurogenic bladder Neurogenic claudication due to lumbar spinal stenosis KIAH on CPAP Compliant Peptic ulcer disease EGD with hemoclip (2017) Surgical History Fusion of spine L4-L5, S1-S2 (2007) L3-L4 (2013) L2-L3, HARDWARE REMOVAL L3-L4 09/25/2018: Grade 2 view, ETT 7. T12-L2 10/29/22: Grade 3 view, MAC 3, ETT 7. H/O bilateral salpingo-oophorectomy H/O exploratory laparotomy FOR ENDOMETRIOSIS H/O vascular surgery BILAT LOWER LEGS-DR JALYN WALDEN-09/2019 History of appendectomy History of cardiac cath 12/2021, [facility] > no stents 2015, 2017 > no stents 2005 > stent x1 01/12/22 @ [facility] no stent placed History of carpal tunnel release of both wrists History of section History of cholecystectomy LAP History of colonoscopy History of cystoscopy X MULTIPLE History of esophagogastroduodenoscopy (EGD) History of hysterectomy JOE History of laminectomy LUMBAR (2000) History of laparotomy History of [place] fundoplication 01/21/2022 History of tonsillectomy S/P fusion of sacroiliac joint Total knee replacement status Right TKA 06/02/2020: SAB L3-L4 3 attempts + PNB. Left TKA 11/26/2019: SAB L4-L5 1 attempt + PNB. Family History Mother Family history of diabetes mellitus Father Family history of diabetes mellitus Brother Family history of diabetes mellitus Sister Family history of diabetes mellitus Other No family history of adverse response to anesthesia Social History Smoking Status: Former smoker Smoking End Date: 09/21/18; Second Hand Exposure: No; Do You Dip or Chew Tobacco: No; Tobacco Cessation Education Requested by Patient: No Hx Alcohol Use: No Hx Substance Use: No Preferred Language: Greek Communication Ability: Effective Visual Impairment: No Limitations Radiagraph Operator Required: No Beliefs That Will Affect Care: None marital status: Current Living Situation: Spouse Other Information That Helps Us Care for You: No Feels Safe at Home: Yes Safety Concerns: Feels Safe At This Time Assistive Devices: Walker Assistive Devices Comment: partial upper and lower denture Review of Systems Review of Systems: Neuro: (-) Falls, trauma, slurred speech HEENT: (-) KEYS, dizziness, dysphagia, visual or auditory changes CV: (-) CP, palpitations, swelling Resp: (-) SOB GI: (-) appetite changes, N/V/D, bowel changes : (-) urinary changes Skin: (-) rashes Psych: (-) anxiety, depression Physical Exam Physical Exam: Neuro: AAOx4, PERRLA, no aphagia, memory changes, CNII-XII grossly intact HEENT: head normocephalic, moist mucus membranes CV: S1/S2, (-) M/G/R, (-) edema, cap refill < 3 seconds JOSLYN drain x1 bright red blood drainage Resp: Lungs CTA in all [place]. On RA GI: Abdomen S/NT/ND, Ax4 bowel sounds, (-) CVA tenderness Musculoskeletal: 5/5 B/L UE strength, 5/5 B/L LE strength. No gait disturbance Skin: (-) rashes , (-) erythema. Psych: euthymic mood Results & Data ([facility]) Vital Signs (Past 12 Hours) Vital Signs Temp Pulse Pulse Pulse Resp BP Pulse Ox 11/26/22 18:00 37.3 C 86 18 115/68 97 11/26/22 16:30 92 H 19 91/69 L 92 11/26/22 17:00 97 H 17 109/84 93 11/26/22 16:50 36.4 C L 80 17 94/47 L 93 11/26/22 16:40 73 13 108/56 L 94 11/26/22 16:20 83 13 112/52 L 95 11/26/22 16:14 36.6 C 74 14 89/46 L 92 11/26/22 13:00 81 18 123/60 94 11/26/22 10:49 37.1 C 81 20 101/65 96 O2 Del Method O2 Flow Rate 11/26/22 18:00 Nasal Cannula 4 11/26/22 16:30 Oxymask 9 11/26/22 17:00 Nasal Cannula 5 11/26/22 16:50 Nasal Cannula 5 11/26/22 16:40 Oxymask 9 11/26/22 16:20 Oxymask 11 11/26/22 16:14 Oxymask 9 11/26/22 13:00 Room Air 11/26/22 10:49 Room Air Laboratory Results Short CBC 11/26/22 Range/Units 10:39 WBC 7.58 (4.8-10.8) K/ul Hgb 9.6 L (12.0-16.0) g/dl Hct 29.8 L (34.1-44.9) % Plt Count 336 (130-400) K/uL Diagnostic Findings Thoracic Spine X-Ray 11/26/22 12:05 FL thoracic spine 2V CLINICAL HISTORY: T11 REMOVE HARDWARE POSSIBLE KYPHOPLASTY/ T8-T12 DFI TECHNIQUE: 5 views were obtained with the C-arm in the OR with the above procedure. Total fluoroscopy time was 35.7 seconds. Radiation dose was 3.92 mGy. Comparison: None available at the time of this dictation. FINDINGS/IMPRESSION: Intraoperative images were obtained of T8-T12 DFI with cement arthroplasty. Please correlate with intraoperative fluoroscopy and operative report. ACT 112: Negative or not required by law. Electronically signed by: Michael Frederick M.D. 11/26/2022 3:33 PM (1) Sleep apnea Sleep apnea type: obstructive Qualified Code(s): G47.33 - Obstructive sleep apnea (adult) (pediatric) (2) CAD (coronary artery disease), [place] coronary artery Associated angina: without angina [place] vs. transplanted heart: [place] heart Qualified Code(s): I25.10 - Atherosclerotic heart disease of [place] coronary artery without angina pectoris
[2022-11-26] MEDS: GABAPENTIN 600 MG TAB PO SCH ×2 (19:12→21:00)
[2022-11-26] MEDS: SODIUM CHLORIDE 0.9% 1000ML 1,000 ML IV SCH (19:13)
[2022-11-26] MEDS: oxyCODONE HCL IR 5 MG TAB (IMMEDIATE RELEASE) PO PRN ×2 (19:21→23:23)
[2022-11-26] MEDS ORDERED: POTASSIUM CHLORIDE CRTAB 20 MEQ TABCR PO STA (19:35)
[2022-11-26] MEDS: HYDROmorphone INJ 1 MG/ML SYRINGE IV PRN (20:49)
[2022-11-26] MEDS: ceFAZolin 2000MG 2,000 MG/15 ML SYR IV SCH (20:49)
[2022-11-26] MEDS ORDERED: PANTOprazole 40 MG TAB PO SCH (21:00)
[2022-11-26] MEDS: DOCUSATE SODIUM/SENNA 50/8.6MG TAB PO SCH (21:00)
[2022-11-26] MEDS: SPIRONOLACTONE 25 MG TAB PO SCH (21:00)
[2022-11-26] MEDS ORDERED: NON-FORMULARY MEDICATION (Iron,Carbonyl-Vitamin C [Vitron-C] 65 mg iron- 125 mg Tablet,Del PO SCH (21:00)
[2022-11-26] MEDS: CALCIUM CARBONATE 1250MG TAB PO SCH (21:00)
[2022-11-26] MEDS ORDERED: FUROSEMIDE 20 MG TAB PO SCH (21:00)
[2022-11-26] MEDS: PANTOprazole 40 MG TAB PO SCH (21:01)
[2022-11-26] MEDS: METOPROLOL SUCC 25MG EXT REL TAB PO SCH (21:01)
[2022-11-26] MEDS: lamoTRIgine 100 MG TAB PO SCH (21:01)
[2022-11-26] MEDS: PRAVASTATIN SOD 40 MG TAB PO SCH (21:02)
[2022-11-26] MEDS: lisinopril 10 MG TAB PO SCH (21:02)
[2022-11-26] MEDS: NYSTATIN CR 15 GM TUBE EXT SCH (21:02)
[2022-11-26] MEDS: VITAMIN B COMPLEX TAB PO SCH (21:57)
[2022-11-26] MEDS: POTASSIUM CHLORIDE 10 MEQ TABCR PO SCH (21:57)
[2022-11-26 22:03] LABS: Hematocrit (blood only) 26.8 % (34.1-44.9); Hemoglobin 8.5 g/dl (12.0-16.0); Mean Corpuscular Hemoglobin 30.2 pg (25.0-34.0); Mean Corpuscular Hgb Conc 31.7 g/dL (32.0-36.0); Mean Corpuscular Volume 95.4 fL (80.0-100.0); Mean Platelet Volume 8.6 fL (9.4-12.3); Platelet Count 282 K/uL (130-400); RDW Standard Deviation 49.1 fL (36.4-46.3); Red Blood Count 2.81 M/uL (3.93-5.22)
[2022-11-27] MEDS: HYDROmorphone INJ 1 MG/ML SYRINGE IV PRN ×5 (00:27→23:15)
[2022-11-27] MEDS: SODIUM CHLORIDE 0.9% 1000ML 1,000 ML IV SCH (04:45)
[2022-11-27] MEDS: POLYETHYLENE (MIRALAX) 17 GM PACK PO SCH ×3 (05:28→17:37)
[2022-11-27] MEDS: ceFAZolin 2000MG 2,000 MG/15 ML SYR IV SCH (05:28)
[2022-11-27] MEDS: oxyCODONE HCL IR 5 MG TAB (IMMEDIATE RELEASE) PO PRN ×3 (05:28→15:53)
[2022-11-27] MEDS: LEVOTHYROXINE SODIUM 25 MCG TABLET PO SCH (05:29)
[2022-11-27 07:01] LABS: Basophils # (auto) 0.01 K/uL (0-0.2); Basophils % (auto) 0.1 %; Hemoglobin 7.2 g/dl (12.0-16.0); Immature Granulocytes # (auto) 0.05 K/uL (0.00-0.02); Immature Granulocytes % (auto) 0.5 %; Lymphocytes # (auto) 1.11 K/uL (1.2-3.4); Lymphocytes % (auto) 10.7 %; Mean Corpuscular Hemoglobin 30.8 pg (25.0-34.0); Mean Corpuscular Hgb Conc 32.7 g/dL (32.0-36.0); Mean Platelet Volume 8.8 fL (9.4-12.3); Monocytes # (auto) 0.72 K/uL (0.24-0.82); Monocytes % (auto) 6.9 %; Neutrophils # (auto) 8.51 K/uL (1.4-6.5); Neutrophils % (auto) 81.8 %; Platelet Count 248 K/uL (130-400); RDW Coefficient of Variation 14.1 % (11.5-14.5); RDW Standard Deviation 47.5 fL (36.4-46.3); Red Blood Count 2.34 M/uL (3.93-5.22)
[2022-11-27] MEDS: METOPROLOL SUCC 25MG EXT REL TAB PO SCH ×2 (07:31→20:24)
[2022-11-27 07:44] LABS: Calcium 7.8 mg/dl (8.5-10.1); Creatinine Clr Calc Pharmacy 80.9 ml/min; Est GFR (African American) 97.6 ml/min; Est GFR (Non-African American) 84.2 ml/min; Potassium 4.5 mmol/L (3.5-5.1); RBC Morphology Unremarkable
[2022-11-27] MEDS: ADVANCED PROBIOTIC 1250 MG CAPSULE PO SCH (08:26)
[2022-11-27] MEDS: ASPIRIN 81 MG ECTAB PO SCH (08:27)
[2022-11-27] MEDS: POTASSIUM CHLORIDE 10 MEQ TABCR PO SCH ×2 (08:27→20:23)
[2022-11-27] MEDS: FERROUS SULFATE 325 MG TAB PO SCH (08:27)
[2022-11-27] MEDS: ASCORBIC ACID 500 MG TAB PO SCH (08:27)
[2022-11-27] MEDS: DULoxetine HCL 60 MG CAP PO SCH (08:27)
[2022-11-27] MEDS: lamoTRIgine 100 MG TAB PO SCH ×2 (08:28→20:22)
[2022-11-27] MEDS: GABAPENTIN 600 MG TAB PO SCH ×4 (08:28→20:22)
[2022-11-27] MEDS: NYSTATIN CR 15 GM TUBE EXT SCH ×2 (08:29→20:25)
[2022-11-27] MEDS: dexAMETHasone 6 MG in SYRINGE 0 ML IV SCH (08:52)
[2022-11-27] MEDS ORDERED: SODIUM CHLORIDE 0.9% 250 ML IV PRN (10:07)
--- NOTE | 2022-11-27 10:41 | Orthopedic Progress Note ---
Date of Service November 27, 2022 Assessment & Plan (1) Hardware failure: Plan: Patient went revision fusion T8-T12. Her hemoglobin is 7.5 this morning we will initiate transfusions today. Therapy as tolerated. We will have her undergo continued therapy Tuesday and possible discharge home Tuesday. Admission and Anticipated Discharge Date Admission Date: November 26, 2022 Subjective Patient complaining of back pain. Leg pain improved. Physical Exam Physical Exam: Patient is in the chair at the bedside. She is comfortable. Is good strength testing. Results & Data ([facility]) Vital Signs (Past 12 Hours) Vital Signs Temp Pulse Resp BP BP Pulse Ox O2 Del Method 11/27/22 06:58 97/58 L 11/27/22 07:22 37.1 C 78 18 106/45 L 97 Nasal Cannula 11/27/22 03:45 37 C 77 18 101/53 L 95 Nasal Cannula 11/26/22 23:36 37.1 C 81 18 104/55 L 98 Nasal Cannula O2 Flow Rate 11/27/22 06:58 11/27/22 07:22 2 11/27/22 03:45 2 11/26/22 23:36 4
[2022-11-27] MEDS: oxyCODONE HCL IR 5 MG TAB (IMMEDIATE RELEASE) PO SCH ×2 (12:40→20:25)
--- NOTE | 2022-11-27 17:41 | Hospitalist Progress Note ---
Date of Service November 27, 2022 Assessment & Plan (1) Neurogenic claudication due to lumbar spinal stenosis: (2) Hyperkalemia: (3) CAD (coronary artery disease), [place] coronary artery: (4) Hypertension: (5) HFrEF (heart failure with reduced ejection fraction): (6) Hyperlipidemia: (7) Sleep apnea: (8) Neurogenic bladder: (9) History of pulmonary embolism: (10) History of blood clots: (11) Depression: (12) Hypothyroidism: Plan Ms. Davis is a 62 year old female that presented to the [facility] for surgical revision of T11-T12; L1 with a T11 kyphoplasty and T8-T12 decompression and fusion under the care of Dr. Barrow. Her initial thoracolumbar fusion was performed on October 29. Neurogenic claudication due to lumbar spinal stenosis: POD# 1 s/p revision decompression and fusions with kyphoplasty with Dr. Barrow. Per ortho for pain control, wound care, anticoagulation and activities. Continue pain control Continue incentive spirometry Hemoglobin dropped to 7.2 Continue PT OT Fall precaution Acute blood loss anemia Mostly due to recent orthopedic procedure Hemoglobin dropped to 7.2 Currently being transfused 2 unit PRBC (1 unit was given yesterday in the OR) Continue monitor H&H Hyperkalemia: Potassium stable continue monitor BMP CAD: HTN: Previous AMI; RADHA x1 in 2004 HFrEF: No sign of fluid overload Will resume Lasix in a.m. Continue spironolactone Last ECHO EF 45% Continue monitor closely for sign of fluid overload History of PE/DVT: PE 2015 DVT 2019 status post knee replacement On Xarelto; continue Hyperlipidemia: Takes Pravachol; continue KIAH: Uses CPAP at home; continue while here Has albuterol for breakthrough wheezing; continue Neurogenic bladder: Status post pudendal nerve damage Self caths at home Acevedo inserted intraoperatively; discontinue when fluids discontinued Depression: Takes duloxetine; continue Hypothyroidism: Takes levothyroxine; continue GERD: Takes Protonix; continue [facility] via [place] text. Thank you kindly for this consultation. Admission and Anticipated Discharge Date Admission Date: November 26, 2022 Subjective Patient was seen and evaluated for postop follow-up date 1 Sitting in chair with no acute distress Patient said that she continues to pain She says she was able to participate in therapy Denies any chest pain, palpitation, dizziness, shortness of breath. Review of Systems Review of Systems: All systems reviewed & are unremarkable except as noted in Subjective Physical Exam Physical Exam: General- No acute distress Head- atraumatic Eyes- PERRL, EOMI, ENT- oropharynx clear Neck- supple, no JVD Lungs- clear to auscultation Heart- regular rhythm; no murmur Abdomen- normal bowel sounds, soft, nontender Extremities- no calf tenderness Neuro- alert, oriented x 3; PERRL, EOMI; no facial palsy; no dysarthria Skin- warm & dry Results & Data Results & Data ([facility]) Vital Signs (Past 12 Hours) Vital Signs Temp Pulse Pulse Resp BP BP BP 11/27/22 16:45 37 C 74 14 115/65 11/27/22 15:45 37 C 76 16 117/61 11/27/22 15:16 37 C 76 16 117/61 11/27/22 15:13 36.9 C 87 16 110/56 L 11/27/22 15:01 37.4 C 75 16 107/62 11/27/22 14:58 37.4 C 75 16 107/62 11/27/22 14:07 36.8 C 87 16 127/61 11/27/22 12:21 37.3 C 88 16 115/67 11/27/22 09:00 11/27/22 12:05 37.3 C 77 14 99/59 L 11/27/22 11:36 37.0 C 84 16 103/54 L 11/27/22 11:18 37.5 C 87 18 109/58 L 11/27/22 06:58 97/58 L 11/27/22 07:22 37.1 C 78 18 106/45 L Pulse Ox O2 Del Method O2 Flow Rate 11/27/22 16:45 93 11/27/22 15:45 94 11/27/22 15:16 94 11/27/22 15:13 90 11/27/22 15:01 90 11/27/22 14:58 90 11/27/22 14:07 92 11/27/22 12:21 94 11/27/22 09:00 Room Air 11/27/22 12:05 92 11/27/22 11:36 92 11/27/22 11:18 93 11/27/22 06:58 11/27/22 07:22 97 Nasal Cannula 2 (1) Sleep apnea Sleep apnea type: obstructive Qualified Code(s): G47.33 - Obstructive sleep apnea (adult) (pediatric) (2) CAD (coronary artery disease), [place] coronary artery Associated angina: without angina [place] vs. transplanted heart: [place] heart Qualified Code(s): I25.10 - Atherosclerotic heart disease of [place] coronary artery without angina pectoris
[2022-11-27] MEDS: lisinopril 10 MG TAB PO SCH (20:23)
[2022-11-27] MEDS: PRAVASTATIN SOD 40 MG TAB PO SCH (20:23)
[2022-11-27] MEDS: CALCIUM CARBONATE 1250MG TAB PO SCH (20:23)
[2022-11-27] MEDS: PANTOprazole 40 MG TAB PO SCH (20:24)
[2022-11-27] MEDS: SPIRONOLACTONE 25 MG TAB PO SCH (20:24)
[2022-11-27] MEDS: VITAMIN B COMPLEX TAB PO SCH (20:24)
[2022-11-27] MEDS: DOCUSATE SODIUM/SENNA 50/8.6MG TAB PO SCH (20:24)
[2022-11-27] MEDS ORDERED: CEPHALEXIN 500 MG PO SCH (21:00)
[2022-11-27] MEDS: cephALEXin 500 MG CAP PO SCH (23:10)
[2022-11-27] MEDS: LORazepam 0.5 MG TAB PO PRN (23:14)
[2022-11-28] MEDS: POLYETHYLENE (MIRALAX) 17 GM PACK PO SCH ×4 (02:24→18:18)
[2022-11-28] MEDS: HYDROmorphone INJ 1 MG/ML SYRINGE IV PRN ×3 (04:01→23:17)
[2022-11-28] MEDS: LEVOTHYROXINE SODIUM 25 MCG TABLET PO SCH (05:40)
[2022-11-28 07:03] LABS: Hematocrit (blood only) 28.5 % (34.1-44.9); Hemoglobin 9.2 g/dl (12.0-16.0); Mean Corpuscular Hemoglobin 30.5 pg (25.0-34.0); Mean Corpuscular Hgb Conc 32.3 g/dL (32.0-36.0); Mean Corpuscular Volume 94.4 fL (80.0-100.0); Mean Platelet Volume 8.7 fL (9.4-12.3); Platelet Count 231 K/uL (130-400); RDW Coefficient of Variation 14.6 % (11.5-14.5); Red Blood Count 3.02 M/uL (3.93-5.22); White Blood Count 9.09 K/ul (4.8-10.8)
[2022-11-28 07:37] LABS: BUN Creatinine Ratio 18.5 (10-20); Calcium 7.9 mg/dl (8.5-10.1); Creatinine Clr Calc Pharmacy 74.9 ml/min; Est GFR (Non-African American) 76.8 ml/min
[2022-11-28] MEDS: oxyCODONE HCL IR 5 MG TAB (IMMEDIATE RELEASE) PO SCH ×2 (07:51→20:34)
[2022-11-28] MEDS: FUROSEMIDE 20 MG TAB PO SCH ×2 (07:51→16:54)
[2022-11-28] MEDS: FERROUS SULFATE 325 MG TAB PO SCH (07:52)
[2022-11-28] MEDS: ASPIRIN 81 MG ECTAB PO SCH (07:52)
[2022-11-28] MEDS: GABAPENTIN 600 MG TAB PO SCH ×4 (07:52→20:33)
[2022-11-28] MEDS: ASCORBIC ACID 500 MG TAB PO SCH (07:52)
[2022-11-28] MEDS: lamoTRIgine 100 MG TAB PO SCH ×2 (07:52→20:33)
[2022-11-28] MEDS: DULoxetine HCL 60 MG CAP PO SCH (07:53)
[2022-11-28] MEDS: POTASSIUM CHLORIDE 10 MEQ TABCR PO SCH ×2 (07:53→20:33)
[2022-11-28] MEDS: NYSTATIN CR 15 GM TUBE EXT SCH ×2 (07:53→20:34)
[2022-11-28] MEDS: METOPROLOL SUCC 25MG EXT REL TAB PO SCH ×2 (07:53→20:33)
[2022-11-28] MEDS: ADVANCED PROBIOTIC 1250 MG CAPSULE PO SCH (07:53)
[2022-11-28] MEDS: dexAMETHasone 6 MG in SYRINGE 0 ML IV SCH (07:53)
[2022-11-28] MEDS: oxyCODONE HCL IR 5 MG TAB (IMMEDIATE RELEASE) PO PRN ×2 (09:55→16:53)
--- NOTE | 2022-11-28 11:59 | Orthopedic Progress Note ---
Date of Service November 28, 2022 Assessment & Plan (1) Hardware failure: Plan: This time we will continue physical therapy monitor her JOSLYN output anticipate discharge home tomorrow. (2) Acute blood loss as cause of postoperative anemia: Plan: Patient has received 2 units of blood and hemoglobin is now 9.2. Admission and Anticipated Discharge Date Admission Date: November 26, 2022 Subjective Patient's back pain is better controlled. She is tolerating physical therapy. Physical Exam Physical Exam: Patient appears comfortable. Is good strength testing. Results & Data ([facility]) Vital Signs (Past 12 Hours) Vital Signs Temp Pulse Resp BP Pulse Ox O2 Del Method 11/28/22 07:37 36.9 C 73 18 105/57 L 94 Room Air
--- NOTE | 2022-11-28 15:36 | Hospitalist Progress Note ---
Date of Service November 28, 2022 Assessment & Plan (1) Neurogenic claudication due to lumbar spinal stenosis: (2) Hyperkalemia: (3) CAD (coronary artery disease), [place] coronary artery: (4) Hypertension: (5) HFrEF (heart failure with reduced ejection fraction): (6) Hyperlipidemia: (7) Sleep apnea: (8) Neurogenic bladder: (9) History of pulmonary embolism: (10) History of blood clots: (11) Depression: (12) Hypothyroidism: Plan Ms. Davis is a 62 year old female that presented to the [facility] for surgical revision of T11-T12; L1 with a T11 kyphoplasty and T8-T12 decompression and fusion under the care of Dr. Barrow. Her initial thoracolumbar fusion was performed on October 29. Neurogenic claudication due to lumbar spinal stenosis: POD# 1 s/p revision decompression and fusions with kyphoplasty with Dr. Barrow. Per ortho for pain control, wound care, anticoagulation and activities. Continue pain control Continue incentive spirometry Hemoglobin 9.2 today Continue PT OT Fall precaution Acute blood loss anemia Mostly due to recent orthopedic procedure s/p 3 units PRBC during the hospital course Hemoglobin 9.2 today Continue monitor H/H Hyperkalemia: Potassium stable continue monitor BMP CAD: HTN: Previous AMI; RADHA x1 in 2004 HFrEF: No sign of fluid overload Will resume Lasix in a.m. Continue spironolactone Last ECHO EF 45% Continue monitor closely for sign of fluid overload History of PE/DVT: PE 2015 DVT 2019 status post knee replacement On Xarelto; continue Hyperlipidemia: Takes Pravachol; continue KIAH: Uses CPAP at home; continue while here Has albuterol for breakthrough wheezing; continue Neurogenic bladder: Status post pudendal nerve damage Self caths at home Acevedo inserted intraoperatively; discontinue when fluids discontinued Depression: Takes duloxetine; continue Hypothyroidism: Takes levothyroxine; continue GERD: Takes Protonix; continue Please [facility] [place] text. Thank you kindly for this consultation. Admission and Anticipated Discharge Date Admission Date: November 26, 2022 Subjective Patient was seen and evaluated for postop follow-up Sitting in chair with no acute distress She said that pain is tolerable She said that she has not had a BM yet Denies any chest pain, palpitation, dizziness, shortness of breath. Review of Systems Review of Systems: All systems reviewed & are unremarkable except as noted in Subjective Physical Exam Physical Exam: General- No acute distress Head- atraumatic Eyes- PERRL, EOMI, ENT- oropharynx clear Neck- supple, no JVD Lungs- clear to auscultation Heart- regular rhythm; no murmur Abdomen- normal bowel sounds, soft, nontender Extremities- no calf tenderness Neuro- alert, oriented x 3; PERRL, EOMI; no facial palsy; no dysarthria Skin- warm & dry Results & Data Results & Data ([facility]) Vital Signs (Past 12 Hours) Vital Signs Temp Pulse Resp BP Pulse Ox O2 Del Method 11/28/22 15:15 37.0 C 70 18 112/67 95 Room Air 11/28/22 07:37 36.9 C 73 18 105/57 L 94 Room Air (1) Sleep apnea Sleep apnea type: obstructive Qualified Code(s): G47.33 - Obstructive sleep apnea (adult) (pediatric) (2) CAD (coronary artery disease), [place] coronary artery Associated angina: without angina [place] vs. transplanted heart: [place] heart Qualified Code(s): I25.10 - Atherosclerotic heart disease of [place] coronary artery without angina pectoris
--- NOTE | 2022-11-28 18:11 | XRay Report ---
XR thoracolumbar spine 2V CLINICAL HISTORY: Postop posterior fusion of the thoracolumbar spine. COMPARISON STUDY: None. FINDINGS: Posterior decompression fusion within the thoracolumbar spine from the T8-L3 levels with pe dicle screws and rods. Hardware appears intact. Multilevel kyphoplasty from T8 through T12 are also n oted. A surgical drain is seen at the laminectomy sites. Scattered small linear areas of cement seen within the lumbar veins and pulmonary vessels. IMPRESSION: 1. Posterior decompression fusion from T8 through L3 with pedicle screws and rods. The hardware appea rs intact. 2. Multilevel kyphoplasty from T8 through T12. Scattered small linear areas of cement within the lumb ar veins and pulmonary vessels are noted. ACT 112: Negative or not required by law. Electronically signed by: Chavo Almeida M.D. 11/28/2022 6:10 PM
[2022-11-28] MEDS: VITAMIN B COMPLEX TAB PO SCH (20:33)
[2022-11-28] MEDS: lisinopril 10 MG TAB PO SCH (20:33)
[2022-11-28] MEDS: SPIRONOLACTONE 25 MG TAB PO SCH (20:33)
[2022-11-28] MEDS: cephALEXin 500 MG CAP PO SCH (20:33)
[2022-11-28] MEDS: DOCUSATE SODIUM/SENNA 50/8.6MG TAB PO SCH (20:33)
[2022-11-28] MEDS: PRAVASTATIN SOD 40 MG TAB PO SCH (20:34)
[2022-11-28] MEDS: CALCIUM CARBONATE 1250MG TAB PO SCH (20:34)
[2022-11-28] MEDS: PANTOprazole 40 MG TAB PO SCH (20:34)
[2022-11-28] MEDS: LORazepam 0.5 MG TAB PO PRN (20:34)
[2022-11-29] MEDS: POLYETHYLENE (MIRALAX) 17 GM PACK PO SCH ×3 (00:19→12:13)
[2022-11-29] MEDS: HYDROmorphone INJ 1 MG/ML SYRINGE IV PRN ×2 (05:19→08:09)
[2022-11-29] MEDS: LEVOTHYROXINE SODIUM 25 MCG TABLET PO SCH (05:32)
[2022-11-29] MEDS: ASCORBIC ACID 500 MG TAB PO SCH (08:04)
[2022-11-29] MEDS: NYSTATIN CR 15 GM TUBE EXT SCH (08:05)
[2022-11-29] MEDS: FERROUS SULFATE 325 MG TAB PO SCH (08:05)
[2022-11-29] MEDS: ADVANCED PROBIOTIC 1250 MG CAPSULE PO SCH (08:05)
[2022-11-29] MEDS: ASPIRIN 81 MG ECTAB PO SCH (08:06)
[2022-11-29] MEDS: FUROSEMIDE 20 MG TAB PO SCH (08:06)
[2022-11-29] MEDS: METOPROLOL SUCC 25MG EXT REL TAB PO SCH (08:06)
[2022-11-29] MEDS: lamoTRIgine 100 MG TAB PO SCH (08:07)
[2022-11-29] MEDS: GABAPENTIN 600 MG TAB PO SCH ×2 (08:07→12:13)
[2022-11-29] MEDS: POTASSIUM CHLORIDE 10 MEQ TABCR PO SCH (08:07)
[2022-11-29] MEDS: dexAMETHasone 6 MG in SYRINGE 0 ML IV SCH (08:07)
--- NOTE | 2022-11-29 09:47 | Discharge Summary ---
Date of Service November 29, 2022 Admission HPI Per Admitting Provider This is a 62-year-old female known to me the presents with chronic persistent back pain status post lumbar decompression fusion. She is evidence of loosening of hardware and here for revision. Principal Diagnosis Failed hardware Discharge Data Allergies Allergy/AdvReac Type Severity Reaction Status Date / Time hydroxychloroquine Allergy Severe Hives, SOB Verified 11/26/22 10:40 Sulfa (Sulfonamide Allergy Severe Hives, SOB Verified 11/26/22 10:40 Antibiotics) Consultations 11/26/22 17:30 Consult Hospitalist Routine Procedures Performed Operation Date: 11/26/22 12:05 Actual Procedures p T8-T12 Fusion, T11 Hardware Removal,(Not Applicable) - Tye Barrow DO s Possible T11 Kyphoplasty, Spinal Cord Monitoring - Tye Barrow DO Ordered Studies 11/26/22 12:05 [place] thoracic spine 2V Routine Hospital Course (1) Neurogenic claudication due to lumbar spinal stenosis: Patient underwent thoracolumbar revision fusion. Tolerated well second orthopedic for postop labor postop day 1 she was up and ambulating progress postop day #2 and 3 JOSLYN drain decreased appropriately. Pain controlled. Excellent strength testing. Separately discharged home. Discharge orders instructions found in chart for further review. 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 You may walk to your tolerance. It is good exercise for your legs and back. Expect some back and intermittent leg aches and pains. 2. You may perform "counter-top" level activities (make a sandwich, eugenia with a project, etc.). 3. No bending or lifting of more than 10 pounds or back twisting of any nature (roll like a log when turning in bed). 4. You may ride in a car for 20-30 minutes at a time. No driving until after your first visit with your doctor. 5. Frequent changes of position and restricting sitting to 30 minutes at a time will help limit the amount of back spasms and stiffness you may experience. 6. You may discontinue the use of ambulatory aids (cane, crutches, etc.) once your strength and confidence allow. 7. 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 Do not take a tub bath, sit in a hot tub or go into a swimming pool until after your first recheck in the office. SPECIAL CARE INSTRUCTIONS: VERY IMPORTANT TO READ AND REVIEW A. Your surgical incision has been closed with a cosmetic suture under the skin that will dissolve in about 6 weeks. In 14 days, you can use a pair of clean scissors and cut the suture that is left outside of the skin at the ends of your incision. 1. The small skin tapes can be removed 7 days after surgery if they have not fallen off by that point. 2. You may keep the wound open to air as much as possible to promote healing after post-op day number 5 unless told otherwise by your doctor. 3. If you think the wound looks like it is becoming infected (redness or worsening drainage) and/or you are experiencing fever, chill or worsening back pain and muscle spasms, contact the office so that we may evaluate you as soon as possible. B. Complications are uncommon, but please contact us if you have any signs or symptoms of: 1. wound infection (fever higher than 102.5 degrees F, redness, separation of wound, drainage, or increasing pain from the incision) 2. blood clots in legs (pain, swelling, redness and warmth in legs) 3. urinary tract infection (fever higher than 102.5 degrees F, burning upon urination or increased frequency of urination) 4. nerve problems (inability to walk on your toes or heels, numbness, loss of bowel or bladder control) 5. any other symptoms that concern you C. Please call the office at if you have any concerns or questions about your operation or recovery. D. No smoking! Smoking drastically decreases the chance of a solid fusion. E. Do not take any anti-inflammatory medications (Indocin, Advil, Motrin, Aspirin, Naprosyn, etc.) as these may inhibit the chance of a solid fusion. Tylenol is okay to take for pain. MANAGING PAIN AFTER SPINAL SURGERY 1. Narcotic medication is intended for short-term use and will be provided for surgical pain. Surgical pain usually lasts for a period of 4-6 weeks. Narcotic medication includes Percocet, Vicodin, Darvocet, Tylenol #3 or Lortab. 2. Longer-term pain is more appropriately treated with non-narcotic medication such as Tylenol ES. 3. Muscle spasm is not appropriately treated with narcotics. Muscle relaxers such as Soma, Flexeril or Skelaxin can be used along with Tylenol ES. 4. Remember that we all live with some "aches and pains". This is not unusual or uncommon after an injury or as we get older. a. Back pain is expected and may include muscle spasms for 4 to 6 weeks after surgery. The pain should gradually improve. If the pain worsens for no apparent reason, please contact the office. b. Intermittent leg pain may also be experienced and should not be concerned about unless it worsens for no apparent reason. If so, please contact the office. 5. We will provide appropriate medication within the normal guidelines of their prescribed use. We will also be very cautious and aware of potential abuse and extended duration of patients' medication needs. a. Pain medications are for your comfort and to assist with sleep and rest so that the tissue can heal. They are not provided in order to return to normal activity and should not be used through the day. To do so or worsening pain at night can result from ongoing tissue damage and development of tolerance to the prescribed medicine. 6. Please allow 2-3 days to process refills. Prescriptions will not be mailed but must be picked up at the office. FOLLOW UP VISIT: Keep your scheduled follow-up appointment. Any questions, please call the office at . Pending Studies at Discharge: No Stand-Alone Forms: [employer] Tablet Themes, Smoking Cessation Medications and DC Order Prescriptions: New tramadol 50 mg tablet 50 mg PO Q6H PRN (Reason: pain, moderate) Qty: 30 0RF oxycodone 5 mg tablet 5 mg PO Q6H PRN (Reason: pain, severe) Qty: 30 0RF Continued albuterol sulfate [ProAir HFA] 90 mcg/actuation HFA aerosol inhaler 2 puffs INH Q6H PRN (Reason: shortness of breath or wheezing) Qty: 3 1RF gabapentin 600 mg tablet 600 mg PO QID (DME) CPAP Machine Misc See Rx Instructions .ROUTE .MEDSUPPLY Qty: 1 0RF Rx Instructions: Please change pressures on the BiPap to 10/7. Lifetime need. Dulera 200-5 mcg/actuation HFA aerosol inhaler 1 puffs INH BID PRN (Reason: Shortness Of Breath) Label Comments: hasn't used in a couple years aspirin 81 mg tablet 81 mg PO QAM calcium carbonate [Calcium 600] 600 mg calcium (1,500 mg) Tablet 600 mg PO HS ipratropium-albuterol 0.5 mg-3 mg(2.5 mg base)/3 mL Solution For Nebulization 3 ml INHALATION UD PRN (Reason: SOB) Label Comments: hasn't used in several years pravastatin [Pravachol] 40 mg Tablet 40 mg PO HS levothyroxine [Synthroid] 25 mcg Tablet 25 mcg PO QAM potassium chloride [Klor-Con 8] 8 mEq Tablet Extended Release 8 meq PO BID pantoprazole [Protonix] 40 mg Tablet,Delayed Release (Dr/Ec) 40 mg PO BID lisinopril 10 mg Tablet 10 mg PO HS nitroglycerin [Nitrostat] 0.4 mg Tablet, Sublingual 0.4 mg Sublingual UD PRN (Reason: Chest Pain) cephalexin 500 mg Tablet 500 mg PO HS Label Comments: maintenance for self catheterization vitamin B complex Tablet 1 tab PO HS lamotrigine [Lamictal] 100 mg Tablet 200 mg PO BID oxycodone 20 mg Tablet 20 mg PO BID cholecalciferol (vitamin D3) [Vitamin D3] 2,000 unit Capsule 2,000 unit PO BID Probiotic 3 billion cell Capsule 3,000 mmu cells PO BID duloxetine 60 mg Capsule,Delayed Release(Dr/Ec) 60 mg PO QAM dexlansoprazole [Dexilant] 60 mg Capsule,Biphase Delayed Releas 60 mg PO HS acetaminophen 500 mg tablet 1,000 mg PO TID nystatin 100,000 unit/gram cream 1 applic TOPICAL BID Rx Instructions: Apply to great toe bilaterally furosemide 20 mg tablet 20 mg PO BID metoprolol succinate 25 mg tablet extended release 24 hr 25 mg PO BID ketoconazole 2 % cream 1 applic TOPICAL DAILY PRN (Reason: Rash) Rx Instructions: skin folds spironolactone 50 mg tablet 50 mg PO QPM Vitron-C 65 mg iron- 125 mg Tablet,Delayed Release (Dr/Ec) 1 tab PO HS oxycodone 5 mg tablet 5 mg PO Q6H PRN (Reason: pain, severe) Qty: 30 0RF Xarelto 15 mg Tablet 15 mg PO BID Rx Instructions: must administer with evening meal Discharge Orders: Discharge Order (Routine); Ordered 11/29/22 Ordered By: Tye Barrow Admission Data Admit Date/Time: 11/26/22 15:36 Attending Provider: Tye Barrow Admit Provider: Tye Barrow Primary Care Provider: Anna Frankel Other Providers: Jesse Tang
[2022-11-29] MEDS: oxyCODONE HCL IR 5 MG TAB (IMMEDIATE RELEASE) PO SCH (09:49)
[2022-11-29] MEDS: DULoxetine HCL 60 MG CAP PO SCH (09:50)
[2022-11-29 10:09] LABS: Mean Corpuscular Hemoglobin 30.5 pg (25.0-34.0); Mean Corpuscular Hgb Conc 32.3 g/dL (32.0-36.0); Mean Corpuscular Volume 94.5 fL (80.0-100.0); Mean Platelet Volume 9.9 fL (9.4-12.3); Platelet Count 194 K/uL (130-400); RDW Coefficient of Variation 14.3 % (11.5-14.5); RDW Standard Deviation 49.2 fL (36.4-46.3); Red Blood Count 3.28 M/uL (3.93-5.22); White Blood Count 11.62 K/ul (4.8-10.8)
--- NOTE | 2022-11-29 10:50 | Hospitalist Progress Note ---
Date of Service November 29, 2022 Assessment & Plan (1) Neurogenic claudication due to lumbar spinal stenosis: (2) Hyperkalemia: (3) CAD (coronary artery disease), [place] coronary artery: (4) Hypertension: (5) HFrEF (heart failure with reduced ejection fraction): (6) Hyperlipidemia: (7) Sleep apnea: (8) Neurogenic bladder: (9) History of pulmonary embolism: (10) History of blood clots: (11) Depression: (12) Hypothyroidism: Plan Ms. Davis is a 62 year old female that presented to the [facility] for surgical revision of T11-T12; L1 with a T11 kyphoplasty and T8-T12 decompression and fusion under the care of Dr. Barrow. Her initial thoracolumbar fusion was performed on October 29. Neurogenic claudication due to lumbar spinal stenosis: POD# 2 s/p revision decompression and fusions with kyphoplasty with Dr. Barrow. Per ortho for pain control, wound care, anticoagulation and activities. Continue pain control Continue incentive spirometry Hemoglobin 10 today Continue PT OT Fall precaution Acute blood loss anemia Mostly due to recent orthopedic procedure s/p 3 units PRBC during the hospital course Hemoglobin stable at 10 on discharge Continue monitor H/H Hyperkalemia: Potassium stable continue monitor BMP CAD: HTN: Previous AMI; RADHA x1 in 2004 HFrEF: No sign of fluid overload Will resume Lasix in a.m. Continue spironolactone Last ECHO EF 45% Continue monitor closely for sign of fluid overload History of PE/DVT: PE 2015 DVT 2019 status post knee replacement On Xarelto; continue Hyperlipidemia: Takes Pravachol; continue KIAH: Uses CPAP at home; continue while here Has albuterol for breakthrough wheezing; continue Neurogenic bladder: Status post pudendal nerve damage Self caths at home Acevedo inserted intraoperatively; discontinue when fluids discontinued Depression: Takes duloxetine; continue Hypothyroidism: Takes levothyroxine; continue GERD: Takes Protonix; continue [facility] feel [facility] via [place] text. Thank you kindly for this consultation. Admission and Anticipated Discharge Date Admission Date: November 26, 2022 Subjective Patient was seen and evaluated for postop follow-up She is getting ready to be discharge She said that she feels well He pain is control Denies any chest pain, palpitation, dizziness, shortness of breath. Review of Systems Review of Systems: All systems reviewed & are unremarkable except as noted in Subjective Physical Exam Physical Exam: General- No acute distress Head- atraumatic Eyes- PERRL, EOMI, ENT- oropharynx clear Neck- supple, no JVD Lungs- clear to auscultation Heart- regular rhythm; no murmur Abdomen- normal bowel sounds, soft, nontender Extremities- no calf tenderness Neuro- alert, oriented x 3; PERRL, EOMI; no facial palsy; no dysarthria Skin- warm & dry Results & Data Results & Data ([facility]) Vital Signs (Past 12 Hours) Vital Signs Temp Pulse Pulse Resp BP BP Pulse Ox 11/29/22 10:10 36.9 C 70 72 18 112/67 128/60 94 11/29/22 08:02 36.9 C 72 18 128/60 94 O2 Del Method 11/29/22 10:10 11/29/22 08:02 Room Air (1) Sleep apnea Sleep apnea type: obstructive Qualified Code(s): G47.33 - Obstructive sleep apnea (adult) (pediatric) (2) CAD (coronary artery disease), [place] coronary artery Associated angina: without angina [place] vs. transplanted heart: [place] heart Qualified Code(s): I25.10 - Atherosclerotic heart disease of [place] coronary artery without angina pectoris
== END 2022-11-29 13:45 | disposition home or self-care (01) | DRG 460 ==
LOC: ASU 10:15 → 3W 15:36